=== PATIENT | male | born 1965 | race Caucasian/White ===

== ENCOUNTER → 2016-09-18 | Outpatient (CLI) | payer MEDICAID ==
[2016-09-18 09:24] VITALS: BP 149/85; PULSE 73; RESP 20; TEMP 98; BMI 38.3
--- NOTE | 2016-11-06 05:34 | P.PN ---
Progress Note - Text DATE OF SERVICE: 09/18/2016 CHIEF COMPLAINT: Panniculitis. HISTORY OF PRESENT ILLNESS: Ken Grissom is a 51-year-old gentleman who initially had a Liliana-en-Y gastric bypass performed by Dr. Weiss in 2011. At his heaviest he was 361 pounds. Today he comes in weighing 267 pounds. His previous total weight loss has been 112 pounds. At his height of 5 foot 10 his ideal body weight is 173 pounds. His body mass index has been reduced from 51.9 down to 38.3. He has achieved 50% excess weight loss. Total BMI point reduction is 13.6. Separately, he has reported some weight gain of approximately 23 pounds since his last visit approximately 1-1/2 to 2 years ago. At that time, he reports injury to the left knee and as a result, he has weight gain. Separately over the last 2 to 3 years he has had persistent severe panniculitis which is unresolved despite topical treatment prescriptions with nystatin powder. He reports recurrent skin breakdown including along the bilateral groin and pubis. He has been using nystatin powder for a minimum for 3 years ago. In addition, he also comes in with left upper quadrant abdominal pain. He now presents for further evaluation to address his abdominal pain as well as recurrent panniculitis. PAST MEDICAL HISTORY: 1. Seasonal allergies. 2. Pneumonia. 3. Asthma. 4. Morbid obesity. 5. Dyslipidemia. 6. Kidney stones. 7. Panniculitis. PAST SURGICAL HISTORY: 1. Liliana-en-Y gastric bypass. 2. Upper endoscopy. 3. Kidney stone extraction. MEDICATIONS: 1. Nystatin powder. 2. Multivitamin. 3. Singulair. 4. Vitamin B12. 5. Vitamin D. 6. Symbicort. ALLERGIES: 1. PENICILLIN. 2. STATIN DRUGS. SOCIAL HISTORY: Denies any active tobacco use. FAMILY HISTORY: Pertinent for morbid obesity. REVIEW OF SYSTEMS: CONSTITUTIONAL: Highest weight of 361 pounds for a 5 foot 10 frame. [place] body weight of 173 pounds. Weight gain of 23 pounds in the last 2 years secondary to recent knee injury. Overall maintained weight loss of 94 pounds. GENITOURINARY: History of kidney stones. MUSCULOSKELETAL: Recent injury to the left knee. Otherwise, previous history of osteoarthritis which is improved. HEENT: Denies any trouble with vision or hearing. ENDOCRINE: No reports of active diabetes or thyroid disorder. RESPIRATORY: History of asthma. Denies any recent pneumonia. CARDIOVASCULAR: Denies any chest pain or heart attack. No active reports of dyslipidemia, which is now resolved since her surgery. GI: Denies any dumping syndrome, diarrhea or constipation. NEURO: No reports of stroke or seizure disorders. PSYCH: No reports of depression or suicidal ideation. HEMATOLOGIC: Denies easy bruising and bleeding. PHYSICAL EXAM: VITAL SIGNS: 98.0, 73, 20, 149/85, 5 foot 10, 267 pounds. Body mass index 38.3. ABDOMEN: Severe panniculitis with skin breakdown along the abdominal pannus. Pannus extends over pubis by over 4 cm. Area is tender to touch. GENERAL: Well-developed pleasant male in no acute distress. HEENT: No sclera icterus. Extraocular movements grossly intact. Moist buccal mucosa. Head is atraumatic, normocephalic. Hears conversational speech. No nasal drainage. NECK: Supple without lymphadenopathy. No JV distention. CHEST: Non-labored respirations and equal bilateral excursions. CARDIOVASCULAR: Regular rate and rhythm. Palpable 2+ radial pulses. MUSCULOSKELETAL: No clubbing, cyanosis or edema. NEUROLOGIC: No focal or lateralizing signs. PSYCH: Appropriate affect. Alert and oriented to person, place and time. ASSESSMENT: 1. Morbid obesity due to excess calories. 2. Body mass index reduced from 51.9 down to 38.3. 3. Status post massive weight loss. 4. Recurrent recalcitrant panniculitis of the abdomen. 5. Osteoarthritis of the left knee. 6. Left upper quadrant abdominal pain. 7. Resolved dyslipidemia. 8. Prior history of chronic obstructive sleep apnea, now resolved. 9. History of benign hypertension disease, now resolved. 10. History of dyslipidemia, now resolved. 11. Osteoarthritis of the bilateral knees secondary to morbid obesity, now improved. PLAN: 1. Since being in the program over the past 5 years he has had recurrent and severe panniculitis. Despite topical treatment including systemic therapy, he still continues to have severe panniculitis. Recommend panniculectomy. 2. He also reports left upper quadrant abdominal pain. With his history of Liliana-en-Y gastric bypass, including previous history of kidney stones, recommend a CT of the abdomen and pelvis to review a cause of his pain. This may also be evident of a hernia at the site. 3. Recommend a bariatric metabolic panel as he is over a year to 2 years out from his last visit. 4. Recommend aggressive local treatment to improve his panniculitis prior to surgical intervention. 5. A panniculectomy packet was given especially complications of infection, bleeding, severe pain, cosmetic deformity, flap failure, postoperative seroma and placement of drains. 6. Will recommend a 2-week high-protein, low-caloric diet prior to surgical intervention as to augment is overall nutrition.
== END | disposition home or self-care (01) ==
LOC: BARWHC3 08:53
PROVIDERS: ATTEND Surgery Plastic and Reconstructive Surgery
DX: Z48.815 Encounter for surgical aftercare following surgery on the digestive system (principal); E66.01 Morbid (severe) obesity due to excess calories; Z68.38 Body mass index [BMI] 38.0-38.9, adult; M79.3 Panniculitis, unspecified; M17.12 Unilateral primary osteoarthritis, left knee; Z87.442 Personal history of urinary calculi; R10.12 Left upper quadrant pain; Z98.84 Bariatric surgery status; Z88.0 Allergy status to penicillin; Z88.8 Allergy status to other drugs, medicaments and biological substances; Z79.899 Other long term (current) drug therapy
CPT/HCPCS: 99211

== ENCOUNTER → 2016-10-03 | Outpatient (CLI) | payer MEDICAID ==
--- NOTE | 2016-10-04 08:34 | CT ---
EXAMINATION TYPE: CT abdomen pelvis wo con DATE OF EXAM: 10/03/2016 7:11 AM COMPARISON: 08/08/2014 INDICATION: LUQ pain, bilateral flank pain DLP: 1148 mGycm, Automated exposure control for dose reduction was used. CONTRAST: None Study performed without Oral Contrast TECHNIQUE: Axial images were obtained from above the diaphragm to the pubic rami in the axial plane a t 5 mm thick sections. Reconstructed images are reviewed on the computer in the coronal plane. FINDINGS: Limited CT sections are obtained the lung bases. The lung bases are clear. CT ABDOMEN: Liver: There is an ill-defined hypodensity within the right lobe liver which was present previously. This is similar or slightly smaller in size. Spleen: Normal Pancreas: Normal Adrenal glands: The adrenal glands are normal. Gallbladder: Normal Kidneys: No masses are evident. No hydronephrosis is present. No cysts are present. Multiple bilat eral renal cysts are present. At the inferior pole left kidney there are 2 calcifications measuring 0 .4 and 0.3 cm. Within the midportion of the right kidney is a 1.1 cm calcification. There is a puncta te calcification measuring 0.36 cm in the posterior inferior pole. At the inferior pole is a 0.8 cm c alcification. Calcifications are increasing from 2015. Aorta: Vascular calcification is within the aorta. Inferior vena cava: Normal. CT PELVIS: Loops of bowel within the abdomen and pelvis are normal. Study is without oral contrast limiting evaluation of bowel loops. Postsurgical changes stomach are present. Appendix: Normal as visualized. Urinary bladder: Normal. Genitourinary structures: Prostate appears normal. Osseous structures: No suspicious lytic or sclerotic lesions. Spondylolysis of L5 is present. Degener ative disc changes are present L5-S1 IMPRESSIONS: 1. Bilateral nonobstructing renal stones, increasing in number and size from 2014. 2. Stable to diminished size of ill-defined hypodensity right lobe liver
== END ==
LOC: RADCTMAIN 06:51
PROVIDERS: ATTEND Surgery Plastic and Reconstructive Surgery
DX: N20.0 Calculus of kidney (principal)
CPT/HCPCS: 74176

== ENCOUNTER → 2016-10-08 | Outpatient (CLI) | payer MEDICAID ==
[2016-10-08 16:02] VITALS: BP 131/83; PULSE 63; RESP 16; TEMP 97.7; BMI 36.8
[2016-10-08 16:43] LABS: CH 29.2; CHCM 34.1; HCT 49.4 % (39.0-53.0); HDW 2.84; HGB 16.6 gm/dL (13.0-17.5); MCH 28.9 pg (25.0-35.0); MCHC 33.6 g/dL (31.0-37.0); MCV 86.1 fL (80.0-100.0); RBC 5.74 m/uL (4.30-5.90); RDW 13.2 % (11.5-15.5)
[2016-10-08 17:01] LABS: ALT 56 U/L (21-72); AST 33 U/L (17-59); Alkaline Phosphatase 114 U/L (38-126); Anion Gap 13 mmol/L; Blood Urea Nitrogen 16 mg/dL (9-20); Calcium 9.9 mg/dL (8.4-10.2); Carbon Dioxide 28 mmol/L (22-30); Chloride 101 mmol/L (98-107); Cholesterol 186 mg/dL (<200); Glucose 91 mg/dL (74-99); HDL Cholesterol 55 mg/dL (40-60); Iron 79 ug/dL (49-181); Magnesium 2.1 mg/dL (1.6-2.3); Non-African American GFR(MDRD) >60 (>60 ml/min/1.73 sqM); Phosphorous 3.6 mg/dL (2.5-4.5); Potassium 4.4 mmol/L (3.5-5.1); Sodium 142 mmol/L (137-145); Total Bilirubin 0.7 mg/dL (0.2-1.3); Total Protein 7.5 g/dL (6.3-8.2); Triglycerides 75 mg/dL (<150)
[2016-10-08 17:07] LABS: INR 1.1 (<1.1); Partial Thromboplastin Time 22.1 sec (22.0-30.0); Prothrombin Time 10.9 sec (9.0-12.0)
[2016-10-08 17:12] LABS: % Iron Saturation 21.5 % (20-50); Prealbumin 24 mg/dL (18-36); Total Iron Binding Capacity 367 ug/dL (261-462)
[2016-10-08 18:07] LABS: Vitamin B12 767 pg/mL (239-931)
[2016-10-08 18:12] LABS: Hemoglobin A1C 5.2 % (4.2-6.1)
[2016-10-13 18:28] LABS: Selenium 190 mcg/L (63-160)
--- NOTE | 2016-11-10 08:49 | PN ---
DATE OF SERVICE: 10/08/2016 CHIEF COMPLAINT: Severe panniculitis. HISTORY OF PRESENT ILLNESS: Ken Grissom is a 51-year-old gentleman who underwent gastric bypass in 2011. His highest weight was 361 pounds. Today he comes in weighing 256 pounds. He has lost 105 pounds. Percent excess weight loss is 56%. Body mass index is reduced from 51.9 down to 36.8. Total BMI point reduction is 15.1. He still is 83 pounds overweight. Since her last visit a month ago, he has lost another 11 pounds. Overall he has had chronic and severe panniculitis for well over 3+ years. Despite systemic treatment including topical treatment, his panniculitis is still poorly controlled. He also presents with left upper quadrant abdominal pain of which now presents for further evaluation and management. PAST MEDICAL HISTORY: 1. Seasonal allergies. 2. Pneumonia. 3. Asthma. 4. Morbid obesity. 5. Dyslipidemia. 6. Kidney stones. 7. Panniculitis. PAST SURGICAL HISTORY: 1. Liliana-en-Y gastric bypass. 2. Upper endoscopy. 3. Kidney stone extraction. MEDICATIONS: 1. Nystatin powder. 2. Multivitamin. 3. Singulair. 4. Vitamin B12. 5. Vitamin D. 6. Symbicort. ALLERGIES: 1. PENICILLIN. 2. STATIN DRUGS. SOCIAL HISTORY: Denies any active tobacco use. FAMILY HISTORY: Pertinent for morbid obesity. REVIEW OF SYSTEMS: CONSTITUTIONAL: Highest weight of 361 pounds for a 5-foot 10 frame. [place] body weight of 173 pounds. He has lost another 11 pounds in one month. Total weight loss of 105 pounds. Percent excess weight loss of 56%. GENITOURINARY: History of kidney stones. GASTROINTESTINAL: No reports of gastroesophageal reflux disease or dumping syndrome. MUSCULOSKELETAL: Recent injury to the left knee. Otherwise, previous history of osteoarthritis which is improved. HEENT: Denies any trouble with vision or hearing. ENDOCRINE: No reports of active diabetes or thyroid disorder. RESPIRATORY: History of asthma. Denies any recent pneumonia. CARDIOVASCULAR: Denies any chest pain or heart attack. No active reports of dyslipidemia, which is now resolved since her surgery. NEURO: No reports of stroke or seizure disorders. PSYCH: No reports of depression or suicidal ideation. HEMATOLOGIC: Denies easy bruising and bleeding. PHYSICAL EXAM: VITAL SIGNS: 97.7, 63, 16, 131/83, 5' 10, 256 pounds. Body mass index of 36.8. ABDOMEN: Hyperemia of the pannus with pannus extends over pubis over 4 cm. Severe panniculitis with mild improvement. Soft, nontender, nondistended. GENERAL: Well-developed pleasant male in no acute distress. HEENT: No sclera icterus. Extraocular movements grossly intact. Moist buccal mucosa. Head is atraumatic, normocephalic. Hears conversational speech. No nasal drainage. NECK: Supple without lymphadenopathy. No JV distention. CHEST: Non-labored respirations and equal bilateral excursions. CARDIOVASCULAR: Regular rate and rhythm. Palpable 2+ radial pulses. MUSCULOSKELETAL: No clubbing, cyanosis or edema. NEUROLOGIC: No focal or lateralizing signs. PSYCH: Appropriate affect. Alert and oriented to person, place and time. STUDIES: CT of the abdomen and pelvis was reviewed with him in detail with findings consistent with bilateral obstructing kidney stones with increase in size. No evidence of a bowel obstruction noted. LABS: Hemoglobin normal at 16.6. LDL was elevated at 116. The rest of labs within normal limits. ASSESSMENT: 1. Morbid obesity due to excess calories, improved. 2. Body mass index reduced from 51.9 down of 36.8. 3. Status post massive weight loss, 105 pounds. 4. Recurrent recalcitrant panniculitis of the abdomen. 5. Osteoarthritis of the left knee. 6. Left upper quadrant abdominal pain. 7. Resolved dyslipidemia. 8. Prior history of chronic obstructive sleep apnea, now resolved. 9. History of benign hypertension disease, now resolved. 10. History of dyslipidemia, now resolved. 11. Osteoarthritis of the bilateral knees secondary to morbid obesity, now improved. 12. Status post Liliana-en-Y gastric bypass. 13. Panniculitis. PLAN: 1. I strongly recommend panniculectomy as despite moderate and systemic treatment for over 3+ years, he still has severe panniculitis. 2. He does have history of kidney stones which he should follow up with his urologist. 3. His bariatric metabolic panel was reviewed without any evidence of obvious nutritional deficiencies. 4. For optimal nutrition including recovery I have recommended a 2 week high protein, low caloric diet prior to his procedure. 5. Benefits and risks of panniculectomy including bleeding, infection, flap failure, postoperative seroma and need for drains were also reviewed. 6. Will need to wear abdominal binder at all times. 7. Postoperative recovery at least for no lifting over 4 pounds for 4 weeks was also reviewed. 8. Deep venous thrombosis prophylaxis. 9. Antibiotic prophylaxis. 10. Recommend overnight observation for primarily pain control as well. MTDD
== END | disposition home or self-care (01) ==
LOC: BARWHC3 14:16
PROVIDERS: ATTEND Surgery Plastic and Reconstructive Surgery
DX: Z48.815 Encounter for surgical aftercare following surgery on the digestive system (principal); E66.01 Morbid (severe) obesity due to excess calories; Z98.84 Bariatric surgery status; E21.1 Secondary hyperparathyroidism, not elsewhere classified; E89.1 Postprocedural hypoinsulinemia; D50.8 Other iron deficiency anemias; E44.0 Moderate protein-calorie malnutrition; E55.9 Vitamin D deficiency, unspecified; K74.1 Hepatic sclerosis; N19 Unspecified kidney failure; K50.90 Crohn's disease, unspecified, without complications
CPT/HCPCS: 80053; 80061; 82306; 82525; 82607; 82728; 82746; 83036; 83540; 83550; 83735; 83970; 84100; 84134; 84255; 84425; 84443; 84590; 84630; 85027; 85610; 85730; 99211

== ENCOUNTER → 2016-12-03 | Outpatient (CLI) | payer MEDICAID ==
[2016-12-03 16:14] LABS: EKG EKG PERFORMED
[2016-12-03 16:30] LABS: Basophils % (A) 0 %; CH 29.1; CHCM 34.4; Eosinophils # (A) 0.4 k/uL (0-0.7); Eosinophils % (A) 6 %; HCT 47.1 % (39.0-53.0); HDW 3.11; HGB 15.9 gm/dL (13.0-17.5); Luc # (Auto) 0.23; Luc % (Auto) 3; Lymphocytes # (A) 2.1 k/uL (1.0-4.8); Lymphocytes % (A) 31 %; MCH 28.6 pg (25.0-35.0); MCHC 33.7 g/dL (31.0-37.0); Mean Platelet Volume 6.5; Monocytes # (A) 0.4 k/uL (0-1.0); Monocytes % (A) 6 %; Neutrophils # (A) 3.7 k/uL (1.3-7.7); Neutrophils % (A) 54 %; RBC 5.54 m/uL (4.30-5.90); RDW 13.4 % (11.5-15.5); WBC 6.9 k/uL (3.8-10.6); WBC (Perox) 6.91
[2016-12-03 16:51] LABS: ALT 46 U/L (21-72); AST 29 U/L (17-59); Alkaline Phosphatase 106 U/L (38-126); Anion Gap 9 mmol/L; Blood Urea Nitrogen 14 mg/dL (9-20); Calcium 9.2 mg/dL (8.4-10.2); Carbon Dioxide 31 mmol/L (22-30); Chloride 101 mmol/L (98-107); Glucose 97 mg/dL (74-99); Non-African American GFR(MDRD) >60 (>60 ml/min/1.73 sqM); Potassium 3.9 mmol/L (3.5-5.1); Sodium 141 mmol/L (137-145); Total Bilirubin 0.8 mg/dL (0.2-1.3); Total Protein 7.4 g/dL (6.3-8.2)
== END ==
LOC: LABWHC1 15:57
PROVIDERS: ATTEND Surgery Plastic and Reconstructive Surgery
DX: Z01.810 Encounter for preprocedural cardiovascular examination (principal); Z01.812 Encounter for preprocedural laboratory examination
CPT/HCPCS: 36415; 80053; 85025; 93005

== ENCOUNTER → 2016-12-03 | Outpatient (CLI) | payer MEDICAID ==
[2016-12-03 14:49] VITALS: BP 136/87; PULSE 60; RESP 16; TEMP 98.2; BMI 37.5
--- NOTE | 2017-01-28 03:52 | P.PN ---
Progress Note - Text DATE OF SERVICE: 12/03/2016 CHIEF COMPLAINT: History of panniculitis. HISTORY OF PRESENT ILLNESS: Ken Grissom is a 52-year-old gentleman who comes in with a long-standing history of severe panniculitis. At his height of 5 foot 10, his ideal body weight is 173 pounds. His highest weight was 361 pounds. Today he comes in weighing 261 pounds. He maintained a 100 pound weight loss. Percentage of weight loss is 53%. Body mass index is reduced from 51.9 down to 37.6. Total BMI point reduction is 14.3. He is still 88 pounds overweight. He has actually gained 6 pounds since the last evaluation. Reports intermittent left upper quadrant abdominal pain. Denies any personal history of MRSA infection. With his history of chronic panniculitis he is seeking panniculectomy. PAST MEDICAL HISTORY: 1. Seasonal allergies. 2. Pneumonia. 3. Asthma. 4. Morbid obesity. 5. Dyslipidemia. 6. Kidney stones. 7. Panniculitis. PAST SURGICAL HISTORY: 1. Liliana-en-Y gastric bypass. 2. Upper endoscopy. 3. Kidney stone extraction. MEDICATIONS: 1. Nystatin powder. 2. Multivitamin. 3. Singulair. 4. Vitamin B12. 5. Vitamin D. 6. Symbicort. ALLERGIES: 1. PENICILLIN. 2. STATIN DRUGS. SOCIAL HISTORY: Denies any active tobacco use. FAMILY HISTORY: Pertinent for morbid obesity. REVIEW OF SYSTEMS: CONSTITUTIONAL: At his height of 5 foot 10, his ideal body weight is 173 pounds. His highest weight was 361 pounds. Today he comes in weighing 261 pounds. He maintained a 100 pound weight loss. Percentage of weight loss is 53%. Body mass index is reduced from 51.9 down to 37.6. Total BMI point reduction is 14.3. He is still 88 pounds overweight. GENITOURINARY: History of kidney stones. GASTROINTESTINAL: No reports of gastroesophageal reflux disease or dumping syndrome. MUSCULOSKELETAL: Recent injury to the left knee. Otherwise, previous history of osteoarthritis which is improved. HEENT: Denies any trouble with vision or hearing. ENDOCRINE: No reports of active diabetes or thyroid disorder. RESPIRATORY: History of asthma. Denies any recent pneumonia. CARDIOVASCULAR: Denies any chest pain or heart attack. No active reports of dyslipidemia, which is now resolved since her surgery. NEURO: No reports of stroke or seizure disorders. PSYCH: No reports of depression or suicidal ideation. HEMATOLOGIC: Denies easy bruising and bleeding. PHYSICAL EXAM: VITAL SIGNS: 98.2, 60, 16, 136/87, 5 feet 10, 261 pounds. Body mass index of 37.6. ABDOMEN: Hyperemia noted along the pannus consistent with chronic panniculitis. GENERAL: Well-developed pleasant male in no acute distress. HEENT: No sclera icterus. Extraocular movements grossly intact. Moist buccal mucosa. Head is atraumatic, normocephalic. Hears conversational speech. No nasal drainage. NECK: Supple without lymphadenopathy. No JV distention. CHEST: Non-labored respirations and equal bilateral excursions. CARDIOVASCULAR: Regular rate and rhythm. Palpable 2+ radial pulses. MUSCULOSKELETAL: No clubbing, cyanosis or edema. NEUROLOGIC: No focal or lateralizing signs. PSYCH: Appropriate affect. Alert and oriented to person, place and time. ASSESSMENT: 1. Morbid obesity due to excess calories, improved. 2. Body mass index reduced from a 51.9 down to 37.6. 3. Status post massive weight loss. 4. Recurrent recalcitrant panniculitis of the abdomen. 5. Osteoarthritis of the left knee. 6. Left upper quadrant abdominal pain. 7. Resolved dyslipidemia. 8. Prior history of chronic obstructive sleep apnea, now resolved. 9. History of benign hypertension disease, now resolved. 10. History of dyslipidemia, now resolved. 11. Osteoarthritis of the bilateral knees secondary to morbid obesity, now improved. 12. Status post Liliana-en-Y gastric bypass. 13. History of peritoneal adhesions. PLAN: 1. On further discussion, he reports of abdominal pain and likely risk of hernia. 2. Recommend panniculectomy. Hernia repair may be performed at time of his procedure. 3. Recommend potential laparoscopic lysis of adhesions for history of peritoneal adhesions, 4. Overall he has maintained a 53% excess weight loss and maintained weight loss post procedure was also reviewed at length. 5. Will need inpatient hospitalization anticipated over 2 nights. 6. Risk of seroma, flap failure as well as infection was also reviewed. 7. Recommend abdominal binder post procedure. 8. Will need at minimum 4 to 6 weeks postop recovery and no lifting over 4 pounds. 9. Recommend preoperative labs. LABS: Reviewed demonstrating hemoglobin of 15.9. [facility]
== END | disposition home or self-care (01) ==
LOC: BARWHC3 14:09
PROVIDERS: ATTEND Surgery Plastic and Reconstructive Surgery
DX: Z01.818 Encounter for other preprocedural examination (principal)
CPT/HCPCS: 99211

== ENCOUNTER 2016-12-08 07:15 | Inpatient (IN) | payer MEDICAID ==
[~2016-12-08 07:15] MED LIST: CLINDAMYCIN 900 MG in DEXTROSE 5% IN WATER 50 ML IVPB ONE; DEXAMETHASONE SOD PHOSPHATE 10 MG/ML 1 ML VIAL IV ONE; LACTATED RINGERS 1,000 ML IV SCH; MIDAZOLAM 2 MG/2 ML VIAL IV PRN; ONDANSETRON 4 MG/2 ML VIAL IVP ONE; SCOPOLAMINE 1.5MG/72HR PATCH TRANSDERM ONE
[2016-12-08] MEDS ORDERED: ACETAMINOPHEN IV (For NPO) 1,000 MG in EMPTY BAG 1 BAG IVPB ONE (07:49)
[2016-12-08] MEDS ORDERED: HEPARIN SODIUM,PORCINE 5,000 UNIT/ML 1 ML VIAL SQ ONE (07:49)
--- NOTE | 2016-12-08 07:49 | P.GSHP ---
History of Present Illness H&P Date: 12/08/16 CHIEF COMPLAINT: Severe panniculitis. HISTORY OF PRESENT ILLNESS: Ken Grissom is a 51-year-old gentleman who underwent gastric bypass in 2011. His highest weight was 361 pounds. Today he comes in weighing 261 pounds. He has lost 100 pounds. Percent excess weight loss is 56%. Body mass index is reduced from 51.9 down to 37.6. Total BMI point reduction is 15.1. Overall he has had chronic and severe panniculitis for well over 3+ years. Despite systemic treatment including topical treatment, his panniculitis is still poorly controlled. He also presents with left upper quadrant abdominal pain of which now presents for further evaluation and management. PAST MEDICAL HISTORY: 1. Seasonal allergies. 2. Pneumonia. 3. Asthma. 4. Morbid obesity. 5. Dyslipidemia. 6. Kidney stones. 7. Panniculitis. PAST SURGICAL HISTORY: 1. Liliana-en-Y gastric bypass. 2. Upper endoscopy. 3. Kidney stone extraction. MEDICATIONS: 1. Nystatin powder. 2. Multivitamin. 3. Singulair. 4. Vitamin B12. 5. Vitamin D. 6. Symbicort. ALLERGIES: 1. PENICILLIN. 2. STATIN DRUGS. SOCIAL HISTORY: Denies any active tobacco use. FAMILY HISTORY: Pertinent for morbid obesity. REVIEW OF SYSTEMS: CONSTITUTIONAL: Highest weight of 361 pounds for a 5-foot 10 frame. [place] body weight of 173 pounds. He has lost another 11 pounds in one month. Total weight loss of 100 pounds. Percent excess weight loss of 56%. GENITOURINARY: History of kidney stones. GASTROINTESTINAL: No reports of gastroesophageal reflux disease or dumping syndrome. MUSCULOSKELETAL: Recent injury to the left knee. Otherwise, previous history of osteoarthritis which is improved. HEENT: Denies any trouble with vision or hearing. ENDOCRINE: No reports of active diabetes or thyroid disorder. RESPIRATORY: History of asthma. Denies any recent pneumonia. CARDIOVASCULAR: Denies any chest pain or heart attack. No active reports of dyslipidemia, which is now resolved since her surgery. NEURO: No reports of stroke or seizure disorders. PSYCH: No reports of depression or suicidal ideation. HEMATOLOGIC: Denies easy bruising and bleeding. PHYSICAL EXAM: VITAL SIGNS: 97.7, 63, 16, 131/83, 5' 10, 261 pounds. Body mass index of 37.6. ABDOMEN: Hyperemia of the pannus with pannus extends over pubis over 4 cm. Panniculitis with hyperemia and ulceration. Soft, nontender, nondistended. GENERAL: Well-developed pleasant male in no acute distress. HEENT: No sclera icterus. Extraocular movements grossly intact. Moist buccal mucosa. Head is atraumatic, normocephalic. Hears conversational speech. No nasal drainage. NECK: Supple without lymphadenopathy. No JV distention. CHEST: Non-labored respirations and equal bilateral excursions. CARDIOVASCULAR: Regular rate and rhythm. Palpable 2+ radial pulses. MUSCULOSKELETAL: No clubbing, cyanosis or edema. NEUROLOGIC: No focal or lateralizing signs. PSYCH: Appropriate affect. Alert and oriented to person, place and time. ASSESSMENT: 1. Morbid obesity due to excess calories, improved. 2. Body mass index reduced from 51.9 down to 37.6 3. Status post massive weight loss. 4. Recurrent recalcitrant panniculitis of the abdomen. 5. Osteoarthritis of the left knee. 6. Left upper quadrant abdominal pain. 7. Resolved dyslipidemia. 8. Prior history of chronic obstructive sleep apnea, now resolved. 9. History of benign hypertension disease, now resolved. 10. History of dyslipidemia, now resolved. 11. Osteoarthritis of the bilateral knees secondary to morbid obesity, now improved. 12. Status post Liliana-en-Y gastric bypass. PLAN: 1. I strongly recommend panniculectomy as despite moderate and systemic treatment for over 3+ years, he still has severe panniculitis. 2. His bariatric metabolic panel was reviewed without any evidence of obvious nutritional deficiencies. 3. For optimal nutrition including recovery I have recommended a 2 week high protein, low caloric diet prior to his procedure. 4. Benefits and risks of panniculectomy including bleeding, infection, flap failure, postoperative seroma and need for drains were also reviewed. 5. Will need to wear abdominal binder at all times. 6. Postoperative recovery at least for no lifting over 4 pounds for 4 weeks was also reviewed. 7. Deep venous thrombosis prophylaxis. 8. Antibiotic prophylaxis. 9. Recommend overnight observation for primarily pain control as well. 10. He has completed diagnostic studies demonstrating history of kidney stones; however, his left upper quadrant pain is at high risk for intra-abdominal adhesions. He has elected for laparoscopic lysis of adhesions at the time of his panniculectomy. Past Medical History Past Medical History: Asthma Additional Past Medical History / Comment(s): Pt passed 2 kidney stones in August 2014 at 2 different times. History of Any Multi-Drug Resistant Organisms: None Reported Past Surgical History: Bariatric Surgery, Orthopedic Surgery Additional Past Surgical History / Comment(s): Left knee surgery pt for torn meniscus and bone on bone (pt doesn't know the name) 2015. RT ARM SX- REATTACHMENT OF BICEP, EGD, LILIANA EN Y, Past Anesthesia/Blood Transfusion Reactions: Postoperative Nausea & Vomiting ( PONV) Past Psychological History: No Psychological Hx Reported Smoking Status: Never smoker Past Alcohol Use History: Rare Past Drug Use History: None Reported - Past Family History Father Family Medical History: Cancer Additional Family Medical History / Comment(s): Prostate Cancer for Father. Grandparents brain and bone cancer. Medications and Allergies Home Medications Medication Instructions Recorded Confirmed Type Budesonide-Formot 160-4.5 Mcg 2 puff INHALATION BID 03/08/14 12/04/16 History [Symbicort 160-4.5 Mcg Inhaler] Montelukast Sodium [Singulair] 10 mg PO DAILY 03/08/14 12/04/16 History Albuterol Sulfate [Ventolin HFA] 2 puff INHALATION DAILY PRN 12/04/16 12/04/16 History Multivitamin [Men's Multi-Vitamin] 1 each PO DAILY 12/04/16 12/04/16 History Allergies Allergy/AdvReac Type Severity Reaction Status Date / Time Penicillins AdvReac Anaphylaxis Verified 12/04/16 08:29 [id number] Reductase AdvReac Chest Pain Verified 12/04/16 08:29 Inhibitor
[2016-12-08] MEDS ORDERED: LIDOCAINE 1% 20 ML VIAL (10MG/ML) FOR IV START INTRADERMA ONE (08:25)
[2016-12-08] MEDS ORDERED: NEOSTIGMINE 1 MG/ML 10 ML VIAL ONE (09:33)
[2016-12-08] MEDS ORDERED: ROCURONIUM BROMIDE 10 MG/ML 10 ML VIAL IV ONE (09:33)
[2016-12-08] MEDS ORDERED: fentaNYL (PF) 50 MCG/ML 2 ML AMP ONE (09:33)
[2016-12-08] MEDS ORDERED: LIDOCAINE 1% INJ 10MG/ML (20 ML MDV) ONE (09:33)
[2016-12-08] MEDS ORDERED: SUCCINYLCHOLINE CHLORIDE 100 MG/5 ML SYR IV ONE (09:33)
[2016-12-08] MEDS ORDERED: GLYCOPYRROLATE 0.2 MG/ML 2 ML VIAL ONE (09:33)
[2016-12-08] MEDS ORDERED: PROPOFOL 10 MG/ML 20 ML VIAL IV ONE (09:33)
[2016-12-08] MEDS ORDERED: ePHEDrine 50 MG/ML 1 ML AMP ONE (09:33)
[2016-12-08] MEDS ORDERED: MIDAZOLAM 2 MG/2 ML VIAL ONE (09:33)
[2016-12-08] MEDS ORDERED: BUPIVACAIN-EPI 0.25%-1:200,000 30 ML VIAL SQ ONE (10:14)
[2016-12-08] MEDS ORDERED: LACTATED RINGERS 1,000 ML IV ONE ×2 (11:07→11:56)
[2016-12-08] MEDS ORDERED: NALOXONE 0.4 MG/ML 1 ML VIAL IV PRN ×2 (13:42→13:44)
[2016-12-08] MEDS ORDERED: HYDROcodone/APAP 15 ML SOLUTION PO PRN (13:42)
[2016-12-08] MEDS ORDERED: ONDANSETRON 4 MG/2 ML VIAL IVP PRN (13:42)
[2016-12-08] MEDS ORDERED: ALBUTEROL NEBULIZED 2.5 MG/3 ML INHALATION PRN (13:45)
--- NOTE | 2016-12-08 13:48 | P.PCN ---
Date of Procedure: 12/08/16 Preoperative Diagnosis: Left upper quadrant abdominal pain, history of gastric bypass, massive weight loss of 100 pounds, recurrent severe panniculitis Postoperative Diagnosis: Same, severe intra-abdominal adhesions epigastrium, left upper quadrant Procedure(s) Performed: Laparoscopic lysis of adhesions over 1 hour, panniculectomy 5.5 pounds, repair of ventral hernia with bilateral advancement flap 35 cm x 16 cm Anesthesia: GETRosalva, local (90 mL mixture of Marcaine with normal saline) Surgeon: Arielle Medeiros Estimated Blood Loss (ml): 80 Pathology: none sent Condition: stable Disposition: floor Operative Findings: No inguinal hernias, severe epigastric and left upper quadrant abdominal adhesions, thick fibrous scar tissue of left upper abdomen loss of subcutaneous tissue also excised
[2016-12-08] MEDS: HYDROmorphone 1 MG/ML 1 ML SYRINGE IVP PRN ×2 (14:16→14:21)
[2016-12-08 14:43] VITALS: RESP 16
[2016-12-08] MEDS: 0.9% NACL WITH KCL 20 MEQ/L 1,000 ML IV SCH ×2 (14:59→22:05)
[2016-12-08 15:21] VITALS: BMI 37.4
[2016-12-08] MEDS: HYDROmorphone PCA 5 MG/25 ML SYRINGE IV PRN ×2 (15:24→20:52)
--- NOTE | 2016-12-08 16:09 | P.OP ---
Date of Procedure: 12/08/16 Description of Procedure: SURGEON: PANDA MORENO MD CIGAR MAKING MACHINE OPERATOR: DEANDRE MORALES PREOPERATIVE DIAGNOSES: 1. Morbid obesity due to excess calories, improved. 2. Body mass index reduced from 51.9 down to 37.6 3. Status post massive weight loss. 4. Recurrent recalcitrant panniculitis of the abdomen. 5. Osteoarthritis of the left knee. 6. Left upper quadrant abdominal pain. 7. Resolved dyslipidemia. 8. Prior history of chronic obstructive sleep apnea, now resolved. 9. History of benign hypertension disease, now resolved. 10. History of dyslipidemia, now resolved. 11. Osteoarthritis of the bilateral knees secondary to morbid obesity, now improved. 12. Status post Liliana-en-Y gastric bypass. POSTOPERATIVE DIAGNOSES: 1. Morbid obesity due to excess calories, improved. 2. Body mass index reduced from 51.9 down to 37.6 3. Status post massive weight loss. 4. Recurrent recalcitrant panniculitis of the abdomen. 5. Osteoarthritis of the left knee. 6. Left upper quadrant abdominal pain. 7. Resolved dyslipidemia. 8. Prior history of chronic obstructive sleep apnea, now resolved. 9. History of benign hypertension disease, now resolved. 10. History of dyslipidemia, now resolved. 11. Osteoarthritis of the bilateral knees secondary to morbid obesity, now improved. 12. Status post Liliana-en-Y gastric bypass. 13. Peritoneal adhesions, epigastrium and right upper quadrant greater omentum to abdominal wall. 14. Ventral hernia, 14 x 35 cm, initial and reducible, unrelated to previous bariatric procedure. OPERATION: 1. Panniculectomy, 5.5 pounds. 2. Primary repair of ventral hernia 14 x 35 cm with bilateral rectus abdominous muscle advancement. 3. Laparoscopic lysis of adhesions over 45 minutes. ANESTHESIA: General with 90 mL of quarter percent Marcaine with epinephrine and normal saline mixture. ESTIMATED BLOOD LOSS: 80 mL SPECIMENS REMOVED: Pannus 5.5 pounds. COMPLICATIONS: None. CONDITION: Stable. DRAINS: Two #19 [place] drains below abdominal flap extending through the pubis. OPERATIVE FINDINGS: 1. Pannus weighing 5.5 pounds, excised. 2. Abdominal ventral hernia of 14 x 35 cm along the midline repaired with bilateral rectus abdominous muscle advancement. INDICATIONS: Ken Grissom is a 51-year-old gentleman who underwent gastric bypass in 2011. His highest weight was 361 pounds. Today he comes in weighing 261 pounds. He has lost 100 pounds. Percent excess weight loss is 56%. Body mass index is reduced from 51.9 down to 37.6. Overall he has had chronic and severe panniculitis for well over 3+ years. Despite systemic treatment including topical treatment, his panniculitis is still poorly controlled. He also presented with left upper quadrant abdominal pain of which now presents for further evaluation and management. Given his clinical symptoms, including massive weight loss, he elected for surgical intervention with a panniculectomy. Benefits and risks of the procedure including but not limited to bleeding, infection, risk of flap failure, chronic pain, abdominal wall seromas, skin necrosis were described at length. Additionally, he has left upper quadrant abdominal pain where diagnostic laparoscopy was reviewed to address his intra-abdominal adhesions. Informed consent was obtained. DESCRIPTION: The patient was brought into the operating room and laid in supine position. After general induction, a Carranza catheter was placed. The abdomen was then prepped and draped in standard sterile fashion using ChloraPrep. The skin was prepped as far laterally to the back, inferiorly to the upper thighs and superiorly to above the bilateral chest. A timeout protocol was confirmed with the surgical team regarding patient's name , procedure to be performed, including preoperative medications and DVT prophylaxis. Once the time-out protocol was confirmed with the surgical team, the patient was marked with indelible marker whereby the midline of the xiphoid to the mons pubis was marked. To minimize bleeding, a mixture of local and normal saline was infiltrated along the proposed incision sites. The anterior/superior iliac spine along the bilateral hips was also marked. Approximately 8 cm above the base of the penis, a transverse incision was made for the inferior portion of the flap. Using a #10 blade, the incision was taken from the midline laterally to above the anterior/superior iliac spine, initially on the left side of the patient and then on the right side of the patient. Electro-Bovie cautery was used to control for hemostasis. The dissection was taken down to the level of the fascia. Landmarks used were the xiphoid process as well as the bilateral costal margins for the superior margin. Care was taken to avoid any creation of dog ears during the dissection to the proposed landmarks. A dense fibrous scar of the left upper quadrant was also confirmed as the area of his pain. A pannus retractor was placed given the heavy size of his abdominal wall flap. A diagnosis laparoscopy was performed as the abdominal flap was elevated. A 5- mm trocar was placed along the right upper quadrant using laparoscopic trocar entry. The abdomen was insufflated to 15 mmHg pressure which he tolerated well. Diagnosed laparoscopy confirmed multiple greater omentum to abdominal wall adhesions of the epigastrium particularly of the left upper quadrant which was the source of his moderate pain. An additional 5 m trocar was placed below the umbilicus and another along the right lower quadrant under direct visualization. Using a Sonicision, extensive lysis of adhesions performed within the abdominal cavity of over 45 minutes. All instruments pneumoperitoneum was evacuated from the abdominal cavity. The port sites were oversewn using 0 Vicryl in [id number] fashion. This concluded the laparoscopic portion of this case. Once hemostasis was checked, a large ventral hernia fascial defect of 14 x 35 cm was identified unrelated to his bariatric procedure. During this dissection, the umbilicus was truncated at its fascial insertion. The rectus border along the external oblique was identified and marked. A bilateral rectus abdominis muscle advancement was prepared using fascial imbrication. Starting from the xiphoid process, fascial imbrication was performed using #2 Ethibond. Multiple facial imbrications at least 6 layers were performed. The ventral hernia defect was completely repaired and closed. For postop analgesia, local with sensorcaine and normal saline mixture was infiltrated along the midline and fascia. Hemostasis was once again checked with electro-Bovie cautery and all defects were addressed. Attention was now brought to closure of the flap. Using stainless steel skin sita, the midline was once again marked of the upper flap as well as the pubic commissure. The patient was placed in a flexed position of approximately 30 degrees at the hips. The pannus was extended inferiorly to the feet. The upper flap was created once the excess skin was excised. Again care was taken to avoid any dog ears along the lateral aspect of the incisions. Once excised, the pannus was weighed at 5.5 pounds. The upper and lower flaps were reapproximated at the midline and then laterally to the skin with skin sita. Once reapproximated, the skin was closed in layers using 0 Vicryl for the superficial fascial system followed by running 3- 0 Monocryl for the deep dermis in a running subcuticular fashion. Prior to skin closure, two round #19 [place] drains were placed underneath the flap and brought out just inferior to the incision along the pubis. Drain stitch using 2-0 nylon was placed. Once the incision was closed, bulb suction was attached. Hemostasis was checked. At the end of the procedure, the needle, sponge and instrument count was verified correct. Dermabond tape and liquid were placed along the incisions. Once dried, OptiFoam RocketOz AG antibiotic dressings were placed. At the NICOLLE insertion sites, tacking suture using 2-0 nylon was placed. The drains were placed to bulb suction. CHG Tegaderm was placed to prevent risk of infection at the NICOLLE sites. The patient was then transferred to a hospital bed in a beach chair position. An abdominal binder was placed and marked. The patient was taken to the postanesthesia care unit in stable condition, awake and extubated. Total time for procedure from skin to skin was 184 minutes. The intraoperative findings were discussed with his family who was pleased with the level of care.
[2016-12-08] MEDS: ALBUTEROL NEBULIZED 2.5 MG/3 ML INHALATION SCH ×2 (16:43→19:41)
[2016-12-08] MEDS: CLINDAMYCIN 900 MG in DEXTROSE 5% IN WATER 50 ML IVPB SCH ×2 (18:07)
[2016-12-09] MEDS: HYDROmorphone PCA 5 MG/25 ML SYRINGE IV PRN (02:29)
[2016-12-09] MEDS: CLINDAMYCIN 900 MG in DEXTROSE 5% IN WATER 50 ML IVPB SCH ×2 (02:32)
[2016-12-09] MEDS: 0.9% NACL WITH KCL 20 MEQ/L 1,000 ML IV SCH (05:08)
[2016-12-09] MEDS: ALBUTEROL NEBULIZED 2.5 MG/3 ML INHALATION SCH ×3 (07:02→15:46)
[2016-12-09 07:42] VITALS: BP 139/66; TEMP 98.2
[2016-12-09] MEDS ORDERED: 0.9% NACL WITH KCL 20 MEQ/L 1,000 ML IV SCH (08:00)
[2016-12-09] MEDS ORDERED: HYDROcodone/APAP 5-325MG 1 EACH TAB PO PRN (08:53)
[2016-12-09] MEDS ORDERED: HYDROcodone/APAP 5-325MG 1 EACH TAB PO STA (08:53)
[2016-12-09] MEDS ORDERED: HYDROmorphone 1 MG/ML 1 ML SYRINGE IVP PRN (08:53)
--- NOTE | 2016-12-09 08:53 | P.PN ---
Subjective Principal diagnosis: Adiposis panniculus with panniculitis The patient is status post panniculectomy of 6 pounds including ventral hernia repair using muscle advancement flap. Pain was controlled with [employer]. No reports of fevers or chills. Carranza catheters assessment discontinued at bedside. Objective - Vital Signs Vital signs: Vital Signs Temp 98.2 F 12/09/16 07:42 Pulse 76 12/09/16 07:42 Resp 16 12/09/16 07:42 BP 139/66 12/09/16 07:42 Pulse Ox 97 12/09/16 07:42 Intake & Output 12/08/16 12/09/16 12/09/16 18:59 06:59 18:59 Intake Total 3931 1800 Output Total 1460 555 Balance 2471 1245 Weight 118.3 kg Intake: IV 3806 1800 0.9% NaCl with KCl 20 Meq 1800 /l 1,000 ml @ 150 mls/hr IV .[id number] [facility] Rx#: [id number] Oral 125 Output: Drainage 115 Left Lower Abdomen 80 Right Lower Abdomen 35 Urine 1350 440 Uretheral (Carranza) 440 Estimated Blood Loss 110 Other: Voiding Method Indwelling Catheter Indwelling Catheter - Exam GENERAL: Well developed and in no acute distress. Pleasant. HEENT: No sclera icterus. Extraocular movements grossly intact. Moist buccal mucosa. Head is atraumatic, normocephalic. Hears conversational speech. No nasal drainage. NECK: Supple without lymphadenopathy. No JV distention. CHEST: Non-labored respirations and equal bilateral excursions. CARDIOVASCULAR: Regular rate and rhythm. Palpable 2+ radial pulses. ABDOMEN: Soft, nondistended. Minimal. Incisional tenderness. Abdominal binder clean dry and intact. NICOLLE serosanguineous. Flaps viable. MUSCULOSKELETAL: No clubbing, cyanosis or edema. NEUROLOGIC: No focal or lateralizing signs. PSYCH: Appropriate affect. Alert and oriented to person, place and time. Assessment and Plan (1) Panniculus adiposus Status: Acute (2) Panniculitis Status: Acute (3) Bariatric surgery status Status: Acute (4) Ventral hernia without obstruction or gangrene Status: Acute (5) Asthma Status: Acute (6) Peritoneal adhesions Status: Acute (7) S/P laparoscopy Status: Acute (8) S/P panniculectomy Status: Acute Plan: 1. Carranza has been discontinued. We'll await voiding trial. 2. Pain tablets by mouth. 3. Wear abdominal binder at all times. 4. NICOLLE teaching prior to discharge this afternoon.
[2016-12-09] MEDS ORDERED: MONTELUKAST 10 MG TAB PO SCH (09:00)
[2016-12-09] MEDS ORDERED: ENOXAPARIN 40 MG/0.4 ML SYRINGE SQ SCH (09:00)
[2016-12-09] MEDS ORDERED: PANTOPRAZOLE 40 MG/10 ML VIAL IV SCH (09:00)
[2016-12-09] MEDS ORDERED: TAMSULOSIN 0.4 MG CAP.ER.24H PO STA (11:27)
[2016-12-09 15:48] VITALS: PULSE 78
[2016-12-10] MEDS ORDERED: PANTOPRAZOLE 40 MG TABLET PO SCH (07:30)
--- NOTE | 2016-12-12 21:34 | P.DS ---
Providers Date of admission: 12/08/16 07:15 Expected date of discharge: 12/09/16 Attending physician: Arielle Medeiros Primary care physician: Harjinder Almanzar - Discharge Diagnosis(es) (1) Panniculus adiposus Status: Acute (2) Panniculitis Status: Acute (3) Bariatric surgery status Status: Acute (4) Ventral hernia without obstruction or gangrene Status: Acute (5) Asthma Status: Acute (6) Peritoneal adhesions Status: Acute (7) S/P laparoscopy Status: Acute (8) S/P panniculectomy Status: Acute Hospital Course: POSTOPERATIVE DIAGNOSES: 1. Morbid obesity due to excess calories, improved. 2. Body mass index reduced from 51.9 down to 37.6 3. Status post massive weight loss. 4. Recurrent recalcitrant panniculitis of the abdomen. 5. Osteoarthritis of the left knee. 6. Left upper quadrant abdominal pain. 7. Resolved dyslipidemia. 8. Prior history of chronic obstructive sleep apnea, now resolved. 9. History of benign hypertension disease, now resolved. 10. History of dyslipidemia, now resolved. 11. Osteoarthritis of the bilateral knees secondary to morbid obesity, now improved. 12. Status post Liliana-en-Y gastric bypass. 13. Peritoneal adhesions, epigastrium and right upper quadrant greater omentum to abdominal wall. 14. Ventral hernia, 14 x 35 cm, initial and reducible, unrelated to previous bariatric procedure. HOSPITAL COURSE: The patient is a 51-year-old gentleman with history of severe panniculitis following over 100 pound weight loss from gastric bypass open 3+ years ago. He underwent a panniculectomy with over 5 pounds of skin excised. Separately a large ventral hernia was also repaired. Prior to discharge, his pain was controlled. He was tolerating diet. Immediate follow-up with the bariatric center within 48-72 hours as advised. teaching was also reviewed. Pertinent Studies: None. Procedures: OPERATION: 1. Panniculectomy, 5.5 pounds. 2. Primary repair of ventral hernia 14 x 35 cm with bilateral rectus abdominous muscle advancement. 3. Laparoscopic lysis of adhesions over 45 minutes. Patient Condition at Discharge: Stable Plan - Discharge Summary New Discharge Prescriptions: Hydrocodone/Acetaminophen [[place] 5-325] 1 - 2 each PO Q6HR PRN #60 tab PRN Reason: Pain Discharge Medication List Budesonide-Formot 160-4.5 Mcg [Symbicort 160-4.5 Mcg Inhaler] 2 puff INHALATION RT-BID 03/08/14 [History] Montelukast Sodium [Singulair] 10 mg PO DAILY 03/08/14 [History] Albuterol Sulfate [Ventolin HFA] 2 puff INHALATION RT-Q4H PRN 12/04/16 [History] Multivitamin [Men's Multi-Vitamin] 1 tab PO DAILY 12/04/16 [History] Hydrocodone/Acetaminophen [[place] 5-325] 1 - 2 each PO Q6HR PRN #60 tab 12/09/16 [Rx] diphenhydrAMINE HCL [Benadryl] 25 mg PO HS PRN #30 tab 12/11/16 [Rx] predniSONE 5 mg PO BID #10 tab 12/11/16 [Rx] Follow up Appointment(s)/Referral(s): Arielle Medeiros MD [STAFF PHYSICIAN] - 12/11/16 10:45 am (Bariatric Center) Patient Instructions/Handouts: Jose Manuel-Dunlap Drain Care (GEN), Belt Lipectomy ( GEN), Abdominal Binder (GEN) Activity/Diet/Wound Care/Special Instructions: Lifting over 4 pounds in 4 weeks. Wear abdominal binder at all times. Please keep track of NICOLLE drainage. Discharge Disposition: HOME SELF-CARE
== END 2016-12-09 17:09 | disposition home or self-care (01) | DRG 572 ==
LOC: 2ORWHC 07:15 → 3SUR 13:29
PROVIDERS: ADMIT Surgery Plastic and Reconstructive Surgery; ATTEND Surgery Plastic and Reconstructive Surgery
PROC: 0WQF4ZZ Repair Abdominal Wall, Percutaneous Endoscopic Approach (ICD-10-PCS; principal; 2016-12-08 09:15)
PROC: 0KXK0Z6 Transfer Right Abdomen Muscle, Transverse Rectus Abdominis Myocutaneous Flap, Open Approach (ICD-10-PCS; principal; 2016-12-08 09:15)
PROC: 0HB7XZZ Excision of Abdomen Skin, External Approach (ICD-10-PCS; principal; 2016-12-08 09:15)
PROC: 0DNS4ZZ (ICD-10-PCS; principal; 2016-12-08 09:15)
PROC: 0KXL0Z6 Transfer Left Abdomen Muscle, Transverse Rectus Abdominis Myocutaneous Flap, Open Approach (ICD-10-PCS; principal; 2016-12-08 09:15)
DX: M79.3 Panniculitis, unspecified (principal); E66.01 Morbid (severe) obesity due to excess calories; G47.33 Obstructive sleep apnea (adult) (pediatric); J45.909 Unspecified asthma, uncomplicated; K43.9 Ventral hernia without obstruction or gangrene; K66.0 Peritoneal adhesions (postprocedural) (postinfection); Z79.899 Other long term (current) drug therapy; Z87.442 Personal history of urinary calculi; Z98.84 Bariatric surgery status; Z88.0 Allergy status to penicillin; Z68.37 Body mass index [BMI] 37.0-37.9, adult
CPT/HCPCS: 94640; 94760; 94762

== ENCOUNTER → 2016-12-11 | Outpatient (CLI) | payer MEDICAID ==
[2016-12-11 11:12] VITALS: BP 170/96; PULSE 90; RESP 16; TEMP 98.1
[2016-12-11 11:41] VITALS: BMI 38.0
--- NOTE | 2017-01-26 23:14 | PN ---
DATE OF SERVICE: 12/11/2016 CHIEF COMPLAINT: Follow-up panniculectomy. HISTORY OF PRESENT ILLNESS: Ken Grissom is a 52-year-old gentleman who is status post panniculectomy on 12/08/2016 including ventral hernia repair. He comes in having moderate induration and allergic reaction from Dermabond tape. He reports moderate itching. At his height of 5 feet 10 inches his ideal body is 173 pounds. His previous weight was 361 pounds at highest. Today he comes in weighing 264 pounds. He has maintained a 97 pound weight loss. Percent excess weight loss of 51%. Incidentally, he has gained 9 pounds since last evaluation 3 months ago. Body mass index is reduced with 51.9 down to 38. He is still 91 pounds overweight. PHYSICAL EXAM: VITAL SIGNS: 98.1, 90, 16, 170/96, 5 foot 10, 264 pounds. Body mass index 38. ABDOMEN: Hyperemia noted along the panniculectomy incisions. Dressings were completely discontinued. NICOLLE drains were serosanguineous. GENERAL: Well-developed pleasant male in no acute distress. HEENT: No sclera icterus. Extraocular movements grossly intact. Moist buccal mucosa. Head is atraumatic, normocephalic. Hears conversational speech. No nasal drainage. NECK: Supple without lymphadenopathy. No JV distention. CHEST: Non-labored respirations and equal bilateral excursions. CARDIOVASCULAR: Regular rate and rhythm. Palpable 2+ radial pulses. MUSCULOSKELETAL: No clubbing, cyanosis or edema. NEUROLOGIC: No focal or lateralizing signs. PSYCH: Appropriate affect. Alert and oriented to person, place and time. ASSESSMENT: 1. History of panniculectomy. 2. Personal history of Liliana-en-Y gastric bypass. 3. Status post massive weigh loss of 97 pounds. 4. Allergic reaction to Dermabond. PLAN: 1. He has moderate to severe allergies for which recommend Benadryl cream. 2. If symptoms continue, would also benefit from possible steroid injection. 3. Recommend followup in 3 to 5 days for NICOLLE drain assessment. [facility]
== END | disposition home or self-care (01) ==
LOC: BARWHC3 10:18
PROVIDERS: ATTEND Surgery Plastic and Reconstructive Surgery
DX: Z48.815 Encounter for surgical aftercare following surgery on the digestive system (principal); Z98.84 Bariatric surgery status; L29.9 Pruritus, unspecified; Z91.09 Other allergy status, other than to drugs and biological substances
CPT/HCPCS: 99211

== ENCOUNTER → 2016-12-15 | Outpatient (CLI) | payer MEDICAID ==
[~2016-12-15] MED LIST changes: -CLINDAMYCIN 900 MG in DEXTROSE 5% IN WATER 50 ML IVPB ONE; +DEXAMETHASONE SOD PHOSPHATE 10 MG/ML 1 ML VIAL IM STA; -DEXAMETHASONE SOD PHOSPHATE 10 MG/ML 1 ML VIAL IV ONE; -LACTATED RINGERS 1,000 ML IV SCH; -MIDAZOLAM 2 MG/2 ML VIAL IV PRN; -ONDANSETRON 4 MG/2 ML VIAL IVP ONE; -SCOPOLAMINE 1.5MG/72HR PATCH TRANSDERM ONE
[2016-12-15 11:32] VITALS: BP 150/95; PULSE 73; RESP 15; TEMP 98
--- NOTE | 2017-01-30 09:28 | PN ---
DATE OF SERVICE: 12/15/2016 CHIEF COMPLAINT: History of panniculectomy. HISTORY OF PRESENT ILLNESS: Ken Grissom is a 51-year-old gentleman who is status post panniculectomy on 12/08/2016. He is now one week out. He reports moderate discomfort from his procedure. Otherwise, he had developed a severe reaction from Dermabond tape and liquid. He reports moderate itching. No reports of fevers or chills. He still reports drainage from his NICOLLE drains of over 40 mL serosanguineous. No reports of fevers or chills. At his height is 5 feet 10 inches, he comes in weighing 264 pounds. His maintained weight loss is at 97 pounds. He has had at least 13 pound weight gain since his previous evaluation prior to his panniculectomy. PHYSICAL EXAM: VITAL SIGNS: 98.0, 73, 15, 150/95, 5 feet 10 inches, 264 pounds. ABDOMEN: Hyperemia along the incision without signs of infection or cellulitis. His findings are consistent with allergic reaction. NICOLLE drain is still serosanguineous. GENERAL: Well-developed pleasant male in no acute distress. HEENT: No sclera icterus. Extraocular movements grossly intact. Moist buccal mucosa. Head is atraumatic, normocephalic. Hears conversational speech. No nasal drainage. NECK: Supple without lymphadenopathy. No JV distention. CHEST: Non-labored respirations and equal bilateral excursions. CARDIOVASCULAR: Regular rate and rhythm. Palpable 2+ radial pulses. MUSCULOSKELETAL: No clubbing, cyanosis or edema. NEUROLOGIC: No focal or lateralizing signs. PSYCH: Appropriate affect. Alert and oriented to person, place and time. ASSESSMENT: 1. Status post panniculectomy. 2. Adverse reaction to Dermabond tape including liquid adhesive. PLAN: 1. I have recommended Decadron 10 mg subcutaneous to help with his allergic reaction. 2. He still has a fair amount of NICOLLE output drainage and would recommend discontinue in the next 3 to 5 days. 3. Recommend follow up sooner should he have any further concerns. [facility]
== END | disposition home or self-care (01) ==
LOC: BARWHC3 09:24
PROVIDERS: ATTEND Surgery Plastic and Reconstructive Surgery
DX: T78.8XXA Other adverse effects, not elsewhere classified, initial encounter (principal)
CPT/HCPCS: 99212; 96372; J1100

== ENCOUNTER → 2016-12-19 | Outpatient (CLI) | payer MEDICAID ==
[2016-12-19 11:31] VITALS: BP 144/90; PULSE 87; TEMP 97.9; BMI 36.1
--- NOTE | 2017-01-30 12:05 | P.PN ---
Progress Note - Text DATE OF SERVICE: 12/19/2016 CHIEF COMPLAINT: Follow-up panniculectomy. HISTORY OF PRESENT ILLNESS: Ken Grissom is a 52-year-old gentleman, status post panniculectomy 12/08/2016. He is now postop day #11. He comes in for additional drain management. Her reports minimal output of NICOLLE drain just less than 30 or 20 mL daily. Separately, he had received Decadron 10 mg IV several days ago where his hyperemia and rash is now moderately improved. No reports of fevers or chills. At his height of 5 feet 10 inches, his ideal body weight is 173 pounds. His highest weight was 361 pounds. Today he comes in weighing 252 pounds. He has now maintained a 109-pound weight loss. Incidentally, he has now lost 13 pounds from his last visit. Body mass index is reduced at 51.9 down to 36.2. Percent excess weight loss now 58%. PHYSICAL EXAM: VITAL SIGNS: 97.9, 87, 16, 144/90, height of 5 feet 10 inches, 252 pounds. Body mass index 36.2. ABDOMEN: Hyperemia along the panniculectomy incision is now completely improved. NICOLLE serosanguineous. GENERAL: Well-developed pleasant male in no acute distress. HEENT: No sclera icterus. Extraocular movements grossly intact. Moist buccal mucosa. Head is atraumatic, normocephalic. Hears conversational speech. No nasal drainage. NECK: Supple without lymphadenopathy. No JV distention. CHEST: Non-labored respirations and equal bilateral excursions. CARDIOVASCULAR: Regular rate and rhythm. Palpable 2+ radial pulses. MUSCULOSKELETAL: No clubbing, cyanosis or edema. NEUROLOGIC: No focal or lateralizing signs. PSYCH: Appropriate affect. Alert and oriented to person, place and time. ASSESSMENT: 1. History of panniculectomy. 2. History of status post massive weight loss, 109 pounds. 3. Personal history of Liliana-en-Y gastric bypass. 4. Body mass index reduced from 51.9 down to 36.2. PLAN: 1. His NICOLLE drains have been discontinued at bedside. 2. I did discuss with him potential risk of postoperative seroma. He was encouraged to wear his abdominal binder at all times. 3. Symptoms such as increased abdominal girth, tightness and discomfort was described for which follow up in 5 to 7 days was advised. 4. I asked him to follow up sooner should he have any further concerns.
== END | disposition home or self-care (01) ==
LOC: BARWHC3 09:54
PROVIDERS: ATTEND Surgery Plastic and Reconstructive Surgery
DX: Z48.815 Encounter for surgical aftercare following surgery on the digestive system (principal); Z98.84 Bariatric surgery status; Z68.36 Body mass index [BMI] 36.0-36.9, adult
CPT/HCPCS: 99212

== ENCOUNTER → 2016-12-26 | Outpatient (CLI) | payer MEDICAID ==
[2016-12-26 13:41] VITALS: PULSE 75; TEMP 97.8; BMI 35.8
[2016-12-26 15:14] VITALS: BP 188/90
--- NOTE | 2017-01-30 12:24 | P.PN ---
Progress Note - Text DATE OF SERVICE: 12/26/2016 CHIEF COMPLAINT: Followup panniculectomy. HISTORY OF PRESENT ILLNESS: Ken Grissom is a 52-year-old gentleman who is status post panniculectomy now on 12/08/2016. He is approximately 3 weeks out. Last week his NICOLLE drains were discontinued. He was warned about following closely with measurements of his abdomen for risks of postoperative seroma. Today he comes with increased abdominal discomfort. No reports of erythema or infection. At his height of 5 feet 10 inches, his ideal body weight is 173 pounds. His highest weight was 361 pounds. Today he comes in weighing 249 pounds. He has lost 112 pounds. He has lost 2 pounds in one week. Body mass index has been reduced from 51.9 to 35.8. He is 76 pounds overweight. He has achieved 59% excess weight loss. BMI point reduction of 16 points. PHYSICAL EXAM: VITAL SIGNS: 97.8, 75, 16, 188/90. Height 5 feet 10 inches. Weight 249 pounds. Body mass index 35.8. GENERAL: Well-developed male in no acute distress. ABDOMEN: Palpable fluid seroma along the bilateral lower flanks. No signs of erythema or infection. GENERAL: Well-developed pleasant male in no acute distress. HEENT: No sclera icterus. Extraocular movements grossly intact. Moist buccal mucosa. Head is atraumatic, normocephalic. Hears conversational speech. No nasal drainage. NECK: Supple without lymphadenopathy. No JV distention. CHEST: Non-labored respirations and equal bilateral excursions. CARDIOVASCULAR: Regular rate and rhythm. Palpable 2+ radial pulses. MUSCULOSKELETAL: No clubbing, cyanosis or edema. NEUROLOGIC: No focal or lateralizing signs. PSYCH: Appropriate affect. Alert and oriented to person, place and time. ASSESSMENT: 1. Personal history of panniculectomy. 2. Postoperative seroma; expected outcome. 3. Status post massive weight loss; 112 pounds. 4. Body mass index reduced from 51.9 to 35.8. 5. Morbid obesity. PLAN: 1. I have recommended fluid drainage at bedside, as he has discomfort and likely a seroma. 2. Recommend wearing his abdominal binder at all times except for showering, at least for the next several weeks. 3. Recommend followup in at least one week. PROCEDURE: Fine needle aspiration of abdominal seroma. DESCRIPTION: Patient was laid supine. After verbal consent, the lower abdomen was anesthesized above his incision along the bilateral quadrants. Using a 22- gauge needle and a 20-mL syringe, 5 mL of serosanguineous drainage was removed along the right side. Next, a separate needle was used along the left side, whereby 3 mL was also aspirated, consistent with seroma. The patient tolerated the procedure well. Recommend followup in one week. Also may benefit from ultrasound-guided drainage, given the deep soft subcutaneous tissue.
== END | disposition home or self-care (01) ==
LOC: BARWHC3 11:57
PROVIDERS: ATTEND Surgery Plastic and Reconstructive Surgery
DX: Z48.815 Encounter for surgical aftercare following surgery on the digestive system (principal); K91.872 Postprocedural seroma of a digestive system organ or structure following a digestive system procedure; E66.01 Morbid (severe) obesity due to excess calories; Z68.35 Body mass index [BMI] 35.0-35.9, adult; Z98.84 Bariatric surgery status
CPT/HCPCS: 99212

== ENCOUNTER → 2016-12-30 | Outpatient (CLI) | payer MEDICAID ==
--- NOTE | 2016-12-30 15:18 | CT ---
EXAMINATION TYPE: CT abdomen pelvis wo con DATE OF EXAM: 12/30/2016 3:03 PM HISTORY: Pt states of lower and left abdominal pain. Skin removal sx x3 weeks ago. CT DLP: 1273.1 mGycm. Automated Exposure Control for Dose Reduction was Utilized. TECHNIQUE: CT scan of the abdomen and pelvis is performed without oral or IV contrast. COMPARISON: CT abdomen and pelvis October 03, 2016. Older CTs back through October 06, 2012. FINDINGS: Within the limitations of a non-contrast study, the following observations are made. LUNG BASES: No significant abnormality is appreciated. LIVER/GB: Heterogeneous hypodense lesion right hepatic lobe measuring 2.5 x 2.0 cm on axial image 40 is redemonstrated and appears to correlate with benign hemangioma on prior CTs from 2012. PANCREAS: No significant abnormality is seen. SPLEEN: No significant abnormality is seen. ADRENALS: No significant abnormality is seen. KIDNEYS: There are 2 small calculi lower pole level left kidney measuring 2 mm or smaller in size. Th ere are 3 calculi scattered throughout right kidney measuring up to 8 mm in size on axial image 81. N o hydronephrosis or obstructing renal calculi are clearly seen bilaterally. BOWEL: Surgical changes from gastric bypass procedure epigastric region are redemonstrated.. GENITAL ORGANS: No gross abnormality seen. LYMPH NODES: No greater than 1cm abdominal or pelvic lymph nodes are appreciated. OSSEOUS STRUCTURES: Some multilevel spurring in the thoracic spine is noted. OTHER: There is new thin-walled fluid collection in the anterior pelvis extending into the left lower quadrant anterior abdomen measuring approximately 12 cm transversely on axial image 138 by approxima tely 19 cm craniocaudal dimension on coronal image 32, nonspecific finding favor post procedure serom a. Some ill-defined fat stranding and fluid surrounding this collection is identified. New clumping o f muscles near the central rectus level is present after surgery. Mild haziness of mesenteric fat is identified best near coronal image 47 the central abdomen. IMPRESSION: Surgical changes from tummy tuck procedure identified, nonspecific thin-walled fluid conrad ection in the left lower abdomen anteriorly extending to anterior pelvis favors post procedure seroma . 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 No significant new finding is otherwise clearly seen to acco unt for patient's symptoms.
== END | disposition home or self-care (01) ==
LOC: RADCTMAIN 14:45
PROVIDERS: ATTEND Surgery Plastic and Reconstructive Surgery
DX: R10.32 Left lower quadrant pain (principal); Z98.890 Other specified postprocedural states
CPT/HCPCS: 74176

== ENCOUNTER → 2016-12-31 | Outpatient (CLI) | payer MEDICAID ==
[2016-12-31 13:21] VITALS: BP 137/92; PULSE 85; RESP 18; TEMP 98.4; BMI 35.6
--- NOTE | 2017-01-30 12:28 | P.PN ---
Progress Note - Text DATE OF SERVICE: 12/31/2016 CHIEF COMPLAINT: Status post panniculectomy. HISTORY OF PRESENT ILLNESS: Mr. Ken Grissom is a 52-year-old gentleman who is status post panniculectomy on 12/08/2016. He is more than 3 weeks out. He had a CT of the abdomen, pelvis which actually confirmed moderate abdominal wall seroma. He comes in with discomfort. Now he presents for further evaluation and management. At his height of 5 foot, 10 inches, his ideal body weight is 173 pounds. His highest weight was 361 pounds. Today he comes in weighting 248 pounds. Total weight loss is 113 pounds. Percent excess weight loss is now elevated to 60%. Body mass index is reduced from 51.9 down to 35.7. PHYSICAL EXAM: VITAL SIGNS: 98.4, 85, 18, 137/92, 5 foot 10, 248 pounds, body mass index 35.7. ABDOMEN: Palpable swelling of the bilateral lower abdomen consistent with seroma. No signs of infection or cellulitis. GENERAL: Well-developed pleasant male in no acute distress. HEENT: No sclera icterus. Extraocular movements grossly intact. Moist buccal mucosa. Head is atraumatic, normocephalic. Hears conversational speech. No nasal drainage. NECK: Supple without lymphadenopathy. No JV distention. CHEST: Non-labored respirations and equal bilateral excursions. CARDIOVASCULAR: Regular rate and rhythm. Palpable 2+ radial pulses. MUSCULOSKELETAL: No clubbing, cyanosis or edema. NEUROLOGIC: No focal or lateralizing signs. PSYCH: Appropriate affect. Alert and oriented to person, place and time. ASSESSMENT: 1. History of panniculectomy. 2. Expected post-procedure seroma. 3. Previous history of panniculitis, now resolved. PLAN: 1. I have recommended fine needle aspiration of his seroma. 2. CT of the abdomen and pelvis was reviewed in detail with regards to location of his abdominal seroma. 3. Also recommend strict adherence to wearing abdominal binder at all times. 4. Results are pending with potential drainage by Interventional Radiology. PROCEDURE: Fine needle aspiration of seroma. DESCRIPTION: After verbal consent, patient was laid supine. The skin was cleansed with Chloraprep. Using an 18 gauge needle attached to a 20 mL syringe , 180 mL of straw-colored serosanguineous fluid was aspirated along the left side of the abdomen. The patient felt immediate improvement in comfort. He had tolerated the procedure well.
== END | disposition home or self-care (01) ==
LOC: BARWHC3 12:59
PROVIDERS: ATTEND Surgery Plastic and Reconstructive Surgery
DX: Z48.817 Encounter for surgical aftercare following surgery on the skin and subcutaneous tissue (principal)
CPT/HCPCS: 99212

== ENCOUNTER 2017-01-02 12:02 | Day surgery (SDC) | payer MEDICAID ==
[2017-01-02 13:10] VITALS: BP 140/74; PULSE 83; RESP 16; TEMP 98.1
--- NOTE | 2017-01-02 14:28 | US ---
EXAMINATION TYPE: US asp abscess/hemat/cyst DATE OF EXAM: 01/02/2017 HISTORY: Seroma postop FINDINGS: Maximal barrier technique was utilized. The skin overlying a suitable path to the fluid wa s localized with ultrasound and the overlying skin prepped and draped. Lidocaine was used for local anesthesia. A skin ankita made with a scalpel. Access was gained under direct ultrasound guidance to the fluid with a 18-gauge needle. Ultrasound was utilized using sterile technique. 60 cc was aspirate d. Using similar technique and additional puncture was made in the left hemiabdomen. 20 cc were remov ed, 80 cc total serous fluid returned. Needle removed. Hemostasis achieved. No immediate complicatio n and the patient remained in stable condition. IMPRESSION: STATUS POST ULTRASOUND GUIDED SEROMA DRAINAGE, THIS PROCEDURE WAS PERFORMED BY THE UNDERS IGNED.
== END 2017-01-02 14:15 | disposition home or self-care (01) ==
LOC: RADPROMAIN 12:02
PROVIDERS: ATTEND Surgery Plastic and Reconstructive Surgery
DX: L76.34 Postprocedural seroma of skin and subcutaneous tissue following other procedure (principal)
CPT/HCPCS: 10160

== ENCOUNTER 2017-01-09 09:18 | Inpatient (IN) | payer MEDICAID ==
[2017-01-09] MEDS ORDERED: IV VANCOMYCIN PER PHARMACY 1 EACH MISC MISCELLANE PRN (10:01)
[2017-01-09] MEDS ORDERED: SODIUM CHLORIDE 0.9% 1,000 ML IV STA (10:01)
[2017-01-09] MEDS ORDERED: LEVOFLOXACIN 500MG-D5W PMX 500 MG in DEXTROSE/WATER 1 100ML.BAG IVPB STA (10:01)
[2017-01-09] MEDS ORDERED: VANCOMYCIN 2,000 MG in SODIUM CHLORIDE 0.9% 500 ML IVPB STA (10:01)
[2017-01-09] MEDS ORDERED: ONDANSETRON 4 MG/2 ML VIAL IVP STA (10:06)
[2017-01-09] MEDS ORDERED: HYDROmorphone 1 MG/ML 1 ML SYRINGE IVP STA (10:06)
--- NOTE | 2017-01-09 10:06 | ED ---
General Adult HPI <Chester Villegas - Last Filed: 01/09/17 12:22> - General Source: patient, RN notes reviewed Mode of arrival: ambulatory Limitations: no limitations <Jeb Garay - Last Filed: 01/09/17 12:41> - General Chief complaint: Abdominal Pain Stated complaint: Abdominal Pain Time Seen by Provider: 01/09/17 09:49 - History of Present Illness Initial comments: Patient is a 52-year-old male who resents emergency room status post abdominal surgery times one month, who presents emergency room today with a chief complaint of infection. Patient does admit that he had some fluid drained one week ago by all sounds, it. She's noticed some redness locally to this area and around the incision site since was started on some antibiotics of Keflex been on this for the past week. He states no improvement symptoms been getting worse more increased redness and pain to the area. Patient denies any recent fever, chills, shortness of breath, chest pain, back pain, nausea or vomiting, numbness or tingling, dysuria or hematuria, constipation or diarrhea, headaches or visual changes, or any other complaints. (Jeb Garay) - Related Data Home Medications Medication Instructions Recorded Confirmed Budesonide-Formot 160-4.5 Mcg 2 puff INHALATION RT-BID 03/08/14 01/09/17 [Symbicort 160-4.5 Mcg Inhaler] Montelukast Sodium [Singulair] 10 mg PO DAILY 03/08/14 01/09/17 Albuterol Sulfate [Ventolin HFA] 2 puff INHALATION RT-Q4H PRN 12/04/16 01/09/17 Allergies Allergy/AdvReac Type Severity Reaction Status Date / Time adhesive tape Allergy Rash/Hives Verified 01/09/17 09:55 Penicillins AdvReac Anaphylaxis Verified 01/09/17 09:55 Lbwksmm-Hyt-Kdj Reductase AdvReac Chest Pain Verified 01/09/17 09:55 Inhibitor Review of Systems ROS Other: All systems not noted in ROS Statement are negative. <Chester Villegas - Last Filed: 01/09/17 12:22> ROS Other: All systems not noted in ROS Statement are negative. <Jeb Garay - Last Filed: 01/09/17 12:41> ROS Statement: Those systems with pertinent positive or pertinent negative responses have been documented in the HPI. Past Medical History Past Medical History: Asthma, Chest Pain / Angina Additional Past Medical History / Comment(s): Pt passed 2 kidney stones in August 2014 at 2 different times. History of Any Multi-Drug Resistant Organisms: None Reported Past Surgical History: Bariatric Surgery, Orthopedic Surgery Additional Past Surgical History / Comment(s): Left knee surgery pt for torn meniscus and bone on bone (pt doesn't know the name) 2015.panniculectomy bicep surg Past Anesthesia/Blood Transfusion Reactions: No Reported Reaction Past Psychological History: No Psychological Hx Reported Smoking Status: Never smoker Past Alcohol Use History: Rare Past Drug Use History: None Reported - Past Family History Father Family Medical History: Cancer Additional Family Medical History / Comment(s): Prostate Cancer for Father. Grandparents brain and bone cancer. <Jeb Garay - Last Filed: 01/09/17 12:41> General Exam <Chester Villegas - Last Filed: 01/09/17 12:22> Limitations: no limitations <Jeb Garay - Last Filed: 01/09/17 12:41> - General Exam Comments Initial Comments: General: The patient is awake and alert, in no distress, and does not appear acutely ill. Eye: Pupils are equal, round and reactive to light, extra-ocular movements are intact. No nystagmus. There is normal conjunctiva bilaterally. No signs of icterus. Ears, nose, mouth and throat: There are moist mucous membranes and no oral lesions. Neck: The neck is supple, there is no tenderness or JVD. Cardiovascular: There is a regular rate and rhythm. No murmur, rub or gallop is appreciated. Respiratory: Lungs are clear to auscultation, respirations are non-labored, breath sounds are equal. No wheezes, stridor, rales, or rhonchi. Gastrointestinal: Patient does have redness locally to the right midline abdomen at the incision site. Area is firm on palpation and increased redness and some swelling. Measuring approximately 3-4 cm across. Locally tender in this area. No drainage. Remaining abdomen is soft on palpation. Musculoskeletal: Normal ROM, no tenderness. Strength 5/5. Sensation intact. Pulses equal bilaterally 2+. Neurological: A&O x 3. CN II-XII intact, There are no obvious motor or sensory deficits. Coordination appears grossly intact. Speech is normal. Skin: Abscess formation to the right lower side of the abdomen.. Psychiatric: Cooperative, appropriate mood & affect, normal judgment. (Jeb Garay) Medical Decision Making - Lab Data Result diagrams: 01/09/17 10:35 01/09/17 10:35 <Chester Villegas - Last Filed: 01/09/17 12:22> - Lab Data Result diagrams: 01/09/17 10:35 01/09/17 10:35 <Jeb Garay - Last Filed: 01/09/17 12:41> - Medical Decision Making Case discussed with Dr. mitchell who will admit for Dr. Pathak. He recommends vancomycin. Patient does not meet sepsis criteria. (Chester Villegas) Patient has had recent procedure on the abdomen surgery. Was started on antibiotics. His symptoms have increased. Will be started on broad-spectrum antibiotics of vancomycin and Levaquin here in the emergency room. Will be admitted to the hospital for outpatient treatment failure and further evaluation from surgery. (Jeb Garay) - Lab Data Lab Results 01/09/17 01/09/17 01/09/17 Range/Units 10:35 10:35 10:35 WBC 6.6 (3.8-10.6) k/uL RBC 4.96 (4.30-5.90) m/uL Hgb 13.8 (13.0-17.5) gm/dL Hct 42.1 (39.0-53.0) % MCV 85.0 (80.0-100.0) fL MCH 27.7 (25.0-35.0) pg MCHC 32.6 (31.0-37.0) g/dL RDW 13.2 (11.5-15.5) % Plt Count 374 (150-450) k/uL Neutrophils % 58 % Lymphocytes % 24 % Monocytes % 7 % Eosinophils % 8 % Basophils % 1 % Neutrophils # 3.8 (1.3-7.7) k/uL Lymphocytes # 1.6 (1.0-4.8) k/uL Monocytes # 0.5 (0-1.0) k/uL Eosinophils # 0.5 (0-0.7) k/uL Basophils # 0.0 (0-0.2) k/uL Sodium 141 (137-145) mmol/L Potassium 3.7 (3.5-5.1) mmol/L Chloride 104 (98-107) mmol/L Carbon Dioxide 29 (22-30) mmol/L Anion Gap 8 mmol/L BUN 9 (9-20) mg/dL Creatinine 0.54 L (0.66-1.25) mg/dL Est GFR (MDRD) Af Amer >60 (>60 ml/min/1.73 sqM) Est GFR (MDRD) Non-Af >60 (>60 ml/min/1.73 sqM) Glucose 99 (74-99) mg/dL Plasma Lactic Acid Tristin 1.8 (0.7-2.0) mmol/L Calcium 8.7 (8.4-10.2) mg/dL Total Bilirubin 0.4 (0.2-1.3) mg/dL AST 27 (17-59) U/L ALT 42 (21-72) U/L Alkaline Phosphatase 111 (38-126) U/L Total Protein 7.0 (6.3-8.2) g/dL Albumin 3.8 (3.5-5.0) g/dL Urine Color Urine Appearance (Clear) Urine pH (5.0-8.0) Ur Specific [place] (1.001-1.035) Urine Protein (Negative) Urine Glucose (UA) (Negative) Urine Ketones (Negative) Urine Blood (Negative) Urine Nitrite (Negative) Urine Bilirubin (Negative) Urine Urobilinogen (<2.0) mg/dL Ur Leukocyte Esterase (Negative) 01/09/17 Range/Units 11:01 WBC (3.8-10.6) k/uL RBC (4.30-5.90) m/uL Hgb (13.0-17.5) gm/dL Hct (39.0-53.0) % MCV (80.0-100.0) fL MCH (25.0-35.0) pg MCHC (31.0-37.0) g/dL RDW (11.5-15.5) % Plt Count (150-450) k/uL Neutrophils % % Lymphocytes % % Monocytes % % Eosinophils % % Basophils % % Neutrophils # (1.3-7.7) k/uL Lymphocytes # (1.0-4.8) k/uL Monocytes # (0-1.0) k/uL Eosinophils # (0-0.7) k/uL Basophils # (0-0.2) k/uL Sodium (137-145) mmol/L Potassium (3.5-5.1) mmol/L Chloride (98-107) mmol/L Carbon Dioxide (22-30) mmol/L Anion Gap mmol/L BUN (9-20) mg/dL Creatinine (0.66-1.25) mg/dL Est GFR (MDRD) Af Amer (>60 ml/min/1.73 sqM) Est GFR (MDRD) Non-Af (>60 ml/min/1.73 sqM) Glucose (74-99) mg/dL Plasma Lactic Acid [place] (0.7-2.0) mmol/L Calcium (8.4-10.2) mg/dL Total Bilirubin (0.2-1.3) mg/dL AST (17-59) U/L ALT (21-72) U/L Alkaline Phosphatase (38-126) U/L Total Protein (6.3-8.2) g/dL Albumin (3.5-5.0) g/dL Urine Color Yellow Urine Appearance Clear (Clear) Urine pH 5.5 (5.0-8.0) Ur Specific [place] 1.016 (1.001-1.035) Urine Protein Negative (Negative) Urine Glucose (UA) Negative (Negative) Urine Ketones Negative (Negative) Urine Blood Negative (Negative) Urine Nitrite Negative (Negative) Urine Bilirubin Negative (Negative) Urine Urobilinogen <2.0 (<2.0) mg/dL Ur Leukocyte Esterase Negative (Negative) Disposition <Chester Villegas - Last Filed: 01/09/17 12:22> Time of Disposition: 12:11 <Jeb Garay - Last Filed: 01/09/17 12:41> Clinical Impression: Abdominal wall cellulitis Disposition: ADMITTED IP TO THIS HOSP Condition: Stable Referrals: Harjinder Almanzar MD [Primary Care Provider] - 1-2 days
[2017-01-09] MEDS: SODIUM CHLORIDE 0.9% 1,000 ML IV STA ×2 (10:27→12:56)
[2017-01-09 10:49] LABS: Basophils % (A) 1 %; CH 28.7; CHCM 33.9; Eosinophils # (A) 0.5 k/uL (0-0.7); Eosinophils % (A) 8 %; HCT 42.1 % (39.0-53.0); HDW 3.19; HGB 13.8 gm/dL (13.0-17.5); Luc # (Auto) 0.18; Luc % (Auto) 3; Lymphocytes # (A) 1.6 k/uL (1.0-4.8); Lymphocytes % (A) 24 %; MCH 27.7 pg (25.0-35.0); MCHC 32.6 g/dL (31.0-37.0); Mean Platelet Volume 6.2; Monocytes # (A) 0.5 k/uL (0-1.0); Monocytes % (A) 7 %; Neutrophils # (A) 3.8 k/uL (1.3-7.7); Neutrophils % (A) 58 %; RBC 4.96 m/uL (4.30-5.90); RDW 13.2 % (11.5-15.5); WBC 6.6 k/uL (3.8-10.6); WBC (Perox) 6.45
[2017-01-09 11:05] LABS: ALT 42 U/L (21-72); AST 27 U/L (17-59); Alkaline Phosphatase 111 U/L (38-126); Anion Gap 8 mmol/L; Blood Urea Nitrogen 9 mg/dL (9-20); Calcium 8.7 mg/dL (8.4-10.2); Carbon Dioxide 29 mmol/L (22-30); Chloride 104 mmol/L (98-107); Glucose 99 mg/dL (74-99); Non-African American GFR(MDRD) >60 (>60 ml/min/1.73 sqM); Sodium 141 mmol/L (137-145); Total Bilirubin 0.4 mg/dL (0.2-1.3)
[2017-01-09 11:10] LABS: Potassium 3.7 mmol/L (3.5-5.1)
[2017-01-09 11:43] LABS: Appearance,Urine Clear (Clear); Bilirubin,Urine Negative (Negative); Glucose,Urine (UA) Negative (Negative); Ketones,Urine Negative (Negative); Leukocyte Esterase,Urine Negative (Negative); Nitrite,Urine Negative (Negative); PH, Urine 5.5 (5.0-8.0); Protein,Urine Negative (Negative); Specific Gravity,Urine 1.016 (1.001-1.035); UA Billing (MACRO vs. MICRO) CHEM; Urobilinogen,Urine <2.0 mg/dL (<2.0)
--- NOTE | 2017-01-09 11:48 | US ---
EXAMINATION TYPE: US abdomen limited DATE OF EXAM: 01/09/2017 COMPARISON: CT & US CLINICAL HISTORY: Pain. Patient has surgical scar all across lower abdomen, area is red and painful. Patient states two separate areas 1) LLQ and 2) umbilicus area. Scanned both areas of concern: LLQ, there is an 8.3 x 2.5 x 6.2 cm complex area without vascularity, and Umbilicus, there is an 5.3 x 2.7 x 9.7 cm complex area without vascularity. IMPRESSION: PROBABLE ORGANIZING HEMATOMAS IN THE SOFT TISSUES OF THE LOWER ABDOMEN.
[2017-01-09] MEDS ORDERED: ONDANSETRON 4 MG/2 ML VIAL IVP PRN (12:41)
[2017-01-09] MEDS ORDERED: ACETAMINOPHEN TAB 325 MG TAB PO PRN (12:41)
[2017-01-09] MEDS ORDERED: SODIUM CHLORIDE 0.9% 1,000 ML IV ONE (12:41)
[2017-01-09] MEDS ORDERED: NALOXONE 0.4 MG/ML 1 ML VIAL IV PRN (12:41)
[2017-01-09] MEDS: HYDROmorphone 1 MG/ML 1 ML SYRINGE IV PRN ×3 (13:04→20:27)
--- NOTE | 2017-01-09 17:34 | P.GSHP ---
History of Present Illness H&P Date: 01/09/17 Chief Complaint: Painful swelling of the incision Patient 52-year-old fit male who has had a gastric bypass in the past. The patient had a pelvic ligament and about a month ago and since then had severe serous fluid accumulations that were drained. He presents today with worsening pain of the incision site no fever no chills. No nausea or vomiting. He otherwise for his bariatric diet and has required weight loss. His no purulent drainage from the wound itself. Complaint. - Constitutional Constitutional: Denies chills, Denies fever - EENT Eyes: denies blurred vision, denies pain - Cardiovascular Cardiovascular: Denies chest pain, Denies shortness of breath - Respiratory Respiratory: Denies cough, Denies 7 - Gastrointestinal Gastrointestinal: Denies abdominal pain, Denies diarrhea, Denies nausea, Denies vomiting Past Medical History Past Medical History: Atrial Fibrillation, Asthma Additional Past Medical History / Comment(s): Pt passed 2 kidney stones in August 2014 at 2 different times and states he now has 4 more stones, afib in past d/t hypokalemia after bariatric surgery-none since, bronchitis in past, low back pain-has 3 vertebral compression fractures. Pt states after weight loss, he no longer has HTN/high lipids/ANGELES/GERD and no longer is treated for diabetes. History of Any Multi-Drug Resistant Organisms: None Reported Past Surgical History: Bariatric Surgery, Orthopedic Surgery Additional Past Surgical History / Comment(s): 12/08/16 panniculectomy with ventral hernia repair, Liliana-en-Y, left knee surgery pt for torn meniscus, R knee arthroscopy, R bicep reattachment, EGD/EGJ Past Anesthesia/Blood Transfusion Reactions: Postoperative Nausea & Vomiting ( PONV) Past Psychological History: No Psychological Hx Reported Additional Psychological History / Comment(s): Pt resides with his spouse and their adult son. Pt is independent. Smoking Status: Never smoker Past Alcohol Use History: Rare Past Drug Use History: None Reported - Past Family History Father Family Medical History: Cancer, Myocardial Infarction (OR) Additional Family Medical History / Comment(s): Father had prostate cancer. He had a OR at the age of 50yrs. He is 73 yrs old. Mother Family Medical History: No Reported History Additional Family Medical History / Comment(s): Mother is healthy and is 73 yrs old. Medications and Allergies Home Medications Medication Instructions Recorded Confirmed Type Budesonide-Formot 160-4.5 Mcg 2 puff INHALATION RT-BID 03/08/14 01/09/17 History [Symbicort 160-4.5 Mcg Inhaler] Montelukast Sodium [Singulair] 10 mg PO DAILY 03/08/14 01/09/17 History Albuterol Sulfate [Ventolin HFA] 2 puff INHALATION RT-Q4H PRN 12/04/16 01/09/17 History Allergies Allergy/AdvReac Type Severity Reaction Status Date / Time adhesive tape Allergy Rash/Hives Verified 01/09/17 09:55 Penicillins AdvReac Anaphylaxis Verified 01/09/17 09:55 Gctacdb-Rqe-Dik Reductase AdvReac Chest Pain Verified 01/09/17 09:55 Inhibitor Surgical - Exam Vital Signs Temp Pulse Resp BP Pulse Ox 98.5 F 84 18 137/93 98 01/09/17 09:32 01/09/17 09:32 01/09/17 09:32 01/09/17 09:32 01/09/17 09:32 - General well developed, well nourished, no distress - Eyes PERRL, normal ocular movement, no icteric - ENT normal pinna, normal nares, normal mucosa - Neck no masses, trachea midline - Respiratory normal expansion, normal respiratory effort - Cardiovascular Rhythm: regular - Abdomen Patient's panic colectomy incision was inspected is approximately 4.5" x 4" of indurated area in the right lower quadrant. Obviously Draining the Skin Is Approximated There Is Also Some Incision Sites on the Left Upper Quadrant Which Are Healing Well. The Patient Having Tenderness in the Left Upper Quadrant on Exam but There Is No Swelling but the Right Lower Quadrant Has This Induration. Abdomen: soft, tender Results - Labs 01/09/17 10:35 01/09/17 10:35 Abnormal Lab Results - Last 24 Hours (Table) 01/09/17 Range/Units 10:35 Creatinine 0.54 L (0.66-1.25) mg/dL Diabetes panel 01/09/17 Range/Units 10:35 Sodium 141 (137-145) mmol/L Potassium 3.7 (3.5-5.1) mmol/L Chloride 104 (98-107) mmol/L Carbon Dioxide 29 (22-30) mmol/L BUN 9 (9-20) mg/dL Creatinine 0.54 L (0.66-1.25) mg/dL Glucose 99 (74-99) mg/dL Calcium 8.7 (8.4-10.2) mg/dL AST 27 (17-59) U/L ALT 42 (21-72) U/L Alkaline Phosphatase 111 (38-126) U/L Total Protein 7.0 (6.3-8.2) g/dL Albumin 3.8 (3.5-5.0) g/dL Calcium panel 01/09/17 Range/Units 10:35 Calcium 8.7 (8.4-10.2) mg/dL Albumin 3.8 (3.5-5.0) g/dL Pituitary panel 01/09/17 Range/Units 10:35 Sodium 141 (137-145) mmol/L Potassium 3.7 (3.5-5.1) mmol/L Chloride 104 (98-107) mmol/L Carbon Dioxide 29 (22-30) mmol/L BUN 9 (9-20) mg/dL Creatinine 0.54 L (0.66-1.25) mg/dL Glucose 99 (74-99) mg/dL Calcium 8.7 (8.4-10.2) mg/dL Adrenal panel 01/09/17 Range/Units 10:35 Sodium 141 (137-145) mmol/L Potassium 3.7 (3.5-5.1) mmol/L Chloride 104 (98-107) mmol/L Carbon Dioxide 29 (22-30) mmol/L BUN 9 (9-20) mg/dL Creatinine 0.54 L (0.66-1.25) mg/dL Glucose 99 (74-99) mg/dL Calcium 8.7 (8.4-10.2) mg/dL Total Bilirubin 0.4 (0.2-1.3) mg/dL AST 27 (17-59) U/L ALT 42 (21-72) U/L Alkaline Phosphatase 111 (38-126) U/L Total Protein 7.0 (6.3-8.2) g/dL Albumin 3.8 (3.5-5.0) g/dL Assessment and Plan (1) Abdominal wall cellulitis Status: Acute Plan: At this point arm and started the patient on vancomycin. If the patient continues to respond and we do not need to do anything further however if his infection worsens then we may need to do bride the wound and placing a wound VAC. I will probably do a computed tomography scan of the abdomen and pelvis prior to making that decision. Patient may have her bariatric diet IV fluid should be discontinued although antibiotics will be continued. We'll reevaluate the patient in the morning.
[2017-01-09] MEDS: VANCOMYCIN 1,750 MG in SODIUM CHLORIDE 0.9% 250 ML IVPB SCH (20:18)
[2017-01-10] MEDS: HYDROmorphone 1 MG/ML 1 ML SYRINGE IV PRN ×7 (00:38→22:56)
[2017-01-10] MEDS: VANCOMYCIN 1,750 MG in SODIUM CHLORIDE 0.9% 250 ML IVPB SCH ×3 (03:24→19:27)
[2017-01-10 07:25] LABS: Basophils % (A) 0 %; CH 28.2; CHCM 33.3; Eosinophils # (A) 0.6 k/uL (0-0.7); Eosinophils % (A) 10 %; HCT 38.8 % (39.0-53.0); HDW 3.21; HGB 12.5 gm/dL (13.0-17.5); Luc # (Auto) 0.14; Luc % (Auto) 2; Lymphocytes # (A) 1.6 k/uL (1.0-4.8); Lymphocytes % (A) 27 %; MCH 27.6 pg (25.0-35.0); MCHC 32.4 g/dL (31.0-37.0); MCV 85.2 fL (80.0-100.0); Mean Platelet Volume 6.3; Monocytes # (A) 0.5 k/uL (0-1.0); Monocytes % (A) 8 %; Neutrophils # (A) 3.2 k/uL (1.3-7.7); Neutrophils % (A) 53 %; RBC 4.55 m/uL (4.30-5.90); RDW 13.1 % (11.5-15.5); WBC (Perox) 6.05
[2017-01-10] MEDS ORDERED: ALBUTEROL NEBULIZED 2.5 MG/3 ML INHALATION PRN (07:30)
[2017-01-10 07:32] LABS: ALT 41 U/L (21-72); AST 16 U/L (17-59); Alkaline Phosphatase 108 U/L (38-126); Anion Gap 7 mmol/L; Blood Urea Nitrogen 8 mg/dL (9-20); Calcium 8.7 mg/dL (8.4-10.2); Carbon Dioxide 30 mmol/L (22-30); Chloride 102 mmol/L (98-107); Glucose 96 mg/dL (74-99); Non-African American GFR(MDRD) >60 (>60 ml/min/1.73 sqM); Potassium 3.9 mmol/L (3.5-5.1); Sodium 139 mmol/L (137-145); Total Bilirubin 0.4 mg/dL (0.2-1.3)
[2017-01-10] MEDS: LEVOFLOXACIN 500MG-D5W PMX 500 MG in DEXTROSE/WATER 1 100ML.BAG IVPB SCH (07:34)
[2017-01-10] MEDS: SYMBICORT 160-4.5 MCG INHALER INHALATION SCH ×3 (08:01→19:09)
--- NOTE | 2017-01-10 10:53 | P.PN ---
Subjective Principal diagnosis: Cellulitis of the abdominal wall. Patient is status post panniculectomy. He developed a seroma that was drained. He now presents with worsening pain at the site of the drainage in the left upper quadrant as well as in the right lower quadrant. There is significant amount of cellulitis well. He was having significant pain yesterday but there is been significant improvement in the cellulitis today and significantly decreased pain and swelling. He otherwise having a bariatric diet and ambulating normally Objective - Vital Signs Vital signs: Vital Signs Temp 97.7 F 01/10/17 07:00 Pulse 64 01/10/17 07:00 Resp 18 01/10/17 07:00 BP 108/70 01/10/17 07:00 Pulse Ox 94 L 01/10/17 07:00 Intake & Output 01/09/17 01/10/17 01/10/17 18:59 06:59 18:59 Weight 114.215 kg Other: # Voids 1 - Constitutional General appearance: Present: average body habitus, no acute distress - EENT Eyes: Present: PERRLA - Cardiovascular Rhythm: regular - Gastrointestinal Gastrointestinal Comment(s): Abdomen is soft without any tenderness in the left upper quadrant. The incisional redness is decreased with significant decrease in swelling erythema and induration. The wound itself was not marked yesterday however subjectively it is decreased by at least 30%. General gastrointestinal: Present: soft - Labs CBC & Chem 7: 01/10/17 06:54 01/10/17 06:54 Labs: Abnormal Lab Results - Last 24 Hours (Table) 01/09/17 01/10/17 01/10/17 Range/Units 10:35 06:54 06:54 Hgb 12.5 L (13.0-17.5) gm/dL Hct 38.8 L (39.0-53.0) % BUN 8 L (9-20) mg/dL Creatinine 0.54 L 0.62 L (0.66-1.25) mg/dL AST 16 L (17-59) U/L Total Protein 6.0 L (6.3-8.2) g/dL Albumin 3.2 L (3.5-5.0) g/dL Assessment and Plan (1) Abdominal wall cellulitis Status: Acute Plan: Patient is doing well on the antibiotics and responding very well. We will continue IV antibiotics for the next 24-48 hours possible discharge Thursday as long as he continues to respond to the antibiotics. Response to the antibiotics no surgical intervention will be needed.
[2017-01-10] MEDS: ENOXAPARIN 40 MG/0.4 ML SYRINGE SQ SCH (11:09)
[2017-01-10] MEDS: MONTELUKAST 10 MG TAB PO SCH (11:09)
[2017-01-11] MEDS: VANCOMYCIN 1,750 MG in SODIUM CHLORIDE 0.9% 250 ML IVPB SCH ×3 (03:42→20:06)
[2017-01-11] MEDS: HYDROmorphone 1 MG/ML 1 ML SYRINGE IV PRN ×7 (03:45→23:48)
[2017-01-11] MEDS: LEVOFLOXACIN 500MG-D5W PMX 500 MG in DEXTROSE/WATER 1 100ML.BAG IVPB SCH (06:55)
[2017-01-11] MEDS: ENOXAPARIN 40 MG/0.4 ML SYRINGE SQ SCH (06:59)
[2017-01-11] MEDS: MONTELUKAST 10 MG TAB PO SCH (07:00)
[2017-01-11] MEDS: SYMBICORT 160-4.5 MCG INHALER INHALATION SCH ×2 (07:53→21:35)
[2017-01-11] MEDS ORDERED: VANCOMYCIN TROUGH DUE 1 EACH MISC MISCELLANE ONE (11:00)
[2017-01-11 11:51] LABS: Anion Gap 9 mmol/L; Blood Urea Nitrogen 9 mg/dL (9-20); Carbon Dioxide 30 mmol/L (22-30); Chloride 101 mmol/L (98-107); Glucose 97 mg/dL (74-99); Non-African American GFR(MDRD) >60 (>60 ml/min/1.73 sqM); Potassium 3.9 mmol/L (3.5-5.1); Sodium 140 mmol/L (137-145)
--- NOTE | 2017-01-11 13:17 | P.PN ---
Subjective Principal diagnosis: Cellulitis of the abdominal wall. Patient is status post panniculectomy. He developed a seroma that was drained. He now presents with worsening pain at the site of the drainage in the left upper quadrant as well as in the right lower quadrant. The patient is progressively improved in terms of his symptoms. There is no nausea no vomiting she's ambulating well. Objective - Vital Signs Vital signs: Vital Signs Temp 97.4 F L 01/11/17 07:00 Pulse 59 L 01/11/17 08:00 Resp 16 01/11/17 08:00 BP 129/80 01/11/17 07:00 Pulse Ox 96 01/11/17 07:00 Intake & Output 01/10/17 01/11/17 01/11/17 18:59 06:59 18:59 Intake Total 1580 700 Balance 1580 700 Weight 114.215 kg 114.215 kg Intake: IV 500 Vancomycin 1,750 mg In 500 Sodium Chloride 0.9% 250 ml @ 125 mls/hr IVPB Q8H [facility] Rx#:[id number] Intake, IV Titration 1100 Amount Levofloxacin 500Mg-D5w 100 Pmx 500 mg In Dextrose/ Water 1 100ml.bag @ 100 mls/hr IVPB Q24H [facility] Rx#: [id number] Sodium Chloride 0.9% 1, 750 000 ml @ 100 mls/hr IV . Q10H [facility] Rx#:[id number] Vancomycin 1,750 mg In 250 Sodium Chloride 0.9% 250 ml @ 125 mls/hr IVPB Q8H [facility] Rx#:[id number] Oral 480 200 Other: Voiding Method Toilet Toilet Toilet # Voids 3 2 2 - Exam Left upper quadrant is nontender at all. The incision was inspected to significant decrease in induration and erythema there is a small area which is pustule-like. - Labs CBC & Chem 7: 01/10/17 06:54 01/11/17 11:15 Labs: Microbiology - Last 24 Hours (Table) 01/09/17 10:35 Blood Culture - Preliminary Blood No Growth after 48 hours Assessment and Plan (1) Abdominal wall cellulitis Status: Acute Plan: Patient is doing well on the antibiotics and responding very well. We will continue IV antibiotics for the next 24-48 hours possible discharge Thursday as long as he continues to respond to the antibiotics. Dr. Pathak will be back in town and will reassume care of tomorrow morning
[2017-01-12] MEDS: HYDROmorphone 1 MG/ML 1 ML SYRINGE IV PRN ×7 (03:05→22:51)
[2017-01-12] MEDS: VANCOMYCIN 1,750 MG in SODIUM CHLORIDE 0.9% 250 ML IVPB SCH ×3 (04:03→19:28)
[2017-01-12] MEDS: SYMBICORT 160-4.5 MCG INHALER INHALATION SCH ×2 (07:34→19:16)
[2017-01-12] MEDS: ENOXAPARIN 40 MG/0.4 ML SYRINGE SQ SCH (07:58)
[2017-01-12] MEDS: LEVOFLOXACIN 500MG-D5W PMX 500 MG in DEXTROSE/WATER 1 100ML.BAG IVPB SCH (07:59)
[2017-01-12] MEDS: MONTELUKAST 10 MG TAB PO SCH (08:00)
[2017-01-12 08:18] LABS: Anion Gap 9 mmol/L; Blood Urea Nitrogen 9 mg/dL (9-20); Calcium 8.9 mg/dL (8.4-10.2); Carbon Dioxide 32 mmol/L (22-30); Chloride 100 mmol/L (98-107); Glucose 96 mg/dL (74-99); Non-African American GFR(MDRD) >60 (>60 ml/min/1.73 sqM); Potassium 4.2 mmol/L (3.5-5.1); Sodium 141 mmol/L (137-145)
--- NOTE | 2017-01-12 09:52 | P.PN ---
Subjective Principal diagnosis: Cellulitis The patient presents after radiology guided drainage of a seroma of the abdomen. He reported immediate redness following his procedure. He then developed increased redness and swelling at the puncture site where the radiologist had drained the fluid through his previous incision. No reports of fevers or chills. He still reports focal tenderness at the drainage site. He is responding to vancomycin. Objective - Vital Signs Vital signs: Vital Signs Temp 97.6 F 01/12/17 07:00 Pulse 50 L 01/12/17 07:00 Resp 16 01/12/17 07:00 BP 123/80 01/12/17 07:00 Pulse Ox 96 01/12/17 07:00 Intake & Output 01/11/17 01/12/17 01/12/17 18:59 06:59 18:59 Intake Total 830 1340 Output Total 1 Balance 829 1340 Weight 114.215 kg 114.215 kg Intake: IV 250 500 Vancomycin 1,750 mg In 250 500 Sodium Chloride 0.9% 250 ml @ 125 mls/hr IVPB Q8H [facility] Rx#:[id number] Intake, IV Titration 100 Amount Levofloxacin 500Mg-D5w 100 Pmx 500 mg In Dextrose/ Water 1 100ml.bag @ 100 mls/hr IVPB Q24H [facility] Rx#: [id number] Oral 480 840 Output: Stool 1 Other: Voiding Method Toilet Toilet Toilet # Voids 4 1 1 - Exam GENERAL: Well developed and in no acute distress. Pleasant. HEENT: No sclera icterus. Extraocular movements grossly intact. Moist buccal mucosa. Head is atraumatic, normocephalic. Hears conversational speech. No nasal drainage. NECK: Supple without lymphadenopathy. No JV distention. CHEST: Non-labored respirations and equal bilateral excursions. CARDIOVASCULAR: Regular rate and rhythm. Palpable 2+ radial pulses. ABDOMEN: Well-healed panniculectomy incision. Focal erythema and fluctuance of 10 cm of the lower abdomen and significantly tender to touch. Rest of abdomen is soft. MUSCULOSKELETAL: No clubbing, cyanosis or edema. NEUROLOGIC: No focal or lateralizing signs. PSYCH: Appropriate affect. Alert and oriented to person, place and time. - Labs CBC & Chem 7: 01/10/17 06:54 01/12/17 07:25 Labs: Abnormal Lab Results - Last 24 Hours (Table) 01/12/17 Range/Units 07:25 Carbon Dioxide 32 H (22-30) mmol/L Microbiology - Last 24 Hours (Table) 01/09/17 10:35 Blood Culture - Preliminary Blood No Growth after 48 hours Assessment and Plan (1) Other acute postprocedural pain Status: Acute (2) Cellulitis and abscess of trunk Status: Acute Plan: 1. He immediately developed cellulitis and redness following his drainage from the radiologist. Despite IV antibiotics, he has focal fluctuance at the drainage site. We'll proceed with open drainage for cellulitis and abscess scheduled for tomorrow. 2. Continue IV antibiotics.
[2017-01-12] MEDS ORDERED: HYDROmorphone 1 MG/ML 1 ML SYRINGE IVP PRN (21:18)
[2017-01-12] MEDS ORDERED: LACTATED RINGERS 1,000 ML IV SCH (21:30)
[2017-01-13] MEDS: HYDROmorphone 1 MG/ML 1 ML SYRINGE IV PRN ×6 (01:56→20:01)
[2017-01-13] MEDS: VANCOMYCIN 1,750 MG in SODIUM CHLORIDE 0.9% 250 ML IVPB SCH ×2 (03:46→14:28)
[2017-01-13] MEDS ORDERED: IV FLUID CONTINUATION 1,000 ML IV ONE (06:56)
[2017-01-13] MEDS ORDERED: ONDANSETRON 4 MG/2 ML VIAL IVP ONE (07:14)
[2017-01-13] MEDS ORDERED: DEXAMETHASONE SOD PHOSPHATE 10 MG/ML 1 ML VIAL IV ONE (07:15)
[2017-01-13] MEDS ORDERED: SCOPOLAMINE 1.5MG/72HR PATCH TRANSDERM ONE (07:15)
[2017-01-13] MEDS: SYMBICORT 160-4.5 MCG INHALER INHALATION SCH ×2 (07:20→19:44)
[2017-01-13] MEDS ORDERED: LIDOCAINE 1% INJ 10MG/ML (20 ML MDV) ONE (07:44)
[2017-01-13] MEDS ORDERED: MIDAZOLAM 2 MG/2 ML VIAL ONE (07:44)
[2017-01-13] MEDS ORDERED: fentaNYL (PF) 50 MCG/ML 2 ML AMP ONE (07:44)
[2017-01-13] MEDS ORDERED: PROPOFOL 10 MG/ML 20 ML VIAL IV ONE (07:44)
[2017-01-13] MEDS ORDERED: SUCCINYLCHOLINE CHLORIDE VIAL 200 MG/10 ML VIAL IV ONE (07:44)
[2017-01-13] MEDS ORDERED: BUPIVACAIN-EPI 0.25%-1:200,000 30 ML VIAL SQ ONE (08:23)
[2017-01-13] MEDS ORDERED: HYDROcodone/APAP 5-325MG 1 EACH TAB PO PRN (08:42)
[2017-01-13 08:58] VITALS: RESP 16
--- NOTE | 2017-01-13 09:07 | P.PCN ---
Date of Procedure: 01/13/17 Preoperative Diagnosis: Abdominal wall cellulitis with abscess Postoperative Diagnosis: Same Procedure(s) Performed: 1. Ultrasound guided FNA of abdominal wall seroma, Left lateral abdominal wall 2. Incision and drainage of abdominal wall abscess, right lower quadrant. Implants: Anesthesia: GETA, local Surgeon: Arielle Medeiros Estimated Blood Loss (ml): 5 Pathology: other (Aerobic and anaerobic culture) Condition: stable Indications for Procedure: Operative Findings: Abdominal wall cellulitis with abscess drained 5 mL. Abdominal wall seroma drained 10mL via ultrasound-guided fine-needle aspiration. Description of Procedure:
[2017-01-13] MEDS: ENOXAPARIN 40 MG/0.4 ML SYRINGE SQ SCH (09:32)
[2017-01-13] MEDS: MONTELUKAST 10 MG TAB PO SCH (09:57)
[2017-01-13] MEDS: LEVOFLOXACIN 500MG-D5W PMX 500 MG in DEXTROSE/WATER 1 100ML.BAG IVPB SCH (10:55)
--- NOTE | 2017-01-13 11:15 | OP ---
DATE OF SERVICE: 01/13/2017 SURGEON: PANDA MORENO MD PRODUCT SAFETY TECHNICAL ASSISTANT: None. PREOPERATIVE DIAGNOSES: 1. Abdominal wall cellulitis. 2. Postprocedural complications following radiology fine needle aspiration. 3. History of panniculitis. POSTOPERATIVE DIAGNOSES: 1. Abdominal wall cellulitis. 2. Postprocedural complications following radiology fine needle aspiration. 3. History of panniculitis. 4. Abdominal wall seroma. OPERATION: 1. Fine needle aspiration 10 mL seroma left lateral abdominal wall under ultrasound guided drainage. 2. Drainage of abdominal wall cellulitis and abscess right lower abdomen, 5 mL. 3. A 3 L pulse lavage abdominal wall abscess. ANESTHESIA: General with 30 mL 0.25% Marcaine with epinephrine. ESTIMATED BLOOD LOSS: 5 mL SPECIMENS REMOVED: Aerobic, anaerobic culture, right lower abdominal wall wound. COMPLICATIONS: None. OPERATIVE FINDINGS: 1. Ultrasound guided fine needle aspiration demonstrated 10 mL fluid-filled pocket of the left lower abdominal wall, drained. 2. Focal abscess within the subcutaneous tissue at the area of puncture site performed by previous radiologist fine needle aspiration. 3. Pocket of abdominal wall seroma drained and irrigated using 3 L normal saline solution. INDICATIONS: Mr. Ken Grissom is a 52-year-old gentleman who is status post panniculectomy almost 5 to 6 weeks ago. He had an abdominal wall seroma which was initially drained by the radiologist approximately a week ago. He reports 3 days later he developed redness at the puncture site of the right lower quadrant. He reported increased abdominal pain and redness and then presented to the emergency room. He was placed on vancomycin including Levaquin with minimal improvement of his symptoms. As he continued to have tenderness and pain and discomfort of the right lower abdomen, surgical intervention was prescribed. Benefits and risks were reviewed. Informed consent was obtained. DESCRIPTION OF PROCEDURE: The patient is brought into the operating room, laid in supine position. After general induction, the abdomen was prepped and draped in a standard sterile fashion. After a timeout protocol was confirmed with surgical team, an ultrasound was arranged. Please note the patient was on scheduled IV antibiotics including vancomycin. Using ultrasound along the left lower quadrant, a pocket of fluid was identified. Using an 18-gauge short spinal needle, the area was aspirated and approximately 10 mL of straw-colored seroma was drained. The skin was initially localized using 0.25% Marcaine with epinephrine. Attention was now brought to the right lower abdomen where a 9 cm area of induration with fluctuance was identified at the puncture site initially placed by the radiologist. Using a #10 blade, the fluctuance was incised and purulence was expressed. Anaerobic and aerobic cultures were obtained and sent. Using digital palpation, the incision was widened to approximately 3 cm, loculations were disrupted. A suction catheter was used to probe the pocket which had actually allowed drainage of abdominal wall seroma deep to the subcutaneous tissue. Next, using 3 L of normal saline solution attached with cysto tubing, the pocket was thoroughly irrigated. Pulse lavage was used to focally irrigate the area of abscess of the subcutaneous tissue. Next, please note another separate 1 L of normal saline was used to pulse lavage the abscess pocket. Hemostasis was checked. Next a strip of Aquacel Ag rope was placed along the depth of the subcutaneous tissue. A 4 x 4 followed by ABD was placed with an orthopedic adhesive tape. Abdominal binder was placed. At the end of the procedure, needle, sponge and instrument count had been verified correct by the surgical supervisor. The patient was taken to the postanesthesia care unit in stable condition. The patient's family was pleased with the level of care. TOMER
[2017-01-13 12:54] LABS: Anion Gap 10 mmol/L; Blood Urea Nitrogen 11 mg/dL (9-20); Calcium 8.7 mg/dL (8.4-10.2); Carbon Dioxide 28 mmol/L (22-30); Chloride 102 mmol/L (98-107); Glucose 156 mg/dL (74-99); Non-African American GFR(MDRD) >60 (>60 ml/min/1.73 sqM); Potassium 3.9 mmol/L (3.5-5.1); Sodium 140 mmol/L (137-145)
[2017-01-13 14:39] VITALS: BP 130/68; TEMP 97.2
[2017-01-13 15:16] VITALS: PULSE 71
--- NOTE | 2017-01-13 20:47 | P.PN ---
Progress Note - Text Patient seen and evaluated this evening. "All my pain is gone.". Discharge Instructions were described. He requires minimal pain meds. Patient agreeable with discharge for follow-up in the bariatric center in 3 days.
--- NOTE | 2017-01-13 20:49 | P.DS ---
Providers Date of admission: 01/09/17 12:41 Expected date of discharge: 01/13/17 Attending physician: Arielle Medeiros Primary care physician: Harjinder Almanzar - Discharge Diagnosis(es) (1) Other acute postprocedural pain Current Visit: Yes Status: Acute (2) Cellulitis and abscess of trunk Current Visit: Yes Status: Acute Hospital Course: The patient is a 52-year-old gentleman who was admitted after developing redness swelling and abscess following a radiology guided drainage of abdominal wall seroma. He was placed on vancomycin including Levaquin. He continued to have persistent pain despite IV antibiotics. He was taken to the operating room where his abdominal abscess was drained as well his abdominal wall seroma. Immediately postop, his abdominal pain had improved. Prior to discharge, he was tolerating diet. His pain was controlled. Pertinent Studies: Ultrasound demonstrating seroma. Procedures: Drainage of abdominal wall abscess and abdominal wall seroma Patient Condition at Discharge: Stable Plan - Discharge Summary New Discharge Prescriptions: New Hydrocodone/Acetaminophen [[place] 5-325] 1 - 2 each PO Q6HR PRN #60 tab PRN Reason: Pain Ciprofloxacin HCl [Cipro] 500 mg PO Q12HR #10 tablet No Action Montelukast Sodium [Singulair] 10 mg PO DAILY Budesonide-Formot 160-4.5 Mcg [Symbicort 160-4.5 Mcg Inhaler] 2 puff INHALATION RT-BID Albuterol Sulfate [Ventolin HFA] 2 puff INHALATION RT-Q4H PRN PRN Reason: ASTHMA Discharge Medication List Budesonide-Formot 160-4.5 Mcg [Symbicort 160-4.5 Mcg Inhaler] 2 puff INHALATION RT-BID 03/08/14 [History] Montelukast Sodium [Singulair] 10 mg PO DAILY 03/08/14 [History] Albuterol Sulfate [Ventolin HFA] 2 puff INHALATION RT-Q4H PRN 12/04/16 [History] Ciprofloxacin HCl [Cipro] 500 mg PO Q12HR #10 tablet 01/13/17 [Rx] Hydrocodone/Acetaminophen [[place] 5-325] 1 - 2 each PO Q6HR PRN #60 tab 01/13/17 [Rx] Follow up Appointment(s)/Referral(s): Harjinder Almanzar MD [Primary Care Provider] - 1-2 days Arielle Medeiros MD [STAFF PHYSICIAN] - 01/16/17 9:00 am (Bariatric center...please call to confirm) Activity/Diet/Wound Care/Special Instructions: Removing dressing tomorrow and may shower, please keep wound covered during shower with saran wrap. Cut silver dressing to 3 inches and gently apply to wound as a packing using sterile instrument kit. Cover wound with sanitary pad. Perform daily. Discharge Disposition: HOME SELF-CARE
== END 2017-01-13 20:30 | disposition home or self-care (01) | DRG 857 ==
LOC: EC 09:18 → 5MS5E 12:41
PROVIDERS: ADMIT Surgery Plastic and Reconstructive Surgery; ATTEND Surgery Plastic and Reconstructive Surgery
PROC: 0W9F3ZX Drainage of Abdominal Wall, Percutaneous Approach, Diagnostic (ICD-10-PCS; 2017-01-13)
PROC: 3E1M38Z Irrigation of Peritoneal Cavity using Irrigating Substance, Percutaneous Approach (ICD-10-PCS; 2017-01-13)
PROC: 0W9F0ZX Drainage of Abdominal Wall, Open Approach, Diagnostic (ICD-10-PCS; principal; 2017-01-13 07:30)
DX: T81.4XXA Infection following a procedure, initial encounter (principal); L02.211 Cutaneous abscess of abdominal wall; I48.91 Unspecified atrial fibrillation; L03.311 Cellulitis of abdominal wall; L76.34 Postprocedural seroma of skin and subcutaneous tissue following other procedure; M48.50XS Collapsed vertebra, not elsewhere classified, site unspecified, sequela of fracture; M54.5 Low back pain; Z98.84 Bariatric surgery status; Z87.442 Personal history of urinary calculi; J45.909 Unspecified asthma, uncomplicated; Z79.51 Long term (current) use of inhaled steroids; Z79.899 Other long term (current) drug therapy; Y83.4 Other reconstructive surgery as the cause of abnormal reaction of the patient, or of later complication, without mention of misadventure at the time of the procedure
CPT/HCPCS: 36415; 76705; 80048; 80053; 80202; 81003; 83605; 85025; 87040; 87070; 87075; 87205; 94640; 96361; 96365; 96366; 96375; 99285

== ENCOUNTER → 2017-01-16 | Outpatient (CLI) | payer MEDICAID ==
[2017-01-16 10:29] VITALS: BP 148/95; PULSE 67; TEMP 98.4; BMI 35.7
--- NOTE | 2017-02-03 22:46 | P.PN ---
Progress Note - Text DATE OF SERVICE: 01/16/2017 CHIEF COMPLAINT: Status post panniculectomy. HISTORY OF PRESENT ILLNESS: Mr. Ken Grissom is a 52-year-old gentleman who is status post panniculectomy on 12/08/2016. He had interventional radiology drainage of a seroma on 01/02/17. He reports developing immediate redness and tenderness from his drainage site within 3-5 days. He was then admitted for abdominal wall abscess. She underwent drainage of abdominal wall abscess and seroma on 2016. He is more than 5 weeks out from his panniculectomy. He reports complete resolution of his abdominal pain. He is wearing his abdominal binder. He still has drainage from his incision site. At his height of 5 foot, 10 inches, his ideal body weight is 173 pounds. His highest weight was 361 pounds. Today he comes in weighting 249 pounds. Total weight loss is 112 pounds. Percent excess weight loss is now elevated to 60%. Body mass index is reduced from 51.9 down to 35.7. PHYSICAL EXAM: VITAL SIGNS: 5 foot 10, 249 pounds, body mass index 35.7. Vital Signs Temp 98.4 F 01/16/17 10:12 Pulse 67 01/16/17 10:12 Resp BP 148/95 01/16/17 10:12 Pulse Ox ABDOMEN: Packing along the panniculectomy site without cellulitis or erythema. Soft, nontender, nondistended. GENERAL: Well-developed pleasant male in no acute distress. HEENT: No sclera icterus. Extraocular movements grossly intact. Moist buccal mucosa. Head is atraumatic, normocephalic. Hears conversational speech. No nasal drainage. NECK: Supple without lymphadenopathy. No JV distention. CHEST: Non-labored respirations and equal bilateral excursions. CARDIOVASCULAR: Regular rate and rhythm. Palpable 2+ radial pulses. MUSCULOSKELETAL: No clubbing, cyanosis or edema. NEUROLOGIC: No focal or lateralizing signs. PSYCH: Appropriate affect. Alert and oriented to person, place and time. ASSESSMENT: 1. History of panniculectomy. 2. Complication of abdominal wall abscess following interventional radiology percutaneous seroma drainage. 3. Previous history of panniculitis, now resolved. PLAN: 1. Recommend extended time off work pending complete resolution of abdominal wall drainage beyond February 02. 2. Wear abdominal binder on times. 3. Keep dressing and incision dry.
== END | disposition home or self-care (01) ==
LOC: BARWHC3 08:42
PROVIDERS: ATTEND Surgery Plastic and Reconstructive Surgery
DX: Z48.817 Encounter for surgical aftercare following surgery on the skin and subcutaneous tissue (principal); T81.4XXA Infection following a procedure, initial encounter; Z98.890 Other specified postprocedural states
CPT/HCPCS: 99212

== ENCOUNTER 2018-02-19 08:13 | Observation (INO) | payer MEDICAID ==
[2018-02-19] MEDS ORDERED: IPRATROPIUM-ALBUTEROL 3 ML NEB INHALATION STA ×2 (08:30→10:29)
[2018-02-19] MEDS ORDERED: SODIUM CHLORIDE 0.9% 1,000 ML IV STA ×2 (08:30)
[2018-02-19] MEDS ORDERED: methylPREDNISolone SOD SUCCI 125 MG/2 ML VIAL IV STA (08:30)
--- NOTE | 2018-02-19 08:36 | ED ---
SOB HPI - General Chief Complaint: Shortness of Breath Stated Complaint: Asthma Time Seen by Provider: 02/19/18 08:19 Source: patient, RN notes reviewed, old records reviewed Mode of arrival: ambulatory Limitations: no limitations - History of Present Illness Initial Comments: This Patient is a 53-year-old male with a long history of asthma presents emergency department today with increased shortness of breath. Patient reports that he's been having a prolonged asthma attacks for the past week. He saw his primary care provider 3 days ago and was started on a IM steroid injection as well as tapered steroids. He was also started on Omnicef. Patient states that he is not getting any better. Patient states that he's been doing a breathing treatment every hour and is having a difficult time holding long conversations becoming short of breath. Patient states that he has had no fevers or chills. Cough has been nonproductive. No nausea or vomiting. He denies any cardiac history. Patient states he does have family history of heart disease. Nonsmoker. Does see Dr. Garcia, ALLERGY and asthma specialist on [facility]. - Related Data Home Medications Medication Instructions Recorded Confirmed Budesonide-Formot 160-4.5 Mcg 2 puff INHALATION RT-BID 03/08/14 02/19/18 [Symbicort 160-4.5 Mcg Inhaler] Montelukast Sodium [Singulair] 10 mg PO HS 03/08/14 02/19/18 Albuterol Sulfate [Ventolin HFA] 2 puff INHALATION RT-Q4H PRN 12/04/16 02/19/18 Azelastine HCl [Astepro] 1 spray EA NOSTRIL BID 02/19/18 02/19/18 Cefdinir [Omnicef] 300 mg PO Q12HR 02/19/18 02/19/18 Naproxen/Esomeprazole Mag [Vimovo 1 tab PO BID 02/19/18 02/19/18 500-20 mg Tablet] predniSONE See Taper PO DAILY 02/19/18 02/19/18 Allergies Allergy/AdvReac Type Severity Reaction Status Date / Time adhesive tape Allergy Rash/Hives Verified 02/19/18 08:26 Penicillins AdvReac Anaphylaxis Verified 02/19/18 08:26 Ogfdlmp-Bvr-Kom Reductase AdvReac Chest Pain Verified 02/19/18 08:26 Inhibitor Dermabond Allergy Rash/Hives Uncoded 02/19/18 08:19 Review of Systems ROS Statement: Those systems with pertinent positive or pertinent negative responses have been documented in the HPI. ROS Other: All systems not noted in ROS Statement are negative. Past Medical History Past Medical History: Atrial Fibrillation, Asthma Additional Past Medical History / Comment(s): Pt passed 2 kidney stones in August 2014 at 2 different times and states he now has 4 more stones, afib in past d/t hypokalemia after bariatric surgery-none since, bronchitis in past, low back pain-has 3 vertebral compression fractures. Pt states after weight loss, he no longer has HTN/high lipids/ANGELES/GERD and no longer is treated for diabetes. History of Any Multi-Drug Resistant Organisms: None Reported Past Surgical History: Bariatric Surgery, Orthopedic Surgery Additional Past Surgical History / Comment(s): 12/08/16 panniculectomy with ventral hernia repair, Liliana-en-Y, left knee surgery pt for torn meniscus, R knee arthroscopy, R bicep reattachment, EGD/EGJ Past Anesthesia/Blood Transfusion Reactions: Postoperative Nausea & Vomiting ( PONV) Past Psychological History: No Psychological Hx Reported Smoking Status: Never smoker Past Alcohol Use History: None Reported Past Drug Use History: None Reported - Past Family History Father Family Medical History: Cancer, Myocardial Infarction (NM) Additional Family Medical History / Comment(s): Father had prostate cancer. He had a NM at the age of 50yrs. He is 73 yrs old. Mother Family Medical History: No Reported History Additional Family Medical History / Comment(s): Mother is healthy and is 73 yrs old. General Exam - General Exam Comments Initial Comments: 51-year-old male. He is alert and oriented. Does appear to in mild to moderate discomfort. Audible wheezing when walking into the room. Limitations: no limitations General appearance: alert, other (Injury 97.9. Pulse 95. Respiratory rate 20. Blood pressure 134/76. Pulse ox 98% on room air.) Head exam: Present: atraumatic, normocephalic, normal inspection Eye exam: Present: normal appearance, PERRL, EOMI. Absent: scleral icterus, conjunctival injection, periorbital swelling ENT exam: Present: normal exam, mucous membranes moist Neck exam: Present: normal inspection. Absent: tenderness, meningismus, lymphadenopathy Respiratory exam: Present: wheezes (Patient has diffuse wheezing and rhonchi bilaterally. Nonproductive cough.), rhonchi, decreased breath sounds. Absent: normal lung sounds bilaterally, respiratory distress, rales, stridor Cardiovascular Exam: Present: regular rate, normal rhythm, normal heart sounds. Absent: systolic murmur, diastolic murmur, rubs, gallop, clicks GI/Abdominal exam: Present: soft, normal bowel sounds. Absent: distended, tenderness, guarding, rebound, rigid Extremities exam: Present: normal inspection, full ROM, normal capillary refill. Absent: tenderness, pedal edema, joint swelling, calf tenderness Back exam: Present: normal inspection Neurological exam: Present: alert, oriented X3, CN II-XII intact Psychiatric exam: Present: normal affect, normal mood Skin exam: Present: warm, dry, intact, normal color. Absent: rash Course Vital Signs 02/19/18 02/19/18 02/19/18 08:16 08:46 09:04 Temperature 97.7 F Pulse Rate 95 84 84 Respiratory 20 Rate Blood Pressure 134/76 O2 Sat by Pulse 98 Oximetry Medical Decision Making - Medical Decision Making This 3-year-old male presents for is presently she bled shortness of breath and cough. Patient was treated outpatient with steroids as well as Omnicef. Patient has audible wheezing from entering the exam room. Pulse ox her chin with ambulation and discussion will dip to 94 and 93%. Nonsmoker. Patient was given a double DuoNeb treatment IV Solu-Medrol and started on IV Levaquin. Lab work did show elevated lactic acid of 2.7. Chest x-ray was reviewed and normal. No evidence of pneumonia. Patient continued to wheeze after the IV steroids and double DuoNeb. Like to keep the Patient in Patient for failed outpatient treatments and asthma exacerbation. IV steroids and for antibiotic. Patient was given 2 L bolus after lactic acid was noted to be 2.7. - Lab Data Result diagrams: 02/19/18 09:23 02/19/18 08:51 Lab Results 02/19/18 02/19/18 02/19/18 Range/Units 08:51 08:51 08:51 WBC (3.8-10.6) k/uL RBC (4.30-5.90) m/uL Hgb (13.0-17.5) gm/dL Hct (39.0-53.0) % MCV (80.0-100.0) fL MCH (25.0-35.0) pg MCHC (31.0-37.0) g/dL RDW (11.5-15.5) % Plt Count (150-450) k/uL Neutrophils % % Lymphocytes % % Monocytes % % Eosinophils % % Basophils % % Neutrophils # (1.3-7.7) k/uL Lymphocytes # (1.0-4.8) k/uL Monocytes # (0-1.0) k/uL Eosinophils # (0-0.7) k/uL Basophils # (0-0.2) k/uL Hypochromasia Microcytosis PT (9.0-12.0) sec INR (<1.2) APTT (22.0-30.0) sec Sodium 140 (137-145) mmol/L Potassium 3.6 (3.5-5.1) mmol/L Chloride 104 (98-107) mmol/L Carbon Dioxide 27 (22-30) mmol/L Anion Gap 9 mmol/L BUN 18 (9-20) mg/dL Creatinine 0.67 (0.66-1.25) mg/dL Est GFR (CKD-EPI)AfAm >90 (>60 ml/min/1.73 sqM) Est GFR (CKD-EPI)NonAf >90 (>60 ml/min/1.73 sqM) Glucose 196 H (74-99) mg/dL Plasma Lactic Acid Tristin 2.7 H* (0.7-2.0) mmol/L Calcium 8.5 (8.4-10.2) mg/dL Total Bilirubin 0.3 (0.2-1.3) mg/dL AST 63 H (17-59) U/L ALT 57 (21-72) U/L Alkaline Phosphatase 91 (38-126) U/L Total Creatine Kinase 729 H (55-170) U/L CK-MB (CK-2) 1.8 (0.0-2.4) ng/mL CK-MB (CK-2) Rel Index 0.2 Troponin I <0.012 (0.000-0.034) ng/mL Total Protein 6.2 L (6.3-8.2) g/dL Albumin 3.9 (3.5-5.0) g/dL 02/19/18 02/19/18 Range/Units 09:23 09:23 WBC 5.5 (3.8-10.6) k/uL RBC 4.85 (4.30-5.90) m/uL Hgb 12.1 L (13.0-17.5) gm/dL Hct 37.2 L (39.0-53.0) % MCV 76.7 L (80.0-100.0) fL MCH 25.0 (25.0-35.0) pg MCHC 32.6 (31.0-37.0) g/dL RDW 15.8 H (11.5-15.5) % Plt Count 287 (150-450) k/uL Neutrophils % 48 % Lymphocytes % 36 % Monocytes % 10 % Eosinophils % 3 % Basophils % 0 % Neutrophils # 2.6 (1.3-7.7) k/uL Lymphocytes # 2.0 (1.0-4.8) k/uL Monocytes # 0.5 (0-1.0) k/uL Eosinophils # 0.2 (0-0.7) k/uL Basophils # 0.0 (0-0.2) k/uL Hypochromasia Slight Microcytosis Slight PT 9.9 (9.0-12.0) sec INR 1.0 (<1.2) APTT 21.0 L (22.0-30.0) sec Sodium (137-145) mmol/L Potassium (3.5-5.1) mmol/L Chloride (98-107) mmol/L Carbon Dioxide (22-30) mmol/L Anion Gap mmol/L BUN (9-20) mg/dL Creatinine (0.66-1.25) mg/dL Est GFR (CKD-EPI)AfAm (>60 ml/min/1.73 sqM) Est GFR (CKD-EPI)NonAf (>60 ml/min/1.73 sqM) Glucose (74-99) mg/dL Plasma Lactic Acid Tristin (0.7-2.0) mmol/L Calcium (8.4-10.2) mg/dL Total Bilirubin (0.2-1.3) mg/dL AST (17-59) U/L ALT (21-72) U/L Alkaline Phosphatase (38-126) U/L Total Creatine Kinase (55-170) U/L CK-MB (CK-2) (0.0-2.4) ng/mL CK-MB (CK-2) Rel Index Troponin I (0.000-0.034) ng/mL Total Protein (6.3-8.2) g/dL Albumin (3.5-5.0) g/dL 02/19/18 09:39 EKG shows normal sinus rhythm normal EKG. Ventricular rate of 85 bpm. Was 158 ms. QRS ration 96 ms. QT QTc is 380/452 ms. No evidence of ST elevation or T-wave inversion. No evidence of atrial or ventricular arrhythmias. - Radiology Data Radiology results: report reviewed Chest x-rays negative for any acute cardiopulmonary process. Disposition Clinical Impression: Asthma, Failure of outpatient treatment Disposition: ADMITTED IP TO THIS HOSP Condition: Stable Is patient prescribed a controlled substance at d/c from ED?: No When asked, does pt state using other controlled substances?: No If prescribed controlled substance>3 days was MAPS reviewed?: No If opioid is for acute pain is fill amount 7 days or less?: No If Rx opioid, was Start Talking consent form obtained?: No Referrals: Harjinder Almanzar MD [Primary Care Provider] - 1-2 days Time of Disposition: 10:31
[2018-02-19 09:13] LABS: Albumin 3.9 g/dL (3.5-5.0); Anion Gap 9 mmol/L; Calcium 8.5 mg/dL (8.4-10.2); Carbon Dioxide 27 mmol/L (22-30); Chloride 104 mmol/L (98-107); Glucose 196 mg/dL (74-99); Sodium 140 mmol/L (137-145); Total Bilirubin 0.3 mg/dL (0.2-1.3); Total Protein 6.2 g/dL (6.3-8.2)
[2018-02-19 09:16] LABS: Potassium 3.6 mmol/L (3.5-5.1)
[2018-02-19 09:17] LABS: ALT 57 U/L (21-72); AST 63 U/L (17-59); Alkaline Phosphatase 91 U/L (38-126); Blood Urea Nitrogen 18 mg/dL (9-20)
[2018-02-19] MEDS: PROMETHAZ-COD 6.25-10 MG/5 ML 5 ML CUP PO PRN ×2 (09:20→13:06)
[2018-02-19 09:31] LABS: Basophils % (A) 0 %; Eosinophils # (A) 0.2 k/uL (0-0.7); Eosinophils % (A) 3 %; HCT 37.2 % (39.0-53.0); HGB 12.1 gm/dL (13.0-17.5); Hypochromasia Slight; Lymphocytes % (A) 36 %; MCHC 32.6 g/dL (31.0-37.0); MCV 76.7 fL (80.0-100.0); Mean Platelet Volume 6.2; Microcytosis Slight; Monocytes # (A) 0.5 k/uL (0-1.0); Monocytes % (A) 10 %; Neutrophils # (A) 2.6 k/uL (1.3-7.7); Neutrophils % (A) 48 %; Platelet Count 287 k/uL (150-450); RBC 4.85 m/uL (4.30-5.90); RDW 15.8 % (11.5-15.5); WBC 5.5 k/uL (3.8-10.6)
[2018-02-19] MEDS ORDERED: SODIUM CHLORIDE 0.9% 1,000 ML IV ONE (09:36)
[2018-02-19 09:38] LABS: Creatine Kinase 729 U/L (55-170)
[2018-02-19] MEDS ORDERED: LEVOFLOXACIN 750MG-D5W PMX 750 MG in DEXTROSE/WATER 1 150ML.BAG IVPB STA (09:40)
--- NOTE | 2018-02-19 09:44 | XR ---
EXAMINATION TYPE: XR chest 2V DATE OF EXAM: 02/19/2018 COMPARISON: Chest x-ray October 21, 2012 HISTORY: History of asthma with difficulty in breathing TECHNIQUE: Frontal and lateral views of the chest are obtained. FINDINGS: There is no focal air space opacity, pleural effusion, or pneumothorax seen. The cardiac silhouette size is within normal limits. Underlying scoliosis is present. There is moderate advanced multilevel spurring in the lower thoracic spine. IMPRESSION: No acute cardiopulmonary process.
[2018-02-19 09:51] LABS: Creatine Kinase MB 1.8 ng/mL (0.0-2.4); Troponin I <0.012 ng/mL (0.000-0.034)
[2018-02-19 10:07] LABS: Prothrombin Time 9.9 sec (9.0-12.0)
[2018-02-19] MEDS ORDERED: oxyCODONE-APAP 5-325MG 1 EACH TAB PO PRN (10:31)
[2018-02-19] MEDS ORDERED: ACETAMINOPHEN TAB 325 MG TAB PO PRN (10:31)
[2018-02-19] MEDS ORDERED: NALOXONE 0.4 MG/ML 1 ML VIAL IV PRN ×2 (10:31→14:22)
[2018-02-19] MEDS ORDERED: IBUPROFEN 400 MG TAB PO PRN (10:31)
[2018-02-19] MEDS ORDERED: Acetaminophen-Codeine 300-30mg TAB PO PRN (10:31)
[2018-02-19] MEDS ORDERED: IPRATROPIUM-ALBUTEROL 3 ML NEB INHALATION PRN (10:33)
[2018-02-19] MEDS: SODIUM CHLORIDE 0.9% 1,000 ML IV SCH ×2 (12:08→21:13)
[2018-02-19] MEDS: methylPREDNISolone SOD SUCCI 125 MG/2 ML VIAL IV SCH ×2 (12:08→17:11)
[2018-02-19 12:19] VITALS: BMI 37.0
--- NOTE | 2018-02-19 14:32 | P.HPIM ---
History of Present Illness H&P Date: 02/19/18 Chief Complaint: SOB 53-year-old male with a long history of asthma presents emergency department today with increased shortness of breath. Patient reports that he's been having a prolonged asthma attack since last week. He saw his primary care provider 3 days ago and was given an IM steroid injection as well as tapered steroids. He was also started on Omnicef. Patient states that he is not getting any better. Patient states that he's been doing a breathing treatment every hour and is having a difficult time holding long conversations becoming short of breath. He did have some chest tightness earlier. He also has been having cough that is nonproductive. He thinks his symptoms are mainly due to weather changes. No fevers or chills. No nausea or vomiting. [facility]. In the emergency department he was found to be in moderate respiratory distress and because of that it was decided to admit him to the hospital for further evaluation and management. Review of Systems 12 point review of system performed, negative except HPI Past Medical History Past Medical History: Atrial Fibrillation, Asthma Additional Past Medical History / Comment(s): Pt passed 2 kidney stones in August 2014 at 2 different times and states he now has 4 more stones, afib in past d/t hypokalemia after bariatric surgery-none since, bronchitis in past, low back pain-has 3 vertebral compression fractures. Pt states after weight loss, he no longer has HTN/high lipids/ANGELES/GERD and no longer is treated for diabetes. History of Any Multi-Drug Resistant Organisms: None Reported Past Surgical History: Bariatric Surgery, Orthopedic Surgery Additional Past Surgical History / Comment(s): 12/08/16 panniculectomy with ventral hernia repair, Liliana-en-Y, left knee surgery pt for torn meniscus, R knee arthroscopy, R bicep reattachment, EGD/EGJ sinus surgery Past Anesthesia/Blood Transfusion Reactions: Postoperative Nausea & Vomiting ( PONV) Past Psychological History: No Psychological Hx Reported Additional Psychological History / Comment(s): Pt resides with his spouse and their adult son. Pt is independent. Smoking Status: Never smoker Past Alcohol Use History: None Reported Past Drug Use History: None Reported - Past Family History Father Family Medical History: Cancer, Myocardial Infarction (AR) Additional Family Medical History / Comment(s): Father had prostate cancer. He had a AR at the age of 50yrs. He is 73 yrs old. Mother Family Medical History: No Reported History Additional Family Medical History / Comment(s): Mother is healthy and is 73 yrs old. Medications and Allergies Home Medications Medication Instructions Recorded Confirmed Type Budesonide-Formot 160-4.5 Mcg 2 puff INHALATION RT-BID 03/08/14 02/19/18 History [Symbicort 160-4.5 Mcg Inhaler] Montelukast Sodium [Singulair] 10 mg PO HS 03/08/14 02/19/18 History Albuterol Sulfate [Ventolin HFA] 2 puff INHALATION RT-Q4H PRN 12/04/16 02/19/18 History Azelastine HCl [Astepro] 1 spray EA NOSTRIL BID 02/19/18 02/19/18 History Cefdinir [Omnicef] 300 mg PO Q12HR 02/19/18 02/19/18 History Naproxen/Esomeprazole Mag [Vimovo 1 tab PO BID 02/19/18 02/19/[address] 500-20 mg Tablet] predniSONE See Taper PO DAILY 02/19/18 02/19/18 History Allergies Allergy/AdvReac Type Severity Reaction Status Date / Time adhesive tape Allergy Rash/Hives Verified 02/19/18 08:26 Penicillins AdvReac Anaphylaxis Verified 02/19/18 08:26 Sibdqdz-Eyk-Bxi Reductase AdvReac Chest Pain Verified 02/19/18 08:26 Inhibitor Dermabond Allergy Rash/Hives Uncoded 02/19/18 08:19 Physical Exam Vitals: Vital Signs Temp Pulse Resp BP Pulse Ox 02/19/18 10:57 98.0 F 78 18 167/90 95 02/19/18 10:49 82 02/19/18 10:41 80 16 02/19/18 09:04 84 02/19/18 08:46 84 02/19/18 08:16 97.7 F 95 20 134/76 98 Intake and Output 02/18/18 02/19/18 02/19/18 22:59 06:59 14:59 Other: Weight 117 kg Constitutional: No acute distress, conversant, pleasant Eyes:Anicteric sclerae, moist conjunctiva, no lid-lag, PERRLA, ENMT: Oropharynx clear, no erythema, exudates Neck: Supple, FROM, no masses, or JVD, No carotid bruits, No thyromegaly Lungs: Diminished breath sounds bilaterally, diffuse bilateral wheezing, Clear to percussion, Normal respiratory effort, no accessory muscle use Cardiovascular: Heart regular in rate and rhythm, No murmurs, gallops, or rubs, No peripheral edema Abdominal: Soft, Nontender, no guarding, rebound or rigidity, Normoactive bowel sounds, No hepatomegaly, No splenomegaly, No palpable mass Skin: Normal temperature, tone, texture, turgor, no induration, No subcutaneous nodules, No rash, lesions, No ulcers Extremities: No digital cyanosis, No clubbing, Pedal pulses intact and symmetrical, Radial pulses intact and symmetrical, No calf tenderness Psychiatric: Alert and oriented to person, place and time, appropriate affect, intact judgement Neuro: Muscles Strength 5/5 in all 4 extremities, Sensation to light touch grossly present throughout, Cranial nerves II-XII grossly intact, no focal sensory deficits Results CBC & Chem 7: 02/19/18 09:23 02/19/18 08:51 Labs: Abnormal Lab Results - Last 24 Hours (Table) 02/19/18 02/19/18 02/19/18 Range/Units 08:51 08:51 08:51 Hgb (13.0-17.5) gm/dL Hct (39.0-53.0) % MCV (80.0-100.0) fL RDW (11.5-15.5) % APTT (22.0-30.0) sec Glucose 196 H (74-99) mg/dL Plasma Lactic Acid Tristin 2.7 H* (0.7-2.0) mmol/L AST 63 H (17-59) U/L Total Creatine Kinase 729 H (55-170) U/L Total Protein 6.2 L (6.3-8.2) g/dL 02/19/18 02/19/18 Range/Units 09:23 09:23 Hgb 12.1 L (13.0-17.5) gm/dL Hct 37.2 L (39.0-53.0) % MCV 76.7 L (80.0-100.0) fL RDW 15.8 H (11.5-15.5) % APTT 21.0 L (22.0-30.0) sec Glucose (74-99) mg/dL Plasma Lactic Acid Tristin (0.7-2.0) mmol/L AST (17-59) U/L Total Creatine Kinase (55-170) U/L Total Protein (6.3-8.2) g/dL Thrombosis Risk Factor Assmnt - Choose All That Apply Each Factor Represents 1 point: Abnormal pulmonary function (COPD) Thrombosis Risk Factor Assessment Total Risk Factor Score: 1 Thrombosis Risk Factor Assessment Level: Low Risk Assessment and Plan Plan: Acute severe asthma exacerbation/seasonal ALLERGIES Failed outpatient therapy Continue Singulair/Astepro Start DuoNeb, steroids IV and doxycycline for his anti-inflammatory properties. Likely discharge in a.m. DVT prophylaxis Ambulatory, low risk
[2018-02-19] MEDS: ONDANSETRON 4 MG/2 ML VIAL IVP PRN (15:42)
[2018-02-19] MEDS: IPRATROPIUM-ALBUTEROL 3 ML NEB INHALATION SCH ×2 (16:29→20:10)
[2018-02-19] MEDS ORDERED: METOCLOPRAMIDE 5 MG/ML 2 ML VIAL IVP PRN (18:24)
[2018-02-19 19:09] LABS: Basophils % (A) 0 %; Eosinophils % (A) 0 %; HCT 40.7 % (39.0-53.0); HGB 12.8 gm/dL (13.0-17.5); Hypochromasia Slight; Lymphocytes # (A) 0.4 k/uL (1.0-4.8); Lymphocytes % (A) 8 %; MCH 24.3 pg (25.0-35.0); MCHC 31.4 g/dL (31.0-37.0); MCV 77.4 fL (80.0-100.0); Mean Platelet Volume 6.1; Microcytosis Slight; Monocytes # (A) 0.1 k/uL (0-1.0); Monocytes % (A) 3 %; Neutrophils % (A) 88 %; Platelet Count 288 k/uL (150-450); RBC 5.26 m/uL (4.30-5.90); RDW 15.8 % (11.5-15.5); WBC 4.5 k/uL (3.8-10.6)
[2018-02-19] MEDS: SYMBICORT 160-4.5 MCG INHALER INHALATION SCH (20:10)
--- NOTE | 2018-02-19 20:38 | P.PN ---
Progress Note - Text Progress Note Date: 02/19/18 hemoglobin is stable and actually improved compared to last reading. continue to monitor for any evidence of GI bleeding
[2018-02-19] MEDS ORDERED: MONTELUKAST 10 MG TAB PO SCH (21:00)
[2018-02-19] MEDS: AZELASTINE 137MCG/SPRAY EA NOSTRIL SCH (21:59)
[2018-02-19] MEDS: DOXYCYCLINE 50 MG CAP PO SCH (21:59)
[2018-02-19] MEDS: PANTOPRAZOLE 40 MG/10 ML VIAL IV SCH (22:00)
[2018-02-20] MEDS: ONDANSETRON 4 MG/2 ML VIAL IVP PRN (00:06)
[2018-02-20] MEDS: methylPREDNISolone SOD SUCCI 125 MG/2 ML VIAL IV SCH ×3 (00:06→12:21)
[2018-02-20] MEDS: PROMETHAZ-COD 6.25-10 MG/5 ML 5 ML CUP PO PRN (00:08)
[2018-02-20 00:45] LABS: HCT 36.4 % (39.0-53.0); HGB 11.7 gm/dL (13.0-17.5); MCH 24.7 pg (25.0-35.0); MCHC 32.1 g/dL (31.0-37.0); MCV 76.8 fL (80.0-100.0); Mean Platelet Volume 6.5; Microcytosis Slight; Platelet Count 264 k/uL (150-450); RBC 4.74 m/uL (4.30-5.90); RDW 15.8 % (11.5-15.5)
[2018-02-20] MEDS: SODIUM CHLORIDE 0.9% 1,000 ML IV SCH (06:20)
[2018-02-20] MEDS: SYMBICORT 160-4.5 MCG INHALER INHALATION SCH (07:18)
[2018-02-20] MEDS: IPRATROPIUM-ALBUTEROL 3 ML NEB INHALATION SCH ×2 (07:18→11:08)
[2018-02-20 07:59] VITALS: BP 140/78; RESP 16; TEMP 97.5
[2018-02-20 08:44] LABS: Basophils % (A) 0 %; Eosinophils % (A) 0 %; HCT 39.7 % (39.0-53.0); HGB 12.4 gm/dL (13.0-17.5); Hypochromasia Slight; Lymphocytes # (A) 0.9 k/uL (1.0-4.8); Lymphocytes % (A) 11 %; MCH 24.5 pg (25.0-35.0); MCHC 31.1 g/dL (31.0-37.0); MCV 78.8 fL (80.0-100.0); Mean Platelet Volume 6.3; Monocytes # (A) 0.3 k/uL (0-1.0); Monocytes % (A) 4 %; Neutrophils # (A) 6.6 k/uL (1.3-7.7); Neutrophils % (A) 84 %; Platelet Count 314 k/uL (150-450); RBC 5.04 m/uL (4.30-5.90); RDW 15.5 % (11.5-15.5); WBC 7.9 k/uL (3.8-10.6)
[2018-02-20] MEDS: AZELASTINE 137MCG/SPRAY EA NOSTRIL SCH (08:49)
[2018-02-20] MEDS: PANTOPRAZOLE 40 MG/10 ML VIAL IV SCH (08:49)
[2018-02-20] MEDS: DOXYCYCLINE 50 MG CAP PO SCH (08:49)
[2018-02-20 09:00] LABS: ALT 51 U/L (21-72); AST 43 U/L (17-59); Albumin 3.8 g/dL (3.5-5.0); Alkaline Phosphatase 98 U/L (38-126); Anion Gap 7 mmol/L; Blood Urea Nitrogen 15 mg/dL (9-20); Carbon Dioxide 27 mmol/L (22-30); Chloride 104 mmol/L (98-107); Glucose 268 mg/dL (74-99); Phosphorus 3.7 mg/dL (2.5-4.5); Potassium 4.2 mmol/L (3.5-5.1); Sodium 138 mmol/L (137-145); Total Bilirubin 0.3 mg/dL (0.2-1.3)
[2018-02-20] MEDS ORDERED: PANTOPRAZOLE 40 MG/10 ML VIAL IV SCH (09:00)
--- NOTE | 2018-02-20 10:03 | CONS ---
CONSULTATION DATE OF SERVICE: 02/20/18. REQUESTING PHYSICIAN: Dr. Melvin Almanzar. REASON FOR CONSULTATION: Epigastric pain, nausea, vomiting, and coffee-grounds emesis. HISTORY OF PRESENT ILLNESS: The patient is a 53-year-old pleasant white male who was admitted to hospital with asthma exacerbation. He has prior history of gastric bypass surgery 5 years ago. Yesterday while he was eating lunch in the hospital, he had a piece of chicken that was caught in the epigastric area and he could not swallow any further. He was dry heaving and retching and subsequent had several episodes of nausea and vomiting with coffee ground emesis. After about 4-5 hours, he felt the piece of chicken dislodge and since then he has been doing much better. In fact, he did not have any further episodes of nausea, vomiting of coffee-grounds emesis through the night. This morning he has eaten pancakes for breakfast and tolerating well. He had a similar episode about 6 years ago when he recently had gastric bypass Liliana-en-Y surgery, but since then he has been very careful with his diet and never had these episodes. Presently doing well with no symptoms. In fact, requesting to go home. PAST MEDICAL HISTORY: Significant for morbid obesity, asthma, hypertension, kidney stones, and atrial fibrillation. MEDICATIONS: At home include Symbicort, albuterol, Singulair, Omnicef, naproxen, omeprazole, and prednisone taper dose. PAST SURGICAL HISTORY: Panniculectomy, rectal bleeding, gastric bypass surgery, left knee surgery, EGD. PAST SOCIAL HISTORY: No smoking. No alcohol use. FAMILY HISTORY: Father had myocardial infarction and coronary artery disease as well as prostate cancer. Mother had hypertension. REVIEW OF SYSTEMS: Cardiopulmonary: No chest pain, shortness of breath. Genitourinary: No dysuria or hematuria. Musculoskeletal unremarkable. Skin unremarkable. Endocrine unremarkable. Psychiatric unremarkable. Neurology unremarkable. ENT vision unremarkable. Constitutional: No recent weight loss. No fevers, chills, night sweats. ALLERGIES: PENICILLIN, STATINS. PHYSICAL EXAMINATION: On physical examination he appears comfortable. No apparent distress. VITAL SIGNS: Stable. Blood pressure 140/78, pulse is 61, temperature 97.5. HEENT examination unremarkable. Conjunctivae pink. Sclerae anicteric. Oral cavity no lesions. Neck no jugular venous distention or lymph node enlargement. Chest was clear to auscultation. HEART: Regular rate and rhythm. ABDOMEN: Soft, it was nontender, nondistended. Bowel sounds are positive. No organomegaly. Extremities: No pedal edema. Skin no rashes. NEUROLOGIC: Alert and oriented x3. No focal deficits. LAB: From yesterday WBC 4.5, hemoglobin 12.8, and platelets are 288. Basic metabolic panel is within normal limits. Today hemoglobin is 11.7, WBC 7, platelets of 264. BUN and creatinine are within normal limits. IMPRESSION: This is a patient who was admitted to the hospital with exacerbation of asthma. Currently on broad-spectrum antibiotics and steroid taper. While in the hospital, he had an episode of acute food impaction in his gastric pouch from previous Liliana-en-Y gastric bypass surgery. That lasted for 5 hours yesterday following which he had multiple episodes of nausea, vomiting and coffee-grounds emesis. He threw up at least 10 times and subsequently the food dislodged and he since has done well. In fact, he had no symptoms anymore and the bleeding has resolved. He had normal bowel movement this morning and was able to eat regular diet with no symptoms. Most likely the bleeding was from Malina-Cifuentes tear from excessive retching and dry heaves. Currently hemoglobin is stable. The patient remains asymptomatic. RECOMMENDATIONS: 1. No need for any endoscopy intervention. 2. Continue with regular diet. 3. The patient was already started on Protonix yesterday which can be changed to 40 mg daily to be taken for 2 more weeks. 4. He can be discharged home and follow up in the office as needed. Thank you for this consultation. MMODL / IJN: [id number] /
[2018-02-20 11:11] VITALS: PULSE 80
--- NOTE | 2018-02-20 11:57 | P.DS ---
Providers Date of admission: 02/19/18 10:31 Expected date of discharge: 02/20/18 Attending physician: Nallely Nesbitt MD Consults: 02/19/18 18:24 Consult Physician Routine Consulting Provider: Milka Bojorquez Consult Reason/Comments: coffee ground emesis, bariatric sx, epigastric pain Do you want consulting provider notified?: Yes Primary care physician: Harjinder Mendoza [facility] Course: 53-year-old male with a long history of asthma presents emergency department today with increased shortness of breath. Patient reports that he's been having a prolonged asthma attack since last week. He saw his primary care provider 3 days ago and was given an IM steroid injection as well as tapered steroids. He was also started on Omnicef. Patient states that he is not getting any better. Patient states that he's been doing a breathing treatment every hour and is having a difficult time holding long conversations becoming short of breath. He did have some chest tightness earlier. He also has been having cough that is nonproductive. He thinks his symptoms are mainly due to weather changes. No fevers or chills. No nausea or vomiting. He usually follows up with [facility] and asthma specialist on [facility]. In the emergency department he was found to be in moderate respiratory distress and because of that it was decided to admit him to the hospital for further evaluation and management. When I examined the patient he was having bilateral diffuse wheezing and diminished breath sounds. He was started on steroids, doxycycline, DuoNeb's. Yesterday he had an episode of vomiting of black material, CBC stat was checked and his hemoglobin was stable. Today's hemoglobin was stable as well. No further episodes of vomiting. His breathing feels much better today compared to when he came in. Patient will be discharged home in a stable condition. He will be given prescription for steroids, doxycycline and as well as cough medicine. He was instructed to follow-up with his primary care physician next week. Discharge diagnoses Acute severe asthma exacerbation. Patient Condition at Discharge: Stable Plan - Discharge Summary Discharge Rx Participant: No New Discharge Prescriptions: New Acetaminophen-Codeine 300-30mg [Tylenol w/codeine #3] 1 each PO Q4HR PRN #9 tab PRN Reason: Moderate Pain Doxycycline [Vibramycin] 100 mg PO BID #10 cap Ibuprofen [Motrin] 400 mg PO Q6HR PRN tab PRN Reason: Mild Pain Or Fever > 100.5 methylPREDNISolone Dose Pack [Medrol Dose Pack] 4 mg PO DIRECTED #21 package Continue Montelukast Sodium [Singulair] 10 mg PO HS Budesonide-Formot 160-4.5 Mcg [Symbicort 160-4.5 Mcg Inhaler] 2 puff INHALATION RT-BID Albuterol Sulfate [Ventolin HFA] 2 puff INHALATION RT-Q4H PRN PRN Reason: ASTHMA Naproxen/Esomeprazole Mag [Vimovo Dr 500-20 mg Tablet] 1 tab PO BID Azelastine HCl [Astepro] 1 spray EA NOSTRIL BID Discontinued predniSONE See Taper PO DAILY Cefdinir [Omnicef] 300 mg PO Q12HR Discharge Medication List Budesonide-Formot 160-4.5 Mcg [Symbicort 160-4.5 Mcg Inhaler] 2 puff INHALATION RT-BID 03/08/14 [History] Montelukast Sodium [Singulair] 10 mg PO HS 03/08/14 [History] Albuterol Sulfate [Ventolin HFA] 2 puff INHALATION RT-Q4H PRN 12/04/16 [History] Azelastine HCl [Astepro] 1 spray EA NOSTRIL BID 02/19/18 [History] Naproxen/Esomeprazole Mag [Vimovo Dr 500-20 mg Tablet] 1 tab PO BID 02/19/18 [ History] Acetaminophen-Codeine 300-30mg [Tylenol w/codeine #3] 1 each PO Q4HR PRN #9 tab 02/20/18 [Rx] Doxycycline [Vibramycin] 100 mg PO BID #10 cap 02/20/18 [Rx] Ibuprofen [Motrin] 400 mg PO Q6HR PRN tab 02/20/18 [Rx] methylPREDNISolone Dose Pack [Medrol Dose Pack] 4 mg PO DIRECTED #21 package 02/20/18 [Rx] Follow up Appointment(s)/Referral(s): Harjinder Almanzar MD [Primary Care Provider] - 1-2 days
== END 2018-02-20 12:49 | disposition home or self-care (01) ==
LOC: EC 08:13 → 4MS4W 10:31
PROVIDERS: ADMIT Internal Medicine; ATTEND Internal Medicine
DX: J45.901 Unspecified asthma with (acute) exacerbation (principal); J30.2 Other seasonal allergic rhinitis; I48.91 Unspecified atrial fibrillation; M54.5 Low back pain; K95.89 Other complications of other bariatric procedure; K92.0 Hematemesis; Z79.51 Long term (current) use of inhaled steroids; Z79.52 Long term (current) use of systemic steroids; Z79.1 Long term (current) use of non-steroidal anti-inflammatories (NSAID); Z79.899 Other long term (current) drug therapy; Z88.0 Allergy status to penicillin; Z88.8 Allergy status to other drugs, medicaments and biological substances; Z91.048 Other nonmedicinal substance allergy status; Z87.442 Personal history of urinary calculi; Z82.49 Family history of ischemic heart disease and other diseases of the circulatory system; Z80.42 Family history of malignant neoplasm of prostate
CPT/HCPCS: 99285 ×2; 96365 ×2; 96375 ×3; 96361 ×4; 96376 ×2; 96366; 36415; 94640 ×4; 94760; 93005; 80053 ×2; 82550; 82553; 83605; 83735; 84100; 84484; 85025 ×2; 85027; 85610; 85730; 87040; 71046; G0378 ×2; J2765; J2930 ×2; J2405 ×2; J1956; C9113 ×2

== ENCOUNTER 2018-03-25 10:56 | Day surgery (SDC) | payer MEDICAID ==
[2018-03-25 11:56] VITALS: RESP 16; TEMP 97.3
[2018-03-25] MEDS ORDERED: LACTATED RINGERS 1,000 ML IV ONE (11:56)
[2018-03-25] MEDS ORDERED: PROPOFOL 10 MG/ML 20 ML VIAL IV ONE (13:14)
[2018-03-25] MEDS ORDERED: LIDOCAINE 1% INJ 10MG/ML (20 ML MDV) ONE (13:14)
--- NOTE | 2018-03-25 13:46 | P.PCN ---
Date of Procedure: 03/25/18 Procedure(s) Performed: Procedure: Total colonoscopy. Preoperative diagnosis: Screening for neoplasia. Postoperative diagnosis: Less than ideal preparation, otherwise, exam to the cecum within normal limits. Preparation: HalfLytely prep. Sedation: Was provided by anesthesia. Brief clinical history: The patient is a 53-year-old male who is referred for this evaluation for screening for neoplasia age being his risk factor. His father had prostate cancer but there is no family history of colon cancer. The patient has no abdominal complaints, bleeding or anemia. This would be his first colonoscopy. Procedure: With the patient on his left lateral decubitus position and after informed consent and adequate sedation, the perianal area was inspected and it did not show any fissures or fistulas. There were no masses felt on digital rectal examination. The Olympus CFQ 160L video colonoscope was then inserted in the rectum in the usual fashion and advanced to the cecum. The preparation was less than ideal with thick fecal secretions and fecal debris present in various areas that I could not wash off or suction totally. There were no large polyps or tumors or any obvious diverticular disease or other pathology. I retroflexed the endoscope in the rectum before the endoscope was withdrawn. The patient tolerated the procedure well. Plan: The patient was reassured. In light of his less than ideal preparation, I recommended repeat exam in 5 years before going with a 10-year schedule. He will follow up with you as planned.
[2018-03-25 14:08] VITALS: BP 142/96; PULSE 80
== END 2018-03-25 14:40 | disposition home or self-care (01) ==
LOC: ORWHC2ENDO 10:56
DX: Z12.11 Encounter for screening for malignant neoplasm of colon (principal); I48.91 Unspecified atrial fibrillation; K57.30 Diverticulosis of large intestine without perforation or abscess without bleeding; J45.909 Unspecified asthma, uncomplicated; Z88.0 Allergy status to penicillin; Z79.899 Other long term (current) drug therapy; Z80.42 Family history of malignant neoplasm of prostate; Z88.8 Allergy status to other drugs, medicaments and biological substances; Z79.1 Long term (current) use of non-steroidal anti-inflammatories (NSAID)
CPT/HCPCS: 45378; J2001; J2704

== ENCOUNTER → 2018-08-27 | Outpatient (CLI) | payer MEDICAID ==
[2018-08-27 12:09] LABS: Anisocytosis Slight; Basophils % (A) 0 %; Eosinophils # (A) 0.4 k/uL (0-0.7); Eosinophils % (A) 6 %; HCT 41.7 % (39.0-53.0); HGB 12.8 gm/dL (13.0-17.5); Hypochromasia Slight; Lymphocytes # (A) 1.7 k/uL (1.0-4.8); Lymphocytes % (A) 30 %; MCH 23.3 pg (25.0-35.0); MCHC 30.7 g/dL (31.0-37.0); MCV 75.8 fL (80.0-100.0); Mean Platelet Volume 6.1; Microcytosis Slight; Monocytes # (A) 0.4 k/uL (0-1.0); Monocytes % (A) 7 %; Neutrophils # (A) 2.9 k/uL (1.3-7.7); Neutrophils % (A) 54 %; Platelet Count 306 k/uL (150-450); RDW 16.3 % (11.5-15.5); WBC 5.5 k/uL (3.8-10.6)
[2018-08-27 16:15] LABS: Albumin 4.3 g/dL (3.80-4.90); Albumin/Globulin Ratio 2.05 (1.20-2.10); Calcium 9.1 mg/dL (8.7-10.3); Globulin 2.1 g/dL (1.6-3.3); LDL Cholesterol,Calculated 127.6 mg/dL (0.0-131.0); Magnesium 1.9 mg/dL (1.5-2.4); Potassium 3.9 mmol/L (3.5-5.5); Total Bilirubin 0.5 mg/dL (0.3-1.2); Total Protein 6.4 g/dL (6.2-8.2); VLDL Calculation 21.4 mg/dL (5.00-40.00)
[2018-08-27 16:17] LABS: Iron Saturation 12.8 (15.00-50.00)
[2018-08-27 16:26] LABS: Vitamin D 25 Hydroxy 17.2 ng/mL (30.0-100.0)
[2018-08-27 17:14] LABS: Folate, Serum 17.5 ng/mL
== END ==
LOC: LABWHC1 09:47
PROVIDERS: ATTEND Family Medicine
DX: Z00.01 Encounter for general adult medical examination with abnormal findings (principal); E78.5 Hyperlipidemia, unspecified; E55.9 Vitamin D deficiency, unspecified; R53.83 Other fatigue; Z98.84 Bariatric surgery status; Z12.5 Encounter for screening for malignant neoplasm of prostate
CPT/HCPCS: 36415; 80053; 80061; 82306; 82607; 82728; 82746; 83540; 83550; 83735; 84153; 84425; 84443; 85025

== ENCOUNTER 2018-11-20 11:55 | Emergency (ER) | payer MEDICAID ==
[2018-11-20 12:00] VITALS: RESP 18
[2018-11-20] MEDS ORDERED: SODIUM CHLORIDE 0.9% 500 ML 500 ML IV STA (12:06)
[2018-11-20] MEDS ORDERED: ONDANSETRON 4 MG/2 ML VIAL IVP STA (12:06)
[2018-11-20] MEDS ORDERED: SODIUM CHLORIDE 0.9% 1,000 ML IV STA (12:06)
[2018-11-20] MEDS ORDERED: KETOROLAC 30 MG/ML 1 ML VIAL IVP STA (12:06)
--- NOTE | 2018-11-20 12:21 | ED ---
Abdominal Pain HPI - General Chief Complaint: Abdominal Pain Stated Complaint: poss kidney stones Time Seen by Provider: 11/20/18 12:01 Source: patient, RN notes reviewed Mode of arrival: ambulatory Limitations: no limitations - History of Present Illness Initial Comments: 53-year-old male presents emergency Department chief complaint of right flank pain. Patient states that this has been going on for a few days or week. Patient has history kidney stones and states it feels somewhat. Patient states he noticed hematuria today and increase in pain. Patient states that he's had some nausea no vomiting no diarrhea no constipation. Patient states he took Aleve yesterday and has helped with the pain but not today. Patient denies any fevers chills patient has no dysuria - Related Data Home Medications Medication Instructions Recorded Confirmed Budesonide-Formot 160-4.5 Mcg 2 puff INHALATION RT-BID 03/08/14 03/25/18 [Symbicort 160-4.5 Mcg Inhaler] Montelukast Sodium [Singulair] 10 mg PO HS 03/08/14 03/25/18 Albuterol Sulfate [Ventolin HFA] 2 puff INHALATION RT-Q4H PRN 12/04/16 03/25/18 Azelastine HCl [Astepro] 1 spray EA NOSTRIL BID 02/19/18 03/25/18 Naproxen/Esomeprazole Mag [Vimovo 1 tab PO BID 02/19/18 03/25/18 Dr 500-20 mg Tablet] Previous Rx's Medication Instructions Recorded Ibuprofen [Motrin] 400 mg PO Q6HR PRN tab 02/20/18 Hydrocodone/Acetaminophen [[place] 1 tab PO Q6HR PRN #12 tab 11/20/18 5-325] Ketorolac [Toradol] 10 mg PO Q8HR #15 tab 11/20/18 Ondansetron Odt [Zofran Odt] 4 mg PO Q8HR PRN #10 tab 11/20/18 Tamsulosin [Flomax] 0.4 mg PO DAILY #7 cap 11/20/18 Allergies Allergy/AdvReac Type Severity Reaction Status Date / Time adhesive tape Allergy Rash/Hives Verified 11/20/18 12:00 Penicillins AdvReac Anaphylaxis Verified 11/20/18 12:00 Cxmupgg-[id number]-Xvf Reductase AdvReac Chest Pain Verified 11/20/18 12:00 Inhibitor Dermabond Allergy Rash/Hives Uncoded 11/20/18 12:00 Review of Systems ROS Statement: Those systems with pertinent positive or pertinent negative responses have been documented in the HPI. ROS Other: All systems not noted in ROS Statement are negative. Past Medical History Past Medical History: Atrial Fibrillation, Asthma Additional Past Medical History / Comment(s): Pt passed 2 kidney stones in August 2014 at 2 different times and states he now has 4 more stones, afib in past d/t hypokalemia after bariatric surgery-none since, bronchitis in past, low back pain-has 3 vertebral compression fractures. Pt states after weight loss, he no longer has HTN/high lipids/ANGELES/GERD and no longer is treated for diabetes. History of Any Multi-Drug Resistant Organisms: None Reported Past Surgical History: Bariatric Surgery, Orthopedic Surgery Additional Past Surgical History / Comment(s): 12/08/16 panniculectomy with ventral hernia repair, Liliana-en-Y, left knee surgery pt for torn meniscus, R knee arthroscopy, R bicep reattachment, EGD/EGJ sinus surgery Past Anesthesia/Blood Transfusion Reactions: Postoperative Nausea & Vomiting (PONV) Past Psychological History: No Psychological Hx Reported Smoking Status: Never smoker Past Alcohol Use History: None Reported Past Drug Use History: None Reported - Past Family History Father Family Medical History: Cancer, Myocardial Infarction ([place]) Additional Family Medical History / Comment(s): Father had prostate cancer. He had a [place] at the age of 50yrs. He is 73 yrs old. Mother Family Medical History: No Reported History Additional Family Medical History / Comment(s): Mother is healthy and is 73 yrs old. General Exam Limitations: no limitations General appearance: alert, in no apparent distress Head exam: Present: atraumatic, normocephalic, normal inspection Neck exam: Present: normal inspection. Absent: tenderness, meningismus, lymphadenopathy Respiratory exam: Present: normal lung sounds bilaterally. Absent: respiratory distress, wheezes, rales, rhonchi, stridor Cardiovascular Exam: Present: regular rate, normal rhythm, normal heart sounds. Absent: systolic murmur, diastolic murmur, rubs, gallop, clicks GI/Abdominal exam: Present: soft, normal bowel sounds. Absent: distended, tenderness, guarding, rebound, rigid Back exam: Present: CVA tenderness (R). Absent: CVA tenderness (L) Skin exam: Present: warm, dry, intact, normal color. Absent: rash Course Vital Signs 11/20/18 11:59 Temperature 97.9 F Pulse Rate 85 Respiratory 18 Rate Blood Pressure 156/104 O2 Sat by Pulse 97 Oximetry Medical Decision Making - Medical Decision Making 53-year-old male presented from for right flank pain. Patient has a history kidney stones. Lab work, urinalysis and x-ray are obtained. Urinalysis shows no hematuria. Patient is improved after Toradol. Patient will be discharged with pain medication and will follow-up with urology. Return parameters were discussed. - Lab Data Result diagrams: 11/20/18 12:28 11/20/18 12:28 Lab Results 11/20/18 11/20/18 11/20/18 Range/Units 12:28 12:28 12:28 WBC 6.5 (3.8-10.6) k/uL RBC 5.52 (4.30-5.90) m/uL Hgb 13.4 (13.0-17.5) gm/dL Hct 42.1 (39.0-53.0) % MCV 76.2 L (80.0-100.0) fL MCH 24.4 L (25.0-35.0) pg MCHC 32.0 (31.0-37.0) g/dL RDW 15.8 H (11.5-15.5) % Plt Count 312 (150-450) k/uL Neutrophils % 53 % Lymphocytes % 32 % Monocytes % 6 % Eosinophils % 5 % Basophils % 1 % Neutrophils # 3.4 (1.3-7.7) k/uL Lymphocytes # 2.1 (1.0-4.8) k/uL Monocytes # 0.4 (0-1.0) k/uL Eosinophils # 0.3 (0-0.7) k/uL Basophils # 0.0 (0-0.2) k/uL Hypochromasia Slight Microcytosis Slight Sodium 141 (137-145) mmol/L Potassium 4.0 (3.5-5.1) mmol/L Chloride 107 (98-107) mmol/L Carbon Dioxide 23 (22-30) mmol/L Anion Gap 11 mmol/L BUN 17 (9-20) mg/dL Creatinine 0.74 (0.66-1.25) mg/dL Est GFR (CKD-EPI)AfAm >90 (>60 ml/min/1.73 sqM) Est GFR (CKD-EPI)NonAf >90 (>60 ml/min/1.73 sqM) Glucose 165 H (74-99) mg/dL Calcium 9.4 (8.4-10.2) mg/dL Total Bilirubin 0.5 (0.2-1.3) mg/dL AST 26 (17-59) U/L ALT 36 (21-72) U/L Alkaline Phosphatase 125 (38-126) U/L Total Protein 7.1 (6.3-8.2) g/dL Albumin 4.4 (3.5-5.0) g/dL Lipase 234 (23-300) U/L Urine Color Yellow Urine Appearance Clear (Clear) Urine pH 6.5 (5.0-8.0) Ur Specific [place] 1.024 (1.001-1.035) Urine Protein Trace H (Negative) Urine Glucose (UA) Negative (Negative) Urine Ketones Negative (Negative) Urine Blood Moderate H (Negative) Urine Nitrite Negative (Negative) Urine Bilirubin Negative (Negative) Urine Urobilinogen <2.0 (<2.0) mg/dL Ur Leukocyte Esterase Trace H (Negative) Urine RBC >182 H (0-5) /hpf Urine WBC 7 H (0-5) /hpf Calcium Oxalate Crystal Rare H (None) /hpf Urine Mucus Few H (None) /hpf Disposition Clinical Impression: Kidney stone on right side Disposition: HOME SELF-CARE Condition: Stable Instructions (If sedation given, give patient instructions): Kidney Stones (ED) Additional Instructions: Please return to the Emergency Department if symptoms worsen or any other concerns. Prescriptions: Tamsulosin [Flomax] 0.4 mg PO DAILY #7 cap Hydrocodone/Acetaminophen [[place] 5-325] 1 tab PO Q6HR PRN #12 tab PRN Reason: Pain Ketorolac [Toradol] 10 mg PO Q8HR #15 tab Ondansetron Odt [Zofran Odt] 4 mg PO Q8HR PRN #10 tab PRN Reason: Nausea Is patient prescribed a controlled substance at d/c from ED?: Yes When asked, does pt state using other controlled substances?: No If prescribed controlled substance>3 days was MAPS reviewed?: Prescribed <3 Days If opioid is for acute pain is fill amount 7 days or less?: Yes If Rx opioid, was Start Talking consent form obtained?: Yes Referrals: Harjinder Almanzar MD [Primary Care Provider] - 1-2 days Gagandeep Bryan MD [STAFF PHYSICIAN] - 1-2 days Time of Disposition: 13:23
[2018-11-20 12:42] LABS: Basophils % (A) 1 %; Eosinophils # (A) 0.3 k/uL (0-0.7); Eosinophils % (A) 5 %; HCT 42.1 % (39.0-53.0); HGB 13.4 gm/dL (13.0-17.5); Hypochromasia Slight; Lymphocytes # (A) 2.1 k/uL (1.0-4.8); Lymphocytes % (A) 32 %; MCH 24.4 pg (25.0-35.0); MCV 76.2 fL (80.0-100.0); Mean Platelet Volume 6.5; Microcytosis Slight; Monocytes # (A) 0.4 k/uL (0-1.0); Monocytes % (A) 6 %; Neutrophils # (A) 3.4 k/uL (1.3-7.7); Neutrophils % (A) 53 %; Platelet Count 312 k/uL (150-450); RBC 5.52 m/uL (4.30-5.90); RDW 15.8 % (11.5-15.5); WBC 6.5 k/uL (3.8-10.6)
[2018-11-20 12:49] LABS: ALT 36 U/L (21-72); AST 26 U/L (17-59); Albumin 4.4 g/dL (3.5-5.0); Alkaline Phosphatase 125 U/L (38-126); Anion Gap 11 mmol/L; Blood Urea Nitrogen 17 mg/dL (9-20); Calcium 9.4 mg/dL (8.4-10.2); Carbon Dioxide 23 mmol/L (22-30); Chloride 107 mmol/L (98-107); Glucose 165 mg/dL (74-99); Lipase 234 U/L (23-300); Sodium 141 mmol/L (137-145); Total Bilirubin 0.5 mg/dL (0.2-1.3); Total Protein 7.1 g/dL (6.3-8.2)
--- NOTE | 2018-11-20 12:52 | XR ---
EXAMINATION TYPE: XR KUB DATE OF EXAM: 11/20/2018 COMPARISON: NONE HISTORY: Pain TECHNIQUE: Single supine KUB image of the abdomen is obtained FINDINGS: Small bowel demonstrates no evidence for dilatation or air fluid levels. Gas and fecal material is seen in non-distended colon. No convincing evidence for pneumoperitoneum. No unusual calcifications. The lung bases are clear. The osseous structures are intact. IMPRESSION: 1. Overall nonobstructive bowel gas pattern.
[2018-11-20 13:06] LABS: Appearance,Urine Clear (Clear); Bilirubin,Urine Negative (Negative); Blood,Urine Moderate (Negative); Calcium Oxalate Crystals,Urine Rare /hpf; Color,Urine Yellow; Glucose,Urine (UA) Negative (Negative); Ketones,Urine Negative (Negative); Leukocyte Esterase,Urine Trace (Negative); Mucus,Urine Few /hpf; Nitrite,Urine Negative (Negative); PH, Urine 6.5 (5.0-8.0); Protein,Urine Trace (Negative); RBC,Urine >182 /hpf (0-5); Specific Gravity,Urine 1.024 (1.001-1.035); Urobilinogen,Urine <2.0 mg/dL (<2.0)
[2018-11-20 13:37] VITALS: BP 132/88; PULSE 65; TEMP 97.8
== END 2018-11-20 13:37 | disposition home or self-care (01) ==
LOC: EC 11:55
DX: N20.0 Calculus of kidney (principal); J45.909 Unspecified asthma, uncomplicated; Z88.0 Allergy status to penicillin; Z88.8 Allergy status to other drugs, medicaments and biological substances; Z91.048 Other nonmedicinal substance allergy status; Z79.51 Long term (current) use of inhaled steroids; Z79.899 Other long term (current) drug therapy; Z90.49 Acquired absence of other specified parts of digestive tract; Z98.84 Bariatric surgery status; Z80.42 Family history of malignant neoplasm of prostate
CPT/HCPCS: 36415; 80053; 83690; 85025; 81001; 74018; 99284; 96374; 96375; 96361; J2405; J1885

== ENCOUNTER 2019-06-07 09:34 | Emergency (ER) | payer MEDICAID ==
[2019-06-07 10:35] LABS: Basophils % (A) 1 %; Eosinophils # (A) 0.3 k/uL (0-0.7); Eosinophils % (A) 6 %; HCT 41.2 % (39.0-53.0); HGB 12.7 gm/dL (13.0-17.5); Hypochromasia Marked; Lymphocytes # (A) 1.4 k/uL (1.0-4.8); Lymphocytes % (A) 29 %; MCH 22.8 pg (25.0-35.0); MCHC 30.8 g/dL (31.0-37.0); Mean Platelet Volume 5.5; Microcytosis Slight; Monocytes # (A) 0.3 k/uL (0-1.0); Monocytes % (A) 5 %; Neutrophils # (A) 2.7 k/uL (1.3-7.7); Neutrophils % (A) 56 %; Platelet Count 321 k/uL (150-450); RBC 5.57 m/uL (4.30-5.90); RDW 15.4 % (11.5-15.5); WBC 4.8 k/uL (3.8-10.6)
[2019-06-07 10:45] LABS: African American GFR (CKD) >90 (>60 ml/min/1.73 sqM); Anion Gap 8 mmol/L; Blood Urea Nitrogen 10 mg/dL (9-20); Calcium 8.8 mg/dL (8.4-10.2); Carbon Dioxide 27 mmol/L (22-30); Chloride 105 mmol/L (98-107); Glucose 140 mg/dL (74-99); Potassium 3.8 mmol/L (3.5-5.1); Sodium 140 mmol/L (137-145)
--- NOTE | 2019-06-07 11:13 | CT ---
EXAMINATION TYPE: CT orbits w con DATE OF EXAM: 06/07/2019 COMPARISON: None HISTORY: Lt eye pain and swelling CT DLP: 343.9 mGycm Automated exposure control for dose reduction was used. CONTRAST: Performed with IV Contrast, patient injected with 100 mL of Isovue 300. FINDINGS: There is very mild, questionable subtle asymmetric thickening over the left periorbital regions such as on images 27 and 28. This is entirely preseptal with no post septal inflammatory change. Globes ar e symmetric. Lenses are in place. Extraocular muscles are unremarkable. There is acute, likely on chronic pansinusitis as postoperative changes are seen of the ostiomeatal c omplexes. This is severe with near complete opacification of the ethmoid sinuses, severe mucosal thic kening of the maxillary sinuses (right greater than left) moderate mucosal thickening of the sphenoid sinus, and severe mucosal thickening of the inferior frontal sinuses. Right frontal sinuses are hypo plastic. There is some high density in the right maxillary sinus on the soft tissue algorithm such as on image 5 dictating either hemorrhage or atypical infection such as fungal infection. Asymmetric anterior extent of the left parotid gland. Optimal evaluation of the visualized portions o f the brain given technique. Osseous structures appear intact. There is bilateral exophthalmos noted. No discrete extraocular muscle thickening. Ostiomeatal complexes although are patent are symmetrical ly augmented. Temporomandibular joints are overall symmetric. IMPRESSION: SEVERE LIKELY ACUTE ON CHRONIC PANSINUSITIS WITH POSTSURGICAL CHANGES OF THE OSTIOMEATAL COMPLEXES. I NCREASED DENSITY IN THE RIGHT MAXILLARY SINUS SUGGESTING HEMORRHAGE OR ATYPICAL INFECTION SUCH FUN GAL INFECTION. THIS IS A SUSPECTED CAUSE OF THE LEFT EYE PAIN ALTHOUGH THERE IS QUESTIONABLE MILD LEF T PRESEPTAL SOFT TISSUE THICKENING THAT COULD RELATE TO PRESEPTAL PERIORBITAL CELLULITIS IF CLINICAL EXAM IS FITTING.
--- NOTE | 2019-06-07 11:54 | ED ---
Eye Problem HPI - General Chief complaint: Eye Problems Stated complaint: eye infection Time Seen by Provider: 06/07/19 09:42 Source: patient, RN notes reviewed Mode of arrival: ambulatory Limitations: no limitations - History of Present Illness Initial comments: 54-year-old male presents emergency Department chief complaint left eye pain. Patient states that issues of the last couple weeks he has been treated with 2 different oral antibiotics and eyedrops to his left eye. Patient states she is sent in by his PCP Dr. Almanzar. Patient states that he does have a noted sty but states he has pain around his eye and pain with movement. Patient reports mild headache no recent fevers chills denies any neck pain or neck stiffness. 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 Patient states that he does have intermittent blurred vision. - Related Data Home Medications Medication Instructions Recorded Confirmed Budesonide-Formot 160-4.5 Mcg 2 puff INHALATION RT-BID 03/08/14 03/25/18 [Symbicort 160-4.5 Mcg Inhaler] Montelukast Sodium [Singulair] 10 mg PO HS 03/08/14 03/25/18 Albuterol Sulfate [Ventolin HFA] 2 puff INHALATION RT-Q4H PRN 12/04/16 03/25/18 Azelastine HCl [Astepro] 1 spray EA NOSTRIL BID 02/19/18 03/25/18 Naproxen/Esomeprazole Mag [Vimovo 1 tab PO BID 02/19/18 03/25/18 Dr 500-20 mg Tablet] Previous Rx's Medication Instructions Recorded Ibuprofen [Motrin] 400 mg PO Q6HR PRN tab 02/20/18 Hydrocodone/Acetaminophen [[place] 1 tab PO Q6HR PRN #12 tab 11/20/18 5-325] Ketorolac [Toradol] 10 mg PO Q8HR #15 tab 11/20/18 Ondansetron Odt [Zofran Odt] 4 mg PO Q8HR PRN #10 tab 11/20/18 Tamsulosin [Flomax] 0.4 mg PO DAILY #7 cap 11/20/18 Levofloxacin [Levaquin] 500 mg PO DAILY #10 tab 06/07/19 predniSONE 50 mg PO DAILY #5 tab 06/07/19 Allergies Allergy/AdvReac Type Severity Reaction Status Date / Time adhesive tape Allergy Rash/Hives Verified 11/20/18 12:00 Penicillins AdvReac Anaphylaxis Verified 11/20/18 12:00 [id number]-Ahe-Rdc Reductase AdvReac Chest Pain Verified 11/20/18 12:00 Inhibitor Dermabond Allergy Rash/Hives Uncoded 11/20/18 12:00 Review of Systems ROS Statement: Those systems with pertinent positive or pertinent negative responses have been documented in the HPI. ROS Other: All systems not noted in ROS Statement are negative. Past Medical History Past Medical History: Atrial Fibrillation, Asthma, GERD/Reflux Additional Past Medical History / Comment(s): Pt passed 2 kidney stones in August 2014 at 2 different times and states he now has 4 more stones, afib in past d/t hypokalemia after bariatric surgery-none since, bronchitis in past, low back pain-has 3 vertebral compression fractures. Pt states after weight loss, he no longer has HTN/high lipids/ANGELES/GERD and no longer is treated for diabetes. History of Any Multi-Drug Resistant Organisms: None Reported Past Surgical History: Bariatric Surgery, Orthopedic Surgery Additional Past Surgical History / Comment(s): 12/08/16 panniculectomy with ventral hernia repair, Liliana-en-Y, left knee surgery pt for torn meniscus, R knee arthroscopy, R bicep reattachment, EGD/EGJ sinus surgery Past Anesthesia/Blood Transfusion Reactions: Postoperative Nausea & Vomiting (PONV) Past Psychological History: No Psychological Hx Reported Smoking Status: Never smoker Past Alcohol Use History: None Reported Past Drug Use History: None Reported - Past Family History Father Family Medical History: Cancer, Myocardial Infarction ([place]) Additional Family Medical History / Comment(s): Father had prostate cancer. He had a [place] at the age of 50yrs. He is 73 yrs old. Mother Family Medical History: No Reported History Additional Family Medical History / Comment(s): Mother is healthy and is 73 yrs old. General Exam Limitations: no limitations General appearance: alert, in no apparent distress Head exam: Present: atraumatic, normocephalic, normal inspection Eye exam: Present: PERRL, EOMI, periorbital swelling (Minimal left), periorbital tenderness (Minimal left), other (Left lower medial aspect there is a noted stye). Absent: normal appearance, scleral icterus, conjunctival injection ENT exam: Present: normal exam, normal oropharynx, mucous membranes moist Neck exam: Present: normal inspection, full ROM. Absent: tenderness, meningismus, lymphadenopathy Respiratory exam: Present: normal lung sounds bilaterally. Absent: respiratory distress, wheezes, rales, rhonchi, stridor Cardiovascular Exam: Present: regular rate, normal rhythm, normal heart sounds. Absent: systolic murmur, diastolic murmur, rubs, gallop, clicks Neurological exam: Present: alert Skin exam: Present: warm, dry, intact, normal color. Absent: rash Course Vital Signs 06/07/19 09:36 Temperature 98 F Pulse Rate 80 Respiratory 18 Rate Blood Pressure 138/79 O2 Sat by Pulse 98 Oximetry Medical Decision Making - Medical Decision Making Patient CT shows evidence of sinusitis, preseptal cellulitis or early periorbital sialitis. Case discussed with Dr. Joseph who recommends patient started on Levaquin, prednisone and follow-up in office this week. - Lab Data Result diagrams: 06/07/19 10:22 06/07/19 10:22 Lab Results 06/07/19 06/07/19 Range/Units 10:22 10:22 WBC 4.8 (3.8-10.6) k/uL RBC 5.57 (4.30-5.90) m/uL Hgb 12.7 L (13.0-17.5) gm/dL Hct 41.2 (39.0-53.0) % MCV 74.0 L (80.0-100.0) fL MCH 22.8 L (25.0-35.0) pg MCHC 30.8 L (31.0-37.0) g/dL RDW 15.4 (11.5-15.5) % Plt Count 321 (150-450) k/uL Neutrophils % 56 % Lymphocytes % 29 % Monocytes % 5 % Eosinophils % 6 % Basophils % 1 % Neutrophils # 2.7 (1.3-7.7) k/uL Lymphocytes # 1.4 (1.0-4.8) k/uL Monocytes # 0.3 (0-1.0) k/uL Eosinophils # 0.3 (0-0.7) k/uL Basophils # 0.0 (0-0.2) k/uL Hypochromasia Marked Microcytosis Slight Sodium 140 (137-145) mmol/L Potassium 3.8 (3.5-5.1) mmol/L Chloride 105 (98-107) mmol/L Carbon Dioxide 27 (22-30) mmol/L Anion Gap 8 mmol/L BUN 10 (9-20) mg/dL Creatinine 0.59 L (0.66-1.25) mg/dL Est GFR (CKD-EPI)AfAm >90 (>60 ml/min/1.73 sqM) Est GFR (CKD-EPI)NonAf >90 (>60 ml/min/1.73 sqM) Glucose 140 H (74-99) mg/dL Calcium 8.8 (8.4-10.2) mg/dL Disposition Clinical Impression: Periorbital cellulitis of left eye, Stye Disposition: HOME SELF-CARE Condition: Stable Instructions (If sedation given, give patient instructions): Periorbital Cellulitis in Adults (ED) Additional Instructions: Please return to the Emergency Department if symptoms worsen or any other concerns. Prescriptions: Levofloxacin [Levaquin] 500 mg PO DAILY #10 tab predniSONE 50 mg PO DAILY #5 tab Is patient prescribed a controlled substance at d/c from ED?: No Referrals: Harjinder Almanzar MD [Primary Care Provider] - 1-2 days Terrell Robert MD [STAFF PHYSICIAN] - 1-2 days Time of Disposition: 12:50
[2019-06-07] MEDS ORDERED: methylPREDNISolone SOD SUCCI 125 MG/2 ML VIAL IV STA (12:48)
[2019-06-07 13:34] VITALS: BP 149/100; PULSE 60; RESP 14; TEMP 99
== END 2019-06-07 14:50 | disposition home or self-care (01) ==
LOC: EC 09:34
DX: L03.213 Periorbital cellulitis (principal); H00.015 Hordeolum externum left lower eyelid; J32.9 Chronic sinusitis, unspecified; J45.909 Unspecified asthma, uncomplicated; Z88.0 Allergy status to penicillin; Z88.8 Allergy status to other drugs, medicaments and biological substances; Z91.048 Other nonmedicinal substance allergy status; Z79.1 Long term (current) use of non-steroidal anti-inflammatories (NSAID); Z79.51 Long term (current) use of inhaled steroids; Z79.899 Other long term (current) drug therapy; Z98.890 Other specified postprocedural states
CPT/HCPCS: 36415; 80048; 85025; 70481; 99284; 96374; J2930; Q9967

== ENCOUNTER 2019-09-18 11:13 | Emergency (ER) | payer MEDICAID ==
[2019-09-18] MEDS ORDERED: HYDROmorphone 1 MG/ML 1 ML SYRINGE IVP STA (11:45)
[2019-09-18] MEDS ORDERED: KETOROLAC 30 MG/ML 1 ML VIAL IVP STA (11:45)
[2019-09-18] MEDS ORDERED: ONDANSETRON 4 MG/2 ML VIAL IVP STA (11:45)
[2019-09-18] MEDS ORDERED: SODIUM CHLORIDE 0.9% 2,000 ML IV STA (11:45)
[2019-09-18 12:03] LABS: Anisocytosis Slight; Basophils # (A) 0.1 k/uL (0-0.2); Basophils % (A) 1 %; Eosinophils # (A) 0.3 k/uL (0-0.7); Eosinophils % (A) 5 %; HCT 37.8 % (39.0-53.0); HGB 11.6 gm/dL (13.0-17.5); Hypochromasia Moderate; Lymphocytes # (A) 1.5 k/uL (1.0-4.8); Lymphocytes % (A) 22 %; MCH 22.3 pg (25.0-35.0); MCHC 30.8 g/dL (31.0-37.0); MCV 72.6 fL (80.0-100.0); Mean Platelet Volume 6.7; Microcytosis Moderate; Monocytes # (A) 0.6 k/uL (0-1.0); Monocytes % (A) 9 %; Neutrophils # (A) 4.2 k/uL (1.3-7.7); Neutrophils % (A) 62 %; Platelet Count 346 k/uL (150-450); RBC 5.21 m/uL (4.30-5.90); RDW 16.3 % (11.5-15.5); WBC 6.8 k/uL (3.8-10.6)
[2019-09-18 12:13] LABS: Calcium Oxalate Crystals,Urine Many /hpf; Hyaline Casts,Urine 1 /lpf (0-2); Mucus,Urine Few /hpf; RBC,Urine >182 /hpf (0-5); Squamous Epithelial Cell,Urine <1 /hpf (0-4); WBC,Urine 9 /hpf (0-5)
[2019-09-18 12:14] LABS: Appearance,Urine Clear (Clear); Bilirubin,Urine 4+ (Negative); Color,Urine Amber; Glucose,Urine (UA) 2+ (Negative); Ketones,Urine Negative (Negative); Protein,Urine 1+ (Negative); Specific Gravity,Urine 1.035 (1.001-1.035)
[2019-09-18 12:15] LABS: Blood,Urine Small (Negative); Leukocyte Esterase,Urine Negative (Negative); Nitrite,Urine Negative (Negative)
[2019-09-18 12:15] LABS: ALT 23 U/L (4-49); AST 27 U/L (17-59); African American GFR (CKD) >90 (>60 ml/min/1.73 sqM); Albumin 3.9 g/dL (3.5-5.0); Alkaline Phosphatase 114 U/L (38-126); Amylase 37 U/L (30-110); Anion Gap 7 mmol/L; Blood Urea Nitrogen 19 mg/dL (9-20); Calcium 8.6 mg/dL (8.4-10.2); Carbon Dioxide 27 mmol/L (22-30); Chloride 104 mmol/L (98-107); Glucose 104 mg/dL (74-99); Non-African American GFR(CKD) >90 (>60 ml/min/1.73 sqM); Potassium 3.5 mmol/L (3.5-5.1); Sodium 138 mmol/L (137-145); Total Bilirubin 0.5 mg/dL (0.2-1.3); Total Protein 6.4 g/dL (6.3-8.2)
--- NOTE | 2019-09-18 12:31 | XR ---
EXAMINATION TYPE: XR KUB , 2 VIEWS DATE OF EXAM ORDERED: 09/18/2019 HISTORY: abdominal pain. COMPARISON: Previous study dated 11/20/2018. FINDINGS: Lung bases are clear. Within the abdomen, the abdominal gas pattern is within normal limits. There is no evidence of obstru ction or free air. There are at least 2 calculi overlying the right kidney in the mid polar region an d in the lower pole region. The upper stone measures 17 mm. The lower stone measures 13 mm. No other definite unusual calcifications are seen. IMPRESSION: RIGHT-SIDED NEPHROLITHIASIS.
--- NOTE | 2019-09-18 13:07 | ED ---
Abdominal Pain HPI - General Chief Complaint: Abdominal Pain Stated Complaint: left shoulder pain Time Seen by Provider: 09/18/19 11:37 Source: patient, RN notes reviewed Mode of arrival: ambulatory Limitations: no limitations - History of Present Illness Initial Comments: 53-year-old male presents emergency Department with chief complaint of right flank pain. Patient states that he's been having this intermittently over the last couple weeks was it's noticed increasing hematuria. Patient states he has a history kidney stone states the pain is unbearable at this time is not recently seen a urologist. Patient has had CT in the past. Patient denies any mid abdominal pain, neck pain. Patient states she's had a shoulder issue first last several weeks has been seen his PCP for this. X-rays were negative. Patient states he has severe pain over his top of the shoulder denies any trauma no chest pain or shortness breath. - Related Data Home Medications Medication Instructions Recorded Confirmed Budesonide-Formot 160-4.5 Mcg 2 puff INHALATION RT-BID 03/08/14 03/25/18 [Symbicort 160-4.5 Mcg Inhaler] Montelukast Sodium [Singulair] 10 mg PO HS 03/08/14 03/25/18 Albuterol Sulfate [Ventolin HFA] 2 puff INHALATION RT-Q4H PRN 12/04/16 03/25/18 Azelastine HCl [Astepro] 1 spray EA NOSTRIL BID 02/19/18 03/25/18 Naproxen/Esomeprazole Mag [Vimovo 1 tab PO BID 02/19/18 03/25/18 Dr 500-20 mg Tablet] Previous Rx's Medication Instructions Recorded Ibuprofen [Motrin] 400 mg PO Q6HR PRN tab 02/20/18 Hydrocodone/Acetaminophen [[place] 1 tab PO Q6HR PRN #12 tab 11/20/18 5-325] Ketorolac [Toradol] 10 mg PO Q8HR #15 tab 11/20/18 Ondansetron Odt [Zofran Odt] 4 mg PO Q8HR PRN #10 tab 11/20/18 Tamsulosin [Flomax] 0.4 mg PO DAILY #7 cap 11/20/18 Levofloxacin [Levaquin] 500 mg PO DAILY #10 tab 06/07/19 predniSONE 50 mg PO DAILY #5 tab 06/07/19 HYDROcodone/APAP 7.5-325MG [[place] 1 tab PO Q6HR PRN 3 Days #12 tab 09/18/19 7.5-325] HYDROcodone/APAP 7.5-325MG [[place] 1 tab PO Q6HR PRN 3 Days #12 tab 09/18/19 7.5-325] Ketorolac [Toradol] 10 mg PO Q8HR #15 tab 09/18/19 Tamsulosin [Flomax] 0.4 mg PO DAILY #7 cap 09/18/19 Allergies Allergy/AdvReac Type Severity Reaction Status Date / Time adhesive tape Allergy Rash/Hives Verified 09/18/19 11:21 Penicillins AdvReac Anaphylaxis Verified 09/18/19 11:21 Ndzrusu-Nsu-Ncx Reductase AdvReac Chest Pain Verified 09/18/19 11:21 Inhibitor Dermabond Allergy Rash/Hives Uncoded 11/20/18 12:00 Review of Systems ROS Statement: Those systems with pertinent positive or pertinent negative responses have been documented in the HPI. ROS Other: All systems not noted in ROS Statement are negative. Past Medical History Past Medical History: Atrial Fibrillation, Asthma, GERD/Reflux Additional Past Medical History / Comment(s): Pt passed 2 kidney stones in August 2014 at 2 different times and states he now has 4 more stones, afib in past d/t hypokalemia after bariatric surgery-none since, bronchitis in past, low back pain-has 3 vertebral compression fractures. Pt states after weight loss, he no longer has HTN/high lipids/ANGELES/GERD and no longer is treated for diabetes. History of Any Multi-Drug Resistant Organisms: None Reported Past Surgical History: Bariatric Surgery, Orthopedic Surgery Additional Past Surgical History / Comment(s): 12/08/16 panniculectomy with ventral hernia repair, Liliana-en-Y, left knee surgery pt for torn meniscus, R knee arthroscopy, R bicep reattachment, EGD/EGJ sinus surgery Past Anesthesia/Blood Transfusion Reactions: Postoperative Nausea & Vomiting (PONV) Past Psychological History: No Psychological Hx Reported Smoking Status: Never smoker Past Alcohol Use History: Occasional Past Drug Use History: None Reported - Past Family History Father Family Medical History: Cancer, Myocardial Infarction ([place]) Additional Family Medical History / Comment(s): Father had prostate cancer. He had a NC at the age of 50yrs. He is 73 yrs old. Mother Family Medical History: No Reported History Additional Family Medical History / Comment(s): Mother is healthy and is 73 yrs old. General Exam Limitations: no limitations General appearance: alert, in no apparent distress Head exam: Present: atraumatic, normocephalic, normal inspection Neck exam: Present: normal inspection, full ROM. Absent: tenderness, meningismus, lymphadenopathy Respiratory exam: Present: normal lung sounds bilaterally. Absent: respiratory distress, wheezes, rales, rhonchi, stridor Cardiovascular Exam: Present: regular rate, normal rhythm, normal heart sounds. Absent: systolic murmur, diastolic murmur, rubs, gallop, clicks GI/Abdominal exam: Present: soft, tenderness (Mild right-sided), normal bowel sounds. Absent: distended, guarding, rebound, rigid Extremities exam: Present: other (Left shoulder there is tenderness over the AC joint, full range of motion moderate discomfort with range of motion, lower shotty pulses equal bilaterally) Back exam: Present: CVA tenderness (R). Absent: CVA tenderness (L) Skin exam: Present: warm, dry, intact, normal color. Absent: rash Course Vital Signs 09/18/19 09/18/19 11:21 13:18 Temperature 97.7 F 97.8 F Pulse Rate 83 78 Respiratory 18 16 Rate Blood Pressure 157/92 150/84 O2 Sat by Pulse 98 97 Oximetry Medical Decision Making - Medical Decision Making Patient's urinalysis shows gross hematuria. Patient x-ray shows right-sided nephrolithiasis. Patient advised about the urology. Return parameters were discussed. Patient's pain was improved. - Lab Data Result diagrams: 09/18/19 11:50 09/18/19 11:50 Lab Results 09/18/19 09/18/19 09/18/19 Range/Units 11:48 11:50 11:50 WBC 6.8 (3.8-10.6) k/uL RBC 5.21 (4.30-5.90) m/uL Hgb 11.6 L (13.0-17.5) gm/dL Hct 37.8 L (39.0-53.0) % MCV 72.6 L (80.0-100.0) fL MCH 22.3 L (25.0-35.0) pg MCHC 30.8 L (31.0-37.0) g/dL RDW 16.3 H (11.5-15.5) % Plt Count 346 (150-450) k/uL Neutrophils % 62 % Lymphocytes % 22 % Monocytes % 9 % Eosinophils % 5 % Basophils % 1 % Neutrophils # 4.2 (1.3-7.7) k/uL Lymphocytes # 1.5 (1.0-4.8) k/uL Monocytes # 0.6 (0-1.0) k/uL Eosinophils # 0.3 (0-0.7) k/uL Basophils # 0.1 (0-0.2) k/uL Hypochromasia Moderate Anisocytosis Slight Microcytosis Moderate Sodium 138 (137-145) mmol/L Potassium 3.5 (3.5-5.1) mmol/L Chloride 104 (98-107) mmol/L Carbon Dioxide 27 (22-30) mmol/L Anion Gap 7 mmol/L BUN 19 (9-20) mg/dL Creatinine 0.70 (0.66-1.25) mg/dL Est GFR (CKD-EPI)AfAm >90 (>60 ml/min/1.73 sqM) Est GFR (CKD-EPI)NonAf >90 (>60 ml/min/1.73 sqM) Glucose 104 H (74-99) mg/dL Calcium 8.6 (8.4-10.2) mg/dL Total Bilirubin 0.5 (0.2-1.3) mg/dL AST 27 (17-59) U/L ALT 23 (4-49) U/L Alkaline Phosphatase 114 (38-126) U/L Total Protein 6.4 (6.3-8.2) g/dL Albumin 3.9 (3.5-5.0) g/dL Amylase 37 (30-110) U/L Lipase 229 (23-300) U/L Urine Color Jade Urine Appearance Clear (Clear) Urine pH 6.0 (5.0-8.0) Ur Specific [place] 1.035 (1.001-1.035) Urine Protein 1+ (Negative) Ur Protein Confirm (Negative) Urine Glucose (UA) 2+ (Negative) Urine Ketones Negative (Negative) Urine Blood Small (Negative) Urine Nitrite Negative (Negative) Urine Bilirubin 4+ H (Negative) Ur Bilirubin Confirm (Negative) Urine Urobilinogen 2.0 (<2.0) mg/dL Ur Leukocyte Esterase Negative (Negative) Urine RBC >182 H (0-5) /hpf Urine WBC 9 H (0-5) /hpf Ur Squamous Epith Cells <1 (0-4) /hpf Calcium Oxalate Crystal Many H (None) /hpf Hyaline Casts 1 (0-2) /lpf Urine Mucus Few H (None) /hpf Disposition Clinical Impression: Kidney stone, Hematuria Disposition: HOME SELF-CARE Condition: Stable Instructions (If sedation given, give patient instructions): Kidney Stones (ED) Additional Instructions: Please return to the Emergency Department if symptoms worsen or any other concerns. Prescriptions: Tamsulosin [Flomax] 0.4 mg PO DAILY #7 cap HYDROcodone/APAP 7.5-325MG [[place] 7.5-325] 1 tab PO Q6HR PRN 3 Days #12 tab PRN Reason: pain HYDROcodone/APAP 7.5-325MG [[place] 7.5-325] 1 tab PO Q6HR PRN 3 Days #12 tab PRN Reason: pain Ketorolac [Toradol] 10 mg PO Q8HR #15 tab Is patient prescribed a controlled substance at d/c from ED?: Yes When asked, does pt state using other controlled substances?: No If prescribed controlled substance>3 days was MAPS reviewed?: Prescribed <3 Days If opioid is for acute pain is fill amount 7 days or less?: Yes If Rx opioid, was Start Talking consent form obtained?: Yes Referrals: Harjinder Almanzar MD [Primary Care Provider] - 1-2 days Gagandeep Bryan MD [STAFF PHYSICIAN] - 1-2 days Time of Disposition: 12:58
[2019-09-18 13:19] VITALS: BP 150/84; PULSE 78; RESP 16; TEMP 97.8
== END 2019-09-18 13:18 | disposition home or self-care (01) ==
LOC: EC 11:13
DX: N20.0 Calculus of kidney (principal); I48.91 Unspecified atrial fibrillation; J45.909 Unspecified asthma, uncomplicated; Z79.51 Long term (current) use of inhaled steroids; Z79.899 Other long term (current) drug therapy; Z91.048 Other nonmedicinal substance allergy status; Z88.0 Allergy status to penicillin; Z88.8 Allergy status to other drugs, medicaments and biological substances; Z98.84 Bariatric surgery status
CPT/HCPCS: 36415; 80053; 82150; 83690; 85025; 81001; 74018; 99284; 96374; 96375 ×2; 96361; J2405; J1885; J1170

== ENCOUNTER → 2019-09-28 | Outpatient (CLI) | payer MEDICAID ==
[2019-09-28 10:50] LABS: Appearance,Urine Clear (Clear); Bacteria,Urine Rare /hpf; Bilirubin,Urine Negative (Negative); Blood,Urine Large (Negative); Color,Urine Yellow; Glucose,Urine (UA) 3+ (Negative); Ketones,Urine 1+ (Negative); Leukocyte Esterase,Urine Negative (Negative); Mucus,Urine Rare /hpf; Nitrite,Urine Negative (Negative); PH, Urine 6.5 (5.0-8.0); Protein,Urine Trace (Negative); RBC,Urine >182 /hpf (0-5); Specific Gravity,Urine 1.026 (1.001-1.035); WBC,Urine 1 /hpf (0-5)
== END | disposition home or self-care (01) ==
LOC: LABPAT 09:11
PROVIDERS: ATTEND Urology
DX: Z01.818 Encounter for other preprocedural examination (principal); N20.0 Calculus of kidney; R31.29 Other microscopic hematuria
CPT/HCPCS: 81001; 87086

== ENCOUNTER → 2019-09-28 | Outpatient (CLI) | payer MEDICAID ==
--- NOTE | 2019-09-28 09:45 | CT ---
EXAMINATION TYPE: CT abdomen pelvis wo con DATE OF EXAM: 09/28/2019 COMPARISON: 12/30/2016 INDICATION: Rt flank pain, pre op renal stone removal DLP: 1500.6 mGycm, Automated exposure control for dose reduction was used. CONTRAST: 0 mL of Isovue 300. Study performed without Oral Contrast TECHNIQUE: Axial images were obtained from above the diaphragm to the pubic rami in the axial plane a t 5 mm thick sections. Reconstructed images are reviewed on the computer in the coronal plane. FINDINGS: Limited CT sections are obtained the lung bases. The lung bases are clear. Some coronary artery shahbaz cification is noted. CT ABDOMEN: Gastric sleeve surgery is evident. Liver: There is a hypodense area measuring approximately 2.2 cm in the mid right lobe liver. This is ill-defined. This was present on the 2016 examination which was reported as a benign hemangioma prese nt previously in 2012. No interval growth is evident. Remainder the liver appears unremarkable withou t additional masses. No cysts are evident. Spleen: Normal Pancreas: Normal Adrenal glands: The adrenal glands are normal. Gallbladder: Gallbladder is decompressed Kidneys: No masses are evident. No hydronephrosis is present. A left inferior pole peripelvic cyst may be present. This may be larger from comparison. There is a 1.9 x 1.1 x 1.4 cm calcification in t he posterior lateral mid right kidney. There is a 1.1 x 0.8 x 2.1cm calcification in the anterior mid to lower pole right kidney. This lower pole calcification is increased significantly over the interv al. Aorta: Vascular calcification is within the aorta. Inferior vena cava: Normal. CT PELVIS: Loops of bowel within the abdomen and pelvis are normal. Study is performed without oral contrast limiting bowel evaluation. Some sigmoid diverticulosis without acute diverticulitis may be present. Appendix: Normal as visualized. Urinary bladder: Normal. Genitourinary structures: Prostate is normal. Osseous structures: No suspicious lytic or sclerotic lesions. Spondylolysis of L5 is present. Minimal grade 1 spondylolisthesis of L5 anterior on S1 is present. Facet degenerative changes are present. T here is degenerative disc changes L5-S1. IMPRESSIONS: 1. 2 large renal stones right kidney. No obstruction is evident. 2. Peripelvic cyst suspected at the inferior pole left kidney. 3. Spondylolysis of L5 with minimal grade 1 spondylolisthesis of L5 anterior on S1. Degenerative disc changes are present at this level. 4. Diverticulosis without acute diverticulitis.
== END | disposition home or self-care (01) ==
LOC: RADCTMAIN 07:51
PROVIDERS: ATTEND Urology
DX: N20.0 Calculus of kidney (principal); K57.90 Diverticulosis of intestine, part unspecified, without perforation or abscess without bleeding; Z88.0 Allergy status to penicillin; Z88.8 Allergy status to other drugs, medicaments and biological substances; Z91.048 Other nonmedicinal substance allergy status
CPT/HCPCS: 74176

== ENCOUNTER 2019-10-05 06:53 | Observation (INO) | payer MEDICAID ==
[2019-09-30 10:35] VITALS: BMI 38.7
--- NOTE | 2019-10-04 19:04 | P.GSHP ---
History of Present Illness H&P Date: 10/04/19 54 yo male with two large right renal stones who comes for a right pcnl The risks, complications and alternatives have been discussed including failure to access the kidney, damage to the kidney, injury to adjacent organs, infection, bleeding ain among others He comes for this procedure - Constitutional Constitutional: Denies chills, Denies fever - EENT Eyes: denies blurred vision, denies pain Ears, nose, mouth and throat: Denies headache, Denies sore throat - Cardiovascular Cardiovascular: Denies chest pain, Denies shortness of breath - Respiratory Respiratory: Denies cough, Denies 7 - Gastrointestinal Gastrointestinal: Denies abdominal pain, Denies diarrhea, Denies nausea, Denies vomiting - Genitourinary (Female) Genitourinary: Denies dysuria, Denies hematuria - Genitourinary (Male) Genitourinary: Denies dysuria, Denies hematuria - Musculoskeletal Musculoskeletal: Denies myalgias - Integumentary Integumentary: Denies pruritus, Denies rash - Neurological Neurological: Denies numbness, Denies weakness - Psychiatric Psychiatric: Denies anxiety, Denies depression - Endocrine Endocrine: Denies fatigue, Denies weight change Past Medical History Past Medical History: Atrial Fibrillation, Asthma, GERD/Reflux, Hypertension, Sleep Apnea/CPAP/BIPAP Additional Past Medical History / Comment(s): Pt passed 3-4 kidney stones in pas t couple yrs, afib in past d/t hypokalemia after bariatric surgery-none since, bronchitis in past, low back pain-has 3 vertebral compression fractures. Pt states after weight loss he no longer takes rx for high lipids/no GERD and no longer is treated for diabetes. History of Any Multi-Drug Resistant Organisms: None Reported Past Surgical History: Bariatric Surgery, Orthopedic Surgery Additional Past Surgical History / Comment(s): panniculectomy with ventral hernia repair, Liliana-en-Y, left knee surgery for torn meniscus, R knee arthroscopy, R bicep reattachment, sinus surgery x2 Past Anesthesia/Blood Transfusion Reactions: Motion Sickness, Postoperative Nausea & Vomiting (PONV) Smoking Status: Never smoker - Past Family History Father Family Medical History: Cancer, Myocardial Infarction ([place]) Additional Family Medical History / Comment(s): Father had prostate cancer Mother Family Medical History: Pulmonary Embolus Additional Family Medical History / Comment(s): Mother is healthy and is 73 yrs old. Medications and Allergies Home Medications Medication Instructions Recorded Confirmed Type Budesonide-Formot 160-4.5 Mcg 2 puff INHALATION BID 03/08/14 09/30/19 History [Symbicort 160-4.5 Mcg Inhaler] Montelukast Sodium [Singulair] 10 mg PO HS 03/08/14 09/30/19 History Albuterol Sulfate [Ventolin HFA] 2 puff INHALATION RT-Q4H PRN 12/04/16 09/30/19 History Azelastine HCl [Astepro] 1 spray EA NOSTRIL BID PRN 02/19/18 09/30/19 History Hydrocodone/Acetaminophen [[place] 1 tab PO Q6HR PRN #12 tab 11/20/18 09/30/19 Rx 5-325] Naproxen 500 mg PO BID 09/30/19 09/30/19 History Xolair(Does Unknown) 1 injection IJ Q14D 09/30/19 09/30/19 History amLODIPine [Norvasc] 10 mg PO DAILY 09/30/19 09/30/19 History Allergies Allergy/AdvReac Type Severity Reaction Status Date / Time adhesive tape Allergy Rash/Hives Verified 09/30/19 10:19 Penicillins AdvReac Anaphylaxis Verified 09/30/19 10:19 Pxofyve-Crn-Zie Reductase AdvReac joint Pain Verified 09/30/19 10:19 Inhibitor Dermabond Allergy Rash/Hives Uncoded 09/30/19 10:19 Surgical - Exam - General well developed, well nourished, no distress - Eyes PERRL - ENT no hearing loss - Neck no masses - Respiratory normal expansion, normal respiratory effort - Cardiovascular Rhythm: irregularly irregular - Abdomen Abdomen: soft, non tender - Genitourinary normal penis with no external lesions, testicles present - Integumentary no rash, no growths - Neurologic normal coordination, normal sensation - Musculoskeletal normal gait, normal posture - Psychiatric oriented to time, oriented to person, oriented to place, speech is normal, memory intact Results - Imaging CT scan - abdomen: report reviewed, image reviewed CT scan - pelvis: report reviewed, image reviewed Assessment and Plan Assessment: Impression: Right renal stones, large Plan: PCNL right
[~2019-10-05 06:53] MED LIST changes: +CLINDAMYCIN 900 MG in DEXTROSE 5% IN WATER 50 ML IVPB ONE; -DEXAMETHASONE SOD PHOSPHATE 10 MG/ML 1 ML VIAL IM STA; +DEXAMETHASONE SOD PHOSPHATE 10 MG/ML 1 ML VIAL IV ONE; +LIDOCAINE 1% (10MG/ML) FOR IV START INTRADERMA PRN; +MIDAZOLAM 2 MG/2 ML VIAL IV PRN; +ONDANSETRON 4 MG/2 ML VIAL IVP ONE
--- NOTE | 2019-10-05 07:22 | XR ---
EXAMINATION TYPE: XR KUB DATE OF EXAM: 10/05/2019 7:00 AM CLINICAL HISTORY: Preoperative examination for right-sided nephrolithiasis. TECHNIQUE: Single supine KUB image of the abdomen is obtained. COMPARISON: 09/18/2019. FINDINGS: There are 2 right renal calculi measuring 1.7 cm and 2.1 cm. Changes in size in comparison the prior of 09/18/2019 are likely due to obliquity rather than increased growth. No suspicious calcif ications over the left renal shadow. Surgical clips in the left upper quadrant are partially visualiz ed. Moderate degenerative changes of the lumbosacral junction. No dilated large or small bowel. No ac [place] osseous pathology. IMPRESSION: Redemonstration of 2 right-sided large renal calculi.
[2019-10-05] MEDS: LACTATED RINGERS 1,000 ML IV SCH (07:38)
[2019-10-05] MEDS ORDERED: SCOPOLAMINE 1.5MG/72HR PATCH TRANSDERM STA (07:56)
[2019-10-05] MEDS ORDERED: SUCCINYLCHOLINE CHLORIDE 100 MG/5 ML SYR IV ONE (08:30)
[2019-10-05] MEDS ORDERED: HYDROmorphone (PF) 1 MG/ML ONE (08:30)
[2019-10-05] MEDS ORDERED: NEOSTIGMINE 1 MG/ML 10 ML VIAL ONE (08:30)
[2019-10-05] MEDS ORDERED: PROPOFOL 10 MG/ML 20 ML VIAL IV ONE (08:30)
[2019-10-05] MEDS ORDERED: ROCURONIUM BROMIDE 10 MG/ML 5 ML VIAL IV ONE (08:30)
[2019-10-05] MEDS ORDERED: GLYCOPYRROLATE 0.2 MG/ML 2 ML VIAL ONE (08:30)
[2019-10-05] MEDS ORDERED: MIDAZOLAM 2 MG/2 ML VIAL ONE (08:30)
[2019-10-05] MEDS ORDERED: LIDOCAINE 1% INJ 10MG/ML (20 ML MDV) ONE (08:30)
[2019-10-05] MEDS ORDERED: fentaNYL (PF) 50 MCG/ML 2 ML AMP ONE (08:30)
[2019-10-05] MEDS ORDERED: IOPAMIDOL-370 50ML BTL MISCELLANE ONE (09:05)
[2019-10-05] MEDS ORDERED: LACTATED RINGERS 1,000 ML IV ONE ×2 (10:23→11:49)
[2019-10-05] MEDS ORDERED: HYDROcodone/APAP 5-325MG 1 EACH TAB PO PRN (10:26)
[2019-10-05] MEDS ORDERED: ALBUTEROL NEBULIZED 2.5 MG/3 ML INHALATION PRN (10:26)
[2019-10-05] MEDS ORDERED: AZELASTINE 137MCG/SPRAY EA NOSTRIL PRN (10:26)
[2019-10-05] MEDS ORDERED: MAG HYDROX/AL HYDROX/SIMETH 30 ML CUP PO PRN (10:27)
[2019-10-05] MEDS ORDERED: ONDANSETRON 4 MG/2 ML VIAL IVP PRN (10:27)
[2019-10-05] MEDS ORDERED: ACETAMINOPHEN TAB 325 MG TAB PO PRN (10:27)
[2019-10-05] MEDS ORDERED: NALOXONE 0.4 MG/ML 1 ML VIAL IV PRN (10:28)
[2019-10-05] MEDS: HYDROmorphone 0.5 MG/0.5 ML SYRINGE IVP PRN ×7 (10:30→11:25)
--- NOTE | 2019-10-05 10:33 | P.OP ---
Date of Procedure: 10/05/19 Preoperative Diagnosis: Right renal stones, large Postoperative Diagnosis: Same Procedure(s) Performed: Cystoscopy, placement of occluding balloon catheter right, percutaneous nephrostomy (Dr. nelson), percutaneous nephrostolithotomy with ultrasound and l aser, placement of 10 J nephrostomy Anesthesia: JULIOCESAR Surgeon: Dk Wang Estimated Blood Loss (ml): 50 Pathology: other (Stone) Condition: stable Disposition: PACU Indications for Procedure: The patient is 54. He has 2 large stones in his right kidney 1 over 2 cm in the lower pole and one about 15 mm in the mid pole. He comes for percutaneous nephrostolithotomy. Her painful The patient is brought to the operating suite. He is given a general endotracheal anesthesia on the transport gurney. He's placed in a frog position with a sterile prep and drape. Cystoscopy of the Foroblique lens and 22-Citizen Of [place] sheath identifies normal urethra. The prostates out obstructing. The right ureteral orifice is identified and intubated with a 5-[place]izen [place] occluding balloon catheter that's passed up into the renal pelvis. The cystoscope removed. A Carranza catheters introduced into the bladder and secured to the ureteral catheter The patient is placed in a prone position to care to airways and extremities. Dr. Nelson of radiology performed percutaneous access to the right posterior middle pole calyx. I then dilate the tract to 30-Citizen Of [place] and placed a working sheath. Through the working sheath the rigid nephroscope was introduced into this calyx. Clot is removed. The stone was identified. With ultrasound it is broken into smaller pieces grasped and removed. I then advanced the flexible nephroscope into the collecting system. A half to introduce some contrast in order to identify the calyx where the lower pole stone is located. The collecting system was very delicate. I'm eventually able to identify the collecting system for the lower pole calyx of. I passed the nephroscope into this. The stone is seen. With the 200 laser probe the stone was broken into smaller pieces and then basketed out with a 1.9-[place]izen [place] stone basket. I looked throughout the collecting system and there is no remaining stone. A 10 J nephrostomy tube was placed. The patient is awakened and returned recovery room good condition. Blood loss is less than 50 mL. He'll be placed in the hospital overnight. He tolerated the procedure well.
[2019-10-05] MEDS ORDERED: ONDANSETRON 4 MG/2 ML VIAL IVP ONE (10:51)
--- NOTE | 2019-10-05 11:08 | FL ---
EXAMINATION TYPE: FL Perc Nephrostomy New Access DATE OF EXAM: 10/05/2019 COMPARISON: NONE HISTORY: Right renal stones Procedure had been discussed with the patient by Dr. Wang, risks, benefits, alternatives, were dis cussed and any questions were answered. Informed consent was obtained. The patient was in a semipro ne position prepped and draped on the OR table in the usual sterile fashion. Utilizing a 15 cm lengt h [place] needle a single pass was made into a mid pole posterior calyx under fluoroscopic guidance. A n 0.018 guidewire is passed through the needle and there was placement of a 6-[place] catheter sheath system. There was conversion to a 0.035 system was performed with passage of a guidewire into the u reter utilizing a directional catheter. A second safety wire was placed. Remaining portion of proce dure performed by . Approximately 4 minutes and 17 seconds of fluoroscopy was provided. IMPRESSION: 1. Successful intraoperative right nephrostomy prior to nephrolithotomy.
[2019-10-05] MEDS: HYDROmorphone PCA 10 MG/50 ML BAG IV PRN ×2 (12:12→20:25)
[2019-10-05] MEDS: DEXTROSE 5%-0.45% NACL 1,000 ML IV SCH ×2 (15:02→19:20)
[2019-10-05] MEDS: SYMBICORT 160-4.5 MCG INHALER INHALATION SCH (20:14)
[2019-10-05] MEDS ORDERED: MONTELUKAST 10 MG TAB PO SCH (21:00)
[2019-10-06] MEDS: HYDROmorphone PCA 10 MG/50 ML BAG IV PRN (05:21)
[2019-10-06] MEDS: LACTATED RINGERS 1,000 ML IV SCH (07:20)
--- NOTE | 2019-10-06 07:29 | P.DS ---
Providers Date of admission: 10/05/19 22:23 Attending physician: Dk Wang Primary care physician: Harjinder Mendoza [facility] Course: The patient was admitted 10/05/2019 for a right percutaneous nephrostolithotomy. He underwent this without difficulty. This operatively other than pain he has done well. The urine is clearing. The voided urine is clearing. He wishes to be discharged home. IV and Carranza will be discharged. He'll be instructed nephrostomy tube care. A prescription [place] has been given. He'll follow-up in the office on Thursday for nephrostomy tube removal. Postoperative instructions been given. Condition is good. Patient Condition at Discharge: Good Plan - Discharge Summary Discharge Rx Participant: Yes New Discharge Prescriptions: New HYDROcodone/APAP 5-325MG [[place] 5-325] 1 tab PO Q4HR PRN #14 tab PRN Reason: Pain No Action Montelukast Sodium [Singulair] 10 mg PO HS Budesonide-Formot 160-4.5 Mcg [Symbicort 160-4.5 Mcg Inhaler] 2 puff INHALATION BID Albuterol Sulfate [Ventolin HFA] 2 puff INHALATION RT-Q4H PRN PRN Reason: ASTHMA Azelastine HCl [Astepro] 1 spray EA NOSTRIL BID PRN PRN Reason: allergies Hydrocodone/Acetaminophen [[place] 5-325] 1 tab PO Q6HR PRN #12 tab PRN Reason: Pain amLODIPine [Norvasc] 10 mg PO DAILY Naproxen 500 mg PO BID Xolair(Does Unknown) 1 injection IJ Q14D Discharge Medication List Budesonide-Formot 160-4.5 Mcg [Symbicort 160-4.5 Mcg Inhaler] 2 puff INHALATION BID 03/08/14 [History] Montelukast Sodium [Singulair] 10 mg PO HS 03/08/14 [History] Albuterol Sulfate [Ventolin HFA] 2 puff INHALATION RT-Q4H PRN 12/04/16 [History] Azelastine HCl [Astepro] 1 spray EA NOSTRIL BID PRN 02/19/18 [History] Hydrocodone/Acetaminophen [[place] 5-325] 1 tab PO Q6HR PRN #12 tab 11/20/18 [Rx] Naproxen 500 mg PO BID 09/30/19 [History] Xolair(Does Unknown) 1 injection IJ Q14D 09/30/19 [History] amLODIPine [Norvasc] 10 mg PO DAILY 09/30/19 [History] HYDROcodone/APAP 5-325MG [[place] 5-325] 1 tab PO Q4HR PRN #14 tab 10/06/19 [Rx] Follow up Appointment(s)/Referral(s): Dk Wang MD [STAFF PHYSICIAN] - 10/10/19 Activity/Diet/Wound Care/Special Instructions: home with nephrostomy tube Discharge Disposition: HOME SELF-CARE
[2019-10-06 07:55] VITALS: BP 168/81; PULSE 60; RESP 17; TEMP 97.9
[2019-10-06] MEDS: DEXTROSE 5%-0.45% NACL 1,000 ML IV SCH (08:04)
[2019-10-06] MEDS ORDERED: amLODIPine 10 MG TAB PO SCH (09:00)
[2019-10-06] MEDS: SYMBICORT 160-4.5 MCG INHALER INHALATION SCH (09:55)
[2019-10-06] MEDS ORDERED: HYDROcodone/APAP 5-325MG 1 EACH TAB PO PRN (11:42)
== END 2019-10-06 14:32 | disposition home or self-care (01) ==
LOC: OR 06:53 → 4SSUR 10:27 → OR 23:18
PROVIDERS: ADMIT Urology; ATTEND Urology
DX: N20.0 Calculus of kidney (principal); I10 Essential (primary) hypertension; J45.909 Unspecified asthma, uncomplicated; G47.33 Obstructive sleep apnea (adult) (pediatric); M54.5 Low back pain; Z87.442 Personal history of urinary calculi; Z86.79 Personal history of other diseases of the circulatory system; Z87.81 Personal history of (healed) traumatic fracture; Z98.84 Bariatric surgery status; Z98.890 Other specified postprocedural states; Z99.89 Dependence on other enabling machines and devices; Z79.51 Long term (current) use of inhaled steroids; Z79.1 Long term (current) use of non-steroidal anti-inflammatories (NSAID); Z79.899 Other long term (current) drug therapy; Z88.0 Allergy status to penicillin; Z88.8 Allergy status to other drugs, medicaments and biological substances; Z91.048 Other nonmedicinal substance allergy status; Z82.49 Family history of ischemic heart disease and other diseases of the circulatory system; Z80.42 Family history of malignant neoplasm of prostate; Z83.2 Family history of diseases of the blood and blood-forming organs and certain disorders involving the immune mechanism
CPT/HCPCS: 50081; 94640 ×2; 94760; 94762; 93005; 86900; 86901; 86850; 82365; 50432; 74018; 36415; G0378 ×2; C2628; C1769 ×3; C1894; C1729; J2250; J1100; J2710; J2405; J2001; J3010; J1170 ×4; J0330; J2704; Q9967

== ENCOUNTER 2019-10-08 06:45 | Observation (INO) | payer MEDICAID ==
[2019-10-08] MEDS ORDERED: KETOROLAC 30 MG/ML 1 ML VIAL IVP STA (07:00)
[2019-10-08] MEDS ORDERED: SODIUM CHLORIDE 0.9% 2,000 ML IV STA (07:00)
[2019-10-08] MEDS ORDERED: HYDROmorphone 1 MG/ML 1 ML SYRINGE IVP STA ×2 (07:22→10:30)
[2019-10-08] MEDS ORDERED: ONDANSETRON 4 MG/2 ML VIAL IVP STA (07:22)
[2019-10-08 07:25] LABS: Anisocytosis Slight; Basophils % (A) 0 %; Eosinophils # (A) 0.1 k/uL (0-0.7); Eosinophils % (A) 1 %; HCT 38.8 % (39.0-53.0); HGB 11.9 gm/dL (13.0-17.5); Hypochromasia Moderate; Lymphocytes # (A) 0.5 k/uL (1.0-4.8); Lymphocytes % (A) 4 %; MCHC 30.6 g/dL (31.0-37.0); Mean Platelet Volume 6.6; Microcytosis Moderate; Monocytes # (A) 0.6 k/uL (0-1.0); Monocytes % (A) 5 %; Neutrophils # (A) 10.1 k/uL (1.3-7.7); Neutrophils % (A) 87 %; Platelet Count 358 k/uL (150-450); RBC 5.39 m/uL (4.30-5.90); RDW 16.5 % (11.5-15.5); WBC 11.7 k/uL (3.8-10.6)
[2019-10-08 07:40] LABS: INR 1.1 (<1.2); Partial Thromboplastin Time 26.8 sec (22.0-30.0)
[2019-10-08 07:43] LABS: ALT 20 U/L (4-49); AST 28 U/L (17-59); African American GFR (CKD) 80 (>60 ml/min/1.73 sqM); Albumin 3.4 g/dL (3.5-5.0); Alkaline Phosphatase 92 U/L (38-126); Amylase <30 U/L (30-110); Anion Gap 12 mmol/L; Blood Urea Nitrogen 15 mg/dL (9-20); Calcium 8.7 mg/dL (8.4-10.2); Carbon Dioxide 22 mmol/L (22-30); Chloride 96 mmol/L (98-107); Glucose 150 mg/dL (74-99); Non-African American GFR(CKD) 69 (>60 ml/min/1.73 sqM); Potassium 4.1 mmol/L (3.5-5.1); Sodium 130 mmol/L (137-145); Total Bilirubin 1.3 mg/dL (0.2-1.3)
[2019-10-08] MEDS ORDERED: ACETAMINOPHEN TAB 325 MG TAB PO STA (08:11)
--- NOTE | 2019-10-08 08:12 | ED ---
General Adult HPI - General Source: patient, family, RN notes reviewed Mode of arrival: EMS Limitations: no limitations <Mauro Dinh - Last Filed: 10/08/19 10:26> <Karin Cristobal - Last Filed: 10/13/19 14:13> - General Chief complaint: Chest Pain Stated complaint: Abd pain Time Seen by Provider: 10/08/19 06:56 - History of Present Illness Initial comments: This is a 54-year-old male presents emergency Department chief complaint of severe right-sided flank, abdominal pain. Patient states that on Thursday he had percutaneous nephrostomy with lithotripsy and stone removal. Patient states he did have a Carranza catheter. Patient states that nephrostomy tube was cracked so this was removed in office. Patient states she's had worsening severe pain in which his pain meds are not helping. He's also developed a fever. He denies any nausea vomiting he's been slightly constipated no dysuria no decreased urine output. Patient states some of his pain radiate up into his chest area. (Mauro Dinh) - Related Data Home Medications Medication Instructions Recorded Confirmed Budesonide-Formot 160-4.5 Mcg 2 puff INHALATION BID 03/08/14 10/08/19 [Symbicort 160-4.5 Mcg Inhaler] Montelukast Sodium [Singulair] 10 mg PO HS 03/08/14 10/08/19 Albuterol Sulfate [Ventolin HFA] 2 puff INHALATION RT-Q4H PRN 12/04/16 10/08/19 Azelastine HCl [Astepro] 1 spray EA NOSTRIL BID PRN 02/19/18 10/08/19 Naproxen 500 mg PO BID PRN 09/30/19 10/08/19 amLODIPine [Norvasc] 10 mg PO DAILY 09/30/19 10/08/19 Fluticasone Nasal [place] [Flonase 2 spr EA NOSTRIL DAILY PRN 10/06/19 10/08/19 Nasal [place]] Modafinil [Provigil] 200 mg PO DAILY 10/06/19 10/08/19 Omalizumab [Xolair] 300 mg SQ Q14D 10/06/19 10/08/19 Sildenafil Citrate [Sildenafil] 60 mg PO DAILY PRN 10/06/19 10/08/19 Previous Rx's Medication Instructions Recorded HYDROcodone/APAP 5-325MG [[place] 1 tab PO Q4HR PRN #14 tab 10/06/19 5-325] Ciprofloxacin HCl [Cipro] 500 mg PO Q12H 7 Days #14 tab 10/10/19 Allergies Allergy/AdvReac Type Severity Reaction Status Date / Time adhesive tape Allergy Rash/Hives Verified 10/08/19 10:42 Penicillins AdvReac Anaphylaxis Verified 10/08/19 10:42 Yltjsco-Zyj-Tsz Reductase AdvReac joint Pain Verified 10/08/19 10:42 Inhibitor Dermabond Allergy Rash/Hives Uncoded 10/08/19 06:51 Review of Systems ROS Other: All systems not noted in ROS Statement are negative. <Mauro iDnh - Last Filed: 10/08/19 10:26> ROS Other: All systems not noted in ROS Statement are negative. <Karin Cristobal - Last Filed: 10/13/19 14:13> ROS Statement: Those systems with pertinent positive or pertinent negative responses have been documented in the HPI. Past Medical History Past Medical History: Atrial Fibrillation, Asthma, GERD/Reflux, Hypertension, Sleep Apnea/CPAP/BIPAP Additional Past Medical History / Comment(s): Pt passed 3-4 kidney stones in past couple yrs, afib in past d/t hypokalemia after bariatric surgery-none since, bronchitis in past, low back pain-has 3 vertebral compression fractures. Pt states after weight loss he no longer takes rx for high lipids/no GERD and no longer is treated for diabetes. History of Any Multi-Drug Resistant Organisms: None Reported Past Surgical History: Bariatric Surgery, Orthopedic Surgery Additional Past Surgical History / Comment(s): panniculectomy with ventral hernia repair, Liliana-en-Y, left knee surgery for torn meniscus, R knee arthroscopy, R bicep reattachment, sinus surgery x2 Past Anesthesia/Blood Transfusion Reactions: Motion Sickness, Postoperative Nausea & Vomiting (PONV) Past Psychological History: No Psychological Hx Reported Smoking Status: Never smoker Past Alcohol Use History: Occasional Past Drug Use History: None Reported - Past Family History Father Family Medical History: Cancer, Myocardial Infarction ([place]) Additional Family Medical History / Comment(s): Father had prostate cancer Mother Family Medical History: Pulmonary Embolus Additional Family Medical History / Comment(s): Mother is healthy and is 73 yrs old. <Mauro Dinh - Last Filed: 10/08/19 10:26> General Exam Limitations: no limitations General appearance: alert, in no apparent distress Head exam: Present: atraumatic, normocephalic, normal inspection Eye exam: Present: normal appearance, PERRL, EOMI. Absent: scleral icterus, conjunctival injection, periorbital swelling Respiratory exam: Present: normal lung sounds bilaterally. Absent: respiratory distress, wheezes, rales, rhonchi, stridor Cardiovascular Exam: Present: normal rhythm, tachycardia, normal heart sounds. Absent: systolic murmur, diastolic murmur, rubs, gallop, clicks GI/Abdominal exam: Present: soft, tenderness, normal bowel sounds. Absent: distended, guarding, rebound, rigid Back exam: Present: CVA tenderness (R), other (Incision on the right flank region is closed, no erythema no drainage). Absent: CVA tenderness (L) Neurological exam: Present: alert, oriented X3, CN II-XII intact Skin exam: Present: warm, dry, intact, normal color. Absent: rash <Mauro Dinh - Last Filed: 10/08/19 10:26> Course Vital Signs 10/08/19 10/08/19 10/08/19 06:48 06:55 08:26 Temperature 97.8 F 102.1 F H 101.3 F H Pulse Rate 121 H 116 H Respiratory 24 24 Rate Blood Pressure 140/86 150/91 O2 Sat by Pulse 96 Oximetry 10/08/19 10/08/19 09:11 11:33 Temperature 100.3 F H 99.8 F H Pulse Rate 95 84 Respiratory 20 18 Rate Blood Pressure 124/82 132/74 O2 Sat by Pulse 96 95 Oximetry Medical Decision Making - Lab Data Result diagrams: 10/08/19 07:10 10/08/19 07:10 <Mauro Dinh - Last Filed: 10/08/19 10:26> - Lab Data Result diagrams: 10/08/19 07:10 10/08/19 07:10 <Karin Cristobal - Last Filed: 10/13/19 14:13> - Medical Decision Making 53-year-old male presented for right flank pain, fever. Patient's found to have infected urinalysis. Patient status post nephrostomy tube and lithotripsy. Case discussed with urologist Dr. Wang who recommended CT, inpatient with IV antibiotics. (Mauro Dinh) I was available for consultation in the emergency department. The history and physical exam were done by the midlevel provider. I was consulted for this patients care. I reviewed the case with the midlevel provider and based on their presentation of the patient, I agree with the assessment, medical decision making and plan of care as documented. I evaluated the patient myself. He does arrive febrile and was found to have an infected urine. I called and discussed the case with Dr. Art who recommended CT of the patients abdomen without contrast and admission. The patient is made NPO for planned procedure. Chart was dictated using [employer] dictation software. Attempts were made to correct any dictation errors however some typographical errors may persist. (Karin Cristobal) - Lab Data Lab Results 10/08/19 10/08/19 10/08/19 Range/Units 07:10 07:10 07:10 WBC 11.7 H (3.8-10.6) k/uL RBC 5.39 (4.30-5.90) m/uL Hgb 11.9 L (13.0-17.5) gm/dL Hct 38.8 L (39.0-53.0) % MCV 72.0 L (80.0-100.0) fL MCH 22.0 L (25.0-35.0) pg MCHC 30.6 L (31.0-37.0) g/dL RDW 16.5 H (11.5-15.5) % Plt Count 358 (150-450) k/uL Neutrophils % 87 % Lymphocytes % 4 % Monocytes % 5 % Eosinophils % 1 % Basophils % 0 % Neutrophils # 10.1 H (1.3-7.7) k/uL Lymphocytes # 0.5 L (1.0-4.8) k/uL Monocytes # 0.6 (0-1.0) k/uL Eosinophils # 0.1 (0-0.7) k/uL Basophils # 0.0 (0-0.2) k/uL Hypochromasia Moderate Anisocytosis Slight Microcytosis Moderate PT 11.0 (9.0-12.0) sec INR 1.1 (<1.2) APTT 26.8 (22.0-30.0) sec Sodium 130 L (137-145) mmol/L Potassium 4.1 (3.5-5.1) mmol/L Chloride 96 L (98-107) mmol/L Carbon Dioxide 22 (22-30) mmol/L Anion Gap 12 mmol/L BUN 15 (9-20) mg/dL Creatinine 1.20 (0.66-1.25) mg/dL Est GFR (CKD-EPI)AfAm 80 (>60 ml/min/1.73 sqM) Est GFR (CKD-EPI)NonAf 69 (>60 ml/min/1.73 sqM) Glucose 150 H (74-99) mg/dL Plasma Lactic Acid Tristin (0.7-2.0) mmol/L Calcium 8.7 (8.4-10.2) mg/dL Total Bilirubin 1.3 (0.2-1.3) mg/dL AST 28 (17-59) U/L ALT 20 (4-49) U/L Alkaline Phosphatase 92 (38-126) U/L Troponin I (0.000-0.034) ng/mL Total Protein 6.0 L (6.3-8.2) g/dL Albumin 3.4 L (3.5-5.0) g/dL Amylase <30 L (30-110) U/L Lipase 30 (23-300) U/L Urine Color Urine Appearance (Clear) Urine pH (5.0-8.0) Ur Specific [place] (1.001-1.035) Urine Protein (Negative) Urine Glucose (UA) (Negative) Urine Ketones (Negative) Urine Blood (Negative) Urine Nitrite (Negative) Urine Bilirubin (Negative) Urine Urobilinogen (<2.0) mg/dL Ur Leukocyte Esterase (Negative) Urine RBC (0-5) /hpf Urine WBC (0-5) /hpf Urine Mucus (None) /hpf Urine Yeast (Budding) (None) /hpf 10/08/19 10/08/19 10/08/19 Range/Units 07:10 07:10 09:35 WBC (3.8-10.6) k/uL RBC (4.30-5.90) m/uL Hgb (13.0-17.5) gm/dL Hct (39.0-53.0) % MCV (80.0-100.0) fL MCH (25.0-35.0) pg MCHC (31.0-37.0) g/dL RDW (11.5-15.5) % Plt Count (150-450) k/uL Neutrophils % % Lymphocytes % % Monocytes % % Eosinophils % % Basophils % % Neutrophils # (1.3-7.7) k/uL Lymphocytes # (1.0-4.8) k/uL Monocytes # (0-1.0) k/uL Eosinophils # (0-0.7) k/uL Basophils # (0-0.2) k/uL Hypochromasia Anisocytosis Microcytosis PT (9.0-12.0) sec INR (<1.2) APTT (22.0-30.0) sec Sodium (137-145) mmol/L Potassium (3.5-5.1) mmol/L Chloride (98-107) mmol/L Carbon Dioxide (22-30) mmol/L Anion Gap mmol/L BUN (9-20) mg/dL Creatinine (0.66-1.25) mg/dL Est GFR (CKD-EPI)AfAm (>60 ml/min/1.73 sqM) Est GFR (CKD-EPI)NonAf (>60 ml/min/1.73 sqM) Glucose (74-99) mg/dL Plasma Lactic Acid Tristin 1.8 (0.7-2.0) mmol/L Calcium (8.4-10.2) mg/dL Total Bilirubin (0.2-1.3) mg/dL AST (17-59) U/L ALT (4-49) U/L Alkaline Phosphatase (38-126) U/L Troponin I <0.012 (0.000-0.034) ng/mL Total Protein (6.3-8.2) g/dL Albumin (3.5-5.0) g/dL Amylase (30-110) U/L Lipase (23-300) U/L Urine Color Light Red Urine Appearance Cloudy (Clear) Urine pH 6.0 (5.0-8.0) Ur Specific [place] 1.029 (1.001-1.035) Urine Protein 2+ H (Negative) Urine Glucose (UA) 1+ H (Negative) Urine Ketones 3+ H (Negative) Urine Blood Large H (Negative) Urine Nitrite Positive (Negative) Urine Bilirubin Negative (Negative) Urine Urobilinogen <2.0 (<2.0) mg/dL Ur Leukocyte Esterase Moderate H (Negative) Urine RBC >182 H (0-5) /hpf Urine WBC 71 H (0-5) /hpf Urine Mucus Many H (None) /hpf Urine Yeast (Budding) Many H (None) /hpf Disposition <Mauro Dinh - Last Filed: 10/08/19 10:26> <Karin Cristobal - Last Filed: 10/13/19 14:13> Clinical Impression: History of lithotripsy, Urinary tract infection, Fever Disposition: ADMITTED IP TO THIS HOSP Condition: Good
--- NOTE | 2019-10-08 08:15 | XR ---
EXAMINATION TYPE: XR KUB DATE OF EXAM: 10/08/2019 8:01 AM CLINICAL HISTORY: Right flank and lower abdominal pain. Recent nephrostomy. TECHNIQUE: Two Upright KUB images of the abdomen are obtained. COMPARISON: Abdominal x-ray [address] abdomen and pelvis September 28, 2019.. FINDINGS: Multiple air-fluid levels in gas prominent colonic loops upper to mid abdomen. Scattered ai r-fluid levels in nondistended small and large bowel loops lower abdomen and pelvis. Surgical changes epigastric region from prior gastric bypass surgery redemonstrated. New patchy right basilar atelect asis and/or infiltrate. No pneumoperitoneum. Osseous structures are intact. IMPRESSION: Overall nonspecific bowel gas pattern. Diffuse ileus favored.
[2019-10-08 10:06] LABS: Appearance,Urine Cloudy (Clear); Bilirubin,Urine Negative (Negative); Blood,Urine Large (Negative); Budding Yeast,Urine Many /hpf; Color,Urine Light Red; Glucose,Urine (UA) 1+ (Negative); Leukocyte Esterase,Urine Moderate (Negative); Mucus,Urine Many /hpf; Nitrite,Urine Positive (Negative); Protein,Urine 2+ (Negative); RBC,Urine >182 /hpf (0-5); Specific Gravity,Urine 1.029 (1.001-1.035); Urobilinogen,Urine <2.0 mg/dL (<2.0); WBC,Urine 71 /hpf (0-5)
[2019-10-08 10:09] LABS: Ketones,Urine 3+ (Negative)
[2019-10-08] MEDS ORDERED: cefTRIAXone IN SWFI 1,000 MG/10 ML SYRINGE IVP STA (10:19)
[2019-10-08] MEDS ORDERED: KETOROLAC 30 MG/ML 1 ML VIAL IVP PRN (10:28)
[2019-10-08] MEDS ORDERED: ACETAMINOPHEN TAB 325 MG TAB PO PRN (10:28)
[2019-10-08] MEDS ORDERED: HYDROmorphone 0.5 MG/0.5 ML SYRINGE IVP PRN (10:28)
[2019-10-08] MEDS ORDERED: ONDANSETRON 4 MG/2 ML VIAL IVP PRN (10:28)
[2019-10-08] MEDS ORDERED: NALOXONE 0.4 MG/ML 1 ML VIAL IV PRN (10:28)
--- NOTE | 2019-10-08 11:09 | P.GSHP ---
History of Present Illness H&P Date: 10/08/19 The patient is a 54-year-old gentleman who underwent an uneventful percutaneous nephrostolithotomy 3 days ago. The nephrostomy tube cracked and I removed it and the first postoperative day as there was no bleeding and he was doing well. On Thursday he developed some right-sided flank pain and fever and chills. He came in the emergency room. He is found to have an elevated temperature and infected looking urine. Because of that he'll be admitted for IV antibiotics and IV hydration. He'll have urine cultures obtained. I've asked a computed tomography scan to be performed to assess whether there is any obstruction. - Constitutional Constitutional: Denies chills, Denies fever - EENT Eyes: denies blurred vision, denies pain Ears, nose, mouth and throat: Denies headache, Denies sore throat - Cardiovascular Cardiovascular: Denies chest pain, Denies shortness of breath - Respiratory Respiratory: Denies cough, Denies 7 - Gastrointestinal Gastrointestinal: Denies abdominal pain, Denies diarrhea, Denies nausea, Denies vomiting - Genitourinary (Female) Genitourinary: Denies dysuria, Denies hematuria - Genitourinary (Male) Genitourinary: Denies dysuria, Denies hematuria - Musculoskeletal Musculoskeletal: Denies myalgias - Integumentary Integumentary: Denies pruritus, Denies rash - Neurological Neurological: Denies numbness, Denies weakness - Psychiatric Psychiatric: Denies anxiety, Denies depression - Endocrine Endocrine: Denies fatigue, Denies weight change Past Medical History Past Medical History: Atrial Fibrillation, Asthma, GERD/Reflux, Hypertension, Sleep Apnea/CPAP/BIPAP Additional Past Medical History / Comment(s): Pt passed 3-4 kidney stones in past couple yrs, afib in past d/t hypokalemia after bariatric surgery-none since, bronchitis in past, low back pain-has 3 vertebral compression fractures. Pt states after weight loss he no longer takes rx for high lipids/no GERD and no longer is treated for diabetes. History of Any Multi-Drug Resistant Organisms: None Reported Past Surgical History: Bariatric Surgery, Orthopedic Surgery Additional Past Surgical History / Comment(s): panniculectomy with ventral hernia repair, Liliana-en-Y, left knee surgery for torn meniscus, R knee arthroscopy, R bicep reattachment, sinus surgery x2 Past Anesthesia/Blood Transfusion Reactions: Motion Sickness, Postoperative Ric sea & Vomiting (PONV) Past Psychological History: No Psychological Hx Reported Smoking Status: Never smoker Past Alcohol Use History: Occasional Past Drug Use History: None Reported - Past Family History Father Family Medical History: Cancer, Myocardial Infarction ([place]) Additional Family Medical History / Comment(s): Father had prostate cancer Mother Family Medical History: Pulmonary Embolus Additional Family Medical History / Comment(s): Mother is healthy and is 73 yrs old. Medications and Allergies Home Medications Medication Instructions Recorded Confirmed Type Budesonide-Formot 160-4.5 Mcg 2 puff INHALATION BID 03/08/14 10/08/19 History [Symbicort 160-4.5 Mcg Inhaler] Montelukast Sodium [Singulair] 10 mg PO HS 03/08/14 10/08/19 History Albuterol Sulfate [Ventolin HFA] 2 puff INHALATION RT-Q4H PRN 12/04/16 10/08/19 History Azelastine HCl [Astepro] 1 spray EA NOSTRIL BID PRN 02/19/18 10/08/19 History Naproxen 500 mg PO BID PRN 09/30/19 10/08/19 History amLODIPine [Norvasc] 10 mg PO DAILY 09/30/19 10/08/19 History Fluticasone Nasal [place] [Flonase 2 spr EA NOSTRIL DAILY PRN 10/06/19 10/08/19 History Nasal [place]] HYDROcodone/APAP 5-325MG [[place] 1 tab PO Q4HR PRN #14 tab 10/06/19 10/08/19 Rx 5-325] Modafinil [Provigil] 200 mg PO DAILY 10/06/19 10/08/19 History Omalizumab [Xolair] 300 mg SQ Q14D 10/06/19 10/08/19 History Sildenafil Citrate [Sildenafil] 60 mg PO DAILY PRN 10/06/19 10/08/19 History Allergies Allergy/AdvReac Type Severity Reaction Status Date / Time adhesive tape Allergy Rash/Hives Verified 10/08/19 10:42 Penicillins AdvReac Anaphylaxis Verified 10/08/19 10:42 Gekdjue-Ftp-Rku Reductase AdvReac joint Pain Verified 10/08/19 10:42 Inhibitor Dermabond Allergy Rash/Hives Uncoded 10/08/19 06:51 Surgical - Exam Vital Signs Temp Pulse Resp BP Pulse Ox 97.8 F 121 H 24 140/86 96 10/08/19 06:48 10/08/19 06:48 10/08/19 06:48 10/08/19 06:48 10/08/19 06:48 - General well developed, well nourished, moderate distress - Eyes PERRL - ENT no hearing loss - Neck no masses - Respiratory normal expansion, normal respiratory effort - Cardiovascular Rhythm: regular - Abdomen Abdomen: soft, tender - Genitourinary normal penis with no external lesions, testicles present - Integumentary no rash, no growths - Neurologic normal coordination, normal sensation - Musculoskeletal normal posture - Psychiatric oriented to time, oriented to person, oriented to place, speech is normal, memory intact Results - Labs 10/08/19 07:10 10/08/19 07:10 Abnormal Lab Results - Last 24 Hours (Table) 10/08/19 10/08/19 10/08/19 Range/Units 07:10 07:10 09:35 WBC 11.7 H (3.8-10.6) k/uL Hgb 11.9 L (13.0-17.5) gm/dL Hct 38.8 L (39.0-53.0) % MCV 72.0 L (80.0-100.0) fL MCH 22.0 L (25.0-35.0) pg MCHC 30.6 L (31.0-37.0) g/dL RDW 16.5 H (11.5-15.5) % Neutrophils # 10.1 H (1.3-7.7) k/uL Lymphocytes # 0.5 L (1.0-4.8) k/uL Sodium 130 L (137-145) mmol/L Chloride 96 L (98-107) mmol/L Glucose 150 H (74-99) mg/dL Total Protein 6.0 L (6.3-8.2) g/dL Albumin 3.4 L (3.5-5.0) g/dL Amylase <30 L (30-110) U/L Urine Protein 2+ H (Negative) Urine Glucose (UA) 1+ H (Negative) Urine Ketones 3+ H (Negative) Urine Blood Large H (Negative) Ur Leukocyte Esterase Moderate H (Negative) Urine RBC >182 H (0-5) /hpf Urine WBC 71 H (0-5) /hpf Urine Mucus Many H (None) /hpf Urine Yeast (Budding) Many H (None) /hpf Diabetes panel 10/08/19 Range/Units 07:10 Sodium 130 L (137-145) mmol/L Potassium 4.1 (3.5-5.1) mmol/L Chloride 96 L (98-107) mmol/L Carbon Dioxide 22 (22-30) mmol/L BUN 15 (9-20) mg/dL Creatinine 1.20 (0.66-1.25) mg/dL Glucose 150 H (74-99) mg/dL Calcium 8.7 (8.4-10.2) mg/dL AST 28 (17-59) U/L ALT 20 (4-49) U/L Alkaline Phosphatase 92 (38-126) U/L Total Protein 6.0 L (6.3-8.2) g/dL Albumin 3.4 L (3.5-5.0) g/dL Calcium panel 10/08/19 Range/Units 07:10 Calcium 8.7 (8.4-10.2) mg/dL Albumin 3.4 L (3.5-5.0) g/dL Pituitary panel 10/08/19 Range/Units 07:10 Sodium 130 L (137-145) mmol/L Potassium 4.1 (3.5-5.1) mmol/L Chloride 96 L (98-107) mmol/L Carbon Dioxide 22 (22-30) mmol/L BUN 15 (9-20) mg/dL Creatinine 1.20 (0.66-1.25) mg/dL Glucose 150 H (74-99) mg/dL Calcium 8.7 (8.4-10.2) mg/dL Adrenal panel 10/08/19 Range/Units 07:10 Sodium 130 L (137-145) mmol/L Potassium 4.1 (3.5-5.1) mmol/L Chloride 96 L (98-107) mmol/L Carbon Dioxide 22 (22-30) mmol/L BUN 15 (9-20) mg/dL Creatinine 1.20 (0.66-1.25) mg/dL Glucose 150 H (74-99) mg/dL Calcium 8.7 (8.4-10.2) mg/dL Total Bilirubin 1.3 (0.2-1.3) mg/dL AST 28 (17-59) U/L ALT 20 (4-49) U/L Alkaline Phosphatase 92 (38-126) U/L Total Protein 6.0 L (6.3-8.2) g/dL Albumin 3.4 L (3.5-5.0) g/dL Assessment and Plan Assessment: Impression: Status post percutaneous nephrostolithotomy right sided flank pain. Right sided pyelonephritis. Rule out ureteral obstruction Recommendations admission for IV hydration and IV antibiotics and a computed tomography scan to assess for obstruction. If there is obstruction off to place double-J catheter. This is been discussed with the patient.
[2019-10-08] MEDS: SODIUM CHLORIDE 0.9% 1,000 ML IV SCH ×2 (11:29→22:43)
--- NOTE | 2019-10-08 11:40 | CT ---
EXAMINATION TYPE: CT abdomen pelvis wo con DATE OF EXAM: 10/08/2019 HISTORY: Shortness of breath and fever. And right flank pain. History of right kidney stones removed [address] DLP: 1632.4 mGycm. Automated Exposure Control for Dose Reduction was Utilized. TECHNIQUE: CT scan of the abdomen and pelvis is performed without oral or IV contrast. COMPARISON: CT abdomen and pelvis September 28, 2019 abdominal x-ray earlier today an older x-rays. FINDINGS: Within the limitations of a non-contrast study, the following observations are made. LUNG BASES: New small right pleural effusion new right basilar consolidation and/or atelectasis.. LIVER/GB: Liver more heterogeneously hypodense on current study. Stable nonspecific 1.6 cm hypodense focus axial image 35. Gallbladder has distended margins PANCREAS: No significant abnormality is seen. SPLEEN: No significant abnormality is seen. ADRENALS: No significant abnormality is seen. KIDNEYS: No left-sided renal stones or hydronephrosis. There is remnant 3 mm calculus right kidney mi dpole level axial image 73 after lithotripsy. There is smaller 1 to 2 mm fragment in the pelvis axial image 81. There is prominent right renal pelvis and proximal hydroureter ureter without obstructing ureter calculi. No significant calyceal dilatation. There is additional 1 to 2 mm lower pole calculus coronal image 69. There is moderate to severe ill-defined fluid and fat stranding surrounding right kidney most prominent inferiorly with additional fluid filling the perinephric space. BOWEL: Suboptimal evaluation without enteric contrast. Surgical changes stomach from weight loss surg marcello are redemonstrated. There are air-fluid levels throughout slightly prominent right and transverse colonic loops. No suspicious small bowel dilatation. Additional surgical sutures in the anterior lef t upper to mid abdomen. Fecal material and air fluid levels in the left and sigmoid colon. GENITAL ORGANS: No gross abnormality seen. LYMPH NODES: No greater than 1cm abdominal or pelvic lymph nodes are appreciated. OSSEOUS STRUCTURES: Bilateral pars defect L5 level with slight grade 1 anterolisthesis L5 on S1. Mode rate disc space narrowing and vacuum disc phenomenon L5-S1 level. Moderate multilevel anterior and la teral spurring visualized thoracic spine. OTHER: Mild calcified plaque of the aorta extends into branch vessels. IMPRESSION: 1. Successful interval fragmentation of the 2 large right renal calculi with 3 small renal calculi re mnant fragments identified. There is moderate to severe ill-defined fluid and fat stranding at this l evel extending inferiorly, this is nonspecific and could be related to recent treatment/lithotripsy b ut ureter injury/urinoma cannot be excluded. 2. Overall nonobstructive bowel gas pattern. Diffuse colonic ileus or colitis/diarrhea is suspected.
[2019-10-08] MEDS ORDERED: MIDAZOLAM 2 MG/2 ML VIAL ONE (13:30)
[2019-10-08] MEDS ORDERED: fentaNYL (PF) 50 MCG/ML 2 ML AMP ONE (13:30)
[2019-10-08] MEDS ORDERED: LIDOCAINE 1% INJ 10MG/ML (20 ML MDV) ONE (13:30)
[2019-10-08] MEDS ORDERED: PROPOFOL 10 MG/ML 20 ML VIAL IV ONE (13:30)
[2019-10-08] MEDS ORDERED: SUCCINYLCHOLINE CHLORIDE VIAL 200 MG/10 ML VIAL IV ONE (13:30)
[2019-10-08] MEDS ORDERED: SODIUM CHLORIDE 0.9% 1,000 ML IV ONE (13:37)
[2019-10-08] MEDS ORDERED: FLUTICASONE 50MCG/SPRAY NASAL 16GM EA NOSTRIL PRN (13:57)
[2019-10-08] MEDS ORDERED: AZELASTINE 137MCG/SPRAY EA NOSTRIL PRN (13:57)
[2019-10-08] MEDS ORDERED: NAPROXEN 250 MG TAB PO PRN (13:57)
[2019-10-08] MEDS ORDERED: SILDENAFIL 20 MG TAB PO PRN (13:57)
[2019-10-08] MEDS ORDERED: HYDROcodone/APAP 5-325MG 1 EACH TAB PO PRN (13:57)
[2019-10-08] MEDS ORDERED: ALBUTEROL NEBULIZED 2.5 MG/3 ML INHALATION PRN (13:57)
[2019-10-08] MEDS ORDERED: OMALIZUMAB 150 MG/ML SYRINGE SQ SCH (14:00)
--- NOTE | 2019-10-08 14:05 | P.OP ---
Date of Procedure: 10/08/19 Preoperative Diagnosis: Status post was percutaneous nephrostolithotomy right, perinephric urinoma/hematoma possible ureteral obstruction Postoperative Diagnosis: Same Procedure(s) Performed: Cystoscopy with placement of right double-J catheter Anesthesia: JULIOCESAR Surgeon: Dk Wang Pathology: none sent Condition: stable Disposition: PACU Indications for Procedure: The patient is 54. He underwent a right percutaneous nephrostolithotomy on Thursday. He was discharged home on . I removed the nephrostomy tube as a Luer-Kennedy cracked. He was not bleeding and I thought due to the minimal intraoperative problems that he can do well without a nephrostomy tube. He is on Thursday started developing right-sided pain he presented the hospital fever and right-sided pain. A computed tomography scan showed a perinephric fluid collection be a hematoma or urinoma. Because of the fever mild elevation white count on the computed tomography scan I'll place a stent to make sure the urine is draining from kidney to bladder. Description of Procedure: The patient is brought to the operating suite. He is given a successful general endotracheal anesthesia. He's placed lithotomy position with sterile prep and drape. Cystoscopy Foroblique lens and 22-Slovenian sheath identifies normal urethra. The prostate is not obstructing. The bladder au unremarkable. An 035 wires passed up the right ureter into the renal pelvis. Over the wires pass a 6 x 26 double-J catheter that coils in the renal pelvis and the bladder bladder strain the patient's awake and returned recovery in good condition. The patient be observed in the hospital overnight and when his fever breaks and he feels better he'll be discharged home. Cultures are pending.
[2019-10-08] MEDS: HYDROmorphone 1 MG/ML 1 ML SYRINGE IVP PRN ×2 (15:46→19:27)
[2019-10-08] MEDS: DEXTROSE 5%-0.45% NACL 1,000 ML IV SCH (15:46)
[2019-10-08] MEDS: SYMBICORT 160-4.5 MCG INHALER INHALATION SCH (20:04)
[2019-10-08] MEDS: MONTELUKAST 10 MG TAB PO SCH (21:47)
[2019-10-09] MEDS: HYDROmorphone 1 MG/ML 1 ML SYRINGE IVP PRN ×5 (00:12→20:15)
[2019-10-09] MEDS: SODIUM CHLORIDE 0.9% 1,000 ML IV SCH ×2 (07:19→13:34)
[2019-10-09] MEDS: amLODIPine 10 MG TAB PO SCH (07:39)
[2019-10-09] MEDS: DEXTROSE 5%-0.45% NACL 1,000 ML IV SCH (07:45)
--- NOTE | 2019-10-09 07:59 | FL ---
EXAMINATION TYPE: FL guidance operating room DATE OF EXAM: 10/08/2019 FLUOROSCOPY Fluoroscopy time of 9 seconds was used during right ureteral stent placement/obstruction. 1 image/s document/s the procedure.
[2019-10-09] MEDS: SYMBICORT 160-4.5 MCG INHALER INHALATION SCH ×2 (09:34→20:39)
[2019-10-09] MEDS: MODAFINIL 200 MG TAB PO SCH (09:57)
--- NOTE | 2019-10-09 10:58 | P.PN ---
Subjective Progress Note Date: 10/09/19 The patient came in the hospital 3 days post percutaneous nephrostolithotomy fever and flank pain. The computed tomography scan showed some either blood or urine extravasation. The nephrostomy tube came out at 24 hours due to malfunction of the tube. I place a double-J catheter yesterday and with the IV antibiotics he seems to be doing much better. His pain is almost gone. He is afebrile. I'll observe him today and if he is fine he'll be discharged home tomorrow. Cultures are pending. Objective - Vital Signs Vital signs: Vital Signs Temp 99.1 F 10/09/19 07:47 Pulse 87 10/09/19 07:47 Resp 16 10/09/19 07:47 BP 149/83 10/09/19 07:47 Pulse Ox 95 10/09/19 07:47 Intake & Output 10/08/19 10/09/19 10/09/19 17:59 06:59 18:59 Intake Total Output Total Balance Weight Intake: IV Intake, IV Titration Amount Dextrose 5%-0.45% NaCl 1, 000 ml @ 50 mls/hr IV . Q20H [facility] Rx#:[id number] Output: Estimated Blood Loss - Labs CBC & Chem 7: 10/08/19 07:10 10/08/19 07:10 Labs: Abnormal Lab Results - Last 24 Hours (Table) 10/08/19 Range/Units 09:35 Urine Protein 2+ H (Negative) Urine Glucose (UA) 1+ H (Negative) Urine Ketones 3+ H (Negative) Urine Blood Large H (Negative) Ur Leukocyte Esterase Moderate H (Negative) Urine RBC >182 H (0-5) /hpf Urine WBC 71 H (0-5) /hpf Urine Mucus Many H (None) /hpf Urine Yeast (Budding) Many H (None) /hpf Microbiology - Last 24 Hours (Table) 10/08/19 07:10 Blood Culture - Preliminary Blood No Growth after 24 hours 10/08/19 09:35 Urine Culture - Preliminary Urine,Voided
[2019-10-09] MEDS: HYDROcodone/APAP 5-325MG 1 EACH TAB PO PRN ×3 (11:54→23:17)
[2019-10-09] MEDS: MONTELUKAST 10 MG TAB PO SCH (20:15)
[2019-10-10] MEDS: HYDROmorphone 1 MG/ML 1 ML SYRINGE IVP PRN ×2 (00:41→04:08)
[2019-10-10] MEDS: SODIUM CHLORIDE 0.9% 1,000 ML IV SCH (04:08)
[2019-10-10] MEDS: DEXTROSE 5%-0.45% NACL 1,000 ML IV SCH (07:23)
--- NOTE | 2019-10-10 07:28 | P.DS ---
Providers Date of admission: 10/08/19 10:34 Attending physician: Dk Wang Primary care physician: Harjinder Mendoza [facility] [place] [facility] Course: The patient is 54. On 10/05/2019 he underwent a right percutaneous nephrostolithotomy. The nephrostomy tube was removed the following day. 2 days later he developed flank pain fever and chills. He came in the hospital. A computed tomography scan identified perinephric fluid. He also had infected urine. Most likely had a pyelonephritis and perhaps an infected fluid its IV kidney. He was placed and IV antibiotics. A stent was placed his temperature is disappeared. His pain is gone and he feels much better. He is growing a coag-negative staph. He'll be discharged home on Cipro. A follow in the office in 10 days for stent removal. Postoperative instructions been given. He has pain medicine at home. He'll contact me with further issues. Condition is good. The patient understands and consents to this discharge. Patient Condition at Discharge: Good Plan - Discharge Summary Discharge Rx Participant: Yes New Discharge Prescriptions: New Ciprofloxacin HCl [Cipro] 500 mg PO Q12H 7 Days #14 tab No Action Montelukast Sodium [Singulair] 10 mg PO HS Budesonide-Formot 160-4.5 Mcg [Symbicort 160-4.5 Mcg Inhaler] 2 puff INHALATION BID Albuterol Sulfate [Ventolin HFA] 2 puff INHALATION RT-Q4H PRN PRN Reason: ASTHMA Azelastine HCl [Astepro] 1 spray EA NOSTRIL BID PRN PRN Reason: allergies amLODIPine [Norvasc] 10 mg PO DAILY Naproxen 500 mg PO BID PRN PRN Reason: Pain HYDROcodone/APAP 5-325MG [[place] 5-325] 1 tab PO Q4HR PRN #14 tab PRN Reason: Pain Sildenafil Citrate [Sildenafil] 60 mg PO DAILY PRN PRN Reason: SEX Modafinil [Provigil] 200 mg PO DAILY Omalizumab [Xolair] 300 mg SQ Q14D Fluticasone Nasal [place] [Flonase Nasal [place]] 2 spr EA NOSTRIL DAILY PRN PRN Reason: Allergy Symptoms Discharge Medication List Budesonide-Formot 160-4.5 Mcg [Symbicort 160-4.5 Mcg Inhaler] 2 puff INHALATION BID 03/08/14 [History] Montelukast Sodium [Singulair] 10 mg PO HS 03/08/14 [History] Albuterol Sulfate [Ventolin HFA] 2 puff INHALATION RT-Q4H PRN 12/04/16 [History] Azelastine HCl [Astepro] 1 spray EA NOSTRIL BID PRN 02/19/18 [History] Naproxen 500 mg PO BID PRN 09/30/19 [History] amLODIPine [Norvasc] 10 mg PO DAILY 09/30/19 [History] Fluticasone Nasal [place] [Flonase Nasal [place]] 2 spr EA NOSTRIL DAILY PRN 10/06/19 [History] HYDROcodone/APAP 5-325MG [[place] 5-325] 1 tab PO Q4HR PRN #14 tab 10/06/19 [Rx] Modafinil [Provigil] 200 mg PO DAILY 10/06/19 [History] Omalizumab [Xolair] 300 mg SQ Q14D 10/06/19 [History] Sildenafil Citrate [Sildenafil] 60 mg PO DAILY PRN 10/06/19 [History] Ciprofloxacin HCl [Cipro] 500 mg PO Q12H 7 Days #14 tab 10/10/19 [Rx] Follow up Appointment(s)/Referral(s): Harjinder Almanzar MD [Primary Care Provider] - 1-2 days Dk Wang MD [STAFF PHYSICIAN] - 10 Days (for cysto with stent removal) Discharge Disposition: HOME SELF-CARE
[2019-10-10] MEDS: MODAFINIL 200 MG TAB PO SCH (07:32)
[2019-10-10] MEDS: amLODIPine 10 MG TAB PO SCH (07:32)
[2019-10-10 07:36] VITALS: BP 141/81; RESP 16; TEMP 98.7
[2019-10-10] MEDS: SYMBICORT 160-4.5 MCG INHALER INHALATION SCH (08:31)
[2019-10-10 08:51] VITALS: PULSE 96
== END 2019-10-10 11:27 | disposition home or self-care (01) ==
LOC: EC 06:45 → 4SSUR 10:34
PROVIDERS: ADMIT Urology; ATTEND Urology
DX: N13.6 Pyonephrosis (principal); I48.91 Unspecified atrial fibrillation; J45.909 Unspecified asthma, uncomplicated; I10 Essential (primary) hypertension; Z46.6 Encounter for fitting and adjustment of urinary device; G47.33 Obstructive sleep apnea (adult) (pediatric); Z99.89 Dependence on other enabling machines and devices; Z87.442 Personal history of urinary calculi; M48.50XA Collapsed vertebra, not elsewhere classified, site unspecified, initial encounter for fracture; Z98.890 Other specified postprocedural states; Z79.51 Long term (current) use of inhaled steroids; Z79.899 Other long term (current) drug therapy; Z88.0 Allergy status to penicillin; Z88.8 Allergy status to other drugs, medicaments and biological substances; Z91.048 Other nonmedicinal substance allergy status; Z98.84 Bariatric surgery status; Z80.42 Family history of malignant neoplasm of prostate; Z82.49 Family history of ischemic heart disease and other diseases of the circulatory system
CPT/HCPCS: 96376; 96361; 96374; 96375; 99285; 36415; 94640 ×5; 93005; 80053; 82150; 83605; 83690; 84484; 85025; 85610; 85730; 81001; 87040; 87086; 87077; 87186; 74018; 74176; 52332; G0378 ×3; C2625; C1769; J2250; J0330; J2405; J2001; J0696 ×3; J3010; J1885 ×2; J1170 ×3; J2704

== ENCOUNTER 2020-02-09 16:15 | Emergency (ER) | payer MEDICAID ==
[2020-02-09] MEDS ORDERED: KETOROLAC 30 MG/ML 1 ML VIAL IVP STA (16:49)
[2020-02-09] MEDS ORDERED: SODIUM CHLORIDE 0.9% 1,000 ML IV STA (16:49)
[2020-02-09] MEDS ORDERED: IPRATROPIUM-ALBUTEROL 3 ML NEB INHALATION STA (17:27)
--- NOTE | 2020-02-09 17:30 | ED ---
General Adult HPI - General Chief complaint: Abdominal Pain Stated complaint: SOB & Kidney Stone Time Seen by Provider: 02/09/20 16:27 Source: patient, RN notes reviewed Mode of arrival: ambulatory Limitations: no limitations - History of Present Illness Initial comments: 55-year-old male with a past medical history of atrial fibrillation, asthma, GERD, nephrolithiasis presents to the emergency department for multiple complaints. Patient states he has had shortness of breath ever since he had suspected Covid in October. States that he has been coughing and had an exacerbation of his asthma since that time. Patient went to his doctor today because he started to have right flank pain last night. States this feels exactly like previous kidney stones. States he has had several kidney stones in the past few years. States he has had to have lithotripsy for 2 with the last one being in October. Patient denies any difficulty urinating. He did notice blood in his urine yesterday. He denies abdominal pain nausea or vomiting.Patient has no other complaints at this time including chest pain, abdominal pain, nausea or vomiting, headache, or visual changes. - Related Data Home Medications Medication Instructions Recorded Confirmed Budesonide-Formot 160-4.5 Mcg 2 puff INHALATION BID 03/08/14 10/08/19 [Symbicort 160-4.5 Mcg Inhaler] Montelukast Sodium [Singulair] 10 mg PO HS 03/08/14 10/08/19 Albuterol Sulfate [Ventolin HFA] 2 puff INHALATION RT-Q4H PRN 12/04/16 10/08/19 Azelastine HCl [Astepro] 1 spray EA NOSTRIL BID PRN 02/19/18 10/08/19 Naproxen 500 mg PO BID PRN 09/30/19 10/08/19 amLODIPine [Norvasc] 10 mg PO DAILY 09/30/19 10/08/19 Fluticasone Nasal [place] [Flonase 2 spr EA NOSTRIL DAILY PRN 10/06/19 10/08/19 Nasal [place]] Modafinil [Provigil] 200 mg PO DAILY 10/06/19 10/08/19 Omalizumab [Xolair] 300 mg SQ Q14D 10/06/19 10/08/19 Sildenafil Citrate [Sildenafil] 60 mg PO DAILY PRN 10/06/19 10/08/19 Previous Rx's Medication Instructions Recorded HYDROcodone/APAP 5-325MG [[place] 1 tab PO Q4HR PRN #14 tab 10/06/19 5-325] Ciprofloxacin HCl [Cipro] 500 mg PO Q12H 7 Days #14 tab 10/10/19 predniSONE 50 mg PO DAILY #5 tablet 02/09/20 Allergies Allergy/AdvReac Type Severity Reaction Status Date / Time adhesive tape Allergy Rash/Hives Verified 02/09/20 16:27 Penicillins AdvReac Anaphylaxis Verified 02/09/20 16:27 Cmsjmcx-Aas-Cxo Reductase AdvReac joint Pain Verified 02/09/20 16:27 Inhibitor Dermabond Allergy Rash/Hives Uncoded 02/09/20 16:27 Review of Systems ROS Statement: Those systems with pertinent positive or pertinent negative responses have been documented in the HPI. ROS Other: All systems not noted in ROS Statement are negative. Past Medical History Past Medical History: Atrial Fibrillation, Asthma, GERD/Reflux, Hypertension, Sleep Apnea/CPAP/BIPAP Additional Past Medical History / Comment(s): Pt passed 3-4 kidney stones in p ast couple yrs, afib in past d/t hypokalemia after bariatric surgery-none since, bronchitis in past, low back pain-has 3 vertebral compression fractures. Pt states after weight loss he no longer takes rx for high lipids/no GERD and no longer is treated for diabetes. History of Any Multi-Drug Resistant Organisms: None Reported Past Surgical History: Bariatric Surgery, Orthopedic Surgery Additional Past Surgical History / Comment(s): panniculectomy with ventral hernia repair, Liliana-en-Y, left knee surgery for torn meniscus, R knee arthroscopy, R bicep reattachment, sinus surgery x2 Past Anesthesia/Blood Transfusion Reactions: Motion Sickness, Postoperative Nausea & Vomiting (PONV) Past Psychological History: No Psychological Hx Reported Smoking Status: Never smoker Past Alcohol Use History: Occasional Past Drug Use History: None Reported - Past Family History Father Family Medical History: Cancer, Myocardial Infarction ([place]) Additional Family Medical History / Comment(s): Father had prostate cancer Mother Family Medical History: Pulmonary Embolus Additional Family Medical History / Comment(s): Mother is healthy and is 73 yrs old. General Exam Limitations: no limitations General appearance: alert, in no apparent distress Head exam: Present: atraumatic, normocephalic, normal inspection Eye exam: Present: normal appearance, PERRL, EOMI. Absent: scleral icterus, conjunctival injection, periorbital swelling ENT exam: Present: normal exam, mucous membranes moist Neck exam: Present: normal inspection, full ROM. Absent: tenderness, meningismus, lymphadenopathy Respiratory exam: Present: normal lung sounds bilaterally. Absent: respiratory distress, wheezes, rales, rhonchi, stridor Cardiovascular Exam: Present: regular rate, normal rhythm, normal heart sounds. Absent: systolic murmur, diastolic murmur, rubs, gallop, clicks GI/Abdominal exam: Present: soft, normal bowel sounds. Absent: distended, t enderness, guarding, rebound, rigid Back exam: Present: CVA tenderness (R). Absent: CVA tenderness (L) Neurological exam: Present: alert Course Vital Signs 02/09/20 02/09/20 02/09/20 16:23 18:02 18:17 Temperature 98.1 F Pulse Rate 81 84 88 Respiratory 18 28 H Rate Blood Pressure 146/54 O2 Sat by Pulse 100 Oximetry 02/09/20 19:28 Temperature 98.4 F Pulse Rate 75 Respiratory 18 Rate Blood Pressure 164/95 O2 Sat by Pulse 100 Oximetry EKG Findings - EKG Comments: EKG Findings:: Normal sinus rhythm, ventricular rate 86, WA interval 150, QTC 452 Medical Decision Making - Medical Decision Making Vitals are stable. Patient is 100% on room air. Patient was given breathing treatment significantly help with his shortness of breath. CBC is unremarkable. Hemoglobin is stable. CMP unremarkable. Troponin negative. D-dimer did show elevation of 1.[address] angios was ordered along with CT abdomen and pelvis. CT chest angio shows suboptimal study without central pulmonary embolism. No suspicious acute process. CT abdomen and pelvis shows a slight interval progression ingrowth of prior treated right midpole calculus progressing more centrally towards the pelvis. This is 5 mm in size. Urinalysis did show 182 red blood cells with 36 white blood cells. White blood cells are likely reactive to the red blood cells, there is no bacteria in the urine however will be cultured. At this time patient's pain is much improved after additional pain medication. Patient feeling well enough to go home. I did give patient a prescription of steroids for his asthma. He has breathing treatments and inhalers at home. He will follow up with urology for nephrolithiasis and was given pain medication for this. He will return here for any worsening symptoms. At - Lab Data Result diagrams: 02/09/20 16:10 02/09/20 16:10 Lab Results 02/09/20 02/09/20 02/09/20 Range/Units 16:10 16:10 16:10 WBC 6.6 (3.8-10.6) k/uL RBC 5.24 (4.30-5.90) m/uL Hgb 12.7 L (13.0-17.5) gm/dL Hct 41.2 (39.0-53.0) % MCV 78.6 L (80.0-100.0) fL MCH 24.3 L (25.0-35.0) pg MCHC 30.9 L (31.0-37.0) g/dL RDW 15.9 H (11.5-15.5) % Plt Count 348 (150-450) k/uL Neutrophils % 58 % Lymphocytes % 28 % Monocytes % 6 % Eosinophils % 5 % Basophils % 1 % Neutrophils # 3.8 (1.3-7.7) k/uL Lymphocytes # 1.9 (1.0-4.8) k/uL Monocytes # 0.4 (0-1.0) k/uL Eosinophils # 0.3 (0-0.7) k/uL Basophils # 0.0 (0-0.2) k/uL Hypochromasia Slight Microcytosis Slight D-Dimer 1.00 H (<0.60) mg/L FEU Sodium (137-145) mmol/L Potassium (3.5-5.1) mmol/L Chloride (98-107) mmol/L Carbon Dioxide (22-30) mmol/L Anion Gap mmol/L BUN (9-20) mg/dL Creatinine (0.66-1.25) mg/dL Est GFR (CKD-EPI)AfAm (>60 ml/min/1.73 sqM) Est GFR (CKD-EPI)NonAf (>60 ml/min/1.73 sqM) Glucose (74-99) mg/dL Calcium (8.4-10.2) mg/dL Total Bilirubin (0.2-1.3) mg/dL AST (17-59) U/L ALT (4-49) U/L Alkaline Phosphatase (38-126) U/L Troponin I (0.000-0.034) ng/mL Total Protein (6.3-8.2) g/dL Albumin (3.5-5.0) g/dL Amylase (30-110) U/L Lipase (23-300) U/L Urine Color Yellow Urine Appearance Clear (Clear) Urine pH 5.5 (5.0-8.0) Ur Specific [place] 1.027 (1.001-1.035) Urine Protein 1+ H (Negative) Urine Glucose (UA) Negative (Negative) Urine Ketones Negative (Negative) Urine Blood Moderate H (Negative) Urine Nitrite Negative (Negative) Urine Bilirubin Negative (Negative) Urine Urobilinogen <2.0 (<2.0) mg/dL Ur Leukocyte Esterase Moderate H (Negative) Urine RBC >182 H (0-5) /hpf Urine WBC 36 H (0-5) /hpf Ur Squamous Epith Cells <1 (0-4) /hpf Urine Mucus Rare H (None) /hpf 02/09/20 02/09/20 Range/Units 16:10 17:11 WBC (3.8-10.6) k/uL RBC (4.30-5.90) m/uL Hgb (13.0-17.5) gm/dL Hct (39.0-53.0) % MCV (80.0-100.0) fL MCH (25.0-35.0) pg MCHC (31.0-37.0) g/dL RDW (11.5-15.5) % Plt Count (150-450) k/uL Neutrophils % % Lymphocytes % % Monocytes % % Eosinophils % % Basophils % % Neutrophils # (1.3-7.7) k/uL Lymphocytes # (1.0-4.8) k/uL Monocytes # (0-1.0) k/uL Eosinophils # (0-0.7) k/uL Basophils # (0-0.2) k/uL Hypochromasia Microcytosis D-Dimer (<0.60) mg/L FEU Sodium 137 (137-145) mmol/L Potassium 4.1 (3.5-5.1) mmol/L Chloride 104 (98-107) mmol/L Carbon Dioxide 25 (22-30) mmol/L Anion Gap 8 mmol/L BUN 15 (9-20) mg/dL Creatinine 0.65 L (0.66-1.25) mg/dL Est GFR (CKD-EPI)AfAm >90 (>60 ml/min/1.73 sqM) Est GFR (CKD-EPI)NonAf >90 (>60 ml/min/1.73 sqM) Glucose 99 (74-99) mg/dL Calcium 9.1 (8.4-10.2) mg/dL Total Bilirubin 0.4 (0.2-1.3) mg/dL AST 29 (17-59) U/L ALT 21 (4-49) U/L Alkaline Phosphatase 121 (38-126) U/L Troponin I <0.012 (0.000-0.034) ng/mL Total Protein 7.0 (6.3-8.2) g/dL Albumin 4.3 (3.5-5.0) g/dL Amylase 49 (30-110) U/L Lipase 284 (23-300) U/L Urine Color Urine Appearance (Clear) Urine pH (5.0-8.0) Ur Specific [place] (1.001-1.035) Urine Protein (Negative) Urine Glucose (UA) (Negative) Urine Ketones (Negative) Urine Blood (Negative) Urine Nitrite (Negative) Urine Bilirubin (Negative) Urine Urobilinogen (<2.0) mg/dL Ur Leukocyte Esterase (Negative) Urine RBC (0-5) /hpf Urine WBC (0-5) /hpf Ur Squamous Epith Cells (0-4) /hpf Urine Mucus (None) /hpf Disposition Clinical Impression: Nephrolithiasis, Cough Disposition: HOME SELF-CARE Condition: Good Instructions (If sedation given, give patient instructions): Asthma (ED), Kidney Stones (ED) Additional Instructions: Please take steroid as directed for asthma. Take Tylenol 3 for pain. Please follow-up with urology by calling for an appointment tomorrow. Return here to the emergency room if you have any worsening symptoms. Prescriptions: predniSONE 50 mg PO DAILY #5 tablet Is patient prescribed a controlled substance at d/c from ED?: No Referrals: Harjinder Almanzar MD [Primary Care Provider] - 1-2 days Dk Wang MD [STAFF PHYSICIAN] - 1-2 days Time of Disposition: 19:40
--- NOTE | 2020-02-09 17:32 | XR ---
EXAMINATION TYPE: XR chest 2V DATE OF EXAM: 02/09/2020 COMPARISON: Chest x-ray February 19, 2018. HISTORY: Cough and right-sided pain. TECHNIQUE: Frontal and lateral views of the chest are obtained. FINDINGS: There is no focal air space opacity, pleural effusion, or pneumothorax seen. The cardiac silhouette size remains within normal limits. Multilevel spurring in the thoracic spine is redemonstr ated. IMPRESSION: No acute cardiopulmonary process. No significant change from prior.
[2020-02-09 17:33] LABS: Basophils % (A) 1 %; Eosinophils # (A) 0.3 k/uL (0-0.7); Eosinophils % (A) 5 %; HCT 41.2 % (39.0-53.0); HGB 12.7 gm/dL (13.0-17.5); Hypochromasia Slight; Lymphocytes # (A) 1.9 k/uL (1.0-4.8); Lymphocytes % (A) 28 %; MCH 24.3 pg (25.0-35.0); MCHC 30.9 g/dL (31.0-37.0); MCV 78.6 fL (80.0-100.0); Mean Platelet Volume 6.7; Microcytosis Slight; Monocytes # (A) 0.4 k/uL (0-1.0); Monocytes % (A) 6 %; Neutrophils # (A) 3.8 k/uL (1.3-7.7); Neutrophils % (A) 58 %; Platelet Count 348 k/uL (150-450); RBC 5.24 m/uL (4.30-5.90); RDW 15.9 % (11.5-15.5); WBC 6.6 k/uL (3.8-10.6)
--- NOTE | 2020-02-09 17:35 | XR ---
EXAMINATION TYPE: XR KUB DATE OF EXAM: 02/09/2020 5:24 PM CLINICAL HISTORY: History of kidney stones with right-sided pain. TECHNIQUE: Two Upright KUB images of the abdomen are obtained. COMPARISON: Abdominal x-ray and CT October 08, 2019.. FINDINGS: Suboptimal due to body habitus, incomplete visualization of left sided abdomen noted. Scatt ered gas is seen in non-distended small bowel loops. Gas and fecal material is seen in non-distended colon and rectum. Surgical clips and sutures epigastric region redemonstrated from prior gastric bypa ss surgery. No pneumoperitoneum. Osseous structures are intact. No definitive new nephrolithiasis see n on plain films IMPRESSION: Overall nonobstructive bowel gas pattern.
[2020-02-09 17:52] LABS: Appearance,Urine Clear (Clear); Bilirubin,Urine Negative (Negative); Blood,Urine Moderate (Negative); Color,Urine Yellow; Glucose,Urine (UA) Negative (Negative); Ketones,Urine Negative (Negative); Leukocyte Esterase,Urine Moderate (Negative); Mucus,Urine Rare /hpf; Nitrite,Urine Negative (Negative); PH, Urine 5.5 (5.0-8.0); Protein,Urine 1+ (Negative); RBC,Urine >182 /hpf (0-5); Specific Gravity,Urine 1.027 (1.001-1.035); Squamous Epithelial Cell,Urine <1 /hpf (0-4); Urobilinogen,Urine <2.0 mg/dL (<2.0); WBC,Urine 36 /hpf (0-5)
[2020-02-09 17:54] LABS: ALT 21 U/L (4-49); AST 29 U/L (17-59); African American GFR (CKD) >90 (>60 ml/min/1.73 sqM); Albumin 4.3 g/dL (3.5-5.0); Alkaline Phosphatase 121 U/L (38-126); Amylase 49 U/L (30-110); Anion Gap 8 mmol/L; Blood Urea Nitrogen 15 mg/dL (9-20); Calcium 9.1 mg/dL (8.4-10.2); Carbon Dioxide 25 mmol/L (22-30); Chloride 104 mmol/L (98-107); Glucose 99 mg/dL (74-99); Non-African American GFR(CKD) >90 (>60 ml/min/1.73 sqM); Potassium 4.1 mmol/L (3.5-5.1); Sodium 137 mmol/L (137-145); Total Bilirubin 0.4 mg/dL (0.2-1.3)
--- NOTE | 2020-02-09 18:55 | CT ---
EXAMINATION TYPE: CT chest angio for PE DATE OF EXAM: 02/09/2020 COMPARISON: Same-day chest x-ray. HISTORY: Elevated d-dimer and cough. CT DLP: 948.5 mGycm. Automated Exposure Control for Dose Reduction was Utilized. CONTRAST: CTA scan of the thorax is performed with IV Contrast, patient injected with 80ml mL of Isovue 370, pu lmonary embolism protocol. MIP Images are created on CT scanner and reviewed. FINDINGS: LUNGS: Elevated left hemidiaphragm. There is a 4 mm calcified subpleural nodule or granuloma right up per lobe axial image 23. Lungs are grossly clear. No pleural effusion or pneumothorax seen bilaterall y. MEDIASTINUM: There is suboptimal study with near equal contrast in right and left heart systems and h eterogeneity, there is no central pulmonary embolism. Cannot entirely exclude smaller subsegmental an d subsegmental pulmonary emboli on this study. There are no greater than 1 cm hilar or mediastinal l ymph nodes. No cardiomegaly or pericardial effusion is seen. OTHER: Please refer to same day CT abdomen and pelvis report for complete details on the upper abdome n. Multilevel spurring in the spine with scoliotic curvature is redemonstrated. IMPRESSION: Suboptimal study without central pulmonary embolism. No suspicious acute pulmonary proces s.
--- NOTE | 2020-02-09 19:03 | CT ---
EXAMINATION TYPE: CT abdomen pelvis wo con DATE OF EXAM: 02/09/2020 HISTORY: Right side flank pain. CT DLP: 1421.6 mGycm. Automated Exposure Control for Dose Reduction was Utilized. TECHNIQUE: CT scan of the abdomen and pelvis is performed without oral or IV contrast. COMPARISON: Prior CT abdomen and pelvis October 08, 2019 and older studies. FINDINGS: Within the limitations of a non-contrast study, the following observations are made. LUNG BASES: Please refer to same day CTA chest report for complete details and lung bases. LIVER/GB: Roughly 2.4 cm hypodense lesion axial image 36 not significantly changed from 2017 CT and i s thus presumed benign. PANCREAS: No significant abnormality is seen. SPLEEN: No significant abnormality is seen. ADRENALS: No significant abnormality is seen. KIDNEYS: New 2 adjacent left lower pole renal calculi measuring under 3 mm in size coronal images 73 and 74. No new left-sided hydronephrosis. Interval slight enlargement of mid pole right calculus now measuring 5 mm long axis coronal image 68 and slight progression towards the pelvis. Additional tiny 1 mm calculus in the pelvis coronal image 65. No new hydronephrosis or hydroureter. Mild perinephric and periureter fat stranding improved from prior. No intraluminal calculi in the poorly distended bladder. BOWEL: Suboptimal evaluation without enteric contrast. Surgical changes epigastric region from gastri c bypass surgery redemonstrated. No suspicious small or large bowel dilatation currently. Normal gas- filled appendix from base of cecum in the right upper pelvis noted. GENITAL ORGANS: No gross abnormality seen. LYMPH NODES: No greater than 1cm abdominal or pelvic lymph nodes are appreciated. OSSEOUS STRUCTURES: Redemonstration of bilateral pars defect L5 level with stable slight anterolisthe sis L5 on S1. Moderate disc space narrowing and vacuum disc phenomenon L5-S1 level. Moderate multilev el anterior and lateral spurring in thoracic spine redemonstrated. Mild/moderate narrowing spurring b oth hip joints again seen. OTHER: Mild calcified plaque of the abdominal aorta extending into branch vessels. IMPRESSION: Slight interval progression and growth of prior treated right mid pole calculus progressi ng more centrally towards the pelvis.
[2020-02-09] MEDS ORDERED: MORPHINE SULFATE 4 MG/ML SYRINGE IVP STA (19:22)
[2020-02-09] MEDS ORDERED: ACET/COD 300 MG/30 MG STARTER PACK 6 TAB BTL PO STA (19:41)
[2020-02-10 10:20] VITALS: BP 164/95; PULSE 75; RESP 18; TEMP 98.4
== END 2020-02-09 20:06 | disposition home or self-care (01) ==
LOC: EC 16:15
DX: N20.0 Calculus of kidney (principal); R05 Cough; R06.02 Shortness of breath; R79.89 Other specified abnormal findings of blood chemistry; I48.91 Unspecified atrial fibrillation; I10 Essential (primary) hypertension; G47.30 Sleep apnea, unspecified; Z79.899 Other long term (current) drug therapy; Z91.048 Other nonmedicinal substance allergy status; Z88.0 Allergy status to penicillin; Z88.8 Allergy status to other drugs, medicaments and biological substances; Z99.89 Dependence on other enabling machines and devices; Z98.84 Bariatric surgery status; Z98.890 Other specified postprocedural states; Z79.51 Long term (current) use of inhaled steroids; Z87.09 Personal history of other diseases of the respiratory system; Z20.828 Contact with and (suspected) exposure to other viral communicable diseases
CPT/HCPCS: 99285; 96374; 96375; 96361; 36415; 94640; 93005; 85379; 80053; 82150; 83690; 84484; 85025; 81001; 87086; 71046; 74018; 71275; 74176; U0003; J2270; J1885; Q9967

== ENCOUNTER 2020-02-20 08:22 | Day surgery (SDC) | payer MEDICAID ==
[2020-02-16 12:19] VITALS: BMI 37.3
--- NOTE | 2020-02-19 11:52 | P.GSHP ---
History of Present Illness H&P Date: 02/19/20 55 yo male who has a history of stones He underwent a pcnl right in 10/2019 for a large renal stone I thought all the stone was removed He recently had right renal colic due to a 4-5 mm right renal pelvic stone Wheter this is a remaining fragment of a new stone is indeterminate Regardless because of pain he comes for eswl right - Constitutional Constitutional: Denies chills, Denies fever - EENT Eyes: denies blurred vision, denies pain Ears, nose, mouth and throat: Denies headache, Denies sore throat - Cardiovascular Cardiovascular: Denies chest pain, Denies shortness of breath - Respiratory Respiratory: Denies cough, Denies 7 - Gastrointestinal Gastrointestinal: Denies abdominal pain, Denies diarrhea, Denies nausea, Denies vomiting - Genitourinary (Female) Genitourinary: Denies dysuria, Denies hematuria - Genitourinary (Male) Genitourinary: Denies dysuria, Denies hematuria - Musculoskeletal Musculoskeletal: Denies myalgias - Integumentary Integumentary: Denies pruritus, Denies rash - Neurological Neurological: Denies numbness, Denies weakness - Psychiatric Psychiatric: Denies anxiety, Denies depression - Endocrine Endocrine: Denies fatigue, Denies weight change Past Medical History Past Medical History: Atrial Fibrillation, Asthma, GERD/Reflux, Hypertension, Sleep Apnea/CPAP/BIPAP Additional Past Medical History / Comment(s): Pt passed 3-4 kidney stones in past couple yrs, afib in past d/t hypokalemia after bariatric surgery-none since, bronchitis in past, low back pain-has 3 vertebral compression fractures. Pt states after weight loss he no longer takes rx for high lipids/no GERD and no longer is treated for diabetes. History of Any Multi-Drug Resistant Organisms: None Reported Past Surgical History: Bariatric Surgery, Hernia Repair, Orthopedic Surgery Additional Past Surgical History / Comment(s): panniculectomy with ventral he rnia repair, Liliana-en-Y, left knee surgery for torn meniscus, R knee arthroscopy, R bicep reattachment, sinus surgery x2, LITHOTRIPSIES, 2 KIDNEY STONES REMOVED 10/2019 Past Anesthesia/Blood Transfusion Reactions: Motion Sickness, Postoperative Nausea & Vomiting (PONV) Smoking Status: Never smoker - Past Family History Father Family Medical History: Cancer, Myocardial Infarction ([place]) Additional Family Medical History / Comment(s): Father had prostate cancer Mother Family Medical History: Pulmonary Embolus Additional Family Medical History / Comment(s): Mother is healthy and is 73 yrs old. Medications and Allergies Home Medications Medication Instructions Recorded Confirmed Type Budesonide-Formot 160-4.5 Mcg 2 puff INHALATION BID 03/08/14 02/16/20 History [Symbicort 160-4.5 Mcg Inhaler] Montelukast Sodium [Singulair] 10 mg PO HS 03/08/14 02/16/20 History Albuterol Sulfate [Ventolin HFA] 2 puff INHALATION RT-Q4H PRN 12/04/16 02/16/20 History Azelastine HCl [Astepro] 1 spray EA NOSTRIL BID PRN 02/19/18 02/16/20 History Naproxen 500 mg PO BID PRN 09/30/19 02/16/20 History amLODIPine [Norvasc] 10 mg PO DAILY 09/30/19 02/16/20 History Fluticasone Nasal [place] [Flonase 2 spr EA NOSTRIL DAILY PRN 10/06/19 02/16/20 History Nasal [place]] HYDROcodone/APAP 5-325MG [[place] 1 tab PO Q4HR PRN #14 tab 10/06/19 02/16/20 Rx 5-325] Modafinil [Provigil] 200 mg PO DAILY 10/06/19 02/16/20 History Omalizumab [Xolair] 300 mg SQ Q14D 10/06/19 02/16/20 History Sildenafil Citrate [Sildenafil] 60 mg PO DAILY PRN 10/06/19 02/16/20 History Ciprofloxacin HCl [Cipro] 500 mg PO Q12H 7 Days #14 tab 10/10/19 02/16/20 Rx Allergies Allergy/AdvReac Type Severity Reaction Status Date / Time adhesive tape Allergy Rash/Hives Verified 02/16/20 12:09 Penicillins AdvReac Anaphylaxis Verified 02/16/20 12:09 Lmtgwbv-Jnw-Iag Reductase AdvReac joint Pain Verified 02/16/20 12:09 Inhibitor Dermabond Allergy Rash/Hives Uncoded 02/16/20 12:09 Surgical - Exam - General well developed, well nourished, no distress - Eyes PERRL - ENT no hearing loss - Neck no masses - Respiratory normal expansion, normal respiratory effort - Cardiovascular Rhythm: irregularly irregular - Abdomen Abdomen: soft, non tender - Genitourinary testicles present - Integumentary no rash, no growths - Neurologic normal coordination, normal sensation - Musculoskeletal normal gait, normal posture - Psychiatric oriented to time, oriented to person, oriented to place, speech is normal, memory intact Results - Imaging Abdominal x-ray: report reviewed, image reviewed CT scan - abdomen: report reviewed, image reviewed CT scan - pelvis: report reviewed, image reviewed Assessment and Plan Assessment: Impression: 5mm right renal pelvic stone with colic Plan: eswl right
[~2020-02-20 08:22] MED LIST changes: -CLINDAMYCIN 900 MG in DEXTROSE 5% IN WATER 50 ML IVPB ONE; -DEXAMETHASONE SOD PHOSPHATE 10 MG/ML 1 ML VIAL IV ONE; +LACTATED RINGERS 1,000 ML IV SCH; -MIDAZOLAM 2 MG/2 ML VIAL IV PRN; -ONDANSETRON 4 MG/2 ML VIAL IVP ONE
--- NOTE | 2020-02-20 08:44 | XR ---
KUB HISTORY: Prelithotripsy right-sided kidney stone KUB and 2 images correlated to prior KUB and CT abdomen 02/09/2020 Calcification superimposed over the right renal pelvis is again noted. Surgical clips are present at the gastroesophageal junction. Degenerative disc changes are present in the visualized spine. There i s no evident bowel obstruction or pneumoperitoneum. IMPRESSION: Right-sided nephrolithiasis.
[2020-02-20] MEDS ORDERED: ONDANSETRON 4 MG/2 ML VIAL ONE (09:02)
[2020-02-20 09:10] VITALS: TEMP 97.3
[2020-02-20] MEDS ORDERED: fentaNYL (PF) 50 MCG/ML 2 ML AMP ONE (10:02)
[2020-02-20] MEDS ORDERED: PROPOFOL 10 MG/ML 20 ML VIAL IV ONE (10:02)
[2020-02-20] MEDS ORDERED: KETAMINE 10 MG/ML 20 ML VIAL ONE (10:02)
[2020-02-20] MEDS ORDERED: MIDAZOLAM 2 MG/2 ML VIAL ONE (10:02)
--- NOTE | 2020-02-20 10:46 | P.OP ---
Date of Procedure: 02/20/20 Preoperative Diagnosis: Right renal calculus Postoperative Diagnosis: Right renal calculus Procedure(s) Performed: Extracorporal shockwave lithotripsy of right renal calculus Anesthesia: MAC Surgeon: Eduardo Sanders Pathology: none sent Condition: stable Disposition: PACU Indications for Procedure: The patient is a 55-year-old male who had previously undergone percutaneous nephrostolithotomy for treatment of a large right renal calculus. A-5 4 mm calculus remains in the renal pelvis. Treatment options were reviewed with Dr. Wang and the patient has elected to proceed with ESWL. Description of Procedure: The patient was taken to the operating suite and placed in the supine position on the fluoroscopy table. The right renal calculus was localized using biplanar fluoroscopy. Intravenous sedation was given. Lithotripsy was performed using the Dornier compact delta unit. The patient received 2500 shocks at level 4. A 2 minute pause was taken after 200 shocks. There appeared to be good fragmentation of the calculus. Anesthesia was reversed and the patient was returned to the recovery room awake and in satisfactory condition. He will see Dr. Wang in follow-up in 1 week.
[2020-02-20 11:16] VITALS: BP 123/74; PULSE 79; RESP 18
== END 2020-02-20 11:25 | disposition home or self-care (01) ==
LOC: ORWHC2ENDO 08:22
PROVIDERS: ATTEND Urology
DX: N20.0 Calculus of kidney (principal); I48.91 Unspecified atrial fibrillation; I10 Essential (primary) hypertension; K21.9 Gastro-esophageal reflux disease without esophagitis; J45.909 Unspecified asthma, uncomplicated; G47.33 Obstructive sleep apnea (adult) (pediatric); Z88.0 Allergy status to penicillin; Z88.8 Allergy status to other drugs, medicaments and biological substances; Z79.51 Long term (current) use of inhaled steroids; Z79.899 Other long term (current) drug therapy; Z87.442 Personal history of urinary calculi; Z98.84 Bariatric surgery status; Z98.890 Other specified postprocedural states; Z91.048 Other nonmedicinal substance allergy status; Z82.49 Family history of ischemic heart disease and other diseases of the circulatory system; Z80.42 Family history of malignant neoplasm of prostate
CPT/HCPCS: 74018; 50590; J2250; J2405; J3010; J2704

== ENCOUNTER → 2020-02-27 | Outpatient (CLI) | payer MEDICAID ==
--- NOTE | 2020-02-27 08:00 | XR ---
EXAMINATION TYPE: XR KUB DATE OF EXAM: 02/27/2020 COMPARISON: NONE HISTORY: Right-sided pain TECHNIQUE: One view abdominal series FINDINGS: The osseous structures are intact. The bowel gas pattern is nonspecific. Punctate lower pole right r enal calculus measuring 2 mm noted. Calcification overlying the disc space L2-3 noted. No suspicious calcifications in the pelvis. Arthropathy of the hips. No calcifications noted on the left. IMPRESSION: 1. Nonspecific abdomen. Stable-appearing 2 mm right renal calculus.
== END | disposition home or self-care (01) ==
LOC: RADXRMAIN 07:38
PROVIDERS: ATTEND Urology
DX: N20.0 Calculus of kidney (principal)
CPT/HCPCS: 74018

== ENCOUNTER 2020-03-11 18:38 | Emergency (ER) | payer MEDICAID ==
[2020-03-11 18:52] VITALS: BP 188/101; PULSE 106; RESP 22; TEMP 99.6
--- NOTE | 2020-03-11 18:56 | ED ---
Extremity Problem HPI - General Chief complaint: Extremity Problem,Nontraumatic Stated complaint: rt leg pain, swelling Time Seen by Provider: 03/11/20 18:53 Source: patient, RN notes reviewed, old records reviewed Mode of arrival: ambulatory Limitations: no limitations - History of Present Illness Initial comments: This is a 55-year-old male DF for evaluation patient presents today for evaluation of right lower Shorty pain patient has no injuries that leg but is concern for DVT both of his life talking about a, pain is more in the upper thigh no real calf pain. No injuries again noted. No bruising no varicose veins no history of DVT no family history of DVT or PE MD Complaint: extremity pain -: days(s) Location: right, lower extremity -: Yes myalgia Radiation: none Severity scale (1-10): 4 Quality: aching Consistency: constant Improves with: nothing Worsens with: weight bearing Associated Symptoms: denies other symptoms - Related Data Home Medications Medication Instructions Recorded Confirmed Budesonide-Formot 160-4.5 Mcg 2 puff INHALATION BID 03/08/14 02/20/20 [Symbicort 160-4.5 Mcg Inhaler] Montelukast Sodium [Singulair] 10 mg PO HS 03/08/14 02/20/20 Albuterol Sulfate [Ventolin HFA] 2 puff INHALATION RT-Q4H PRN 12/04/16 02/20/20 Azelastine HCl [Astepro] 1 spray EA NOSTRIL BID PRN 02/19/18 02/20/20 Naproxen 500 mg PO BID PRN 09/30/19 02/20/20 amLODIPine [Norvasc] 10 mg PO DAILY 09/30/19 02/20/20 Fluticasone Nasal [place] [Flonase 2 spr EA NOSTRIL DAILY PRN 10/06/19 02/20/20 Nasal [place]] Omalizumab [Xolair] 300 mg SQ Q14D 10/06/19 02/20/20 Sildenafil Citrate [Sildenafil] 60 mg PO DAILY PRN 10/06/19 02/20/20 modafiniL [Provigil] 200 mg PO DAILY 10/06/19 02/20/20 Previous Rx's Medication Instructions Recorded HYDROcodone/APAP 5-325MG [[place] 1 tab PO Q4HR PRN #14 tab 10/06/19 5-325] Ciprofloxacin HCl [Cipro] 500 mg PO Q12H 7 Days #14 tab 10/10/19 Allergies Allergy/AdvReac Type Severity Reaction Status Date / Time adhesive tape Allergy Rash/Hives Verified 03/11/20 18:51 Penicillins AdvReac Anaphylaxis Verified 03/11/20 18:51 Jgxkokg-Tip-Shv Reductase AdvReac joint Pain Verified 03/11/20 18:51 Inhibitor Dermabond Allergy Rash/Hives Uncoded 03/11/20 18:51 Review of Systems ROS Statement: Those systems with pertinent positive or pertinent negative responses have been documented in the HPI. ROS Other: All systems not noted in ROS Statement are negative. Past Medical History Past Medical History: Atrial Fibrillation, Asthma, GERD/Reflux, Hypertension, Sleep Apnea/CPAP/BIPAP Additional Past Medical History / Comment(s): Pt passed 3-4 kidney stones in pas t couple yrs, afib in past d/t hypokalemia after bariatric surgery-none since, bronchitis in past, low back pain-has 3 vertebral compression fractures. Pt states after weight loss he no longer takes rx for high lipids/no GERD and no longer is treated for diabetes. History of Any Multi-Drug Resistant Organisms: None Reported Past Surgical History: Bariatric Surgery, Hernia Repair, Orthopedic Surgery Additional Past Surgical History / Comment(s): panniculectomy with ventral hernia repair, Liliana-en-Y, left knee surgery for torn meniscus, R knee arthroscopy, R bicep reattachment, sinus surgery x2, LITHOTRIPSIES, 2 KIDNEY STONES REMOVED 10/2019 Past Anesthesia/Blood Transfusion Reactions: Motion Sickness, Postoperative Nausea & Vomiting (PONV) Past Psychological History: No Psychological Hx Reported Smoking Status: Never smoker Past Alcohol Use History: None Reported Past Drug Use History: None Reported - Past Family History Father Family Medical History: Cancer, Myocardial Infarction ([place]) Additional Family Medical History / Comment(s): Father had prostate cancer Mother Family Medical History: Pulmonary Embolus Additional Family Medical History / Comment(s): Mother is healthy and is 73 yrs old. General Exam Limitations: no limitations General appearance: alert, in no apparent distress Head exam: Present: atraumatic, normocephalic, normal inspection Eye exam: Present: normal appearance, PERRL, EOMI. Absent: scleral icterus, conjunctival injection, periorbital swelling ENT exam: Present: normal exam, mucous membranes moist Neck exam: Present: normal inspection. Absent: tenderness, meningismus, lymphadenopathy Respiratory exam: Present: normal lung sounds bilaterally. Absent: respiratory distress, wheezes, rales, rhonchi, stridor Cardiovascular Exam: Present: regular rate, normal rhythm, normal heart sounds. Absent: systolic murmur, diastolic murmur, rubs, gallop, clicks GI/Abdominal exam: Present: soft, normal bowel sounds. Absent: distended, tenderness, guarding, rebound, rigid Extremities exam: Present: normal inspection, full ROM, normal capillary refill. Absent: tenderness, pedal edema, joint swelling, calf tenderness Back exam: Present: normal inspection Neurological exam: Present: alert, oriented X3, CN II-XII intact Psychiatric exam: Present: normal affect, normal mood Skin exam: Present: warm, dry, intact, normal color. Absent: rash Course Vital Signs 03/11/20 18:48 Temperature 99.6 F Pulse Rate 106 H Respiratory 22 Rate Blood Pressure 188/101 O2 Sat by Pulse 97 Oximetry - Reevaluation(s) Reevaluation #1: Medical records reviewed Patient informed results, questions answered Medical Decision Making - Medical Decision Making 55 male DF for evaluation of right leg pain concern for DVT ultrasound negative patient can be discharged home - Radiology Data Radiology results: report reviewed (Ultrasound right lower extremity negative for DVT), image reviewed Disposition Clinical Impression: Right leg pain Disposition: HOME SELF-CARE Condition: Good Instructions (If sedation given, give patient instructions): Leg Pain (ED) Is patient prescribed a controlled substance at d/c from ED?: No Referrals: Miguel Almanzar MD [STAFF PHYSICIAN] - 1-2 days
--- NOTE | 2020-03-11 19:48 | US ---
EXAMINATION TYPE: US venous doppler duplex LE RT DATE OF EXAM: 03/11/2020 6:56 PM COMPARISON: NONE CLINICAL HISTORY: dvt. right calf swelling, hot to touch and painful, no h/o dvt SIDE PERFORMED: Right TECHNIQUE: The lower extremity deep venous system is examined utilizing real time linear array sonog ethel with graded compression, doppler sonography and color-flow sonography. VESSELS IMAGED: External Iliac Vein (EIV) Common Femoral Vein Deep Femoral Vein Greater Saphenous Vein * Femoral Vein Popliteal Vein Small Saphenous Vein * Proximal Calf Veins (* superficial vessels) Right Leg: Negative for DVT IMPRESSION: No sign of deep vein thrombosis in the right leg.
== END 2020-03-11 20:36 | disposition home or self-care (01) ==
LOC: EC 18:38
DX: M79.604 Pain in right leg (principal); M79.89 Other specified soft tissue disorders; I48.91 Unspecified atrial fibrillation; J45.909 Unspecified asthma, uncomplicated; I10 Essential (primary) hypertension; G47.30 Sleep apnea, unspecified; Z79.51 Long term (current) use of inhaled steroids; Z79.899 Other long term (current) drug therapy; Z91.048 Other nonmedicinal substance allergy status; Z88.0 Allergy status to penicillin; Z88.8 Allergy status to other drugs, medicaments and biological substances; Z99.89 Dependence on other enabling machines and devices; Z98.84 Bariatric surgery status; Z98.890 Other specified postprocedural states
CPT/HCPCS: 99284

== ENCOUNTER → 2020-05-02 | Outpatient (CLI) | payer MEDICAID ==
--- NOTE | 2020-05-02 16:33 | CT ---
EXAMINATION TYPE: CT abdomen pelvis wo con DATE OF EXAM: 05/02/2020 HISTORY: right flank pain, hx of stones CT DLP: 1259.8 mGycm. Automated Exposure Control for Dose Reduction was Utilized. TECHNIQUE: CT scan of the abdomen and pelvis is performed without oral or IV contrast. COMPARISON: Prior CT February 09, 2020 and older CTs FINDINGS: Within the limitations of a non-contrast study, the following observations are made. LUNG BASES: Slightly elevated left hemidiaphragm redemonstrated. LIVER/GB: There is 2.7 cm vague hypodense lesion anterior right hepatic lobe axial image 28 unchanged in size from 2017 present benign. PANCREAS: No significant abnormality is seen. SPLEEN: No significant abnormality is seen. ADRENALS: No significant abnormality is seen. KIDNEYS: There are 2 adjacent 1 to 2 mm calculi lower pole level left kidney coronal images 71 and 72 . No right-sided renal calculi. No hydronephrosis or obstructing ureteral calculi bilaterally. Poorly distended bladder without intraluminal calculi BOWEL: Normal Appearing appendix seen from cecum in the central right lower quadrant. No suspicious s mall large bowel dilatation. Surgical changes from gastric bypass procedure epigastric region are red emonstrated. GENITAL ORGANS: No gross abnormality seen. LYMPH NODES: No greater than 1cm abdominal or pelvic lymph nodes are appreciated. OSSEOUS STRUCTURES: Multiple lead level spurring in the thoracic spine. Vacuum disc phenomenon with m ild disc space narrowing lumbosacral junction. Bilateral pars defect L5 level without spondylolisthes is OTHER: No significant additional abnormality is seen. IMPRESSION: Stable 2 tiny lower pole left renal nonobstructing calculi. Interval successful treatment or passage of larger 5 mm right renal calculus. No new renal stones or hydronephrosis seen bilateral ly.
== END | disposition home or self-care (01) ==
LOC: RADCTMAIN 16:10
PROVIDERS: ATTEND Urology
DX: N20.0 Calculus of kidney (principal); Z88.0 Allergy status to penicillin; Z88.8 Allergy status to other drugs, medicaments and biological substances; Z91.048 Other nonmedicinal substance allergy status
CPT/HCPCS: 74176

== ENCOUNTER → 2020-05-17 | Outpatient (CLI) | payer MEDICAID ==
[2020-05-17 12:40] LABS: Anisocytosis Slight; Basophils % (A) 0 %; Eosinophils # (A) 0.3 k/uL (0-0.7); Eosinophils % (A) 5 %; HCT 45.8 % (39.0-53.0); Hypochromasia Moderate; Lymphocytes # (A) 1.7 k/uL (1.0-4.8); Lymphocytes % (A) 27 %; MCH 24.1 pg (25.0-35.0); MCHC 30.6 g/dL (31.0-37.0); MCV 78.8 fL (80.0-100.0); Mean Platelet Volume 6.6; Microcytosis Slight; Monocytes # (A) 0.5 k/uL (0-1.0); Monocytes % (A) 9 %; Neutrophils # (A) 3.6 k/uL (1.3-7.7); Neutrophils % (A) 57 %; Platelet Count 351 k/uL (150-450); RBC 5.81 m/uL (4.30-5.90); RDW 16.3 % (11.5-15.5); WBC 6.4 k/uL (3.8-10.6)
[2020-05-17 21:33] LABS: % Iron Saturation 58.51 (15.00-50.00); African American GFR (CKD) 117.4 (60.0-200.0); Albumin 4.5 g/dL (3.80-4.90); Albumin/Globulin Ratio 1.96 (1.60-3.17); Anion Gap 13.5 mmol/L (4.00-12.00); BUN/Creat Ratio 23.75 Ratio (12.00-20.00); Calcium 9.5 mg/dL (8.7-10.3); Carbon Dioxide 25.5 mmol/L (21.6-31.8); Globulin 2.3 g/dL (1.6-3.3); Magnesium 1.7 mg/dL (1.5-2.4); Non-African American GFR(CKD) 101.3 (60.0-200.0); Potassium 3.7 mmol/L (3.5-5.5); Total Bilirubin 0.5 mg/dL (0.2-1.2); Total Protein 6.8 g/dL (6.2-8.2)
[2020-05-17 21:42] LABS: Folate, Serum 4.6 ng/mL
[2020-05-17 21:49] LABS: Ferritin 16.5 ng/mL (22.0-322.0)
[2020-05-17 22:25] LABS: Erythrocyte Sedimentation Rate 9 mm/Hr (0-20)
[2020-05-18 00:27] LABS: Thyroid Peroxidase Antibodies <28.0 U/mL (0.0-60.0)
[2020-05-18 09:30] LABS: Lead, Blood <0.5 ug/dL (<5.0)
[2020-05-18 14:40] LABS: Zinc, Serum 70 ug/dL (60-130)
[2020-05-21 06:52] LABS: Vit B1(Thiamine) 69 ug/L (38-122)
[2020-05-21 13:57] LABS: Vitamin A 73 ug/dL (38-106)
== END | disposition home or self-care (01) ==
LOC: LABWHC1 11:30
PROVIDERS: ATTEND Family Medicine
DX: M62.81 Muscle weakness (generalized) (principal); E78.5 Hyperlipidemia, unspecified; I10 Essential (primary) hypertension; R53.83 Other fatigue; R25.1 Tremor, unspecified; R06.09 Other forms of dyspnea; Z98.84 Bariatric surgery status
CPT/HCPCS: 36415; 80053; 82306; 82550; 82607; 82728; 82746; 83540; 83550; 83655; 83735; 83880; 84425; 84590; 84630; 85025; 85652; 86038; 86376; 86800

== ENCOUNTER 2020-12-24 08:05 | Day surgery (SDC) | payer MEDICAID ==
[2020-12-20 14:02] VITALS: BMI 38.0
[2020-12-24 08:39] VITALS: RESP 16; TEMP 98.7
[2020-12-24] MEDS ORDERED: ONDANSETRON 4 MG/2 ML VIAL ONE (08:46)
[2020-12-24] MEDS ORDERED: LACTATED RINGERS 1,000 ML IV ONE (08:48)
[2020-12-24] MEDS ORDERED: LIDOCAINE 1% (10MG/ML) FOR IV START INTRADERMA ONE (08:49)
[2020-12-24] MEDS ORDERED: MIDAZOLAM 2 MG/2 ML VIAL ONE (09:21)
[2020-12-24] MEDS ORDERED: fentaNYL (PF) 50 MCG/ML 2 ML AMP ONE (09:21)
[2020-12-24] MEDS ORDERED: LIDOCAINE 1% INJ 10MG/ML (20 ML MDV) ONE (09:21)
[2020-12-24] MEDS ORDERED: PROPOFOL 10 MG/ML 20 ML VIAL IV ONE (09:21)
--- NOTE | 2020-12-24 10:03 | P.PCN ---
Date of Procedure: 12/24/20 Description of Procedure: Brief history: Patient is a pleasant 55-year-old male presenting for esophagogastroduodenoscopy and colonoscopy for evaluation of GERD and change in bowel habits. The patient was seen in the GI clinic reporting symptoms of heartburn and reflux. Some improvement on PPI therapy. The patient also reported intermittent episodes of epigastric abdominal pain and diarrhea unable to identify triggers. Last colonoscopy 2018 with inadequate prep. Procedure performed: Esophagogastroduodenoscopy with biopsy Colonoscopy with biopsy and polypectomy Estimated blood loss: Minimal. Preoperative diagnosis: GERD, epigastric abdominal pain, change in bowel habits, last colonoscopy in 2018 with inadequate prep Anesthesia: MAC Procedure: After informed consent was obtained from the patient was brought into the endoscopy unit and IV sedation was administered by anesthesia under continuous monitoring. Initially upper endoscopy was done. The Olympus GF 190 video endoscope was inserted into the mouth and esophagus intubated without any difficulty and was gradually advanced into the remnant stomach through the anastomosis and into the small bowel. There were some mild erythema in the small bowel with biopsies taken. The anastomotic site appeared grossly intact with no ulcers and some erythema noted. The scope was then withdrawn into the gastric and which was significant for mild scattered erythema suggestive of mild gastritis with biopsies of the gastric remnant taken. The scope was then withdrawn into the esophagus with the gastroesophageal junction located at 36 cm from the incisors with a small hiatal hernia noted. Biopsies of the lower esophagus were taken. The lower esophagus appeared normal with no erythema, erosions or ulcerations. The patient tolerated the procedure well. At this time the patient continued to remain sedation. Initial digital rectal examination was normal. Olympus CF 190 video colonoscope was then inserted into the rectum and gradually advanced to the cecum without any difficulty. Careful examination was performed as the scope was gradually being withdrawn. The prep was excellent. The cecum, ascending colon, transverse colon, descending colon, sigmoid colon and rectum appeared normal with random biopsies taken of the right left colon. The terminal ileum was intubated and appeared normal. A sessile 6 mm ascending colon polyp was removed with cold snare polypectomy. Diminutive polyps measuring 1-2 mm removed from the cecum, transverse colon, and sigmoid colon with cold forcep polypectomy. Retroflexion was performed in the rectum and no lesions were noted. Patient tolerated the procedure well. Impression: 1. Mild gastritis. Liliana-en-Y gastric bypass. Small hiatal hernia. Biopsies of the lower esophagus, gastric remnant and small bowel. 2. Sessile ascending colon polyp removed with cold snare polypectomy. Diminutive polyps removed with cold forcep polypectomy from the cecum, transverse colon and sigmoid colon. Otherwise normal-appearing colon from rectum to cecum and normal appearing terminal ileum with random biopsies taken of the terminal ileum, right colon and left colon the setting of altered bowel function. Recommendations: Findings of this examination were discussed with the patient as well as His family. Okay to resume diet. Okay to resume medications. Await pathology from biopsies and polypectomies. Recommend repeat colonoscopy in 5 years for history of colon polyps pending pathology from polypectomies. Follow-up in the GI clinic as scheduled.
[2020-12-24 10:24] VITALS: BP 152/91; PULSE 74
== END 2020-12-24 10:39 | disposition home or self-care (01) ==
LOC: ORWHC2ENDO 08:05
PROVIDERS: ATTEND Internal Medicine
DX: K29.50 Unspecified chronic gastritis without bleeding (principal); D12.0 Benign neoplasm of cecum; D12.3 Benign neoplasm of transverse colon; D12.5 Benign neoplasm of sigmoid colon; K44.9 Diaphragmatic hernia without obstruction or gangrene; K21.9 Gastro-esophageal reflux disease without esophagitis; Z98.84 Bariatric surgery status; I10 Essential (primary) hypertension; J45.909 Unspecified asthma, uncomplicated; E21.3 Hyperparathyroidism, unspecified; Z87.442 Personal history of urinary calculi; M19.90 Unspecified osteoarthritis, unspecified site; K90.9 Intestinal malabsorption, unspecified; M51.36 Other intervertebral disc degeneration, lumbar region; D64.9 Anemia, unspecified; K50.90 Crohn's disease, unspecified, without complications; Z79.899 Other long term (current) drug therapy; Z98.890 Other specified postprocedural states; Z88.0 Allergy status to penicillin; Z88.8 Allergy status to other drugs, medicaments and biological substances; Z91.09 Other allergy status, other than to drugs and biological substances
CPT/HCPCS: 88305; 45380; 45385; 43239; J2250; J2405; J2001; J3010; J2704

== ENCOUNTER 2021-03-05 12:37 | Emergency (ER) | payer MEDICAID ==
[2021-03-05 12:53] VITALS: BP 174/105; PULSE 78; RESP 16; TEMP 98.2
[2021-03-05] MEDS ORDERED: KETOROLAC 15 MG/ML 1 ML VIAL IM STA (13:10)
--- NOTE | 2021-03-05 13:21 | ED ---
Lower Extremity Injury HPI - General Chief Complaint: Extremity Injury, Lower Stated Complaint: rt leg pain Source: patient, RN notes reviewed, old records reviewed Mode of arrival: ambulatory Limitations: no limitations - History of Present Illness Initial Comments: 56-year-old well-appearing male patient, alert and oriented 4, presents to the emergency room with complaints of 2 weeks of right lower extremity pain and swelling. Patient states that he is able to bear weight however with flexion of walking causes increased pain. He patient has some anterior and lateral sw elling to the right tibia-fibula. Patient states it's worse with palpation but denies any injuries. He states that he's been taking Tylenol over the past 2 weeks with no relief. He denies any numbness or tingling. No fever, nausea vomiting or diarrhea. -: week(s) (2) Type of Injury: unknown Severity scale (1-10): 8 Worsens With: palpation, other (Walking) Treatments Prior to Arrival: other (Tylenol) - Related Data Home Medications Medication Instructions Recorded Confirmed Budesonide-Formot 160-4.5 Mcg 2 puff INHALATION BID 03/08/14 12/20/20 [Symbicort 160-4.5 Mcg Inhaler] Montelukast Sodium [Singulair] 10 mg PO DAILY 03/08/14 12/24/20 Albuterol Sulfate [Ventolin HFA] 2 puff INHALATION RT-Q4H PRN 12/04/16 12/24/20 Azelastine HCl [Astepro] 1 spray EA NOSTRIL BID PRN 02/19/18 12/24/20 Fluticasone Nasal [place] [Flonase 2 spr EA NOSTRIL DAILY PRN 10/06/19 12/24/20 Nasal [place]] Omalizumab [Xolair] 300 mg SQ Q14D 10/06/19 12/24/20 modafiniL [Provigil] 200 mg PO DAILY PRN 10/06/19 12/24/20 Olmesartan Medoxomil [Benicar] 40 mg PO DAILY 12/20/20 12/20/20 traZODone HCL [Desyrel] 50 - 100 mg PO HS PRN 12/20/20 12/24/20 Allergies Allergy/AdvReac Type Severity Reaction Status Date / Time adhesive tape Allergy Rash/Hives Verified 03/05/21 12:53 Penicillins AdvReac Anaphylaxis Verified 03/05/21 12:53 [id number] Reductase AdvReac joint Pain Verified 03/05/21 12:53 Inhibitor Dermabond Allergy Rash/Hives Uncoded 03/05/21 12:53 Review of Systems ROS Statement: Those systems with pertinent positive or pertinent negative responses have been documented in the HPI. ROS Other: All systems not noted in ROS Statement are negative. Past Medical History Past Medical History: Atrial Fibrillation, Asthma, GERD/Reflux, Hypertension, Sleep Apnea/CPAP/BIPAP Additional Past Medical History / Comment(s): KIDNEY STONES , afib in past d/t hypokalemia after bariatric surgery-none since, bronchitis in past, low back pain at times History of Any Multi-Drug Resistant Organisms: None Reported Past Surgical History: Bariatric Surgery, Hernia Repair, Orthopedic Surgery Additional Past Surgical History / Comment(s): panniculectomy with ventral hernia repair, Liliana-en-Y, left knee surgery for torn meniscus, R knee arthroscopy, R bicep reattachment, sinus surgery x2, LITHOTRIPSIES, 2 KIDNEY STONES REMOVED Past Anesthesia/Blood Transfusion Reactions: Motion Sickness, Postoperative Nausea & Vomiting (PONV) Past Psychological History: No Psychological Hx Reported Smoking Status: Never smoker Past Alcohol Use History: None Reported Past Drug Use History: None Reported - Past Family History Father Family Medical History: Cancer, Myocardial Infarction ([place]) Additional Family Medical History / Comment(s): Father had prostate cancer Mother Family Medical History: Pulmonary Embolus Additional Family Medical History / Comment(s): Mother is healthy and is 73 yrs old. General Exam Limitations: no limitations General appearance: alert, in no apparent distress Head exam: Present: atraumatic, normocephalic, normal inspection Eye exam: Present: normal appearance, PERRL, EOMI. Absent: scleral icterus, conjunctival injection, periorbital swelling ENT exam: Present: normal exam, normal oropharynx, mucous membranes moist Neck exam: Present: normal inspection, full ROM. Absent: tenderness, meningismus, lymphadenopathy, thyromegaly Respiratory exam: Present: normal lung sounds bilaterally. Absent: respiratory distress, wheezes, rales, rhonchi, stridor, chest wall tenderness, accessory muscle use Cardiovascular Exam: Present: regular rate, normal rhythm, normal heart sounds. Absent: systolic murmur, diastolic murmur, rubs, gallop, clicks GI/Abdominal exam: Present: soft. Absent: distended, tenderness, guarding, rebound, rigid Extremities exam: Present: full ROM, tenderness, normal capillary refill. Absent: pedal edema, joint swelling, calf tenderness Right Hip exam: Present: full ROM. Absent: tenderness Upper Leg exam: Present: normal inspection, full ROM Knee exam: Present: normal inspection, full ROM. Absent: tenderness Lower Leg exam: Present: full ROM, tenderness, swelling (Right lateral tibia-f ibula). Absent: abrasion, laceration, ecchymosis, deformity, crepitus, dislocation, erythema, palpable cord Ankle exam: Present: normal inspection, full ROM Foot/Toe exam: Present: full ROM Neurovascular tendon exam: Present: no vascular compromise. Absent: pulse deficit, extremity cold to touch, foot drop Back exam: Present: full ROM. Absent: tenderness, CVA tenderness (R), CVA tenderness (L), muscle spasm, paraspinal tenderness, vertebral tenderness Neurological exam: Present: alert, oriented X3, CN II-XII intact Psychiatric exam: Present: normal affect, normal mood Skin exam: Present: warm, dry, intact, normal color. Absent: rash Course Vital Signs 03/05/21 12:52 Temperature 98.2 F Pulse Rate 78 Respiratory 16 Rate Blood Pressure 174/105 O2 Sat by Pulse 98 Oximetry Procedures - Orthopedic Splinting/Casting Injury #1 Side: right Lower Extremity Injury Location: long leg Lower Extremity Immobilizer: posterior splint, Mario wrap, synthetic pre-padded splint Other Orthopedic Equipment: crutches Medical Decision Making - Medical Decision Making Ultrasound of the right lower leg negative for DVT. X-ray shows a nondisplaced acute to subacute oblique fracture proximal fibular shaft. Underlying medial and lateral compartment osteoarthrosis within the right knee. Patient has strong pedal pulses. Was placed in a long leg present bedding padded splint directed to follow up with orthopedics. Patient states he has his own orthopedist that he sees for his knees . He recently seen that for cortisone injection. Case discussed with Dr. Villegas Disposition Clinical Impression: Fracture of tibia Disposition: HOME SELF-CARE Condition: Good Instructions (If sedation given, give patient instructions): Leg Fracture (ED) Additional Instructions: Follow-up with orthopedics next week. Return to the emergency room with any worsening pain, numbness or tingling. Rest, ice and elevate leg. Tylenol and/or Motrin for pain. Use crutches for nonweightbearing. Is patient prescribed a controlled substance at d/c from ED?: No Referrals: Harjinder Almanzar MD [Primary Care Provider] - 1-2 days Melvin Avendaño MD [STAFF PHYSICIAN] - 1-2 days Time of Disposition: 15:13
--- NOTE | 2021-03-05 14:35 | XR ---
EXAMINATION TYPE: XR tibia fibula RT DATE OF EXAM: 03/05/2021 COMPARISON: NONE HISTORY: 56-year-old male with hicks pain for 2 weeks. TECHNIQUE: 2 views FINDINGS: There is oblique fracture of the proximal fibular shaft without significant displacement. There is me dial and lateral compartmental degenerative change at the knee with marginal spurring and at least mi ld medial compartment joint space narrowing. IMPRESSION: Nondisplaced, acute to subacute oblique fracture proximal fibular shaft. Careful clinical correlation for history of injury is recommended. Underlying medial and lateral compartment osteoarthrosis withi n the right knee.
--- NOTE | 2021-03-05 14:36 | US ---
EXAMINATION TYPE: US venous doppler duplex LE RT DATE OF EXAM: 03/05/2021 2:20 PM COMPARISON: NONE CLINICAL HISTORY: pain swelling. Right lower leg pain x couple weeks SIDE PERFORMED: Right TECHNIQUE: The lower extremity deep venous system is examined utilizing real time linear array sonog ethel with graded compression, doppler sonography and color-flow sonography. VESSELS IMAGED: Common Femoral Vein Deep Femoral Vein Greater Saphenous Vein * Femoral Vein Popliteal Vein Small Saphenous Vein * Proximal Calf Veins (* superficial vessels) Right Leg: Appears negative for DVT IMPRESSION: Grayscale, color doppler, spectral doppler imaging performed of the deep veins of the lo wer extremities. There is normal flow, compressibility, vascular waveforms.
== END 2021-03-05 15:42 | disposition home or self-care (01) ==
LOC: EC 12:37
DX: S82.434A Nondisplaced oblique fracture of shaft of right fibula, initial encounter for closed fracture (principal); J45.909 Unspecified asthma, uncomplicated; I10 Essential (primary) hypertension; Z88.8 Allergy status to other drugs, medicaments and biological substances; Z88.0 Allergy status to penicillin; Z91.09 Other allergy status, other than to drugs and biological substances; Z79.51 Long term (current) use of inhaled steroids; X58.XXXA Exposure to other specified factors, initial encounter
CPT/HCPCS: 73590; 93971; 99284; 29505; 96372; J1885

== ENCOUNTER 2021-05-24 08:42 | Day surgery (SDC) | payer MEDICAID ==
[2021-05-22 11:27] VITALS: BMI 37.3
--- NOTE | 2021-05-24 07:46 | P.GSHP ---
History of Present Illness H&P Date: 05/24/21 CHIEF COMPLAINT: Cholecystitis HISTORY OF PRESENT ILLNESS: The patient is a 56-year-old male who presents with history of epigastric including right upper quadrant abdominal pain. He underwent diagnostic studies for the gallbladder. Separately his clinical picture was consistent with cholecystitis. Now he presents for surgical intervention. PAST MEDICAL HISTORY: Please see list PAST SURGICAL HISTORY: Please see list MEDICATIONS: Please see list ALLERGIES: Denies. SOCIAL HISTORY: No illicit drug use or recent tobacco use FAMILY HISTORY: Pertinent for gallbladder disease REVIEW OF ORGAN SYSTEMS: CONSTITUTIONAL: No reports of fevers or chills. PHYSICAL EXAM: VITAL SIGNS: Afebrile vital signs stable GENERAL: Well-developed pleasant male in no acute distress. HEENT: No scleral icterus. Extraocular movements grossly intact. Moist buccal mucosa. NECK: Supple without lymphadenopathy. CHEST: Unlabored respirations. Equal bilateral excursions. CARDIOVASCULAR: Regular rate regular rhythm rhythm. Distal 2+ pulses. ABDOMEN: Soft, nondistended. Tender along the epigastrium and right upper quadrant. MUSCULOSKELETAL: No clubbing, cyanosis, or edema. NEURO : No focal or lateralizing signs. Cranial nerves II-12 within normal limits. PSYCH: Alert and oriented to person, place and time. SKIN: Well perfused. Good skin turgor. ASSESSMENT: 1. Epigastric and right upper quadrant abdominal pain 2. Chronic cholecystitis PLAN: 1. Will need a robotic cholecystectomy possible open. Benefits and risks were described. 2. Heparin for DVT prophylaxis 5000 units. 3. Antibiotic prophylaxis. Past Medical History Past Medical History: Atrial Fibrillation, Asthma, GERD/Reflux, Hypertension, Sleep Apnea/CPAP/BIPAP Additional Past Medical History / Comment(s): Hx Kidney stones, afib in past d/t hypokalemia after bariatric surgery-none since, bronchitis, uses CPAP. Recent fx Rt fibula 03/2021, healing. History of Any Multi-Drug Resistant Organisms: None Reported Past Surgical History: Bariatric Surgery, Hernia Repair, Orthopedic Surgery Additional Past Surgical History / Comment(s): Panniculectomy w/ ventral hernia repair, Liliana-en-Y, left knee surgery for torn meniscus, R knee arthroscopy, R bicep reattachment, sinus surgery x2, Lithotripsies w/ 2 kidney stones removed. Past Anesthesia/Blood Transfusion Reactions: Motion Sickness, Postoperative Nausea & Vomiting (PONV) Smoking Status: Never smoker - Past Family History Father Family Medical History: Cancer, Myocardial Infarction ([place]) Additional Family Medical History / Comment(s): Father had prostate cancer Mother Family Medical History: Pulmonary Embolus Additional Family Medical History / Comment(s): Mother is healthy and is 73 yrs old. Medications and Allergies Home Medications Medication Instructions Recorded Confirmed Type Budesonide-Formot 160-4.5 Mcg 2 puff INHALATION BID 03/08/14 05/22/21 History [Symbicort 160-4.5 Mcg Inhaler] Montelukast Sodium [Singulair] 10 mg PO DAILY 03/08/14 05/22/21 History Albuterol Sulfate [Ventolin HFA] 2 puff INHALATION RT-Q4H PRN 12/04/16 05/22/21 History Azelastine HCl [Astepro] 1 spray EA NOSTRIL BID PRN 02/19/18 05/22/21 History Fluticasone Nasal [place] [Flonase 2 spr EA NOSTRIL DAILY PRN 10/06/19 05/22/21 History Nasal [place]] Omalizumab [Xolair] 300 mg SQ Q14D 10/06/19 05/22/21 History modafiniL [Provigil] 200 mg PO DAILY PRN 10/06/19 05/22/21 History Olmesartan Medoxomil [Benicar] 40 mg PO DAILY 12/20/20 05/22/21 History traZODone HCL [Desyrel] 50 - 100 mg PO HS PRN 12/20/20 05/22/21 History Vitamin D3 (Unknown Dose) 1 tab PO DAILY 05/22/21 History Allergies Allergy/AdvReac Type Severity Reaction Status Date / Time adhesive tape Allergy Rash/Hives Verified 05/22/21 10:59 Penicillins AdvReac Anaphylaxis Verified 05/22/21 10:59 [id number] Reductase AdvReac joint Pain Verified 05/22/21 10:59 Inhibitor Dermabond Allergy Rash/Hives Uncoded 05/22/21 10:59
[~2021-05-24 08:42] MED LIST changes: +ACETAMINOPHEN TAB 500 MG TAB PO STA; +CLINDAMYCIN 900 MG in DEXTROSE 5% IN WATER 50 ML IVPB PRN; +GABAPENTIN 300 MG CAP PO STA; +GENTAMICIN 440 MG in SODIUM CHLORIDE 0.9% 100 ML IVPB PRN; +HEPARIN SODIUM,PORCINE/PF 5,000 UNIT/0.5 ML SYRINGE SQ PRN; +HYDROmorphone 0.5 MG/0.5 ML SYRINGE IVP PRN; +INDOCYANINE GREEN 25 MG VIAL IV STA; -LIDOCAINE 1% (10MG/ML) FOR IV START INTRADERMA PRN; +TAMSULOSIN 0.4 MG CAP.ER.24H PO STA
[2021-05-24 09:14] VITALS: RESP 16
[2021-05-24] MEDS: ONDANSETRON 4 MG/2 ML VIAL ONE ×2 (09:32→13:13)
[2021-05-24] MEDS ORDERED: DEXAMETHASONE SOD PHOSPHATE 4 MG/ML 1 ML VIAL IV ONE (09:33)
[2021-05-24 10:11] LABS: Basophils % (A) 1 %; Eosinophils # (A) 0.1 k/uL (0-0.7); Eosinophils % (A) 3 %; HCT 44.6 % (39.0-53.0); HGB 15.2 gm/dL (13.0-17.5); Lymphocytes # (A) 1.3 k/uL (1.0-4.8); Lymphocytes % (A) 27 %; MCH 31.4 pg (25.0-35.0); MCHC 34.2 g/dL (31.0-37.0); MCV 91.9 fL (80.0-100.0); Mean Platelet Volume 6.7; Monocytes # (A) 0.4 k/uL (0-1.0); Monocytes % (A) 9 %; Neutrophils # (A) 2.8 k/uL (1.3-7.7); Neutrophils % (A) 59 %; Platelet Count 282 k/uL (150-450); RBC 4.85 m/uL (4.30-5.90); RDW 14.2 % (11.5-15.5); WBC 4.8 k/uL (3.8-10.6)
[2021-05-24] MEDS ORDERED: PROPOFOL 10 MG/ML 20 ML VIAL IV ONE (10:38)
[2021-05-24] MEDS ORDERED: GLYCOPYRROLATE 0.2 MG/ML 2 ML VIAL ONE (10:38)
[2021-05-24] MEDS ORDERED: fentaNYL (PF) 50 MCG/ML 2 ML AMP ONE (10:38)
[2021-05-24] MEDS ORDERED: SUCCINYLCHOLINE CHLORIDE VIAL 200 MG/10 ML VIAL IV ONE (10:38)
[2021-05-24] MEDS ORDERED: NEOSTIGMINE 1 MG/ML 10 ML VIAL ONE (10:38)
[2021-05-24] MEDS ORDERED: ROCURONIUM 10 MG/ML (5 ML VIAL) IV ONE (10:38)
[2021-05-24] MEDS ORDERED: MIDAZOLAM 2 MG/2 ML VIAL ONE (10:38)
[2021-05-24] MEDS ORDERED: LIDOCAINE 1% INJ 10MG/ML (20 ML MDV) ONE (10:38)
[2021-05-24] MEDS ORDERED: HYDROmorphone (PF) 1 MG/ML ONE (10:38)
[2021-05-24] MEDS ORDERED: LIDOCAINE 1%-EPI 1:100,000 20 ML VIAL SQ ONE (11:12)
[2021-05-24 12:34] VITALS: TEMP 97.2
[2021-05-24] MEDS ORDERED: ONDANSETRON 4 MG/2 ML VIAL ONE (13:13)
--- NOTE | 2021-05-24 13:24 | P.OP ---
Date of Procedure: 05/24/21 Description of Procedure: SURGEON: ARIELLE MEDEIROS MD PREOPERATIVE DIAGNOSES: 1. Symptomatic gallstone 2. Right upper quadrant abdominal pain 3. Chronic cholecystitis 4. Left lower quadrant pain. 5. History of gastric bypass POSTOPERATIVE DIAGNOSES: 1. Symptomatic gallstone 2. Right upper quadrant abdominal pain 3. Chronic cholecystitis 4. Peritoneal adhesions, gallbladder 5. Left lower quadrant pain. 6. History of gastric bypass OPERATION: Robotic-assisted da Dwayne Xi laparoscopic cholecystectomy, multiport with FIREFLY ESTIMATED BLOOD LOSS: 20 mL. SPECIMENS REMOVED: Gallbladder. COMPLICATIONS: None. OPERATIVE FINDINGS: 1. Moderate scarring over entire gallbladder with peritoneal adhesions, pericholecystic with features of chronic cholecystitis 2. Redundant infundibulum with posterior attachments INDICATIONS: The patient is a 56-year-old male who presents with symptomatic gallstones. Robotic assisted laparoscopic approach was described. Benefits and risks of the procedure including but not limited to bleeding, infection, injury to the biliary tree was described. Informed consent was obtained. DESCRIPTION OF PROCEDURE: Patient was brought to the operating room, placed in supine position. After general induction, the abdomen had been prepped and draped in standard sterile fashion. The robotic da Dwayne XI system was primed. After a timeout protocol was performed, the patient had been prepped and draped in standard sterile fashion. The patient was injected with indocyanine green. A 5 mm 0 degrees laparoscopic trocar entry was performed along the left upper quadrant. The abdomen insufflated to 15 mmHg pressure which was tolerated well. Diagnostic laparoscopy demonstrated no injury to bowel viscera or mesentery. The liver surface was unremarkable. Next, two 8 mm robotic ports were placed along the right upper abdomen. The camera 8-mm port was maintained along the epigastrium. Another 8 mm port was placed along the left upper abdominal wall after exchanging the 5 mm port. Please note that the ports were placed at least 10 to 15 cm away from the target anatomy of the gallbladder. The robot was docked along the left lateral abdomen. The patient was repositioned in reverse Trendelenburg position. Using a grasper for arm 3, a grasper for arm 4, including hook cautery for arm 1, the robotic system was docked and primed as described. Instruments were interchanged by the assistant attorney general including hook cautery, Bovie cautery and clip appliers. I had sat at the console. The gallbladder was scarred with peritoneal adhesions. Lysis of adhesions was performed to free the gallbladder from the surrounding tissues. Next attention was brought to the infundibulum and cystic structures. The infundibulum and cystic duct were dissected free from surrounding tissues. The cystic duct was isolated. FIREFLY was used to identify the cystic artery and cystic structures. A critical view of safety was obtained. Large PLASTIC clips were used throughout the entire case. Using a clip automotive parts counter assistant, 2 clips were placed at the junction of the infundibulum and cystic duct. The cystic duct was divided between clips. Next, the cystic artery was similarly clipped and cauterized. Electro-Bovie cautery was used to remove the gallbladder from the hepatic fossa. Hemostasis was checked and found to be adequate. The robot was undocked. I re-scrubbed into the case. Using a 10 mm Endo Catch bag via the left upper quadrant incision, the specimen was removed from the abdominal cavity. All pneumoperitoneum instruments were evacuated from the abdominal cavity. The incisions were reapproximated using 4-0 Monocryl in an interrupted subcuticular fashion. Fascial defects were less than 8 mm in size. Please note along the trocar sites, local anesthetic was placed as a field block prior to insertion of all instruments. Liquid glue was applied to the skin. At the end of the procedure needle, sponge, and instrument count had been verified correct by the certified surgical tech/first assistant. The patient was transferred to postanesthesia care unit in stable condition. Intraoperative films were shared with the patient's family. Plan - Discharge Summary Discharge Rx Participant: Yes New Discharge Prescriptions: New Simethicone [Gas-X] 125 mg PO AC-TID PRN #20 cap PRN Reason: Pain Tamsulosin [Flomax] 0.4 mg PO DAILY #5 cap Acetaminophen Tab [Tylenol Tab] 1,000 mg PO Q6HR PRN #30 tablet PRN Reason: Pain Continue Montelukast Sodium [Singulair] 10 mg PO DAILY Budesonide-Formot 160-4.5 Mcg [Symbicort 160-4.5 Mcg Inhaler] 2 puff INHALATION BID Albuterol Sulfate [Ventolin HFA] 2 puff INHALATION RT-Q4H PRN PRN Reason: Shortness Of Breath Or Wheezing Azelastine HCl [Astepro] 1 spray EA NOSTRIL BID PRN PRN Reason: allergies modafiniL [Provigil] 200 mg PO DAILY PRN PRN Reason: FATIQUE Omalizumab [Xolair] 300 mg SQ Q14D Fluticasone Nasal [place] [Flonase Nasal [place]] 2 spr EA NOSTRIL DAILY PRN PRN Reason: Allergy Symptoms Olmesartan Medoxomil [Benicar] 40 mg PO DAILY traZODone HCL [Desyrel] 50 - 100 mg PO HS PRN PRN Reason: SLEEP Vitamin D3 (Unknown Dose) 1 tab PO DAILY Discharge Medication List Budesonide-Formot 160-4.5 Mcg [Symbicort 160-4.5 Mcg Inhaler] 2 puff INHALATION BID 03/08/14 [History] Montelukast Sodium [Singulair] 10 mg PO DAILY 03/08/14 [History] Albuterol Sulfate [Ventolin HFA] 2 puff INHALATION RT-Q4H PRN 12/04/16 [History] Azelastine HCl [Astepro] 1 spray EA NOSTRIL BID PRN 02/19/18 [History] Fluticasone Nasal [place] [Flonase Nasal [place]] 2 spr EA NOSTRIL DAILY PRN 10/06/19 [History] Omalizumab [Xolair] 300 mg SQ Q14D 10/06/19 [History] modafiniL [Provigil] 200 mg PO DAILY PRN 10/06/19 [History] Olmesartan Medoxomil [Benicar] 40 mg PO DAILY 12/20/20 [History] traZODone HCL [Desyrel] 50 - 100 mg PO HS PRN 12/20/20 [History] Vitamin D3 (Unknown Dose) 1 tab PO DAILY 05/22/21 [History] Acetaminophen Tab [Tylenol Tab] 1,000 mg PO Q6HR PRN #30 tablet 05/24/21 [Rx] Simethicone [Gas-X] 125 mg PO AC-TID PRN #20 cap 05/24/21 [Rx] Tamsulosin [Flomax] 0.4 mg PO DAILY #5 cap 05/24/21 [Rx] Follow up Appointment(s)/Referral(s): Arielle Medeiros MD [STAFF PHYSICIAN] - 05/28/21 Patient Instructions/Handouts: *[facility] - Managing Your Pain After Surgery Without Opioids, Low Fat Diet (DC), Laparoscopic Cholecystectomy (DC) Activity/Diet/Wound Care/Special Instructions: Recommend low-fat diet for the next 2 days. No lifting over 10 pounds in 2 weeks until Jun 07. December shower. No bath tub soaks for two weeks until Jun 07 Diet as tolerated. Use Tylenol, simethicone scheduled for the next 24-48 hours for best pain relief. Use ice along incisions for today to prevent swelling. Discharge Disposition: HOME SELF-CARE
[2021-05-24] MEDS ORDERED: ACETAMINOPHEN TAB 500 MG TAB ONE (13:30)
[2021-05-24] MEDS ORDERED: ACETAMINOPHEN TAB 500 MG TAB PO ONE (13:31)
[2021-05-24 14:08] VITALS: BP 131/78; PULSE 78
== END 2021-05-24 14:20 | disposition home or self-care (01) ==
LOC: OR 08:42
PROVIDERS: ATTEND Surgery Plastic and Reconstructive Surgery
DX: K80.10 Calculus of gallbladder with chronic cholecystitis without obstruction (principal); K82.8 Other specified diseases of gallbladder; K66.0 Peritoneal adhesions (postprocedural) (postinfection); Z98.84 Bariatric surgery status; K21.9 Gastro-esophageal reflux disease without esophagitis; G47.33 Obstructive sleep apnea (adult) (pediatric); J45.909 Unspecified asthma, uncomplicated; I10 Essential (primary) hypertension; Z88.0 Allergy status to penicillin; Z88.8 Allergy status to other drugs, medicaments and biological substances; E66.9 Obesity, unspecified; Z79.899 Other long term (current) drug therapy; I48.91 Unspecified atrial fibrillation; Z91.048 Other nonmedicinal substance allergy status
CPT/HCPCS: 47562; S2900; 85025; 88304

== ENCOUNTER → 2021-06-06 | Outpatient (CLI) | payer MEDICAID ==
[2021-06-06 13:39] LABS: INR 0.9 (<1.2); Prothrombin Time 9.7 sec (9.0-12.0)
[2021-06-06 13:46] LABS: Partial Thromboplastin Time 20.1 sec (22.0-30.0)
[2021-06-06 18:04] LABS: HCT 47.6 % (39.6-50.0); HGB 15.9 g/dL (13.0-17.0); MCH 30.2 pg (27.0-32.0); MCHC 33.4 g/dL (32.0-37.0); MCV 90.3 fL (80.0-97.0); Mean Platelet Volume 8.4 fL (9.5-12.2); Platelet Count 330 X 10*3/uL (140-440); RBC 5.27 X 10*6/uL (4.40-5.60); RDW 14.5 % (11.5-14.5); WBC 8.31 X 10*3/uL (4.50-10.00)
[2021-06-06 21:53] LABS: % Iron Saturation 12.41 (15.00-50.00); African American GFR (CKD) 122.5 (60.0-200.0); Albumin 4.7 g/dL (3.8-4.9); Albumin/Globulin Ratio 1.95 (1.60-3.17); Anion Gap 16.3 mmol/L (4.00-12.00); BUN/Creat Ratio 13.96 Ratio (12.00-20.00); Blood Urea Nitrogen 9.9 mg/dL (9.0-27.0); Calcium 9.6 mg/dL (8.7-10.3); Carbon Dioxide 23.1 mmol/L (21.6-31.8); Chol/HDL Ratio 2.81 Ratio; Ferritin 45.9 ng/mL (22.0-322.0); Globulin 2.4 g/dL (1.6-3.3); HDL Cholesterol 72.7 mg/dL (40.00-60.00); LDL Cholesterol,Calculated 118.4 mg/dL (0.0-131.0); Non-African American GFR(CKD) 105.7 (60.0-200.0); Phosphorus 3.2 mg/dL (2.4-5.1); Potassium 3.8 mmol/L (3.5-5.5); Prealbumin 31.1 mg/dL (18.0-42.0); Total Bilirubin 0.3 mg/dL (0.30-1.20); Total Protein 7.1 g/dL (6.2-8.2); Triglycerides 64.4 mg/dL (0.00-149.00); VLDL Calculation 12.88 mg/dL (5.00-40.00)
[2021-06-06 21:55] LABS: Folate, Serum 3.6 ng/mL (4.40-31.00)
[2021-06-07 12:10] LABS: Zinc, Serum 72 ug/dL (60-130)
== END | disposition home or self-care (01) ==
LOC: LABWHC1 12:08
PROVIDERS: ATTEND Surgery Plastic and Reconstructive Surgery
DX: E89.1 Postprocedural hypoinsulinemia (principal); D50.8 Other iron deficiency anemias; E44.0 Moderate protein-calorie malnutrition; E55.9 Vitamin D deficiency, unspecified; K74.1 Hepatic sclerosis; N19 Unspecified kidney failure; K50.90 Crohn's disease, unspecified, without complications
CPT/HCPCS: 36415; 80053; 80061; 82306; 82525; 82607; 82728; 82746; 83036; 83540; 83550; 83735; 83970; 84100; 84134; 84255; 84425; 84443; 84590; 84630; 85027; 85610; 85730

== ENCOUNTER → 2021-06-06 | Outpatient (CLI) | payer MEDICAID ==
--- NOTE | 2021-06-06 12:20 | CT ---
EXAMINATION TYPE: CT sinus wo con DATE OF EXAM: 06/06/2021 COMPARISON: CT orbits June 07, 2019 HISTORY: Pre Op sinus surgery with prior surgery in past CT DLP: 556.9 mGycm. Automated Exposure Control for Dose Reduction was Utilized. TECHNIQUE: CT scan of the sinuses is performed without contrast, axial images are obtained, coronal r eformatted images are also reviewed. FINDINGS: Mild mucosal thickening improvement from prior with some dependent patchy fluid in the left maxillary sinus on current study. Severe lobulated mucosal thickening in the right maxillary sinus r edemonstrated. Near complete opacification of the ethmoid sinuses bilaterally is redemonstrated with relative sparin g of the posterior ethmoid sinuses. Mild mucosal thickening involving the sphenoid sinuses bilateral ly. Mild mucosal thickening in the left frontal sinus on current study fairly stable from prior. Hypo plastic right frontal sinus redemonstrated. The surgically treated ostiomeatal complex on the left is patent. There is persistent narrowing but p atency on the right coronal image 24 redemonstrated. Visualized portion of mastoid air cells show no abnormal opacification. The globes are intact bilate rally. IMPRESSION: Acute on chronic paranasal sinus disease as detailed above
== END | disposition home or self-care (01) ==
LOC: RADCTMAIN 11:50
PROVIDERS: ATTEND Otolaryngology
DX: J32.9 Chronic sinusitis, unspecified (principal)
CPT/HCPCS: 70486

== ENCOUNTER → 2021-07-15 | Outpatient (CLI) | payer MEDICAID ==
--- NOTE | 2021-07-15 12:35 | XR ---
KUB HISTORY: N 20.0 For KUB and 2 images correlated prior KUB 02/27/2020, CT 05/02/2020 Punctate calcification seen at the lower pole left kidney may still be present. Surgical clips are pr esent along the stomach. No evident bowel obstruction or pneumoperitoneum. Arthropathy noted within t he hips, prominence along the femoral necks, correlate for possible femoral acetabular impingement. D egenerative disc changes are noted the visualized spine. IMPRESSION: Left-sided nephrolithiasis, postop changes.
== END | disposition home or self-care (01) ==
LOC: RADXRMAIN 12:02
PROVIDERS: ATTEND Urology
DX: N20.0 Calculus of kidney (principal)
CPT/HCPCS: 74018

== ENCOUNTER → 2021-07-25 | Outpatient (CLI) | payer MEDICAID ==
--- NOTE | 2021-07-25 13:16 | CT ---
EXAMINATION TYPE: CT abdomen pelvis wo con DATE OF EXAM: 07/25/2021 COMPARISON: Prior CT 05/02/2020 HISTORY: Lt flank pain CT DLP: 1588.1 mGycm Automated exposure control for dose reduction was used. TECHNIQUE: Helical acquisition of images from the lung bases through the pelvis. FINDINGS: Lack of intravenous contrast could compromise sensitivity. Increased attenuation along ante rior abdominal fat may be due to subcutaneous injections, similar to prior exam LUNG BASES: No significant abnormality is appreciated. AORTA: No significant abnormality is appreciated. LIVER/GB: Hypodense focus within the liver shows a similar appearance to prior exam. Patient is post cholecystectomy PANCREAS: No significant abnormality is seen. SPLEEN: No significant abnormality is seen. Probable splenule are again noted on the left towards the renal hilum ADRENALS: No significant abnormality is seen. KIDNEYS: Punctate nonobstructive calculus present at the midpole the right kidney measures only 3 to 4 mm, punctate calcification also present at the lower pole the left kidney similar size, there is no hydronephrosis or ureteral calcification. Some small parapelvic cysts may be present on the left sim ilar to prior exam REPRODUCTIVE ORGANS: No significant abnormality is seen. URINARY BLADDER: No significant abnormality is seen. BOWEL: Postop changes are again noted in the stomach and bowel FREE AIR: No Free Air is visible. ASCITES: None visible. PELVIC ADENOPATHY: None visualized. RETROPERITONEAL ADENOPATHY: No Retroperitoneal Adenopathy visible. OSSEOUS STRUCTURES: Degenerative disc changes are again noted within the lumbar spine, bilateral spo ndylolysis at L5 contributes to cause anterolisthesis grade 1 L5-S1 as on prior. IMPRESSION: STABLE LOWER POLE NONOBSTRUCTIVE LEFT RENAL CALCULUS, NEW RIGHT RENAL CALCULUS. POSTOP CHANGES. SPOND YLOLYSIS, SPONDYLOLISTHESIS, DEGENERATIVE DISC DISEASE.
== END | disposition home or self-care (01) ==
LOC: RADCTMAIN 08:57
PROVIDERS: ATTEND Urology
DX: N20.1 Calculus of ureter (principal); N20.0 Calculus of kidney
CPT/HCPCS: 74176

== ENCOUNTER 2022-02-10 05:28 | Emergency (ER) | payer MEDICAID ==
[2022-02-10 05:36] VITALS: BP 160/89; PULSE 78; RESP 16; TEMP 97.8
[2022-02-10] MEDS ORDERED: IBUPROFEN 600 MG TAB PO STA (05:39)
[2022-02-10] MEDS ORDERED: HYDROmorphone 1 MG/ML 1 ML SYRINGE IM STA (05:39)
[2022-02-10] MEDS ORDERED: ONDANSETRON 4 MG TAB PO STA (05:39)
--- NOTE | 2022-02-10 05:48 | ED ---
Extremity Problem HPI - General Chief complaint: Extremity Problem,Nontraumatic Stated complaint: Left shoulder pain, right rib pain Source: patient, RN notes reviewed, old records reviewed Mode of arrival: ambulatory Limitations: no limitations - History of Present Illness Initial comments: This is a 57-year-old male to the emergency room for evaluation. Patient comes in for 2 complaints today. Main complaint is right-sided flank pain related to kidney stone second complaint is left shoulder pain with history of upcoming shoulder surgery. Patient is no traumas or injuries. This pain is acute on chronic. MD Complaint: extremity pain, joint swelling, joint pain (L shoulder), other (R flank pain) -: days(s) Location: left, upper extremity, other (R flank) History of Same: Yes -: Yes arthralgia Radiation: proximal Severity scale (1-10): 9 Quality: sharp Consistency: constant Improves with: nothing Worsens with: nothing Associated Symptoms: arthralgias - Related Data Home Medications Medication Instructions Recorded Confirmed Budesonide-Formot 160-4.5 Mcg 2 puff INHALATION BID 03/08/14 05/24/21 [Symbicort 160-4.5 Mcg Inhaler] Montelukast Sodium [Singulair] 10 mg PO DAILY 03/08/14 05/24/21 Albuterol Sulfate [Ventolin HFA] 2 puff INHALATION RT-Q4H PRN 12/04/16 05/24/21 Azelastine HCl [Astepro] 1 spray EA NOSTRIL BID PRN 02/19/18 05/24/21 Fluticasone Nasal Tracy [Flonase 2 spr EA NOSTRIL DAILY PRN 10/06/19 05/24/21 Nasal Tracy] Omalizumab [Xolair] 300 mg SQ Q14D 10/06/19 05/24/21 modafiniL [Provigil] 200 mg PO DAILY PRN 10/06/19 05/24/21 Olmesartan Medoxomil [Benicar] 40 mg PO DAILY 12/20/20 05/24/21 traZODone HCL [Desyrel] 50 - 100 mg PO HS PRN 12/20/20 05/24/21 Vitamin D3 (Unknown Dose) 1 tab PO DAILY 05/22/21 05/24/21 Previous Rx's Medication Instructions Recorded Acetaminophen Tab [Tylenol Tab] 1,000 mg PO Q6HR PRN #30 tablet 05/24/21 Simethicone [Gas-X] 125 mg PO AC-TID PRN #20 cap 05/24/21 Tamsulosin [Flomax] 0.4 mg PO DAILY #5 cap 05/24/21 Allergies Allergy/AdvReac Type Severity Reaction Status Date / Time adhesive tape Allergy Rash/Hives Verified 02/10/22 05:33 Penicillins AdvReac Anaphylaxis Verified 02/10/22 05:33 Ljyfruj-AQL-ThI Reductase AdvReac joint Pain Verified 02/10/22 05:33 Inhibitor [Dfjkqlm-Vpz-Noa Reductase Inhibitor] Dermabond Allergy Rash/Hives Uncoded 02/10/22 05:33 Review of Systems ROS Statement: Those systems with pertinent positive or pertinent negative responses have been documented in the HPI. ROS Other: All systems not noted in ROS Statement are negative. Past Medical History Past Medical History: Atrial Fibrillation, Asthma, GERD/Reflux, Hypertension, Sleep Apnea/CPAP/BIPAP Additional Past Medical History / Comment(s): Hx Kidney stones, afib in past d/t hypokalemia after bariatric surgery-none since, bronchitis, uses CPAP. Recent fx Rt fibula 03/2021, healing. History of Any Multi-Drug Resistant Organisms: None Reported Past Surgical History: Bariatric Surgery, Hernia Repair, Orthopedic Surgery Additional Past Surgical History / Comment(s): Panniculectomy w/ ventral hernia repair, Liliana-en-Y, left knee surgery for torn meniscus, R knee arthroscopy, R bicep reattachment, sinus surgery x2, Lithotripsies w/ 2 kidney stones removed. Past Anesthesia/Blood Transfusion Reactions: Motion Sickness, Postoperative Nausea & Vomiting (PONV) Past Psychological History: No Psychological Hx Reported Smoking Status: Never smoker Past Alcohol Use History: None Reported Past Drug Use History: None Reported - Past Family History Father Family Medical History: Cancer, Myocardial Infarction ([place]) Additional Family Medical History / Comment(s): Father had prostate cancer Mother Family Medical History: Pulmonary Embolus Additional Family Medical History / Comment(s): Mother is healthy and is 73 yrs old. General Exam Limitations: no limitations General appearance: alert, in no apparent distress Head exam: Present: atraumatic, normocephalic, normal inspection Eye exam: Present: normal appearance, PERRL, EOMI. Absent: scleral icterus, conjunctival injection, periorbital swelling ENT exam: Present: normal exam, mucous membranes moist Neck exam: Present: normal inspection. Absent: tenderness, meningismus, lymphadenopathy Respiratory exam: Present: normal lung sounds bilaterally. Absent: respiratory distress, wheezes, rales, rhonchi, stridor Cardiovascular Exam: Present: regular rate, normal rhythm, normal heart sounds. Absent: systolic murmur, diastolic murmur, rubs, gallop, clicks GI/Abdominal exam: Present: soft, normal bowel sounds. Absent: distended, tenderness, guarding, rebound, rigid Extremities exam: Present: normal inspection, full ROM, normal capillary refill. Absent: tenderness, pedal edema, joint swelling, calf tenderness Back exam: Present: normal inspection Neurological exam: Present: alert, oriented X3, CN II-XII intact Psychiatric exam: Present: normal affect, normal mood Skin exam: Present: warm, dry, intact, normal color. Absent: rash Course Vital Signs 02/10/22 05:34 Temperature 97.8 F Pulse Rate 78 Respiratory 16 Rate Blood Pressure 160/89 O2 Sat by Pulse 99 Oximetry - Reevaluation(s) Reevaluation #1: 02/10/22 06:27 medical record is reviewed Reevaluation #2: 02/10/22 06:27 patients symptoms are improved Reevaluation #3: 02/10/22 Patient is informed of results questions are answered Medical Decision Making - Medical Decision Making 57 male to the emergency department for evaluation patient has adequate pain control. Patient can be discharged home - Lab Data Lab Results 02/10/22 Range/Units 05:57 Urine Color Yellow Urine Appearance Clear (Clear) Urine pH 5.5 (5.0-8.0) Ur Specific Henderson 1.035 (1.001-1.035) Urine Protein 1+ H (Negative) Urine Glucose (UA) Trace H (Negative) Urine Ketones 2+ H (Negative) Urine Blood Negative (Negative) Urine Nitrite Negative (Negative) Urine Bilirubin Negative (Negative) Urine Urobilinogen 3.0 (<2.0) mg/dL Ur Leukocyte Esterase Negative (Negative) Urine RBC 1 (0-5) /hpf Urine WBC 2 (0-5) /hpf Ur Squamous Epith Cells <1 (0-4) /hpf Calcium Oxalate Crystal Few H (None) /hpf Hyaline Casts 1 (0-2) /lpf Urine Mucus Few H (None) /hpf - Radiology Data Radiology results: report reviewed (CT of the abdomen pelvis is negative for significant acute disease), image reviewed Disposition Clinical Impression: Left shoulder pain, Kidney stone Disposition: HOME SELF-CARE Condition: Good Instructions (If sedation given, give patient instructions): Kidney Stones (ED) Is patient prescribed a controlled substance at d/c from ED?: No Referrals: Harjinder Almanzar MD [Primary Care Provider] - 1-2 days Time of Disposition: 06:40
[2022-02-10 06:40] LABS: Appearance,Urine Clear (Clear); Bilirubin,Urine Negative (Negative); Blood,Urine Negative (Negative); Calcium Oxalate Crystals,Urine Few /hpf; Color,Urine Yellow; Glucose,Urine (UA) Trace (Negative); Hyaline Casts,Urine 1 /lpf (0-2); Ketones,Urine 2+ (Negative); Leukocyte Esterase,Urine Negative (Negative); Mucus,Urine Few /hpf; Nitrite,Urine Negative (Negative); PH, Urine 5.5 (5.0-8.0); Protein,Urine 1+ (Negative); RBC,Urine 1 /hpf (0-5); Specific Gravity,Urine 1.035 (1.001-1.035); Squamous Epithelial Cell,Urine <1 /hpf (0-4); WBC,Urine 2 /hpf (0-5)
--- NOTE | 2022-02-10 06:47 | CT ---
EXAMINATION TYPE: CT abdomen pelvis wo con DATE OF EXAM: 02/10/2022 HISTORY: Right flank pian, left shoulder pain, intermittent gross hematuria x 3 weeks; history of ian al stones CT DLP: 1224.1 mGycm. Automated Exposure Control for Dose Reduction was Utilized. TECHNIQUE: CT scan of the abdomen and pelvis is performed without oral or IV contrast. COMPARISON: Most recent CT July 25, 2021 FINDINGS: Within the limitations of a non-contrast study, the following observations are made. LUNG BASES: No significant abnormality. LIVER/GB: Roughly 2.6 cm hypodense lesion axial image 27 not significantly changed from 2017 CT and i s thus presumed benign. PANCREAS: No significant abnormality is seen. SPLEEN: No significant abnormality is seen. ADRENALS: No significant abnormality is seen. KIDNEYS: Stable 2 to 3 mm nonobstructing lower pole left renal calculus coronal image 77. New 2 mm no nobstructing calculus lower pole right kidney coronal image 63. No hydronephrosis or obstructing uret eral calculi bilaterally on current study. No intraluminal calculi in the poorly distended bladder. I ncidental second right renal artery filling the lower pole originating from near aortic bifurcation i s redemonstrated. BOWEL: Suboptimal evaluation without enteric contrast. Surgical changes epigastric region from gastri c bypass surgery redemonstrated. No suspicious small or large bowel dilatation currently. Normal gas- filled appendix from base of cecum in the right upper pelvis noted. GENITAL ORGANS: No gross abnormality seen. LYMPH NODES: No greater than 1cm abdominal or pelvic lymph nodes are appreciated. OSSEOUS STRUCTURES: Redemonstration of bilateral pars defect L5 level with stable minimal anterolisth esis L5 on S1. Moderate disc space narrowing and vacuum disc phenomenon L5-S1 level redemonstrated. M oderate multilevel anterior and lateral spurring in thoracic spine redemonstrated. Mild/moderate narr owing spurring both hip joints again seen. OTHER: Mild calcified plaque of the abdominal aorta extending into branch vessels. Stable small fat-c ontaining left inguinal hernia. IMPRESSION: Single small nonobstructing bilateral renal calculi on the current study. No hydronephros is or obstructing ureter calculi bilaterally. No acute findings are evident..
[2022-02-10] MEDS ORDERED: IBUPROFEN 600 MG STARTER PACK 4 TAB BTL PO STA (06:56)
[2022-02-10] MEDS ORDERED: ACET/COD 300 MG/30 MG STARTER PACK 6 TAB BTL PO STA (06:56)
== END 2022-02-10 07:05 | disposition home or self-care (01) ==
LOC: EC 05:28
DX: N20.0 Calculus of kidney (principal); M25.512 Pain in left shoulder; I10 Essential (primary) hypertension; I48.91 Unspecified atrial fibrillation; J45.909 Unspecified asthma, uncomplicated; K21.9 Gastro-esophageal reflux disease without esophagitis; Z79.51 Long term (current) use of inhaled steroids; Z79.899 Other long term (current) drug therapy
CPT/HCPCS: 81001; 74176; 99284; 96372; J1170

== ENCOUNTER 2022-05-28 06:48 | Day surgery (SDC) | payer MEDICAID ==
[2022-05-26 16:15] VITALS: BMI 33.0
[~2022-05-28 06:48] MED LIST changes: -ACETAMINOPHEN TAB 500 MG TAB PO STA; -CLINDAMYCIN 900 MG in DEXTROSE 5% IN WATER 50 ML IVPB PRN; -GABAPENTIN 300 MG CAP PO STA; -GENTAMICIN 440 MG in SODIUM CHLORIDE 0.9% 100 ML IVPB PRN; -HEPARIN SODIUM,PORCINE/PF 5,000 UNIT/0.5 ML SYRINGE SQ PRN; -HYDROmorphone 0.5 MG/0.5 ML SYRINGE IVP PRN; -INDOCYANINE GREEN 25 MG VIAL IV STA; -TAMSULOSIN 0.4 MG CAP.ER.24H PO STA
[2022-05-28 07:49] VITALS: TEMP 96.9
--- NOTE | 2022-05-28 07:53 | P.GSHP ---
History of Present Illness H&P Date: 05/28/22 CHIEF COMPLAINT: GERD HISTORY OF PRESENT ILLNESS: The patient is a 57-year-old male who presents reports gastroesophageal reflux disease. Upper endoscopy was offered for further evaluation and management. PAST MEDICAL HISTORY: Please see list. PAST SURGICAL HISTORY: Please see list. MEDICATIONS: Please see list. ALLERGIES: Please see list. SOCIAL HISTORY: No illicit drug use FAMILY HISTORY: No reports of Crohn disease or ulcerative colitis. REVIEW OF ORGAN SYSTEMS: CONSTITUTIONAL: No reports of fevers or chills. GI: Denies any blood in stools or constipation. PHYSICAL EXAM: VITAL SIGNS: Stable GENERAL: Well-developed and pleasant in no acute distress. HEENT: No scleral icterus. Extraocular movements grossly intact. Moist buccal mucosa. NECK: Supple without lymphadenopathy. CHEST: Unlabored respirations. Equal bilateral excursions. CARDIOVASCULAR: Regular rate and rhythm. Distal 2+ pulses. ABDOMEN: Soft, nondistended. MUSCULOSKELETAL: No clubbing, cyanosis, or edema. ASSESSMENT: 1. Gastroesophageal reflux disease PLAN: 1. Recommend proceeding with an upper endoscopy Past Medical History Past Medical History: Atrial Fibrillation, Asthma, GERD/Reflux, Hypertension, Sleep Apnea/CPAP/BIPAP Additional Past Medical History / Comment(s): Hx Kidney stones, afib in past d/t hypokalemia after bariatric surgery-none since, bronchitis, uses CPAP. fx Rt fibula 03/2021, KIDNEY STONES History of Any Multi-Drug Resistant Organisms: None Reported Past Surgical History: Bariatric Surgery, Hernia Repair, Orthopedic Surgery Additional Past Surgical History / Comment(s): Panniculectomy w/ ventral hernia repair, Liliana-en-Y, left knee surgery for torn meniscus, R knee arthroscopy, R bicep reattachment, sinus surgery x3, Lithotripsies w/ 2 kidney stones removed. LEFT SHOULDER SURGERY Past Anesthesia/Blood Transfusion Reactions: Previous Problems w/ Anesthesia, Motion Sickness, Postoperative Nausea & Vomiting (PONV) Smoking Status: Never smoker - Past Family History Father Family Medical History: Cancer, Myocardial Infarction ([place]) Additional Family Medical History / Comment(s): Father had prostate cancer Mother Family Medical History: Pulmonary Embolus Additional Family Medical History / Comment(s): Mother is healthy and is 73 yrs old. Medications and Allergies Home Medications Medication Instructions Recorded Confirmed Type Montelukast Sodium [Singulair] 10 mg PO DAILY 08/06/14 10/26/22 History Albuterol Sulfate [Ventolin HFA] 2 puff INHALATION RT-Q4H PRN 12/04/16 05/28/22 History Omalizumab [Xolair] 300 mg SQ Q14D 10/06/19 05/28/22 History modafiniL [Provigil] 200 mg PO DAILY PRN 10/06/19 05/28/22 History traZODone HCL [Desyrel] 50 - 100 mg PO HS PRN 12/20/20 05/28/22 History Vitamin D3 (Unknown Dose) 1 tab PO DAILY 05/22/21 05/28/22 History Acetaminophen Tab [Tylenol Tab] 1,000 mg PO Q6HR PRN #30 tablet 05/24/21 05/28/22 Rx Tamsulosin [Flomax] 0.4 mg PO DAILY #5 cap 05/24/21 05/28/22 Rx Budesonide/Formoterol Fumarate 1 puff INHALATION BID 05/26/22 05/28/22 History [Symbicort 160-4.5 Mcg Inhaler] Cholecalciferol [Vitamin D3 (25 50 mcg PO DAILY 05/26/22 05/28/22 History Mcg = 1000 Iu)] NIFEdipine [NIFEdipine ER 60 mg PO DAILY 05/26/22 05/28/22 History (Osmotic)] Allergies Allergy/AdvReac Type Severity Reaction Status Date / Time adhesive tape Allergy Rash/Hives Verified 05/28/22 07:43 Penicillins AdvReac Anaphylaxis Verified 05/28/22 07:43 Opvtbfb-PXA-VvQ Reductase AdvReac joint Pain Verified 05/28/22 07:43 Inhibitor [Wlisagq-Sri-Tzp Reductase Inhibitor] Dermabond Allergy Rash/Hives Uncoded 05/28/22 07:43 Surgical - Exam Vital Signs Temp Pulse Resp BP Pulse Ox 96.9 F L 94 18 144/94 98 05/28/22 07:41 05/28/22 07:41 05/28/22 07:41 05/28/22 07:41 05/28/22 07:41
[2022-05-28] MEDS ORDERED: PROPOFOL 10 MG/ML 20 ML VIAL IV ONE (08:19)
[2022-05-28] MEDS ORDERED: ONDANSETRON 4 MG/2 ML VIAL ONE (08:19)
[2022-05-28] MEDS ORDERED: LIDOCAINE 2% INJ 20 MG/ML (2 ML VIAL) ONE (08:19)
--- NOTE | 2022-05-28 08:46 | P.OP ---
Date of Procedure: 05/28/22 Description of Procedure: PREOPERATIVE DIAGNOSIS: Dysphagia. Nausea with vomiting. History of gastric ulcer POSTOPERATIVE DIAGNOSIS: Dysphagia. Nausea with vomiting. History of gastric ulcer Gastrojejunal stricture without chronic ulcer without perforation Diaphragmatic hiatal hernia OPERATION: Esophagogastrojejunoscopy with balloon dilatation from 11 to 20 mm. SURGEON: Arielle Medeiros MD ANESTHESIA: MAC. INDICATIONS: The patient is a 57-year-old male who presents with a history of dysphagia, inc luding nausea and vomiting. Benefits and risks of the procedure were described. Informed consent was obtained. DESCRIPTION: The patient was brought into the endoscopy suite and laid in the left lateral decubitus position. After a timeout was confirmed, the procedure was initiated. An Olympus gastroscope was passed along the posterior oropharynx down to the distal esophagus where the squamocolumnar junction was unremarkable. The gastric pouch was entered. A gastrojejunal stricture of 11 mm was found as the adult gastroscope was 9.5 mm in size. A [employer] balloon dilator was placed through the scope. Final insufflation up to 20 mm was performed with a total of 2 minutes. The scope was advanced up to 60 cm from the incisors into the Liliana limb. The mucosa of the gastrojejunal anastomosis was intact. However chronic gastrojejunal marginal ulcer was encountered. No full-thickness injury was encountered. The GI tract was desufflated. The patient tolerated the procedure well. FINDINGS: Diaphragmatic hiatal hernia 3 cm Stricture of approximately 11 mm encountered. No chronic gastrojejunal ulceration encountered. Successful balloon dilatation to 20 mm. Obstructed Liliana limb dilated RECOMMENDATIONS: Medical reconciliation performed with multiple ulcer inducing medications. Recommend adjustment Start of Protonix and Carafate Repeat upper endoscopy one month May benefit from hiatal hernia repair Plan - Discharge Summary Discharge Rx Participant: No New Discharge Prescriptions: New Sucralfate [Carafate] 1 gm PO BID #30 tablet Pantoprazole [Protonix] 40 mg PO DAILY #14 tab Continue Montelukast Sodium [Singulair] 10 mg PO DAILY Albuterol Sulfate [Ventolin HFA] 2 puff INHALATION RT-Q4H PRN PRN Reason: Shortness Of Breath Or Wheezing traZODone HCL [Desyrel] 50 - 100 mg PO HS PRN PRN Reason: SLEEP Tamsulosin [Flomax] 0.4 mg PO DAILY #5 cap NIFEdipine [NIFEdipine ER (Osmotic)] 60 mg PO DAILY Vitamin D3 (Unknown Dose) 1 tab PO DAILY Acetaminophen Tab [Tylenol] 1,000 mg PO Q6HR PRN #30 tablet PRN Reason: Pain Budesonide/Formoterol Fumarate [Symbicort 160-4.5 Mcg Inhaler] 1 puff INHALATION BID Cholecalciferol [Vitamin D3 (25 Mcg = 1000 Iu)] 50 mcg PO DAILY Discontinued modafiniL [Provigil] 200 mg PO DAILY PRN PRN Reason: FATIQUE Omalizumab [Xolair] 300 mg SQ Q14D Discharge Medication List Montelukast Sodium [Singulair] 10 mg PO DAILY 03/08/14 [History] Albuterol Sulfate [Ventolin HFA] 2 puff INHALATION RT-Q4H PRN 12/04/16 [History] traZODone HCL [Desyrel] 50 - 100 mg PO HS PRN 12/20/20 [History] Vitamin D3 (Unknown Dose) 1 tab PO DAILY 05/22/21 [History] Acetaminophen Tab [Tylenol] 1,000 mg PO Q6HR PRN #30 tablet 05/24/21 [Rx] Tamsulosin [Flomax] 0.4 mg PO DAILY #5 cap 05/24/21 [Rx] Budesonide/Formoterol Fumarate [Symbicort 160-4.5 Mcg Inhaler] 1 puff INHALATION BID 05/26/22 [History] Cholecalciferol [Vitamin D3 (25 Mcg = 1000 Iu)] 50 mcg PO DAILY 05/26/22 [History] NIFEdipine [NIFEdipine ER (Osmotic)] 60 mg PO DAILY 05/26/22 [History] Pantoprazole [Protonix] 40 mg PO DAILY #14 tab 05/28/22 [Rx] Sucralfate [Carafate] 1 gm PO BID #30 tablet 05/28/22 [Rx] Follow up App[facility]ment(s[facility] [place] [facility] [place] [facility] Patient Instructions/Handouts: Diet for Stomach Ulcers and Gastritis (ED), Esophageal Dilation (DC) Activity/Diet/Wound Care/Special Instructions: Repeat upper endoscopy in 1 month Discharge Disposition: HOME SELF-CARE
[2022-05-28 08:50] VITALS: PULSE 83; RESP 16
[2022-05-28 09:12] VITALS: BP 163/99
== END 2022-05-28 09:13 | disposition home or self-care (01) ==
LOC: ORWHC2ENDO 06:48
PROVIDERS: ATTEND Surgery Plastic and Reconstructive Surgery
DX: K31.2 Hourglass stricture and stenosis of stomach (principal); I48.91 Unspecified atrial fibrillation; J45.909 Unspecified asthma, uncomplicated; I10 Essential (primary) hypertension; K21.9 Gastro-esophageal reflux disease without esophagitis; G47.30 Sleep apnea, unspecified; Z88.0 Allergy status to penicillin; K44.9 Diaphragmatic hernia without obstruction or gangrene; Z79.51 Long term (current) use of inhaled steroids; Z79.899 Other long term (current) drug therapy
CPT/HCPCS: 43245; J2405; J2704; J2001; C1726

== ENCOUNTER 2022-08-04 06:37 | Day surgery (SDC) | payer MEDICAID ==
[2022-07-30 16:18] VITALS: BMI 36.0
[2022-08-04 07:26] VITALS: RESP 16; TEMP 98.4
[2022-08-04] MEDS ORDERED: PROPOFOL 10 MG/ML 20 ML VIAL IV ONE (07:30)
[2022-08-04] MEDS ORDERED: ONDANSETRON 4 MG/2 ML VIAL ONE (07:30)
[2022-08-04] MEDS ORDERED: LIDOCAINE 2% INJ 20 MG/ML (2 ML VIAL) ONE (07:30)
--- NOTE | 2022-08-04 07:31 | P.GSHP ---
History of Present Illness H&P Date: 08/04/22 CHIEF COMPLAINT: GERD HISTORY OF PRESENT ILLNESS: The patient is a 57-year-old male who presents reports gastroesophageal reflux disease. Upper endoscopy was offered for further evaluation and management. PAST MEDICAL HISTORY: Please see list. PAST SURGICAL HISTORY: Please see list. MEDICATIONS: Please see list. ALLERGIES: Please see list. SOCIAL HISTORY: No illicit drug use FAMILY HISTORY: No reports of Crohn disease or ulcerative colitis. REVIEW OF ORGAN SYSTEMS: CONSTITUTIONAL: No reports of fevers or chills. GI: Denies any blood in stools or constipation. PHYSICAL EXAM: VITAL SIGNS: Stable GENERAL: Well-developed and pleasant in no acute distress. HEENT: No scleral icterus. Extraocular movements grossly intact. Moist buccal mucosa. NECK: Supple without lymphadenopathy. CHEST: Unlabored respirations. Equal bilateral excursions. CARDIOVASCULAR: Regular rate and rhythm. Distal 2+ pulses. ABDOMEN: Soft, nondistended. MUSCULOSKELETAL: No clubbing, cyanosis, or edema. ASSESSMENT: 1. Gastroesophageal reflux disease PLAN: 1. Recommend proceeding with an upper endoscopy Past Medical History Past Medical History: Atrial Fibrillation, Asthma, GERD/Reflux, Hypertension, Sleep Apnea/CPAP/BIPAP Additional Past Medical History / Comment(s): Hx Kidney stones, afib in past d/t hypokalemia after bariatric surgery-none since, bronchitis, uses CPAP. fx Rt fibula 03/2021 History of Any Multi-Drug Resistant Organisms: None Reported Past Surgical History: Bariatric Surgery, Hernia Repair, Orthopedic Surgery Additional Past Surgical History / Comment(s): Panniculectomy w/ ventral hernia repair, Liliana-en-Y, left knee surgery for torn meniscus, R knee arthroscopy, R bicep reattachment, sinus surgery x3, Lithotripsies w/ 2 kidney stones removed. LEFT SHOULDER SURGERY Past Anesthesia/Blood Transfusion Reactions: Previous Problems w/ Anesthesia, Motion Sickness, Postoperative Nausea & Vomiting (PONV) Smoking Status: Never smoker - Past Family History Father Family Medical History: Cancer, Myocardial Infarction ([place]) Additional Family Medical History / Comment(s): Father had prostate cancer Mother Family Medical History: Pulmonary Embolus Additional Family Medical History / Comment(s): Mother is healthy and is 73 yrs old. Medications and Allergies Home Medications Medication Instructions Recorded Confirmed Type Montelukast Sodium [Singulair] 10 mg PO BID 03/08/14 08/04/22 History Albuterol Sulfate [Ventolin HFA] 2 puff INHALATION RT-Q4H PRN 12/04/16 08/04/22 History traZODone HCL [Desyrel] 50 - 100 mg PO HS PRN 12/20/20 08/04/22 History Budesonide/Formoterol Fumarate 1 puff INHALATION BID 05/26/22 08/04/22 History [Symbicort 160-4.5 Mcg Inhaler] NIFEdipine [NIFEdipine ER 60 mg PO HS 05/26/22 08/04/22 History (Osmotic)] Omeprazole 20 mg PO DAILY PRN 07/09/22 08/04/22 History Sucralfate [Carafate] 1 gm PO TID 07/09/22 08/04/22 History Allergies Allergy/AdvReac Type Severity Reaction Status Date / Time adhesive tape Allergy Rash/Hives Verified 08/04/22 07:17 Penicillins AdvReac Anaphylaxis Verified 08/04/22 07:17 Qlegfag-BKZ-AlK Reductase AdvReac joint Pain Verified 08/04/22 07:17 Inhibitor [Jnmafxl-Hem-Dot Reductase Inhibitor] Dermabond Allergy Rash/Hives Uncoded 08/04/22 07:17 Surgical - Exam Vital Signs Temp Pulse Resp BP Pulse Ox 98.4 F 82 16 152/97 98 08/04/22 07:25 08/04/22 07:25 08/04/22 07:25 08/04/22 07:25 08/04/22 07:25
[2022-08-04 08:08] VITALS: BP 147/90; PULSE 72
--- NOTE | 2022-08-04 08:09 | P.PCN ---
Date of Procedure: 08/04/22 Description of Procedure: PREOPERATIVE DIAGNOSIS: Gastroesophageal reflux disease Dysphagia. Nausea with vomiting. Morbid obesity due to excess calories, BMI 36.4 POSTOPERATIVE DIAGNOSIS: Diaphragmatic hiatal hernia, incarcerated Gastric stenosis with ulcer Gastrojejunal stricture with chronic ulcer without perforation Gastritis OPERATION: Esophagogastrojejunoscopy with balloon dilatation from 9.5 to 18 mm. Esophagogastrojejunoscopy with cold biopsies gastric pouch SURGEON: Arielle Medeiros MD ANESTHESIA: MAC. INDICATIONS: The patient is a 57-year-old gastroesophageal reflux disease, male who presents with history of dysphagia, including new-onset nausea and vomiting. Benefits and risks of the procedure were described. Informed consent was obtained. DESCRIPTION: The patient was brought into the endoscopy suite and laid in the left lateral decubitus position. After a timeout was confirmed, the procedure was initiated. An Olympus gastroscope was passed along the posterior oropharynx down to the distal esophagus where the squamocolumnar junction was unremarkable. The gastric pouch was entered. A gastrojejunal stricture of 9.5 mm was found as the adult gastroscope was 9.5 mm in size. A [email or web address] balloon dilator was placed through the scope. Final insufflation up to 18 mm was performed with a total of 1 minutes followed by perforation of balloon. The scope was advanced up to 60 cm from the incisors into the Liliana limb. The mucosa of the gastrojejunal anastomosis was intact. However chronic gastrojejunal marginal ulcer was encountered. No full-thickness injury was encountered. The GI tract was desufflated. The patient tolerated the procedure well. FINDINGS: Squamocolumnar junction unremarkable at 37 cm. Diaphragmatic hiatal hernia, 2 cm, incarcerated Stricture of approximately 9.5 mm encountered. Chronic gastrojejunal ulceration encountered. Biopsies obtained gastric pouch Gastric pouch, 5 cm RECOMMENDATIONS: Liquid diet. Omeprazole 40 mg daily Repeat upper endoscopy 4 weeks for dilation Plan - Discharge Summary New Discharge Prescriptions: New Omeprazole [PriLOSEC] 40 mg PO DAILY #90 cap Continue Montelukast Sodium [Singulair] 10 mg PO BID Albuterol Sulfate [Ventolin HFA] 2 puff INHALATION RT-Q4H PRN PRN Reason: Shortness Of Breath Or Wheezing traZODone HCL [Desyrel] 50 - 100 mg PO HS PRN PRN Reason: SLEEP NIFEdipine [NIFEdipine ER (Osmotic)] 60 mg PO HS Sucralfate [Carafate] 1 gm PO TID Budesonide/Formoterol Fumarate [Symbicort 160-4.5 Mcg Inhaler] 1 puff INHALATION BID Discontinued Omeprazole 20 mg PO DAILY PRN PRN Reason: reflux Discharge Medication List Montelukast Sodium [Singulair] 10 mg PO BID 03/08/14 [History] Albuterol Sulfate [Ventolin HFA] 2 puff INHALATION RT-Q4H PRN 12/04/16 [History] traZODone HCL [Desyrel] 50 - 100 mg PO HS PRN 12/20/20 [History] Budesonide/Formoterol Fumarate [Symbicort 160-4.5 Mcg Inhaler] 1 puff INHALATION BID 05/26/22 [History] NIFEdipine [NIFEdipine ER (Osmotic)] 60 mg PO HS 05/26/22 [History] Sucralfate [Carafate] 1 gm PO TID 07/09/22 [History] Omeprazole [PriLOSEC] 40 mg PO DAILY #90 cap 08/04/22 [Rx] Follow up Appointment(s)/Referral(s): [facility] [place] [facility] - 08/[facility]/22 Patient Instructions/Handouts: Esophageal Dilation (DC), Peptic Ulcer ([place]), Level 1 National Dysphagia Diet ([place]) Activity/Diet/Wound Care/Special Instructions: Recommend liquid diet or pureed. No solid foods. Cut or crush all medications or open capsules. Repeat upper scope in 4 weeks. Discharge Disposition: HOME SELF-CARE
== END 2022-08-04 08:35 | disposition home or self-care (01) ==
LOC: ORWHC2ENDO 06:37
PROVIDERS: ATTEND Surgery Plastic and Reconstructive Surgery
DX: K91.30 Postprocedural intestinal obstruction, unspecified as to partial versus complete (principal); K29.50 Unspecified chronic gastritis without bleeding; K44.9 Diaphragmatic hernia without obstruction or gangrene; K21.9 Gastro-esophageal reflux disease without esophagitis; K28.7 Chronic gastrojejunal ulcer without hemorrhage or perforation; E66.9 Obesity, unspecified; Z68.36 Body mass index [BMI] 36.0-36.9, adult; Z98.84 Bariatric surgery status; Z98.0 Intestinal bypass and anastomosis status; Z98.890 Other specified postprocedural states; I48.91 Unspecified atrial fibrillation; J45.909 Unspecified asthma, uncomplicated; I10 Essential (primary) hypertension; G47.33 Obstructive sleep apnea (adult) (pediatric); Z99.89 Dependence on other enabling machines and devices; Z87.442 Personal history of urinary calculi; E87.6 Hypokalemia; Z80.42 Family history of malignant neoplasm of prostate; Z82.49 Family history of ischemic heart disease and other diseases of the circulatory system; Z83.2 Family history of diseases of the blood and blood-forming organs and certain disorders involving the immune mechanism; Z79.51 Long term (current) use of inhaled steroids; Z79.891 Long term (current) use of opiate analgesic; Z79.811 Long term (current) use of aromatase inhibitors; Z79.899 Other long term (current) drug therapy; Z88.0 Allergy status to penicillin; Z91.048 Other nonmedicinal substance allergy status; Z88.8 Allergy status to other drugs, medicaments and biological substances
CPT/HCPCS: 43249 ×2; 43239 ×2; 88305; J2405; J2704; J2001; C1726

== ENCOUNTER → 2022-11-19 | Outpatient (CLI) | payer MEDICAID ==
[2022-11-19 15:11] VITALS: BP 181/98; PULSE 77; TEMP 98.1; BMI 32.8
--- NOTE | 2022-11-19 15:25 | P.BASOAP ---
Subjective Progress Note Date: 11/19/22 He is doing well. Upper endoscopy as needed. Objective - Vital Signs Vital signs: Vital Signs Temp 98.1 F 11/19/22 15:08 Pulse 77 11/19/22 15:08 Resp BP 181/98 11/19/22 15:08 Pulse Ox FiO2 Intake & Output 11/18/22 11/19/22 11/19/22 18:59 06:59 18:59 Weight 103.873 kg Assessment/Plan Plan: Date: 11/19/22 Initial Weight: 163.52 kg Initial BMI: 51.7 Current Weight: 103.873 kg Current BMI: 32.8 Type of Surgery: Total Volume in Band: Previous Volume: Volume Removed: Volume Added: Band Size:
== END ==
LOC: BARWHC3 14:17
PROVIDERS: ATTEND Surgery Plastic and Reconstructive Surgery
DX: E66.01 Morbid (severe) obesity due to excess calories (principal); Z68.32 Body mass index [BMI] 32.0-32.9, adult; Z91.048 Other nonmedicinal substance allergy status; Z88.0 Allergy status to penicillin; Z88.5 Allergy status to narcotic agent
CPT/HCPCS: 99211

== ENCOUNTER 2022-12-15 13:02 | Inpatient (IN) | payer MEDICAID ==
[~2022-12-15 13:02] MED LIST changes: +LACTATED RINGERS 1,000 ML IV ONE; -LACTATED RINGERS 1,000 ML IV SCH
[2022-12-15] MEDS ORDERED: SODIUM CHLORIDE 0.9% 1,000 ML IV ONE ×2 (13:34→15:59)
[2022-12-15] MEDS ORDERED: FAMOTIDINE 20 MG/2 ML VIAL IV STA (13:36)
[2022-12-15] MEDS ORDERED: KETOROLAC 15 MG/ML 1 ML VIAL IVP STA (13:36)
[2022-12-15 13:51] LABS: Basophils # (A) 0.1 k/uL (0-0.2); Basophils % (A) 0 %; Eosinophils % (A) 0 %; HCT 41.7 % (39.0-53.0); HGB 13.6 gm/dL (13.0-17.5); Lymphocytes # (A) 0.4 k/uL (1.0-4.8); Lymphocytes % (A) 2 %; MCH 28.2 pg (25.0-35.0); MCHC 32.7 g/dL (31.0-37.0); MCV 86.2 fL (80.0-100.0); Mean Platelet Volume 6.6; Monocytes # (A) 0.6 k/uL (0-1.0); Monocytes % (A) 4 %; Neutrophils # (A) 15.2 k/uL (1.3-7.7); Neutrophils % (A) 93 %; Platelet Count 500 k/uL (150-450); RBC 4.83 m/uL (4.30-5.90); RDW 15.5 % (11.5-15.5); WBC 16.3 k/uL (3.8-10.6)
[2022-12-15 13:56] LABS: ALT 19 U/L (4-49); AST 27 U/L (17-59); African American GFR (CKD) >90 (>60 ml/min/1.73 sqM); Albumin 3.7 g/dL (3.5-5.0); Alkaline Phosphatase 118 U/L (38-126); Amylase 43 U/L (30-110); Anion Gap 10 mmol/L; Blood Urea Nitrogen 8 mg/dL (9-20); Calcium 8.7 mg/dL (8.4-10.2); Carbon Dioxide 30 mmol/L (22-30); Chloride 96 mmol/L (98-107); Glucose 171 mg/dL (74-99); Lipase 56 U/L (23-300); Non-African American GFR(CKD) >90 (>60 ml/min/1.73 sqM); Potassium 3.6 mmol/L (3.5-5.1); Sodium 136 mmol/L (137-145); Total Bilirubin 0.8 mg/dL (0.2-1.3); Total Protein 6.4 g/dL (6.3-8.2)
[2022-12-15] MEDS ORDERED: MORPHINE SULFATE 4 MG/ML SYRINGE IVP STA (14:36)
--- NOTE | 2022-12-15 15:08 | ED ---
General Adult HPI - General Chief complaint: Abdominal Pain Stated complaint: abd pain Time Seen by Provider: 12/15/22 13:13 Source: patient, RN notes reviewed Mode of arrival: ambulatory Limitations: no limitations - History of Present Illness Initial comments: 57-year-old male with no significant past medical history presents to the emergency department with generalized abdominal pain that started last night. He describes his abdominal pain of sharp and constant. He has been taking an antacid without symptomatic relief. He denies for coming symptoms of fever, fatigue, hematemesis, chest pain, shortness of breath nausea, vomiting, diarrhea, melena, hematochezia. Reports last bowel movement was early this morning and was normal for him. He admits to cholecystectomy. His general surgeon is Dr. Pathak. - Related Data Home Medications Medication Instructions Recorded Confirmed Montelukast Sodium [Singulair] 10 mg PO DAILY 03/08/14 12/15/22 Albuterol Sulfate [Ventolin HFA] 2 puff INHALATION RT-Q4H PRN 12/04/16 12/15/22 traZODone HCL [Desyrel] 50 - 100 mg PO HS 12/20/20 12/15/22 NIFEdipine [NIFEdipine ER 60 mg PO DAILY 05/26/22 12/15/22 (Osmotic)] Dupilumab [Dupixent Syringe] 300 mg SQ Q14D 12/15/22 12/15/22 EPINEPHrine (Auto Inject) [Epipen] 0.3 mg IM ONCE PRN 12/15/22 12/15/22 Fluticasone Nasal [place] [Flonase 1 spray EA NOSTRIL DAILY 12/15/22 12/15/22 Nasal [place]] modafiniL [Provigil] 200 mg PO DAILY 12/15/22 12/15/22 Previous Rx's Medication Instructions Recorded Omeprazole [PriLOSEC] 40 mg PO DAILY #90 cap 08/04/22 Allergies Allergy/AdvReac Type Severity Reaction Status Date / Time adhesive tape Allergy Rash/Hives Verified 12/15/22 14:31 Penicillins AdvReac Anaphylaxis Verified 12/15/22 14:31 Qgthmyg-HQV-DuU Reductase AdvReac joint Pain Verified 12/15/22 14:31 Inhibitor [Rjcvdam-Wkf-Jgc Reductase Inhibitor] Dermabond Allergy Rash/Hives Uncoded 12/15/22 14:31 Review of Systems ROS Statement: Those systems with pertinent positive or pertinent negative responses have been documented in the HPI. ROS Other: All systems not noted in ROS Statement are negative. Past Medical History Past Medical History: Atrial Fibrillation, Asthma, GERD/Reflux, Hypertension, Sleep Apnea/CPAP/BIPAP Additional Past Medical History / Comment(s): Hx Kidney stones, afib in past d/t hypokalemia after bariatric surgery-none since, bronchitis, uses CPAP. fx Rt fibula 03/2021, recent hx. gastric ulcers History of Any Multi-Drug Resistant Organisms: None Reported Past Surgical History: Bariatric Surgery, Hernia Repair, Joint Replacement, Orthopedic Surgery Additional Past Surgical History / Comment(s): Panniculectomy w/ ventral hernia repair, Liliana-en-Y, left knee surgery for torn meniscus, R knee arthroscopy, R bicep reattachment, sinus surgery x3, Lithotripsies w/ 2 kidney stones removed. LEFT SHOULDER SURGERY, left knee replaced recently Past Anesthesia/Blood Transfusion Reactions: Motion Sickness, Postoperative Nausea & Vomiting (PONV) Past Psychological History: No Psychological Hx Reported Smoking Status: Never smoker Past Alcohol Use History: Occasional Past Drug Use History: None Reported - Past Family History Father Family Medical History: Cancer, Myocardial Infarction ([place]) Additional Family Medical History / Comment(s): Father had prostate cancer Mother Family Medical History: Pulmonary Embolus Additional Family Medical History / Comment(s): Mother is healthy and is 73 yrs old. General Exam - General Exam Comments Initial Comments: General: Alert, in no acute distress Head: atraumatic normocephalic. Eyes PERRL, EOMI intact, mucous membranes moist Respiratory: Lungs clear to auscultation bilaterally Cardiovascular: Heart rate regular rate and rhythm Abdominal: Soft without guarding or rebound, generalized abdominal tenderness Extremities: Normal inspection with full range of motion and normal capillary refill Neuroogic: alert and oriented 3, CN II-XII intact, able to ambulate with steady gait Skin: warm dry and intact with normal color Limitations: no limitations Course Vital Signs 12/15/22 12/15/22 12/15/22 13:04 15:03 16:11 Temperature 98.2 F Pulse Rate 105 H 88 88 Respiratory 20 18 18 Rate Blood Pressure 154/89 162/94 163/114 O2 Sat by Pulse 99 98 98 Oximetry 12/15/22 18:06 Temperature Pulse Rate 89 Respiratory 18 Rate Blood Pressure 167/112 O2 Sat by Pulse 95 Oximetry - Reevaluation(s) Reevaluation #1: 12/15/22 15:08 Patient reevaluated and updated on laboratory results. Reevaluation #2: 12/15/22 15:[address] critical [address] results by Dr. Russo. Dr. Pathak paged. Surgical labs added. Reevaluation #3: 12/15/22 16:[address] Pathak, general surgery who agrees and accepts the patient for admission Medical Decision Making - Medical Decision Making Was pt. sent in by a medical professional or institution (, PA, [employer], urgent care, hospital, or penitentiary...) When possible be specific @ -[No] Did you speak to anyone other than the patient for history (EMS, parent, family, police, friend...)? What history was obtained from this source @ -[No] Did you review nursing and triage notes (agree or disagree)? Why? @ -[I reviewed and agree with nursing and triage notes] Were old charts reviewed (outside hosp., previous admission, EMS record, old EKG, old radiological studies, urgent care reports/EKG's, penitentiary records)? Report findings @ -[No old charts were reviewed] Differential Diagnosis (chest pain, altered mental status, abdominal pain women, abdominal pain men, vaginal bleeding, weakness, fever, dyspnea, syncope, headache, dizziness, GI bleed, back pain, seizure, CVA, palpatations, mental health, musculoskeletal)? @ -[not applicable] EKG interpreted by me (3pts min.). @ -[As above] X-rays interpreted by me (1pt min.). @ -[None done] CT interpreted by me (1pt min.). @ -[None done] U/S interpreted by me (1pt. min.). @ -[None done] What testing was considered but not performed or refused? (CT, X-rays, U/S, labs)? Why? @ -[None] What meds were considered but not given or refused? Why? @ -[None] Did you discuss the management of the patient with other professionals (professionals i.e. , PA, [employer], lab, RT, psych nurse, social service technician, automated manufacturing instructor, teacher, air support control officer, case packer and sealer)? Give summary @ -[No] Was smoking cessation discussed for >3mins.? @ -[No] Was critical care preformed (if so, how long)? @ -[No] Were there social determinants of health that impacted care today? How? (Homelessness, low income, unemployed, alcoholism, drug addiction, transportation, low edu. Level, literacy, decrease access to med. care, penitentiary, rehab)? @ -[No] Was there de-escalation of care discussed even if they declined (Discuss DNR or withdrawal of care, Hospice)? DNR status @ -[No] What co-morbidities impacted this encounter? (DM, HTN, Smoking, COPD, CAD, Cancer, CVA, ARF, Chemo, Hep., AIDS, mental health diagnosis, sleep apnea, morbid obesity)? @ -[None] Was patient admitted / discharged? Hospital course, mention meds given and route, prescriptions, significant lab abnormalities, going to OR and other pertinent info. @ -Admission. This is a 57-year-old male who presents to the emergency department with abdominal pain. Patient had a thorough history and physical exam performed while in the ED. Physical exam reveals generalized ab dominal tenderness. Patient had lab work and imaging performed which revealed: Labs remarkable for WBC 16.3, hemoglobin 13.6, coagulation unremarkable sodium 136 BUNs 8, creatinine 0.50 lactic acid 2.8 amylase 43, lipase 56 CT reveals status post Liliana-en-y gastric bypass. There is abnormal thickening at and just after the gastrojejunostomy with inflammatory changes and mild to moderate 3 inch peritoneal air and scattered mild abdominal ascites likely secondary to perforation I discussed the results in detail with the patient verbalized understanding. He is agreeable with the plan for admission. He was started on cefepime. He was given 2 L IV fluids. At that time Dr. Pathak came down into the emergency department to evaluate the patient. She agrees and accepts the patient for a dmission. Case discussed with Dr. Campbell who agrees with plan of care Undiagnosed new problem with uncertain prognosis? @ -[No] Drug Therapy requiring intensive monitoring for toxicity (Heparin, Nitro, Insulin, Cardizem)? @ -[No] Were any procedures done? @ -[No] Diagnosis/symptom? @ -Abdominal pain - Perforated Bowel -History of Liliana-En-Y procedure Acute, or Chronic, or Acute on Chronic? @ -acute Uncomplicated (without systemic symptoms) or Complicated (systemic symptoms)? @ -complicated Side effects of treatment? @ -[No] Exacerbation, Progression, or Severe Exacerbation? @ -[No] Poses a threat to life or bodily function? How? (Chest pain, [place], [place], pneumonia, PE, COPD, DKA, ARF, appy, cholecystitis, CVA, Diverticulitis, Homicidal, Suicidal, threat to staff... and all critical care pts) @ -high likelihood - Lab Data Result diagrams: 12/16/22 05:25 12/16/22 11:31 Lab Results 12/15/22 12/15/22 12/15/22 Range/Units 13:37 13:37 13:37 WBC 16.3 H (3.8-10.6) k/uL RBC 4.83 (4.30-5.90) m/uL Hgb 13.6 (13.0-17.5) gm/dL Hct 41.7 (39.0-53.0) % MCV 86.2 (80.0-100.0) fL MCH 28.2 (25.0-35.0) pg MCHC 32.7 (31.0-37.0) g/dL RDW 15.5 (11.5-15.5) % Plt Count 500 H (150-450) k/uL MPV 6.6 Neutrophils % 93 % Lymphocytes % 2 % Monocytes % 4 % Eosinophils % 0 % Basophils % 0 % Neutrophils # 15.2 H (1.3-7.7) k/uL Lymphocytes # 0.4 L (1.0-4.8) k/uL Monocytes # 0.6 (0-1.0) k/uL Eosinophils # 0.0 (0-0.7) k/uL Basophils # 0.1 (0-0.2) k/uL PT (9.0-12.0) sec INR (<1.2) APTT (22.0-30.0) sec Sodium 136 L (137-145) mmol/L Potassium 3.6 (3.5-5.1) mmol/L Chloride 96 L (98-107) mmol/L Carbon Dioxide 30 (22-30) mmol/L Anion Gap 10 mmol/L BUN 8 L (9-20) mg/dL Creatinine 0.50 L (0.66-1.25) mg/dL Est GFR (CKD-EPI)AfAm >90 (>60 ml/min/1.73 sqM) Est GFR (CKD-EPI)NonAf >90 (>60 ml/min/1.73 sqM) Glucose 171 H (74-99) mg/dL Lactic Ac Sepsis Rflx Plasma Lactic Acid Tristin 2.8 H* (0.7-2.0) mmol/L Calcium 8.7 (8.4-10.2) mg/dL Total Bilirubin 0.8 (0.2-1.3) mg/dL AST 27 (17-59) U/L ALT 19 (4-49) U/L Alkaline Phosphatase 118 (38-126) U/L Total Protein 6.4 (6.3-8.2) g/dL Albumin 3.7 (3.5-5.0) g/dL Amylase 43 (30-110) U/L Lipase 56 (23-300) U/L Blood Type Blood Type Recheck Bld Type Recheck Status Antibody Screen Spec Expiration Date 12/15/22 12/15/22 12/15/22 Range/Units 13:59 16:06 16:06 WBC (3.8-10.6) k/uL RBC (4.30-5.90) m/uL Hgb (13.0-17.5) gm/dL Hct (39.0-53.0) % MCV (80.0-100.0) fL MCH (25.0-35.0) pg MCHC (31.0-37.0) g/dL RDW (11.5-15.5) % Plt Count (150-450) k/uL MPV Neutrophils % % Lymphocytes % % Monocytes % % Eosinophils % % Basophils % % Neutrophils # (1.3-7.7) k/uL Lymphocytes # (1.0-4.8) k/uL Monocytes # (0-1.0) k/uL Eosinophils # (0-0.7) k/uL Basophils # (0-0.2) k/uL PT 10.8 (9.0-12.0) sec INR 1.0 (<1.2) APTT 23.1 (22.0-30.0) sec Sodium (137-145) mmol/L Potassium (3.5-5.1) mmol/L Chloride (98-107) mmol/L Carbon Dioxide (22-30) mmol/L Anion Gap mmol/L BUN (9-20) mg/dL Creatinine (0.66-1.25) mg/dL Est GFR (CKD-EPI)AfAm (>60 ml/min/1.73 sqM) Est GFR (CKD-EPI)NonAf (>60 ml/min/1.73 sqM) Glucose (74-99) mg/dL Lactic Ac Sepsis Rflx Y Plasma Lactic Acid Tristin 1.7 (0.7-2.0) mmol/L Calcium (8.4-10.2) mg/dL Total Bilirubin (0.2-1.3) mg/dL AST (17-59) U/L ALT (4-49) U/L Alkaline Phosphatase (38-126) U/L Total Protein (6.3-8.2) g/dL Albumin (3.5-5.0) g/dL Amylase (30-110) U/L Lipase (23-300) U/L Blood Type Blood Type Recheck Bld Type Recheck Status Antibody Screen Spec Expiration Date 12/15/22 Range/Units 16:13 WBC (3.8-10.6) k/uL RBC (4.30-5.90) m/uL Hgb (13.0-17.5) gm/dL Hct (39.0-53.0) % MCV (80.0-100.0) fL MCH (25.0-35.0) pg MCHC (31.0-37.0) g/dL RDW (11.5-15.5) % Plt Count (150-450) k/uL MPV Neutrophils % % Lymphocytes % % Monocytes % % Eosinophils % % Basophils % % Neutrophils # (1.3-7.7) k/uL Lymphocytes # (1.0-4.8) k/uL Monocytes # (0-1.0) k/uL Eosinophils # (0-0.7) k/uL Basophils # (0-0.2) k/uL PT (9.0-12.0) sec INR (<1.2) APTT (22.0-30.0) sec Sodium (137-145) mmol/L Potassium (3.5-5.1) mmol/L Chloride (98-107) mmol/L Carbon Dioxide (22-30) mmol/L Anion Gap mmol/L BUN (9-20) mg/dL Creatinine (0.66-1.25) mg/dL Est GFR (CKD-EPI)AfAm (>60 ml/min/1.73 sqM) Est GFR (CKD-EPI)NonAf (>60 ml/min/1.73 sqM) Glucose (74-99) mg/dL Lactic Ac Sepsis Rflx Plasma Lactic Acid Tristin (0.7-2.0) mmol/L Calcium (8.4-10.2) mg/dL Total Bilirubin (0.2-1.3) mg/dL AST (17-59) U/L ALT (4-49) U/L Alkaline Phosphatase (38-126) U/L Total Protein (6.3-8.2) g/dL Albumin (3.5-5.0) g/dL Amylase (30-110) U/L Lipase (23-300) U/L Blood Type B Positive Blood Type Recheck B Pos Bld Type Recheck Status No Antibody Screen NEGATIVE Spec Expiration Date 12/18/20222312 Disposition Clinical Impression: Bowel perforation, Abdominal pain Disposition: ADMITTED IP TO THIS HOSP Condition: Fair Is patient prescribed a controlled substance at d/c from ED?: No Time of Disposition: 15:44
--- NOTE | 2022-12-15 15:41 | CT ---
EXAMINATION TYPE: CT abdomen pelvis w con DATE OF EXAM: 12/15/2022 COMPARISON: 02/10/2022 HISTORY: 57-year-old male abdominal pain TECHNIQUE: Contiguous axial scanning of the abdomen and pelvis following administration of 100 ml Iso bebeto 300 IV contrast. Delayed images through the kidneys and coronal/sagittal reconstructions perform ed. CT DLP: 2033.7 mGycm Automated exposure control for dose reduction was used. FINDINGS: The heart is upper limits of normal in size without pericardial effusion. Some patchy peripheral opac ities have increased from 02/10/2022, possible postinfectious scarring. Clinically correlate. A vague hypodense lesion within the mid liver measures 2.1 cm versus 2.3 cm, previously. Portal venou s system is patent. No biliary ductal dilatation. Adrenal glands, kidneys, spleen, pancreas and a personality. Postsurgical change of Liliana-en-Y gastric bypass. This seems to be an antecolic gastric bypass. There is abnormal thickening and moderate inflammatory fat stranding in the anterior left upper quadrant at and just after the gastrojejunostomy. Scattered mild to moderate free intraperitoneal air is present . No dilated small bowel. Mild free fluid throughout the abdomen. No significant stool burden. Bladder is nondistended. No abnormal fluid collection the pelvis or pelvic lymphadenopathy. Bones: [facility] lower thoracic to upper lumbar spine. Hypertrophic facet arthropathy lower lumbar spine. Bilateral L5 pars defects with grade 1 anterolisthesis L5-S1. IMPRESSION: 1. STATUS POST LILIANA-EN-Y GASTRIC BYPASS. THERE IS ABNORMAL THICKENING AT AND JUST AFTER THE GASTROJEJ UNOSTOMY WITH INFLAMMATORY CHANGES AND MILD TO MODERATE FREE INTRAPERITONEAL AIR. CONSIDER MARGINAL U LCER WITH ASSOCIATED PERFORATION. 2. SCATTERED MILD ABDOMINAL ASCITES LIKELY SECONDARY TO PERFORATION. 3. NONSPECIFIC HYPODENSE LESION WITHIN THE MID LIVER MEASURES 2.1 CM VERSUS 2.3 CM ON 02/10/2022. OVER ALL STABILITY/INDOLENT BEHAVIOR SUGGESTS A BENIGN ETIOLOGY. Critical findings called to Dr. Russo in the ER at 3:36 PM.
[2022-12-15] MEDS ORDERED: HYDROmorphone 1 MG/ML 1 ML SYRINGE IVP STA (15:43)
[2022-12-15] MEDS ORDERED: CEFEPIME 2 GM in SODIUM CHLORIDE 0.9% 100 ML IVPB STA (15:46)
[2022-12-15] MEDS ORDERED: NALOXONE 0.4 MG/ML 1 ML VIAL IV PRN (16:31)
[2022-12-15 16:41] LABS: Partial Thromboplastin Time 23.1 sec (22.0-30.0); Prothrombin Time 10.8 sec (9.0-12.0)
--- NOTE | 2022-12-15 17:50 | P.GSHP ---
History of Present Illness H&P Date: 12/15/22 CHIEF COMPLAINT: Perforated bowel with peritonitis HISTORY OF PRESENT ILLNESS: The patient is a 57 year old male who presents to the emergency room with severe epigastric to bilateral lower abdominal pain for 4 days. Patient has recent history of gastric ulcer treated 2 months ago. He also reports knee replacement less than 2 weeks ago and started a new medication Dupixent. He reports persistent epigastric abdominal pain prior to his presentation that is 10/10 today. Reports dark stools which started 2 days ago. Reports troubles with eating with epigastric pain. Also reports dysphagia prior to presentation. Patient reports pain is worse with ambulating or movement. PAST MEDICAL HISTORY: See list and reviewed PAST SURGICAL HISTORY: See list and reviewed MEDICATIONS: See list and reviewed ALLERGIES: See list and reviewed SOCIAL HISTORY: See list and reviewed FAMILY HISTORY: See list and reviewed REVIEW OF ORGAN SYSTEMS: CONSTITUTIONAL: Intentional weight loss over 90 to 100 pounds from gastric bypass, over 8-10 years. EYES: Denies any trouble with vision. No glasses. HEENT: No difficulties with hearing. No nosebleeds. No difficulty swallowing. RESPIRATORY: Denies pneumonia. Denies any troubles with breathing or dyspnea on exertion. History of sleep apnea. Has asthma. CARDIOVASCULAR: Has atrial fibrillation. Has hypertensive heart disease. GASTROINTESTINAL: Personal history of recent gastric ulcer and stricture with dysphagia. Has gastric bypass. Has postop nausea or vomiting. GENITOURINARY: Personal history of multiple kidney stones with lithotripsy. NEUROLOGICAL: Denies any numbness or tingling along the distal extremities. No seizure disorders or headaches. MUSCULOSKELETAL: Has back pain, stiffness or joint arthritis. Has recent bilateral knee arthroplasty in the last 2 weeks to 3 months. SKIN: No current skin cancer. No rash. PSYCHIATRIC: Denies current depression or suicidal thoughts. ENDOCRINE: Denies current thyroid disorders. Denies any blood sugar glucose intolerance. HEME/LYMPHATIC: Denies any lumps and bumps around the neck. No recent deep venous thrombosis. ALLERGY/IMMUNOLOGY: No immunoglobulin therapy. No immune deficiencies. BREAST: Denies current breast lumps, pain or nipple discharge. PHYSICAL EXAM: VITALS: Reviewed CONSTITUTIONAL: Well developed male in acute distress, toxic in appearance. EYES: Conjuctivae without sclera icterus. Extraocular movements grossly intact. HEAD, EARS, NOSE, THROAT: Moist buccal mucosa. Head is atraumatic, normocephalic. Hears conversational speech. No nasal drainage. NECK: Supple. No JV distention. No thyroidomegaly. RESPIRATORY: Non-labored respirations and equal bilateral excursions. No gross wheezes. CARDIOVASCULAR: Palpable 2+ radial pulses.tachycardic. ABDOMEN: Generalized peritonitis epigastrium and bilateral lower abdomen. LYMPH: No neck lymphadenopathy. MUSCULOSKELETAL: No clubbing cyanosis or edema SKIN: Warm and well perfused with good skin turgor. NEUROLOGIC: Cranial nerves II through XII grossly intact. No focal or lateralizing signs. PSYCH: Appropriate affect. Alert and oriented to person, place and time. Displays appropriate insight. CLINCAL LABS: Reviewed. WBC elevated over 16,000. Platelets elevated over 500,000. Lactic acid elevated lactic acidosis. IMAGING: Independently reviewed. CT of the abdomen and pelvis reviewed dem onstrates air around upper abdomen, gastrojejunal anastomosis consistent with perforated gastrojejunal ulcer. This my independent interpretation. RADIOLOGY: Report revieweda CT demonstrates localize thickness along the gastric pouch suspected perforation. RECORDS: previous old records reviewed October 2022 demonstrates resolved chronic gastrojejunal ulcer. ASSESSMENT: 1. Acute abdomen with peritonitis and perforated gastrojejunal ulcer 2. Adverse event from the Dupixent 3. Status post right knee replacement, 2 weeks ago 4. Status post left knee replacement, 3 months ago 5. History of gastric bypass 6. Asthma 7. Hypertensive heart disease 8. lactic acidosis 9. Sepsis due to perforated ulcer PLAN: 1. IV fluid hydration lactic acidosis 2. Antibiotics and antifungal for perforated gastric viscus 3. Emergent diagnostic laparoscopy with repair of perforated gastrojejunal ulce r with patch for peritonitis 4. Prolonged nothing by mouth status beyond 3 days 5. Inpatient hospitalization anticipated 5-7 days ADVANCE DIRECTIVE: Past Medical History Past Medical History: Atrial Fibrillation, Asthma, GERD/Reflux, Hypertension, Sleep Apnea/CPAP/BIPAP Additional Past Medical History / Comment(s): Hx Kidney stones, afib in past d/t hypokalemia after bariatric surgery-none since, bronchitis, uses CPAP. fx Rt fibula 03/2021, recent hx. gastric ulcers History of Any Multi-Drug Resistant Organisms: None Reported Past Surgical History: Bariatric Surgery, Hernia Repair, Joint Replacement, Orthopedic Surgery Additional Past Surgical History / Comment(s): Panniculectomy w/ ventral hernia repair, Liliana-en-Y, left knee surgery for torn meniscus, R knee arthroscopy, R bicep reattachment, sinus surgery x3, Lithotripsies w/ 2 kidney stones removed. LEFT SHOULDER SURGERY, left knee replaced recently Past Anesthesia/Blood Transfusion Reactions: Motion Sickness, Postoperative Nausea & Vomiting (PONV) Past Psychological History: No Psychological Hx Reported Smoking Status: Never smoker Past Alcohol Use History: Occasional Past Drug Use History: None Reported - Past Family History Father Family Medical History: Cancer, Myocardial Infarction (ND) Additional Family Medical History / Comment(s): Father had prostate cancer Mother Family Medical History: Pulmonary Embolus Additional Family Medical History / Comment(s): Mother is healthy and is 73 yrs old. Medications and Allergies Home Medications Medication Instructions Recorded Confirmed Type Montelukast Sodium [Singulair] 10 mg PO DAILY 03/08/14 12/15/22 History Albuterol Sulfate [Ventolin HFA] 2 puff INHALATION RT-Q4H PRN 12/04/16 12/15/22 History traZODone HCL [Desyrel] 50 - 100 mg PO HS 12/20/20 12/15/22 History NIFEdipine [NIFEdipine ER 60 mg PO DAILY 05/26/22 12/15/22 History (Osmotic)] Omeprazole [PriLOSEC] 40 mg PO DAILY #90 cap 08/04/22 12/15/22 Rx Dupilumab [Dupixent Syringe] 300 mg SQ Q14D 12/15/22 12/15/22 History EPINEPHrine (Auto Inject) [Epipen] 0.3 mg IM ONCE PRN 12/15/22 12/15/22 History Fluticasone Nasal [place] [Flonase 1 spray EA NOSTRIL DAILY 12/15/22 12/15/22 History Nasal [place]] modafiniL [Provigil] 200 mg PO DAILY 12/15/22 12/15/22 History Allergies Allergy/AdvReac Type Severity Reaction Status Date / Time adhesive tape Allergy Rash/Hives Verified 12/15/22 14:31 Penicillins AdvReac Anaphylaxis Verified 12/15/22 14:31 Ndinhvo-NNE-BkT Reductase AdvReac joint Pain Verified 12/15/22 14:31 Inhibitor [Yixtemy-Eyc-Qts Reductase Inhibitor] Dermabond Allergy Rash/Hives Uncoded 12/15/22 14:31 Surgical - Exam Vital Signs Temp Pulse Resp BP Pulse Ox 98.2 F 105 H 20 154/89 99 12/15/22 13:04 12/15/22 13:04 12/15/22 13:04 12/15/22 13:04 12/15/22 13:04 Results - Labs 12/15/22 13:37 12/15/22 13:37 Abnormal Lab Results - Last 24 Hours (Table) 12/15/22 12/15/22 12/15/22 Range/Units 13:37 13:37 13:37 WBC 16.3 H (3.8-10.6) k/uL Plt Count 500 H (150-450) k/uL Neutrophils # 15.2 H (1.3-7.7) k/uL Lymphocytes # 0.4 L (1.0-4.8) k/uL Sodium 136 L (137-145) mmol/L Chloride 96 L (98-107) mmol/L BUN 8 L (9-20) mg/dL Creatinine 0.50 L (0.66-1.25) mg/dL Glucose 171 H (74-99) mg/dL Plasma Lactic Acid Tristin 2.8 H* (0.7-2.0) mmol/L Diabetes panel 12/15/22 Range/Units 13:37 Sodium 136 L (137-145) mmol/L Potassium 3.6 (3.5-5.1) mmol/L Chloride 96 L (98-107) mmol/L Carbon Dioxide 30 (22-30) mmol/L BUN 8 L (9-20) mg/dL Creatinine 0.50 L (0.66-1.25) mg/dL Glucose 171 H (74-99) mg/dL Calcium 8.7 (8.4-10.2) mg/dL AST 27 (17-59) U/L ALT 19 (4-49) U/L Alkaline Phosphatase 118 (38-126) U/L Total Protein 6.4 (6.3-8.2) g/dL Albumin 3.7 (3.5-5.0) g/dL Calcium panel 12/15/22 Range/Units 13:37 Calcium 8.7 (8.4-10.2) mg/dL Albumin 3.7 (3.5-5.0) g/dL Pituitary panel 12/15/22 Range/Units 13:37 Sodium 136 L (137-145) mmol/L Potassium 3.6 (3.5-5.1) mmol/L Chloride 96 L (98-107) mmol/L Carbon Dioxide 30 (22-30) mmol/L BUN 8 L (9-20) mg/dL Creatinine 0.50 L (0.66-1.25) mg/dL Glucose 171 H (74-99) mg/dL Calcium 8.7 (8.4-10.2) mg/dL Adrenal panel 12/15/22 Range/Units 13:37 Sodium 136 L (137-145) mmol/L Potassium 3.6 (3.5-5.1) mmol/L Chloride 96 L (98-107) mmol/L Carbon Dioxide 30 (22-30) mmol/L BUN 8 L (9-20) mg/dL Creatinine 0.50 L (0.66-1.25) mg/dL Glucose 171 H (74-99) mg/dL Calcium 8.7 (8.4-10.2) mg/dL Total Bilirubin 0.8 (0.2-1.3) mg/dL AST 27 (17-59) U/L ALT 19 (4-49) U/L Alkaline Phosphatase 118 (38-126) U/L Total Protein 6.4 (6.3-8.2) g/dL Albumin 3.7 (3.5-5.0) g/dL
[2022-12-15] MEDS: HYDROmorphone 0.5 MG/0.5 ML SYRINGE IVP PRN (18:05)
[2022-12-15] MEDS ORDERED: SCOPOLAMINE 1 MG/72 HR PATCH TRANSDERM ONE (20:15)
[2022-12-15] MEDS ORDERED: HEPARIN SODIUM,PORCINE 5,000 UNIT/ML 1 ML VIAL ONE (20:38)
[2022-12-15] MEDS ORDERED: PROPOFOL 10 MG/ML 20 ML VIAL IV ONE (20:38)
[2022-12-15] MEDS ORDERED: HYDROmorphone (PF) 1 MG/ML ONE (20:38)
[2022-12-15] MEDS ORDERED: MIDAZOLAM 2 MG/2 ML VIAL ONE (20:38)
[2022-12-15] MEDS ORDERED: PHENYLEPHRINE-0.9% NACL SYG 1,000 MCG/10 ML SYRINGE ONE (20:38)
[2022-12-15] MEDS ORDERED: KETAMINE 10 MG/ML 20 ML VIAL ONE (20:38)
[2022-12-15] MEDS ORDERED: fentaNYL (PF) 50 MCG/ML 2 ML AMP ONE (20:38)
[2022-12-15] MEDS ORDERED: ONDANSETRON 4 MG/2 ML VIAL ONE (20:38)
[2022-12-15] MEDS ORDERED: LIDOCAINE 2% INJ 20 MG/ML (2 ML VIAL) ONE (20:38)
[2022-12-15] MEDS ORDERED: ROCURONIUM 10 MG/ML (5 ML VIAL) IV ONE (20:38)
[2022-12-15] MEDS ORDERED: GLYCOPYRROLATE 0.2 MG/ML 2 ML VIAL ONE (20:38)
[2022-12-15] MEDS ORDERED: NEOSTIGMINE 1 MG/ML 10 ML VIAL ONE (20:38)
[2022-12-15] MEDS ORDERED: SUCCINYLCHOLINE CHLORIDE 200 MG/10 ML VIAL IV ONE (20:38)
[2022-12-15] MEDS ORDERED: LACTATED RINGERS 1,000 ML IV ONE ×2 (20:41→22:43)
[2022-12-15] MEDS ORDERED: METOCLOPRAMIDE 5 MG/ML 2 ML VIAL IVP PRN (20:48)
[2022-12-15] MEDS ORDERED: ONDANSETRON 4 MG/2 ML VIAL IVP PRN (20:48)
[2022-12-15] MEDS ORDERED: ALBUTEROL NEBULIZED 2.5 MG/3 ML INHALATION PRN (20:50)
[2022-12-15] MEDS ORDERED: SODIUM CHLORIDE 0.9% 50 ML with ceFAZolin 2,000 MG IV ONE ×2 (20:50)
[2022-12-15] MEDS ORDERED: BUPIVACAINE (PF) 0.5% 30 ML VIAL SQ ONE (21:10)
--- NOTE | 2022-12-16 00:34 | P.OP ---
Date of Procedure: 12/16/22 Description of Procedure: SURGEON: PANDA MORENO MD PREOPERATIVE DIAGNOSES: 1. Epigastric abdominal pain with peritonitis 2. Pneumoperitoneum 3. Perforated gastrojejunal anastomosis 4. History of gastric bypass POSTOPERATIVE DIAGNOSES: 1. Epigastric abdominal pain with peritonitis 2. Pneumoperitoneum 3. Perforated gastrojejunal anastomosis 4. History of gastric bypass 5. Abdominal ascites OPERATION: 1. Robotic-assisted da Dwayne Xi laparoscopic repair of gastrojejunal perf oration with lysis of adhesions, over 2 hours an drainage of left upper quadrant abscess 2. Abdominal washout with peritoneal lavage 2 L normal saline 3. Placement of #19 round Jose Manuel-Dunlap drain gastrojejunal anastomosis, right and left, pelvic 4. Intraoperative esophagogastrojejunoscopy ESTIMATED BLOOD LOSS: 20 mL. SPECIMENS REMOVED: aerobic, anaerobic cultures, peritoneal fluid COMPLICATIONS: None. OPERATIVE FINDINGS: 1. Upper endoscopy confirms sealed gastrojejunal perforation 2. Peritoneal adhesions left upper quadrant including periumbilical with lysis of adhesions of the left upper quadrant 3. Negative leak test upon upper endoscopy 4. Abdominal washout for abdominal ascites 2 L normal saline with peritoneal lavage 5. Placement of NICOLLE drain anterior left lateral to gastrojejunal anastomosis 6. Moderate contamination identified at or near gastrojejunal anastomosis 7. Gastric pouch adherence to the chest wall without clear demarcation or dissection from the anterior abdominal INDICATIONS: The patient is a 57-year-old male who dense with peritonitis, sepsis, lactic acidosis due to perforated gastrojejunal anastomosis from ulceration. Surgical intervention with diagnostic laparoscopy, lysis of adhesions were described, closure of gastrojejunal perforation was described including placement of drain. Robotic assisted laparoscopic approach was described. Benefits and risks of the procedure including but not limited to bleeding, infection, injury to the small bowel was described. Informed consent was obtained. DESCRIPTION OF PROCEDURE: Patient was brought to the operating room, placed in supine position. After general induction, the abdomen had been prepped and draped in standard sterile fashion. The robotic da Dwayne XI system was primed. After a timeout protocol was performed, the patient had been prepped and draped in standard sterile fashion. The robot was docked along the left lateral abdomen. Please note prior to docking of the robot; however, a 5 mm 0 degrees laparoscopic trocar entry was performed along the right upper quadrant. The abdomen was insufflated to 15 mmHg pressure which she tolerated well. Diagnostic laparoscopy was performed. Next, three 8 mm robotic ports were placed along the upper abdomen. The 5-mm trocar was exchanged for a 12 mm trocar at the left upper quadrant. Please note that the ports were placed at least 10 to 15 cm away from the target anatomy. A medium-sized Kyler liver retractor was used to elevate the left lobe of the liver and held in place using iron analysis intern. Instruments including grasp suction small battery plate assembler and needle dump truck driver were interchanged by the preschool assistant teacher. I had sat at the console. Abdominal ascites was identified along the upper and lower abdomen however clear. Little to no contamination was identified at the upper abdomen along the gastrojejunal anastomosis. The upper abdomen was irrigated with normal saline. Peritoneal adhesions including omentum was found along the left upper quadrant including along the periumbilical area. Next, the gastrojejunal anastomosis was explored where minimal bleeding was verified along the 3 o'clock position otherwise left lateral portion of the anastomosis. I went to the head of the bed to perform an upper endoscopy and confirmed any leaks. The gastroscope was entered into the mouth and posterior oropharynx to the anastomosis. With air insufflation, o evidence of air leak was found. The anastomosis had been submerged under normal saline also confirming no air leak or further tear. The gastrojejunal anastomosis perforation had sealed. Next, the omental adhesions along the abdominal wall was lysed and omentum was placed to buttress the perforated site. Around the upper 19 Jose Manuel-Dunlap drain was entered via the left lateral trocar and positioned along the left lateral aspect to the anastomosis. The drain was secured to skin using 2-0 nylon. The patient was flattened. The pelvis was irrigated and washed using normal saline. The irrigant was aspirated. All pneumoperitoneum and instruments were evacuated from the abdominal cavity using a closed suction system. The incisions were reapproximated using 4-0 Monocryl in an interrupted subcuticular fashion. Please note along the trocar sites, local anesthetic was placed as a field block prior to insertion of all instruments. Exofin was applied to the skin. At the left upper quadrant, Optifoam dressing was placed along the NICOLLE site. At the end of the procedure needle, sponge, and instrument count had been verified correct by the surgical elastic knitter. The patient was transferred to postanesthesia care unit in stable condition. [id number] was immediately reviewed all findings over the telephone
[2022-12-16] MEDS: ACETAMINOPHEN IV (For NPO) 1,000 MG in EMPTY BAG 1 BAG IVPB SCH ×6 (01:00→23:14)
[2022-12-16] MEDS: HEPARIN SODIUM,PORCINE/PF 5,000 UNIT/0.5 ML SYRINGE SQ SCH ×3 (02:24→21:19)
[2022-12-16] MEDS: PANTOPRAZOLE 40 MG/10 ML VIAL IV SCH ×3 (02:24→21:19)
[2022-12-16] MEDS: HYDROmorphone 0.5 MG/0.5 ML SYRINGE IVP PRN ×5 (02:26→14:49)
[2022-12-16 09:48] LABS: Basophils # (A) 0.02 X 10*3/uL (0.00-0.10); Basophils % (A) 0.2 %; Eosinophils # (A) 0 X 10*3/uL (0.04-0.35); Eosinophils % (A) 0 %; HCT 32.4 % (39.6-50.0); HGB 10.2 g/dL (13.0-17.0); Immature Grans, Automated 0.4 %; Lymphocytes # (A) 0.79 X 10*3/uL (0.90-5.00); Lymphocytes % (A) 7.1 %; MCH 27.4 pg (27.0-32.0); MCHC 31.5 g/dL (32.0-37.0); MCV 87.1 fL (80.0-97.0); Mean Platelet Volume 8.3 fL (9.5-12.2); Monocytes # (A) 0.51 X 10*3/uL (0.20-1.00); Monocytes % (A) 4.6 %; NRBC Per 100 WBC 0 /100 WBCS (0.0-0.0); Neutrophils # (A) 9.77 X 10*3/uL (1.80-7.70); Neutrophils % (A) 87.7 %; Platelet Count 372 X 10*3/uL (140-440); RBC 3.72 X 10*6/uL (4.40-5.60); RDW 15.9 % (11.5-14.5); WBC 11.14 X 10*3/uL (4.50-10.00)
[2022-12-16 10:26] VITALS: BMI 33.0
[2022-12-16] MEDS: FLUCONAZOLE IN NACL,ISO-OSM 200 MG in SALINE 1 100ML.BAG IVPB SCH (10:49)
[2022-12-16 11:40] LABS: African American GFR (CKD) 115.7 (60.0-200.0); BUN/Creat Ratio 15.25 Ratio (12.00-20.00); Blood Urea Nitrogen 12.2 mg/dL (9.0-27.0); Calcium 8.3 mg/dL (8.7-10.3); Non-African American GFR(CKD) 99.9 (60.0-200.0); Potassium 3.9 mmol/L (3.5-5.5)
[2022-12-16 11:56] LABS: ALT 15 U/L (4-49); AST 21 U/L (17-59); African American GFR (CKD) >90 (>60 ml/min/1.73 sqM); Albumin 2.5 g/dL (3.5-5.0); Albumin/Globulin Ratio 1.1; Alkaline Phosphatase 75 U/L (38-126); Anion Gap 8 mmol/L; Blood Urea Nitrogen 15 mg/dL (9-20); Calcium 7.8 mg/dL (8.4-10.2); Carbon Dioxide 29 mmol/L (22-30); Chloride 100 mmol/L (98-107); Globulin 2.3 g/dL; Glucose 108 mg/dL (74-99); Magnesium 1.7 mg/dL (1.6-2.3); Non-African American GFR(CKD) >90 (>60 ml/min/1.73 sqM); Phosphorus 3.2 mg/dL (2.5-4.5); Potassium 3.5 mmol/L (3.5-5.1); Sodium 137 mmol/L (137-145); Total Bilirubin 0.6 mg/dL (0.2-1.3); Total Protein 4.8 g/dL (6.3-8.2)
[2022-12-16] MEDS: CEFEPIME 2 GM in SODIUM CHLORIDE 0.9% 100 ML IVPB SCH ×2 (12:25→22:20)
[2022-12-16] MEDS: metroNIDAZOLE-NS PMX 500 MG in SALINE 1 100ML.BAG IVPB SCH ×2 (12:25→21:18)
[2022-12-16] MEDS: FLUTICASONE 50MCG/SPRAY NASAL 16GM EA NOSTRIL SCH (12:36)
--- NOTE | 2022-12-16 14:57 | IR ---
PICC LINE PLACEMENT: HISTORY: Infection requiring long-term antibiotic therapy PROCEDURE: Ultrasound and fluoroscopic guidance of PICC line placement. COMPLICATIONS: None ANESTHESIA: 1. 1% Lidocaine locally. FINDINGS/TECHNIQUE: The procedure was explained to the patient. The risks, complications, benefits and alternatives were discussed and any questions were answered. Informed consent was obtained. The patient was placed supine on the fluoroscopic table and prepped and draped in the usual sterile fash ion. Utilizing a 21 gauge needle and sonographic and fluoroscopic guidance, access in the right bas ilic vein was achieved and there is placement of a 0.018 guidewire. The vein is patent. A 4-F sheat h was placed over the guidewire. The guidewire and dilator were removed and a 4-F. PICC line was shelbi aric through the sheath with the tip at the level of the SVC. The sheath was removed, the catheter wa s flushed and sutured into position. The patient was stable throughout the procedure and remained st able upon discharge from the Department of Radiology. The vein puncture was patent under ultrasound. A rodas scale image was obtained to document patency of the vein punctured. All elements of the maximal barrier technique were utilized. FLUOROSCOPY TIME: DAP [id number] cm2 IMPRESSION: Successful PICC line placement under ultrasound and fluoroscopic guidance.
[2022-12-16] MEDS ORDERED: MAGNESIUM SULFATE-D5W PMX 1 GM in DEXTROSE/WATER 1 100ML.BAG IVPB ONE (16:00)
[2022-12-16] MEDS ORDERED: MVI, ADULT NO.4 WITH VIT K 10 ML, TRACE (CONC-1ML/DOSE) 1 ML in AMINO ACID 5%-D15W+LYTE... IV ONE ×3 (16:00)
[2022-12-16] MEDS ORDERED: FAT EMULSION 20% 250 ML IV SCH (16:00)
--- NOTE | 2022-12-16 16:45 | P.PN ---
Subjective Progress Note Date: 12/16/22 CHIEF COMPLAINT: Epigastric abdominal pain HISTORY OF PRESENT ILLNESS: Patient is postop day #1 status post Robotic- assisted da Dwayne Xi laparoscopic repair of gastrojejunal perforation with lysis of adhesions, drainage of left upper quadrant abscess and Abdominal washout. Patient reports that his pain is controlled. He denies any nausea or vomiting. He does report flatus. Afebrile. WBC is down from 16-11.1 4H she be is 10.2 platelets 372 sodium 137 potassium 3.5 creatinine 0.60 PHYSICAL EXAM: VITAL SIGNS: Reviewed GENERAL: Well-developed in no acute distress. HEENT: No sclera icterus. Extraocular movements grossly intact. Moist buccal mucosa. Head is atraumatic, normocephalic. Hears conversational speech. No nasal drainage. NECK: Supple without lymphadenopathy. CHEST: Non-labored respirations and equal bilateral excursions. CARDIOVASCULAR: Palpable 2+ radial pulses. ABDOMEN: Soft. Nondistended. Incisions clean dry and intact MUSCULOSKELETAL: No clubbing or cyanosis. NEUROLOGIC: No focal or lateralizing signs. Cranial nerves II through XII grossly intact. PSYCH: Appropriate affect. Alert and oriented to person, place and time. SKIN: Well perfused. Good skin turgor. ASSESSMENT: 1. Epigastric abdominal pain with peritonitis 2. Pneumoperitoneum 3. Perforated gastrojejunal anastomosis 4. History of gastric bypass 5. Abdominal ascites PLAN: -Keep patient nothing by mouth for the next 3 days -Infectious disease consulted for antibiotic recommendations -PICC line ordered for TPN and antibiotics -Consult dietitian for TPN recommendations -Continue pain management -Continue to monitor and replace electrolytes -Continue IV Protonix -DVT prophylaxis subcu heparin Physician Youth Counselor note has been reviewed by physician. Signing provider agrees with the documented findings, assessment, and plan of care. Objective - Vital Signs Vital signs: Vital Signs Temp 97.9 F 12/16/22 06:45 Pulse 69 12/16/22 06:45 Resp 12/16/22 06:45 BP 119/75 12/16/22 06:45 Pulse Ox 99 12/16/22 06:45 FiO2 Intake & Output 12/15/22 12/16/22 12/16/22 18:59 06:59 18:59 Intake Total 2450 Output Total 90 300 Balance 2360 -300 Weight 104.326 kg 104.326 kg 104.326 kg Intake: IV 1850 Intake, IV Titration 600 Amount ACETAMINOPHEN IV (For NPO 100 ) 1,000 mg In Empty Bag 1 bag @ 400 mls/hr IVPB Q6HR [facility] Rx#:[id number] Lactated Ringers 1,000 ml 500 @ 0 mls/hr IV .[facility] Rx#:[id number] Output: Drainage 90 50 Left Abdomen 40 20 Right Abdomen 50 30 Urine 250 Other: # Voids 1 - Labs CBC & Chem 7: 12/16/22 05:25 12/16/22 11:31 Labs: Abnormal Lab Results - Last 24 Hours (Table) 12/15/22 12/15/22 12/15/22 Range/Units 13:37 13:37 13:37 WBC 16.3 H (3.8-10.6) k/uL RBC (4.40-5.60) X 10*6/uL Hgb (13.0-17.0) g/dL Hct (39.6-50.0) % MCHC (32.0-37.0) g/dL RDW (11.5-14.5) % Plt Count 500 H (150-450) k/uL MPV (9.5-12.2) fL Immature Gran # (0.00-0.04) X 10*3/uL Neutrophils # 15.2 H (1.3-7.7) k/uL Lymphocytes # 0.4 L (1.0-4.8) k/uL Eosinophils # (0.04-0.35) X 10*3/uL Sodium 136 L (137-145) mmol/L Chloride 96 L (98-107) mmol/L Carbon Dioxide (20.0-27.5) mmol/L Anion Gap (10.00-18.00) mmol/L BUN 8 L (9-20) mg/dL Creatinine 0.50 L (0.66-1.25) mg/dL Glucose 171 H (74-99) mg/dL Plasma Lactic Acid Tristin 2.8 H* (0.7-2.0) mmol/L Calcium (8.7-10.3) mg/dL Total Protein (6.3-8.2) g/dL Albumin (3.5-5.0) g/dL 12/16/22 12/16/2223 Range/Units 05:25 05:25 11:31 WBC 11.14 H (3.8-10.6) k/uL RBC 3.72 L (4.40-5.60) X 10*6/uL Hgb 10.2 L (13.0-17.0) g/dL Hct 32.4 L (39.6-50.0) % MCHC 31.5 L (32.0-37.0) g/dL RDW 15.9 H (11.5-14.5) % Plt Count (150-450) k/uL MPV 8.3 L (9.5-12.2) fL Immature Gran # 0.05 H (0.00-0.04) X 10*3/uL Neutrophils # 9.77 H (1.3-7.7) k/uL Lymphocytes # 0.79 L (1.0-4.8) k/uL Eosinophils # 0 L (0.04-0.35) X 10*3/uL Sodium (137-145) mmol/L Chloride (98-107) mmol/L Carbon Dioxide 29.0 H (20.0-27.5) mmol/L Anion Gap 6.00 L (10.00-18.00) mmol/L BUN (9-20) mg/dL Creatinine 0.60 L (0.66-1.25) mg/dL Glucose 119 H 108 H (74-99) mg/dL Plasma Lactic Acid Tristin (0.7-2.0) mmol/L Calcium 8.3 L 7.8 L (8.7-10.3) mg/dL Total Protein 4.8 L (6.3-8.2) g/dL Albumin 2.5 L (3.5-5.0) g/dL
[2022-12-16] MEDS: POTASSIUM CHLORIDE 20 MEQ in WATER FOR INJECTION 1 100ML.BAG IVPB SCH ×3 (16:56→19:55)
[2022-12-16] MEDS: HYDROmorphone 1 MG/ML 1 ML SYRINGE IVP PRN ×2 (17:50→21:19)
--- NOTE | 2022-12-16 21:39 | P.CONS ---
History of Present Illness - Reason for Consult Consult date: 12/16/22 - History of Present Illness Patient is a 57-year-old male with a past medical history significant for hypertension atrial fibrillation reflux and did have a history of bariatric surgery few years ago patient presenting to the ER for evaluation of abdominal pain that has been going on for about 4 days patient apparently sent did have a knee replacement and was started on new medication has been complaining of e pigastric abdominal pain mostly sharp almost 10 out of 10 in severity by the time he present to hospital with associated nausea and vomiting denies high- grade fever on presentation to hospital patient was afebrile patient was not hypotensive or needed. Given oxygen did have elevated white count 16.3 creatinine was normal lactic acid was elevated liver enzymes are normal amylase lipase was normal patient did have a CT of abdominal pelvis abnormal thickening of the gastrojejunostomy with inflammatory changes and mild to moderate free air with concern for perforated gastrojejunal anastomosis the patient was taken to the OR the patient is status post robotic assisted laparoscopic repair of the gastrojejunal junction perforation with lysis of adhesion abdominal washout intraoperative esophagogastrojejunoscopy and abdominal cultures obtained patient did receive a dose of cefepime subsequently was started on Diflucan with his history of penicillin allergy infectious disease was consulted for further management of antibiotic therapy Past Medical History Past Medical History: Atrial Fibrillation, Asthma, GERD/Reflux, Hypertension, Sleep Apnea/CPAP/BIPAP Additional Past Medical History / Comment(s): Hx Kidney stones, afib in past d/t hypokalemia after bariatric surgery-none since, bronchitis, uses CPAP. fx Rt fibula 03/2021, recent hx. gastric ulcers History of Any Multi-Drug Resistant Organisms: None Reported Past Surgical History: Bariatric Surgery, Hernia Repair, Joint Replacement, Orthopedic Surgery Additional Past Surgical History / Comment(s): Panniculectomy w/ ventral hernia repair, Liliana-en-Y, left knee surgery for torn meniscus, R knee arthroscopy, R bicep reattachment, sinus surgery x3, Lithotripsies w/ 2 kidney stones removed. LEFT SHOULDER SURGERY, left knee replaced recently, right knee replacement 12/02/22 Past Anesthesia/Blood Transfusion Reactions: Motion Sickness, Postoperative Nausea & Vomiting (PONV) Past Psychological History: No Psychological Hx Reported Additional Psychological History / Comment(s): . Smoking Status: Never smoker Past Alcohol Use History: Occasional Past Drug Use History: None Reported - Past Family History Father Family Medical History: Cancer, Myocardial Infarction ([place]) Additional Family Medical History / Comment(s): Father had prostate cancer Mother Family Medical History: Pulmonary Embolus Additional Family Medical History / Comment(s): Mother is healthy and is 73 yrs old. Medications and Allergies Home Medications Medication Instructions Recorded Confirmed Type Montelukast Sodium [Singulair] 10 mg PO DAILY 03/08/14 12/15/22 History Albuterol Sulfate [Ventolin HFA] 2 puff INHALATION RT-Q4H PRN 12/04/16 12/15/22 History traZODone HCL [Desyrel] 50 - 100 mg PO HS 12/20/20 12/15/22 History NIFEdipine [NIFEdipine ER 60 mg PO DAILY 05/26/22 12/15/22 History (Osmotic)] Omeprazole [PriLOSEC] 40 mg PO DAILY #90 cap 08/04/22 12/15/22 Rx Dupilumab [Dupixent Syringe] 300 mg SQ Q14D 12/15/22 12/15/22 History EPINEPHrine (Auto Inject) [Epipen] 0.3 mg IM ONCE PRN 12/15/22 12/15/22 History Fluticasone Nasal [place] [Flonase 1 spray EA NOSTRIL DAILY 12/15/22 12/15/22 History Nasal [place]] modafiniL [Provigil] 200 mg PO DAILY 12/15/22 12/15/22 History Allergies Allergy/AdvReac Type Severity Reaction Status Date / Time adhesive tape Allergy Rash/Hives Verified 12/15/22 14:31 Penicillins AdvReac Anaphylaxis Verified 12/15/22 14:31 Zhpdkvp-ZPG-PoA Reductase AdvReac joint Pain Verified 12/15/22 14:31 Inhibitor [Ralikqw-Adx-Aoq Reductase Inhibitor] Dermabond Allergy Rash/Hives Uncoded 12/15/22 14:31 Physical Exam Vitals: Vital Signs Temp Pulse Pulse Resp BP BP Pulse Ox 12/16/22 06:45 97.9 F 69 16 119/75 99 12/16/22 03:45 69 114/77 98 12/16/22 03:30 68 116/73 98 12/16/22 03:15 79 123/80 98 12/16/22 03:00 74 117/80 98 12/16/22 02:45 74 123/81 98 12/16/22 02:30 79 125/81 98 12/16/22 02:15 78 127/79 97 12/16/22 01:59 98.7 F 98 18 122/79 97 12/16/22 01:13 82 16 124/76 93 L 12/16/22 00:47 89 16 121/89 94 L 12/16/22 00:32 89 16 125/69 96 12/16/22 00:17 98.2 F 94 16 134/79 97 12/15/22 18:06 89 18 167/112 95 12/15/22 16:11 88 18 163/114 98 12/15/22 15:03 88 18 162/94 98 12/15/22 13:04 98.2 F 105 H 20 154/89 99 Intake and Output 12/15/22 12/16/22 12/16/22 22:59 06:59 14:59 Intake Total 1750 700 Output Total 90 300 Balance 1750 610 -300 Intake: IV 1750 100 Intake, IV Titration 600 Amount ACETAMINOPHEN IV (For NPO 100 ) 1,000 mg In Empty Bag 1 bag @ 400 mls/hr IVPB Q6HR [facility] Rx#:[id number] Lactated Ringers 1,000 ml 500 @ 0 mls/hr IV .[facility] Rx#:[id number] Output: Drainage 90 50 Left Abdomen 40 20 Right Abdomen 50 30 Urine 250 Other: # Voids 1 Weight 104.326 kg 104.326 kg Results CBC & Chem 7: 12/16/22 05:25 12/16/22 11:31 Labs: Abnormal Lab Results - Last 24 Hours (Table) 12/15/22 12/15/22 12/15/22 Range/Units 13:37 13:37 13:37 WBC 16.3 H (3.8-10.6) k/uL RBC (4.40-5.60) X 10*6/uL Hgb (13.0-17.0) g/dL Hct (39.6-50.0) % MCHC (32.0-37.0) g/dL RDW (11.5-14.5) % Plt Count 500 H (150-450) k/uL MPV (9.5-12.2) fL Immature Gran # (0.00-0.04) X 10*3/uL Neutrophils # 15.2 H (1.3-7.7) k/uL Lymphocytes # 0.4 L (1.0-4.8) k/uL Eosinophils # (0.04-0.35) X 10*3/uL Sodium 136 L (137-145) mmol/L Chloride 96 L (98-107) mmol/L BUN 8 L (9-20) mg/dL Creatinine 0.50 L (0.66-1.25) mg/dL Glucose 171 H (74-99) mg/dL Plasma Lactic Acid Tristin 2.8 H* (0.7-2.0) mmol/L 12/16/22 Range/Units 05:25 WBC 11.14 H (3.8-10.6) k/uL RBC 3.72 L (4.40-5.60) X 10*6/uL Hgb 10.2 L (13.0-17.0) g/dL Hct 32.4 L (39.6-50.0) % MCHC 31.5 L (32.0-37.0) g/dL RDW 15.9 H (11.5-14.5) % Plt Count (150-450) k/uL MPV 8.3 L (9.5-12.2) fL Immature Gran # 0.05 H (0.00-0.04) X 10*3/uL Neutrophils # 9.77 H (1.3-7.7) k/uL Lymphocytes # 0.79 L (1.0-4.8) k/uL Eosinophils # 0 L (0.04-0.35) X 10*3/uL Sodium (137-145) mmol/L Chloride (98-107) mmol/L BUN (9-20) mg/dL Creatinine (0.66-1.25) mg/dL Glucose (74-99) mg/dL Plasma Lactic Acid Tristin (0.7-2.0) mmol/L Assessment and Plan Plan: 1patient presented to hospital with abdominal pain has been diagnosed with p erforated gastrojejunal anastomosis status post laparoscopic repair of the same and will need to cover for enteric gram-negative both anaerobes and anaerobes 2-patient with a penicillin allergy that would limit the number of antibiotics safe to use however the patient mentioned has taken amoxicillin clinical doubt true penicillin allergy, RN to confirm that from his pharmacy 3-for now the patient will be started on cefepime 2 g every 8 hours and IV Flagyl and continue with the Diflucan while waiting for the culture to finalize We will follow on clinical condition and cultures to further adjust medication if needed Thank you for this consultation we will follow the patient along with you Time with Patient: Greater than 30
[2022-12-17] MEDS: HYDROmorphone 1 MG/ML 1 ML SYRINGE IVP PRN ×6 (00:14→19:48)
[2022-12-17] MEDS: metroNIDAZOLE-NS PMX 500 MG in SALINE 1 100ML.BAG IVPB SCH ×3 (04:40→18:13)
[2022-12-17] MEDS: ACETAMINOPHEN IV (For NPO) 1,000 MG in EMPTY BAG 1 BAG IVPB SCH ×2 (06:22→11:44)
[2022-12-17] MEDS: CEFEPIME 2 GM in SODIUM CHLORIDE 0.9% 100 ML IVPB SCH ×3 (06:23→20:52)
[2022-12-17 06:33] LABS: Ionized Calcium 4.9 mg/dL (4.5-5.3)
[2022-12-17 06:40] LABS: African American GFR (CKD) >90 (>60 ml/min/1.73 sqM); Anion Gap 7 mmol/L; Blood Urea Nitrogen 15 mg/dL (9-20); Carbon Dioxide 26 mmol/L (22-30); Chloride 102 mmol/L (98-107); Glucose 114 mg/dL (74-99); Magnesium 1.9 mg/dL (1.6-2.3); Non-African American GFR(CKD) >90 (>60 ml/min/1.73 sqM); Phosphorus 2.7 mg/dL (2.5-4.5); Potassium 3.7 mmol/L (3.5-5.1); Sodium 135 mmol/L (137-145)
[2022-12-17] MEDS: HEPARIN SODIUM,PORCINE/PF 5,000 UNIT/0.5 ML SYRINGE SQ SCH ×2 (08:33→20:52)
[2022-12-17] MEDS: PANTOPRAZOLE 40 MG/10 ML VIAL IV SCH ×2 (08:36→20:53)
[2022-12-17] MEDS: FLUCONAZOLE IN NACL,ISO-OSM 200 MG in SALINE 1 100ML.BAG IVPB SCH (08:46)
[2022-12-17] MEDS: FLUTICASONE 50MCG/SPRAY NASAL 16GM EA NOSTRIL SCH (10:32)
--- NOTE | 2022-12-17 13:36 | P.PN ---
Subjective Progress Note Date: 12/17/22 CHIEF COMPLAINT: Epigastric abdominal pain HISTORY OF PRESENT ILLNESS: Patient is postop day #2 status post Robotic- assisted da Dwayne Xi laparoscopic repair of gastrojejunal perforation with lysis of adhesions, drainage of left upper quadrant abscess and Abdominal washout. Patient reports that his pain is controlled. He denies any nausea or vomiting. He does report flatus. No BM. Afebrile. Sodium 135 potassium 3.7 creatinine 0.48 magnesium 1.9 NICOLLE drain 30 mL output through the left chain and right chain 60 mL PHYSICAL EXAM: VITAL SIGNS: Reviewed GENERAL: Well-developed in no acute distress. HEENT: No sclera icterus. Extraocular movements grossly intact. Moist buccal mucosa. Head is atraumatic, normocephalic. Hears conversational speech. No nasal drainage. NECK: Supple without lymphadenopathy. CHEST: Non-labored respirations and equal bilateral excursions. CARDIOVASCULAR: Palpable 2+ radial pulses. ABDOMEN: Soft. Nondistended. Incisions clean dry and intact. NICOLLE change with serosanguineous output MUSCULOSKELETAL: No clubbing or cyanosis. NEUROLOGIC: No focal or lateralizing signs. Cranial nerves II through XII grossly intact. PSYCH: Appropriate affect. Alert and oriented to person, place and time. SKIN: Well perfused. Good skin turgor. ASSESSMENT: 1. Epigastric abdominal pain with peritonitis 2. Pneumoperitoneum 3. Perforated gastrojejunal anastomosis 4. History of gastric bypass 5. Abdominal ascites PLAN: -Keep patient nothing by mouth -Continue TPN for nutrition support -Upper GI scheduled for tomorrow -Continue IV Protonix -Encouraged patient to increase activity level -Encouraged patient to use incentive spirometer -DVT prophylaxis subcu heparin Physician Technical Support 1 Software Engineer note has been reviewed by physician. Signing provider agrees with the documented findings, assessment, and plan of care. Objective - Vital Signs Vital signs: Vital Signs Temp 97.9 F 12/17/22 06:40 Pulse 68 12/17/22 06:40 Resp 16 12/17/22 06:40 BP 145/91 12/17/22 06:40 Pulse Ox 99 12/17/22 06:40 FiO2 Intake & Output 12/16/22 12/17/22 12/17/22 18:59 06:59 18:59 Output Total 300 620 Balance -300 -620 Weight 104.326 kg Output: Drainage 50 170 Left Abdomen 20 70 Right Abdomen 30 100 Urine 250 450 Other: # Voids 2 1 - Labs CBC & Chem 7: 12/16/22 05:25 12/17/22 05:44 Labs: Abnormal Lab Results - Last 24 Hours (Table) 12/16/22 12/16/22 12/17/22 Range/Units 05:25 11:31 05:44 Sodium 135 L (137-145) mmol/L Carbon Dioxide 29.0 H (20.0-27.5) mmol/L Anion Gap 6.00 L (10.00-18.00) mmol/L Creatinine 0.60 L 0.48 L (0.66-1.25) mg/dL Glucose 119 H 108 H 114 H (70-110) mg/dL Calcium 8.3 L 7.8 L 8.0 L (8.7-10.3) mg/dL Total Protein 4.8 L (6.3-8.2) g/dL Albumin 2.5 L (3.5-5.0) g/dL Microbiology - Last 24 Hours (Table) 12/15/22 16:13 Blood Culture - Preliminary Blood 12/15/22 00:05 Wound Culture - Preliminary Abdomen 12/15/22 00:05 Anaerobic Culture - Preliminary Abdomen
[2022-12-17] MEDS: 1: MVI, ADULT NO.4 WITH VIT K 10 ML, TRACE (CONC-1ML/DOSE) 1 ML in AMINO ACID 5%-D15W+LY IV SCH ×3 (16:20)
[2022-12-17] MEDS: SYMBICORT 160-4.5 MCG INHALER INHALATION SCH (21:00)
[2022-12-18] MEDS: HYDROmorphone 1 MG/ML 1 ML SYRINGE IVP PRN ×6 (00:43→22:10)
[2022-12-18] MEDS: metroNIDAZOLE-NS PMX 500 MG in SALINE 1 100ML.BAG IVPB SCH ×3 (03:26→19:20)
[2022-12-18] MEDS: CEFEPIME 2 GM in SODIUM CHLORIDE 0.9% 100 ML IVPB SCH ×3 (03:27→20:56)
[2022-12-18] MEDS: 1: MVI, ADULT NO.4 WITH VIT K 10 ML, TRACE (CONC-1ML/DOSE) 1 ML in AMINO ACID 5%-D15W+LY IV SCH ×3 (04:13)
[2022-12-18 07:44] LABS: African American GFR (CKD) >90 (>60 ml/min/1.73 sqM); Anion Gap 8 mmol/L; Blood Urea Nitrogen 10 mg/dL (9-20); Calcium 7.9 mg/dL (8.4-10.2); Carbon Dioxide 29 mmol/L (22-30); Chloride 99 mmol/L (98-107); Glucose 151 mg/dL (74-99); Magnesium 1.8 mg/dL (1.6-2.3); Non-African American GFR(CKD) >90 (>60 ml/min/1.73 sqM); Phosphorus 3.9 mg/dL (2.5-4.5); Potassium 3.3 mmol/L (3.5-5.1); Sodium 136 mmol/L (137-145)
[2022-12-18] MEDS: PANTOPRAZOLE 40 MG/10 ML VIAL IV SCH ×2 (08:19→21:21)
[2022-12-18] MEDS: HEPARIN SODIUM,PORCINE/PF 5,000 UNIT/0.5 ML SYRINGE SQ SCH ×2 (08:19→20:57)
[2022-12-18] MEDS: SYMBICORT 160-4.5 MCG INHALER INHALATION SCH ×2 (09:24→21:14)
--- NOTE | 2022-12-18 12:12 | FL ---
EXAMINATION TYPE: FL UGI w esophagus DATE OF EXAM: 12/18/2022 CLINICAL INDICATION: 57-year-old male previous gastric bypass presents with gastric perforation. Stat us post patch repair. COMPARISON: 12/15/2022 Total Fluoroscopy Time: 2 minutes 18 seconds DOSE AREA PRODUCT (DAP) UGY*M,MGY*CM: 953 60 images obtained. Single contrast technique utilizing 50 mL Isovue-370 contrast. FINDINGS: The patient swallowed oral contrast without difficulty or delay. There is satisfactory course and shahbaz iber of the thoracic esophagus. Satisfactory passage of contrast across the GE junction into the prox imal stomach and promptly across the gastrojejunostomy. Slight delay in clearance from the distal eso phagus in keeping with patient's Liliana-en-Y gastric bypass and an episode of mild intraesophageal refl ux noted. There is satisfactory passage along the proximal jejunum. No contrast extravasation to suggest leak n o discrete ulcer clearly identified. No free intraperitoneal air is seen. IMPRESSION: Prior Liliana-en-Y gastric bypass, status post patch repair of perforated ulcer. No extravasation of con trast to suggest leak. No obstruction.
[2022-12-18 13:36] LABS: Basophils % (A) 0 %; Eosinophils # (A) 0.5 k/uL (0-0.7); Eosinophils % (A) 8 %; HCT 31.3 % (39.0-53.0); Hypochromasia Moderate; Lymphocytes # (A) 0.7 k/uL (1.0-4.8); Lymphocytes % (A) 10 %; MCH 28.7 pg (25.0-35.0); MCHC 32.2 g/dL (31.0-37.0); Mean Platelet Volume 7.9; Monocytes # (A) 0.3 k/uL (0-1.0); Monocytes % (A) 5 %; Neutrophils # (A) 4.8 k/uL (1.3-7.7); Neutrophils % (A) 75 %; Platelet Count 448 k/uL (150-450); RBC 3.51 m/uL (4.30-5.90); RDW 15.1 % (11.5-15.5); WBC 6.4 k/uL (3.8-10.6)
[2022-12-18] MEDS: FLUCONAZOLE IN NACL,ISO-OSM 200 MG in SALINE 1 100ML.BAG IVPB SCH (13:43)
[2022-12-18] MEDS: FLUTICASONE 50MCG/SPRAY NASAL 16GM EA NOSTRIL SCH (13:44)
--- NOTE | 2022-12-18 13:52 | P.PN ---
Subjective Progress Note Date: 12/18/22 CHIEF COMPLAINT: Epigastric abdominal pain HISTORY OF PRESENT ILLNESS: Patient is postop day #3 status post Robotic- assisted da Dwayne Xi laparoscopic repair of gastrojejunal perforation with lysis of adhesions, drainage of left upper quadrant abscess and Abdominal washout. Patient reports that his pain is controlled. He denies any nausea or vomiting. He had a small BM. Esophagram shows prior history of Liliana-en-Y gastric bypass status post patch repair of perforated ulcer. No extravasation of contrast to suggest leak or obstruction. Afebrile. Sodium 136 potassium 3.3 creatinine 0.47 magnesium 1.8 phosphorus 3.9 BP elevated. NICOLLE drain serosanguineous output 90 mL on the left and right NICOLLE 20ml output. Cultures pending PHYSICAL EXAM: VITAL SIGNS: Reviewed GENERAL: Well-developed in no acute distress. HEENT: No sclera icterus. Extraocular movements grossly intact. Moist buccal mucosa. Head is atraumatic, normocephalic. Hears conversational speech. No nasal drainage. NECK: Supple without lymphadenopathy. CHEST: Non-labored respirations and equal bilateral excursions. CARDIOVASCULAR: Palpable 2+ radial pulses. ABDOMEN: Soft. Nondistended. Incisions clean dry and intact. NICOLLE change with serosanguineous output MUSCULOSKELETAL: No clubbing or cyanosis. NEUROLOGIC: No focal or lateralizing signs. Cranial nerves II through XII grossly intact. PSYCH: Appropriate affect. Alert and oriented to person, place and time. SKIN: Well perfused. Good skin turgor. ASSESSMENT: 1. Epigastric abdominal pain with peritonitis 2. Pneumoperitoneum 3. Perforated gastrojejunal anastomosis 4. History of gastric bypass 5. Abdominal ascites PLAN: -Start bariatric clear liquid diet -Antibiotics per infectious disease. Please note that patient will have to have liquid or IV form of antibiotics. No pills -Continue TPN for nutrition support -Continue IV Protonix -Encouraged patient to increase activity level -Encouraged patient to use incentive spirometer -DVT prophylaxis subcu heparin Physician Coupon Clerk note has been reviewed by physician. Signing provider agrees with the documented findings, assessment, and plan of care. Please see additional documentation below. Patient is tolerating clear liquid diet. Upper GI swallow study independently reviewed demonstrates no leaks or obstruction. At this time, pending antibiotic management for discharge. Patient does have a PICC line. Patient will be discharged home with Jose Manuel-Dunlap drains and on full liquid diet/pure diet. Overall, moderate clinical improvement from sepsis and pneumoperitoneum with pe ritonitis Objective - Vital Signs Vital signs: Vital Signs Temp 98.0 F 12/18/22 07:27 Pulse 67 12/18/22 07:27 Resp 19 12/18/22 07:27 BP 179/99 12/18/22 07:27 Pulse Ox 100 12/18/22 07:27 FiO2 Intake & Output 12/17/22 12/18/22 12/18/22 18:59 06:59 18:59 Intake Total 1000 Output Total 760 510 Balance -760 1000 -510 Intake: Intake, IV Titration 1000 Amount Amino Acid 5%-D15w+Lytes* 1000 E* 1,000 ml @ 92 mls/hr IV .BY DURATION [facility] Rx#: [id number] Output: Drainage 110 110 Left Abdomen 70 90 Right Abdomen 40 20 Urine 650 400 Other: Voiding Method Urinal # Voids 2 - Labs CBC & Chem 7: 12/18/22 06:41 12/18/22 06:41 Labs: Abnormal Lab Results - Last 24 Hours (Table) 12/18/22 Range/Units 06:41 Sodium 136 L (137-145) mmol/L Potassium 3.3 L (3.5-5.1) mmol/L Creatinine 0.47 L (0.66-1.25) mg/dL Glucose 151 H (74-99) mg/dL Calcium 7.9 L (8.4-10.2) mg/dL Microbiology - Last 24 Hours (Table) 12/15/22 16:13 Blood Culture - Preliminary Blood 12/15/22 00:05 Gram Stain - Final Abdomen Wound Culture - Final
[2022-12-18 14:03] LABS: HGB 10.1 gm/dL (13.0-17.5)
--- NOTE | 2022-12-18 14:53 | P.PN ---
Subjective Progress Note Date: 12/17/22 Principal diagnosis: Perforated anastomosis and peritonitis Patient is a 57-year-old male with a past medical history significant for hypertension atrial fibrillation reflux and did have a history of bariatric surgery few years ago patient presenting to the ER for evaluation of abdominal pain , patient did have a free air and was concern for perforated gastrojejunal anastomosis, patient is status post laparoscopic repair and lysis of adhesion. On today's evaluation that is 12/17/2022, the patient denies having any fever or any chills, the patient is breathing comfortably abdominal pain is controlled with the current medication no nausea no vomiting no chest pain shortness of breath or cough Objective - Vital Signs Vital signs: Vital Signs Temp 97.9 F 12/17/22 06:40 Pulse 68 12/17/22 06:40 Resp 16 12/17/22 06:40 BP 145/91 12/17/22 06:40 Pulse Ox 99 12/17/22 06:40 FiO2 Intake & Output 12/16/22 12/17/22 12/17/22 18:59 06:59 18:59 Output Total 300 620 Balance -300 -620 Weight 104.326 kg Output: Drainage 50 170 Left Abdomen 20 70 Right Abdomen 30 100 Urine 250 450 Other: # Voids 2 1 - Exam GENERAL DESCRIPTION: Middle-age male lying in bed in no distress RESPIRATORY SYSTEM: Unlabored breathing , decreased breath sounds at bases HEART: S1 S2 regular rate and rhythm , ABDOMEN: Soft , no tenderness EXTREMITIES: No edema feet - Labs CBC & Chem 7: 12/18/22 06:41 12/18/22 06:41 Labs: Abnormal Lab Results - Last 24 Hours (Table) 12/17/22 Range/Units 05:44 Sodium 135 L (137-145) mmol/L Creatinine 0.48 L (0.66-1.25) mg/dL Glucose 114 H (74-99) mg/dL Calcium 8.0 L (8.4-10.2) mg/dL Microbiology - Last 24 Hours (Table) 12/15/22 16:13 Blood Culture - Preliminary Blood 12/15/22 00:05 Wound Culture - Preliminary Abdomen 12/15/22 00:05 Anaerobic Culture - Preliminary Abdomen Assessment and Plan (1) Peritonitis Current Visit: Yes Status: Acute Code(s): K65.9 - PERITONITIS, UNSPECIFIED SNOMED Code(s): 10215131 (2) Bowel perforation Current Visit: Yes Status: Acute Code(s): K63.1 - PERFORATION OF INTESTINE (NONTRAUMATIC) SNOMED Code(s): 46046793 Plan: 1patient presented to hospital with abdominal pain has been diagnosed with perforated gastrojejunal anastomosis status post laparoscopic repair of the same and will need to cover for enteric gram-negative both anaerobes and anaerobes 2-patient with a penicillin allergy that would limit the number of antibiotics safe to use however the patient mentioned has taken amoxicillin clinical doubt true penicillin allergy, RN to confirm that from his pharmacy 3Patient to continue cefepime 2 g every 8 hours , IV Flagyl and Diflucan while waiting for the culture to finalize Time with Patient: Less than 30
--- NOTE | 2022-12-18 14:55 | P.PN ---
Subjective Progress Note Date: 12/18/22 Principal diagnosis: Perforated anastomosis and peritonitis Patient is a 57-year-old male with a past medical history significant for hypertension atrial fibrillation reflux and did have a history of bariatric surgery few years ago patient presenting to the ER for evaluation of abdominal pain , patient did have a free air and was concern for perforated gastrojejunal anastomosis, patient is status post laparoscopic repair and lysis of adhesion. On today's evaluation that is 12/18/2022, the patient remains to be afebrile, the patient is breathing comfortably on room air, the patient denies having any nausea no vomiting abdominal pain is controlled with the current medication, no chest pain shortness of breath or cough Objective - Vital Signs Vital signs: Vital Signs Temp 98.0 F 12/18/22 07:27 Pulse 67 12/18/22 07:27 Resp 19 12/18/22 07:27 BP 179/99 12/18/22 07:27 Pulse Ox 100 12/18/22 07:27 FiO2 Intake & Output 12/17/22 12/18/22 12/18/22 18:59 06:59 18:59 Intake Total 1000 Output Total 760 510 Balance -760 1000 -510 Intake: Intake, IV Titration 1000 Amount Amino Acid 5%-D15w+Lytes* 1000 E* 1,000 ml @ 92 mls/hr IV .BY DURATION [facility] Rx#: [id number] Output: Drainage 110 110 Left Abdomen 70 90 Right Abdomen 40 20 Urine 650 400 Other: Voiding Method Urinal # Voids 2 - Exam GENERAL DESCRIPTION: Middle-age male lying in bed in no distress RESPIRATORY SYSTEM: Unlabored breathing , decreased breath sounds at bases HEART: S1 S2 regular rate and rhythm , ABDOMEN: Soft , no tenderness EXTREMITIES: No edema feet - Labs CBC & Chem 7: 12/18/22 06:41 12/18/22 06:41 Labs: Abnormal Lab Results - Last 24 Hours (Table) 12/18/22 Range/Units 06:41 Sodium 136 L (137-145) mmol/L Potassium 3.3 L (3.5-5.1) mmol/L Creatinine 0.47 L (0.66-1.25) mg/dL Glucose 151 H (74-99) mg/dL Calcium 7.9 L (8.4-10.2) mg/dL Microbiology - Last 24 Hours (Table) 12/15/22 16:13 Blood Culture - Preliminary Blood 12/15/22 00:05 Gram Stain - Final Abdomen Wound Culture - Final Assessment and Plan (1) Bowel perforation Current Visit: Yes Status: Acute Code(s): K63.1 - PERFORATION OF INTESTINE (NONTRAUMATIC) SNOMED Code(s): 85768856 (2) Peritonitis Current Visit: Yes Status: Acute Code(s): K65.9 - PERITONITIS, UNSPECIFIED SNOMED Code(s): 36085608 Plan: 1patient presented to hospital with abdominal pain has been diagnosed with perforated gastrojejunal anastomosis status post laparoscopic repair of the same and will need to cover for enteric gram-negative both anaerobes and anaerobes 2-patient with a penicillin allergy that would limit the number of antibiotics safe to use however the patient mentioned has taken amoxicillin clinical doubt true penicillin allergy, RN to confirm that from his pharmacy 3Patient seemed to have shortness with improvement and the patient white count has normalized, to continue cefepime 2 g every 8 hours , IV Flagyl and Diflucan while waiting for the culture to finalize and monitor clinical course closely Time with Patient: Less than 30
[2022-12-18] MEDS ORDERED: POTASSIUM CHLORIDE 20 MEQ in WATER FOR INJECTION 1 100ML.BAG IVPB ONE (15:00)
[2022-12-18] MEDS: 1: MVI, ADULT NO.4 WITH VIT K 10 ML, TRACE (CONC-1ML/DOSE) 1 ML, POTASSIUM CHLORIDE 20 M IV SCH ×4 (15:39)
[2022-12-19] MEDS: HYDROmorphone 1 MG/ML 1 ML SYRINGE IVP PRN ×2 (01:09→05:22)
[2022-12-19] MEDS: 1: MVI, ADULT NO.4 WITH VIT K 10 ML, TRACE (CONC-1ML/DOSE) 1 ML, POTASSIUM CHLORIDE 20 M IV SCH ×4 (01:42)
[2022-12-19] MEDS: CEFEPIME 2 GM in SODIUM CHLORIDE 0.9% 100 ML IVPB SCH ×2 (03:21→12:19)
[2022-12-19] MEDS: metroNIDAZOLE-NS PMX 500 MG in SALINE 1 100ML.BAG IVPB SCH ×2 (03:21→11:41)
[2022-12-19] MEDS: PANTOPRAZOLE 40 MG/10 ML VIAL IV SCH (09:47)
[2022-12-19] MEDS: HEPARIN SODIUM,PORCINE/PF 5,000 UNIT/0.5 ML SYRINGE SQ SCH (09:47)
[2022-12-19] MEDS: FLUCONAZOLE IN NACL,ISO-OSM 200 MG in SALINE 1 100ML.BAG IVPB SCH (09:48)
[2022-12-19] MEDS: FLUTICASONE 50MCG/SPRAY NASAL 16GM EA NOSTRIL SCH (09:48)
[2022-12-19] MEDS: SYMBICORT 160-4.5 MCG INHALER INHALATION SCH (09:53)
[2022-12-19 10:25] LABS: African American GFR (CKD) >90 (>60 ml/min/1.73 sqM); Anion Gap 10 mmol/L; Blood Urea Nitrogen 11 mg/dL (9-20); Calcium 8.5 mg/dL (8.4-10.2); Carbon Dioxide 31 mmol/L (22-30); Chloride 97 mmol/L (98-107); Glucose 128 mg/dL (74-99); Non-African American GFR(CKD) >90 (>60 ml/min/1.73 sqM); Phosphorus 3.9 mg/dL (2.5-4.5); Potassium 3.7 mmol/L (3.5-5.1); Sodium 138 mmol/L (137-145)
[2022-12-19] MEDS: HYDROmorphone 0.5 MG/0.5 ML SYRINGE IVP PRN (12:27)
[2022-12-19] MEDS ORDERED: AMPICILLIN-SULBACTAM 3 GM in SODIUM CHLORIDE 0.9% 100 ML IVPB SCH (12:45)
[2022-12-19] MEDS ORDERED: POTASSIUM CHLORIDE 20 MEQ in WATER FOR INJECTION 1 100ML.BAG IVPB ONE (13:00)
[2022-12-19 13:54] VITALS: BP 163/89; PULSE 77; RESP 16; TEMP 98.9
[2022-12-19 15:23] LABS: Basophils # (A) 0.05 X 10*3/uL (0.00-0.10); Basophils % (A) 0.9 %; Eosinophils # (A) 0.72 X 10*3/uL (0.04-0.35); Eosinophils % (A) 12.8 %; HCT 33.5 % (39.6-50.0); HGB 10.4 g/dL (13.0-17.0); Immature Grans, Automated 0.4 %; Lymphocytes % (A) 17.8 %; MCH 27.4 pg (27.0-32.0); MCV 88.4 fL (80.0-97.0); Mean Platelet Volume 8.3 fL (9.5-12.2); Monocytes # (A) 0.57 X 10*3/uL (0.20-1.00); Monocytes % (A) 10.1 %; NRBC Per 100 WBC 0 /100 WBCS (0.0-0.0); Neutrophils # (A) 3.27 X 10*3/uL (1.80-7.70); Platelet Count 500 X 10*3/uL (140-440); RBC 3.79 X 10*6/uL (4.40-5.60); RDW 15.2 % (11.5-14.5); WBC 5.63 X 10*3/uL (4.50-10.00)
--- NOTE | 2022-12-19 15:33 | P.PN ---
Subjective Progress Note Date: 12/19/22 Principal diagnosis: Perforated anastomosis and peritonitis Patient is a 57-year-old male with a past medical history significant for hypertension atrial fibrillation reflux and did have a history of bariatric surgery few years ago patient presenting to the ER for evaluation of abdominal pain , patient did have a free air and was concern for perforated gastrojejunal anastomosis, patient is status post laparoscopic repair and lysis of adhesion. On today's evaluation that is 12/19/2022, the patient continue to be afebrile, the patient is breathing comfortably on room air, the patient denies having any nausea no vomiting , the patient abdominal pain is controlled with the current medication, the patient denies chest pain shortness of breath or cough Objective - Vital Signs Vital signs: Vital Signs Temp 97.6 F 12/19/22 06:58 Pulse 61 12/19/22 06:58 Resp 18 12/19/22 06:58 BP 165/90 12/19/22 06:58 Pulse Ox 99 12/19/22 06:58 FiO2 Intake & Output 12/18/22 12/19/22 12/19/22 18:59 06:59 18:59 Intake Total 236 870.933 Output Total 890 1655 20 Balance -654 -1655 850.933 Intake: Intake, IV Titration 870.933 Amount Potassium Chloride 20 meq 870.933 In Amino Acid 5%-D15w+ Lytes*E* 1,000 ml @ 92 mls/hr IV .BY DURATION TAL Rx#:[id number] Oral 236 Output: Drainage 140 55 20 Left Abdomen 110 40 20 Right Abdomen 30 15 Urine 750 1600 Other: Voiding Method Urinal Urinal # Voids 2 2 2 # Bowel Movements 2 - Exam GENERAL DESCRIPTION: Middle-age male lying in bed in no distress RESPIRATORY SYSTEM: Unlabored breathing , decreased breath sounds at bases HEART: S1 S2 regular rate and rhythm , ABDOMEN: Soft , no tenderness EXTREMITIES: No edema feet - Labs CBC & Chem 7: 12/19/22 09:50 12/19/22 09:50 Labs: Abnormal Lab Results - Last 24 Hours (Table) 12/18/22 12/19/22 Range/Units 06:41 09:50 RBC 3.51 L (4.30-5.90) m/uL Hgb 10.1 L D (13.0-17.5) gm/dL Hct 31.3 L (39.0-53.0) % Lymphocytes # 0.7 L (1.0-4.8) k/uL Chloride 97 L (98-107) mmol/L Carbon Dioxide 31 H (22-30) mmol/L Creatinine 0.42 L (0.66-1.25) mg/dL Glucose 128 H (74-99) mg/dL Microbiology - Last 24 Hours (Table) 12/15/22 16:13 Blood Culture - Preliminary Blood 12/15/22 00:05 Gram Stain - Final Abdomen Wound Culture - Final Assessment and Plan (1) Bowel perforation Current Visit: Yes Status: Acute Code(s): K63.1 - PERFORATION OF INTESTINE (NONTRAUMATIC) SNOMED Code(s): 07517587 (2) Peritonitis Current Visit: Yes Status: Acute Code(s): K65.9 - PERITONITIS, UNSPECIFIED SNOMED Code(s): 42219729 Plan: 1patient presented to hospital with abdominal pain has been diagnosed with perforated gastrojejunal anastomosis status post laparoscopic repair of the same and will need to cover for enteric gram-negative both anaerobes and anaerobes 2-patient with a penicillin allergy that would limit the number of antibiotics safe to use however the patient mentioned has taken amoxicillin clinical doubt true penicillin allergy, RN to confirm that from his pharmacy 3Patient has shown clinical improvement and the patient white count has normalized abdominal culture has been negative so far, we will switch antibiotic therapy to Unasyn and if the patient tolerates it, the level before oral Augmentin and Diflucan in liquid form for 10 days with close outpatient follow- up discussed with and [employer] surgical team Time with Patient: Less than 30
--- NOTE | 2022-12-19 15:38 | P.DS ---
Providers Date of admission: 12/15/22 16:37 Expected date of discharge: 12/19/22 Attending physician: Arielle Medeiros Consults: 12/16/22 00:27 Consult Physician Routine Consulting Provider: Michaela Rodrigez Consult Reason/Comments: peritonitis perforated stomach, PCN allery Do you want consulting provider notified?: Yes, Notify in am Primary care physician: Harjinder Almanzar Hospital Course: Discharge diagnosis 1. Epigastric abdominal pain with peritonitis 2. Pneumoperitoneum 3. Perforated gastrojejunal anastomosis 4. History of gastric bypass 5. Abdominal ascites Hospital course The patient is a 57-year-old male who dense with peritonitis, sepsis, lactic acidosis due to perforated gastrojejunal anastomosis from ulceration. Patient is status post Robotic-assisted da Dwayne Xi laparoscopic repair of gastrojejunal perforation with lysis of adhesions, over 2 hours an drainage of left upper quadrant abscess and abdominal washout. Patient tolerated surgery well. His pain is controlled. He had upper GI that showed no evidence of leak or obstruction. He was nothing by mouth for 3 days. He is tolerating a clear liquid diet. His pain is controlled. He is having bowel movement and flatus. He is stable for discharge. He will be discharged with Augmentin and Diflucan elixirs per infectious disease recommendations. Patient is afebrile. He is ambulating. He is stable for discharge. Physician Broke Man note has been reviewed by physician. Signing provider agrees with the documented findings, assessment, and plan of care. Patient Condition at Discharge: Stable Plan - Discharge Summary Discharge Rx Participant: No New Discharge Prescriptions: New Fluconazole Oral Susp [Diflucan Oral Susp] 200 mg PO DAILY 10 Days #500 ml Pantoprazole Sodium [Protonix] 40 mg PO DAILY #30 capsule Amoxic-Pot Clav 200-28.5MG/5Ml [Augmentin 200-28.5 mg/5 ml Susp] 20 ml PO BID 10 Days #400 ml Sucralfate [Carafate] 1 gm PO BID #500 ml Acetaminophen Oral Susp [Tylenol] 1,000 mg PO Q6H #400 ml No Action Montelukast Sodium [Singulair] 10 mg PO DAILY Albuterol Sulfate [Ventolin HFA] 2 puff INHALATION RT-Q4H PRN PRN Reason: Shortness Of Breath Or Wheezing traZODone HCL [Desyrel] 50 - 100 mg PO HS NIFEdipine [NIFEdipine ER (Osmotic)] 60 mg PO DAILY Omeprazole [PriLOSEC] 40 mg PO DAILY #90 cap EPINEPHrine (Auto Inject) [Epipen] 0.3 mg IM ONCE PRN PRN Reason: Anaphylaxis Fluticasone Nasal [place] [Flonase Nasal [place]] 1 spray EA NOSTRIL DAILY Dupilumab [Dupixent Syringe] 300 mg SQ Q14D modafiniL [Provigil] 200 mg PO DAILY Discharge Medication List Montelukast Sodium [Singulair] 10 mg PO DAILY 03/08/14 [History] Albuterol Sulfate [Ventolin HFA] 2 puff INHALATION RT-Q4H PRN 12/04/16 [History] traZODone HCL [Desyrel] 50 - 100 mg PO HS 12/20/20 [History] NIFEdipine [NIFEdipine ER (Osmotic)] 60 mg PO DAILY 05/26/22 [History] Omeprazole [PriLOSEC] 40 mg PO DAILY #90 cap 08/04/22 [Rx] Dupilumab [Dupixent Syringe] 300 mg SQ Q14D 12/15/22 [History] EPINEPHrine (Auto Inject) [Epipen] 0.3 mg IM ONCE PRN 12/15/22 [History] Fluticasone Nasal [place] [Flonase Nasal [place]] 1 spray EA NOSTRIL DAILY 12/15/22 [History] modafiniL [Provigil] 200 mg PO DAILY 12/15/22 [History] Acetaminophen Oral Susp [Tylenol] 1,000 mg PO Q6H #400 ml 12/19/22 [Rx] Amoxic-Pot Clav 200-28.5MG/5Ml [Augmentin 200-28.5 mg/5 ml Susp] 20 ml PO BID 10 Days #400 ml 12/19/22 [Rx] Fluconazole Oral Susp [Diflucan Oral Susp] 200 mg PO DAILY 10 Days #500 ml 12/19/22 [Rx] Pantoprazole Sodium [Protonix] 40 mg PO DAILY #30 capsule 12/19/22 [Rx] Sucralfate [Carafate] 1 gm PO BID #500 ml 12/19/22 [Rx] Follow up Appointment(s)/Referral(s): Harjinder Almanzar MD [Primary Care Provider] - 1-2 days [place], [place] [NON-STAFF] - 12/24/22 Activity/Diet/Wound Care/Special Instructions: Wear abdominal binder at all times for comfort. No lifting over 4 pounds in 4 weeks You May shower. No bath tub soaks for two weeks Use ice along incisions for the today to prevent swelling. Continue a full liquid/pured diet until seen by surgeon Do not take pill medication until seen by surgeon Keep a log of NICOLLE drain output and bring with you to your follow-up appointment Milk/strip drains 2-3 times a day Discharge Disposition: HOME SELF-CARE
== END 2022-12-19 18:57 | disposition home or self-care (01) | DRG 853 ==
LOC: EC 13:02 → 4SSUR 16:37
PROVIDERS: ADMIT Surgery Plastic and Reconstructive Surgery; ATTEND Surgery Plastic and Reconstructive Surgery
PROC: 02HV33Z Insertion of Infusion Device into Superior Vena Cava, Percutaneous Approach (ICD-10-PCS; 2022-12-16)
PROC: 0W9G40Z Drainage of Peritoneal Cavity with Drainage Device, Percutaneous Endoscopic Approach (ICD-10-PCS; principal; 2022-12-16 16:45)
PROC: 0DNW4ZZ Release Peritoneum, Percutaneous Endoscopic Approach (ICD-10-PCS; principal; 2022-12-16 16:45)
PROC: 0DQ64ZZ Repair Stomach, Percutaneous Endoscopic Approach (ICD-10-PCS; principal; 2022-12-16 16:45)
PROC: 3E1M48Z Irrigation of Peritoneal Cavity using Irrigating Substance, Percutaneous Endoscopic Approach (ICD-10-PCS; principal; 2022-12-16 16:45)
PROC: 0DJ08ZZ Inspection of Upper Intestinal Tract, Via Natural or Artificial Opening Endoscopic (ICD-10-PCS; principal; 2022-12-16 16:45)
PROC: 0DQA4ZZ Repair Jejunum, Percutaneous Endoscopic Approach (ICD-10-PCS; principal; 2022-12-16 16:45)
DX: A41.9 Sepsis, unspecified organism (principal); K28.5 Chronic or unspecified gastrojejunal ulcer with perforation; K65.9 Peritonitis, unspecified; E87.20 Acidosis, unspecified; R18.8 Other ascites; E87.6 Hypokalemia; I11.9 Hypertensive heart disease without heart failure; I48.91 Unspecified atrial fibrillation; K21.9 Gastro-esophageal reflux disease without esophagitis; K66.0 Peritoneal adhesions (postprocedural) (postinfection); R13.10 Dysphagia, unspecified; Z79.899 Other long term (current) drug therapy; Z82.49 Family history of ischemic heart disease and other diseases of the circulatory system; Z87.11 Personal history of peptic ulcer disease; Z87.442 Personal history of urinary calculi; Z88.0 Allergy status to penicillin; Z96.653 Presence of artificial knee joint, bilateral; Z98.84 Bariatric surgery status; Z71.3 Dietary counseling and surveillance
CPT/HCPCS: 36415; 36573; 74177; 74240; 80048; 80053; 82150; 82330; 83605; 83690; 83735; 84100; 84478; 85025; 85610; 85730; 86850; 86900; 86901; 87040; 87070; 87075; 87205; 93005; 94640

== ENCOUNTER → 2022-12-24 | Outpatient (CLI) | payer MEDICAID ==
[2022-12-25 02:08] LABS: HCT 38.6 % (39.6-50.0); HGB 11.6 g/dL (13.0-17.0); MCH 26.9 pg (27.0-32.0); MCHC 30.1 g/dL (32.0-37.0); MCV 89.6 fL (80.0-97.0); Mean Platelet Volume 8.2 fL (9.5-12.2); NRBC Per 100 WBC 0 /100 WBCS (0.0-0.0); Platelet Count 544 X 10*3/uL (140-440); RBC 4.31 X 10*6/uL (4.40-5.60); RDW 15.2 % (11.5-14.5); WBC 5.97 X 10*3/uL (4.50-10.00)
== END | disposition home or self-care (01) ==
LOC: LABWHC1 14:40
PROVIDERS: ATTEND Surgery Plastic and Reconstructive Surgery
DX: E66.01 Morbid (severe) obesity due to excess calories (principal)
CPT/HCPCS: 36415; 85027

== ENCOUNTER → 2022-12-24 | Outpatient (CLI) | payer MEDICAID ==
[2022-12-24 13:31] VITALS: BP 137/92; PULSE 66; TEMP 98.3; BMI 32.2
--- NOTE | 2022-12-24 14:32 | P.BASOAP ---
Subjective Progress Note Date: 12/24/22 He has allergic reaction to glue using benadryl. Nothing is coming out of the drain. He is on liquid diet. Plan for removal of drain. Repeat CBC. And have CT scan. Objective - Vital Signs Vital signs: Vital Signs Temp 98.3 F 12/24/22 13:27 Pulse 66 12/24/22 13:27 Resp BP 137/92 12/24/22 13:27 Pulse Ox FiO2 Intake & Output 12/23/22 12/24/22 12/24/22 18:59 06:59 18:59 Weight 101.968 kg Assessment/Plan Plan: Date: 12/24/22 Initial Weight: 163.52 kg Initial BMI: 51.7 Current Weight: 101.968 kg Current BMI: 32.2 Type of Surgery: Total Volume in Band: Previous Volume: Volume Removed: Volume Added: Band Size:
== END ==
LOC: BARWHC3 13:01
PROVIDERS: ATTEND Surgery Plastic and Reconstructive Surgery
DX: E66.01 Morbid (severe) obesity due to excess calories (principal); Z68.32 Body mass index [BMI] 32.0-32.9, adult; Z91.048 Other nonmedicinal substance allergy status; Z88.0 Allergy status to penicillin; Z88.8 Allergy status to other drugs, medicaments and biological substances; Z88.5 Allergy status to narcotic agent
CPT/HCPCS: 99211

== ENCOUNTER → 2022-12-31 | Outpatient (CLI) | payer MEDICAID ==
--- NOTE | 2023-01-01 09:20 | CT ---
EXAMINATION TYPE: CT abdomen pelvis w con DATE OF EXAM: 12/31/2022 COMPARISON: 12/15/2022 HISTORY: post-op bowel resection CT DLP: 1783 mGycm Automated exposure control for dose reduction was used. CONTRAST: CT scan of the abdomen pelvis is performed with IV Contrast, patient injected with 100 mL of Isovue 3 00. FINDINGS- The heart is upper limits of normal in size without pericardial effusion. Some patchy peripheral opac ities have increased from 02/10/2022, possible postinfectious scarring. Clinically correlate. A vague hypodense lesion within the mid liver measures 2.1 cm versus 2.3 cm, previously. Portal venou s system is patent. No biliary ductal dilatation. Adrenal glands, kidneys, spleen, pancreas demonstrate no significant abnormality. Tiny hypodensity me asuring 2 mm upper pole left kidney too small to characterize but statistically most likely related t o a cyst. Postsurgical change of Liliana-en-Y gastric bypass. This seems to be an antecolic gastric bypa ss. There is abnormal thickening and moderate inflammatory fat stranding in the anterior left upper q uadrant at and just after the gastrojejunostomy. No free intraperitoneal air is present. No dilated small bowel. Mild free fluid throughout the abdomen. Small hiatal hernia noted. Bladder is nondistended. No abnormal fluid collection the pelvis or pelvic lymphadenopathy. Bones: [facility] lower thoracic to upper lumbar spine. Hypertrophic facet arthropathy lower lumbar spine. Bilateral L5 pars defects with grade 1 anterolisthesis L5-S1. IMPRESSION: 1. Status post Liliana-en-Y gastric bypass. Persistent mild wall thickening just after the gastrojejunos sangita. The degree of inflammation is improved. There is persistent residual inflammatory changes seen axial image 25 through 30. Correlate for active inflammatory changes within the jejunum. Enteritis. 2. Nonspecific hepatic lesion could be correlated with MRI and is stable from previous study.
== END | disposition home or self-care (01) ==
LOC: RADCTMAIN 17:24
PROVIDERS: ATTEND Surgery Plastic and Reconstructive Surgery
DX: K65.1 Peritoneal abscess (principal); K52.9 Noninfective gastroenteritis and colitis, unspecified; Z98.84 Bariatric surgery status
CPT/HCPCS: 74177; Q9967

== ENCOUNTER → 2023-01-14 | Outpatient (CLI) | payer MEDICAID ==
[2023-01-14 16:00] VITALS: BP 129/86; PULSE 94; TEMP 98.4; BMI 31.7
--- NOTE | 2023-01-14 16:12 | P.BASOAP ---
Subjective Progress Note Date: 01/14/23 He is doing anything. He is on protein shakes. Plan for EGD with dilation. Objective - Vital Signs Vital signs: Vital Signs Temp 98.4 F 01/14/23 15:55 Pulse 94 01/14/23 15:55 Resp BP 129/86 01/14/23 15:55 Pulse Ox FiO2 Intake & Output 01/13/23 01/14/23 01/14/23 18:59 06:59 18:59 Weight 100.244 kg Assessment/Plan Plan: Date: 01/14/23 Initial Weight: 163.52 kg Initial BMI: 51.7 Current Weight: 100.244 kg Current BMI: 31.7 Type of Surgery: Total Volume in Band: Previous Volume: Volume Removed: Volume Added: Band Size:
== END ==
LOC: BARWHC3 15:06
PROVIDERS: ATTEND Surgery Plastic and Reconstructive Surgery
DX: E66.01 Morbid (severe) obesity due to excess calories (principal); Z68.31 Body mass index [BMI] 31.0-31.9, adult; Z88.0 Allergy status to penicillin; Z91.048 Other nonmedicinal substance allergy status; Z88.6 Allergy status to analgesic agent; Z88.8 Allergy status to other drugs, medicaments and biological substances
CPT/HCPCS: 99211

== ENCOUNTER 2023-01-26 08:16 | Day surgery (SDC) | payer MEDICAID ==
[2023-01-22 10:55] VITALS: BMI 31.5
--- NOTE | 2023-01-26 07:33 | P.GSHP ---
History of Present Illness H&P Date: 01/26/23 CHIEF COMPLAINT: GERD HISTORY OF PRESENT ILLNESS: The patient is a 58-year-old male who presents reports gastroesophageal reflux disease. Upper endoscopy was offered for further evaluation and management. PAST MEDICAL HISTORY: Please see list. PAST SURGICAL HISTORY: Please see list. MEDICATIONS: Please see list. ALLERGIES: Please see list. SOCIAL HISTORY: No illicit drug use FAMILY HISTORY: No reports of Crohn disease or ulcerative colitis. REVIEW OF ORGAN SYSTEMS: CONSTITUTIONAL: No reports of fevers or chills. GI: Denies any blood in stools or constipation. PHYSICAL EXAM: VITAL SIGNS: Stable GENERAL: Well-developed and pleasant in no acute distress. HEENT: No scleral icterus. Extraocular movements grossly intact. Moist buccal mucosa. NECK: Supple without lymphadenopathy. CHEST: Unlabored respirations. Equal bilateral excursions. CARDIOVASCULAR: Regular rate and rhythm. Distal 2+ pulses. ABDOMEN: Soft, nondistended. MUSCULOSKELETAL: No clubbing, cyanosis, or edema. ASSESSMENT: 1. Gastroesophageal reflux disease PLAN: 1. Recommend proceeding with an upper endoscopy Past Medical History Past Medical History: Atrial Fibrillation, Asthma, GERD/Reflux, Hypertension, Sleep Apnea/CPAP/BIPAP Additional Past Medical History / Comment(s): Hx Kidney stones, hx afib due to hypokalemia after bariatric surgery-none since, hx bronchitis, uses CPAP, hx fractured right fibula, recent gastric ulcers, peritonitis and sepsis (12/15/22). History of Any Multi-Drug Resistant Organisms: None Reported Past Surgical History: Bariatric Surgery, Hernia Repair, Joint Replacement, Orthopedic Surgery Additional Past Surgical History / Comment(s): Panniculectomy w/ ventral hernia repair, Liliana-en-Y, left knee surgery for torn meniscus, right knee arthroscopy, right bicep reattachment, sinus surgery X3, lithotripsy w/ 2 kidney stones removed, LEFT SHOULDER SURGERY, bilateral knee replacements, EGD with dialtion. Past Anesthesia/Blood Transfusion Reactions: Motion Sickness, Postoperative Nausea & Vomiting (PONV) Past Psychological History: No Psychological Hx Reported Smoking Status: Never smoker Past Alcohol Use History: Occasional Past Drug Use History: None Reported - Past Family History Father Family Medical History: Cancer, Myocardial Infarction (HI) Additional Family Medical History / Comment(s): Prostate cancer. Mother Family Medical History: Pulmonary Embolus Additional Family Medical History / Comment(s): Mother is healthy and is 73 yrs old. Medications and Allergies Home Medications Medication Instructions Recorded Confirmed Type Montelukast Sodium [Singulair] 10 mg PO DAILY 03/08/14 01/22/23 History Albuterol Sulfate [Ventolin HFA] 2 puff INHALATION Q4H PRN 12/04/16 01/22/23 History traZODone HCL [Desyrel] 50 - 100 mg PO HS 12/20/20 01/22/23 History NIFEdipine [NIFEdipine ER 60 mg PO QAM 05/26/22 01/22/23 History (Osmotic)] Dupilumab [Dupixent Syringe] 300 mg SQ Q14D 12/15/22 01/22/23 History EPINEPHrine (Auto Inject) [Epipen] 0.3 mg IM ONCE PRN 12/15/22 01/22/23 History Fluticasone Nasal [place] [Flonase 1 spray EA NOSTRIL DAILY 12/15/22 01/22/23 History Nasal [place]] modafiniL [Provigil] 200 mg PO DAILY 12/15/22 01/22/23 History Acetaminophen Oral Susp [Tylenol] 1,000 mg PO Q6H PRN 01/22/23 01/22/23 History Omeprazole [PriLOSEC] 40 mg PO QAM 01/22/23 01/22/23 History Allergies Allergy/AdvReac Type Severity Reaction Status Date / Time adhesive tape Allergy Rash/Hives Verified 01/22/23 10:56 alcohol Allergy Rash/Hives Verified 01/22/23 10:56 [From Mastisol Liquid Adhesive] gum mastic Allergy Rash/Hives Verified 01/22/23 10:56 [From Mastisol Liquid Adhesive] methyl salicylate Allergy Rash/Hives Verified 01/22/23 10:56 [From Mastisol Liquid Adhesive] storax Allergy Rash/Hives Verified 01/22/23 10:56 [From Mastisol Liquid Adhesive] Penicillins AdvReac Anaphylaxis Verified 01/22/23 10:56 Nvsvvid-GGZ-BcA Reductase AdvReac joint Pain Verified 01/22/23 10:56 Inhibitor [Yafruag-Hkh-Lzd Reductase Inhibitor] Surgical Glue Allergy Severe Rash/Hives Uncoded 01/22/23 10:56 Dermabond Allergy Rash/Hives Uncoded 01/22/23 10:56
[~2023-01-26 08:16] MED LIST changes: -LACTATED RINGERS 1,000 ML IV ONE; +LACTATED RINGERS 1,000 ML IV SCH
[2023-01-26] MEDS ORDERED: LACTATED RINGERS 1,000 ML IV ONE (09:04)
[2023-01-26 09:06] VITALS: TEMP 97.8
[2023-01-26] MEDS ORDERED: LIDOCAINE 2% INJ 20 MG/ML (2 ML VIAL) ONE (09:48)
[2023-01-26] MEDS ORDERED: PROPOFOL 10 MG/ML 20 ML VIAL IV ONE (09:48)
[2023-01-26] MEDS ORDERED: ONDANSETRON 4 MG/2 ML VIAL ONE (09:48)
[2023-01-26 10:05] VITALS: RESP 16
[2023-01-26 10:19] VITALS: BP 150/86; PULSE 80
--- NOTE | 2023-01-26 10:30 | P.PCN ---
Date of Procedure: 01/26/23 Description of Procedure: PREOPERATIVE DIAGNOSIS: Perforated gastrojejunal ulcer history Dysphagia POSTOPERATIVE DIAGNOSIS: Gastrojejunal stricture with chronic ulcer without perforation OPERATION: Esophagogastrojejunoscopy with balloon dilatation from 9 to 12 mm. Esophagogastrojejunoscopy with cold forceps gastric pouch SURGEON: Arielle Medeiros MD ANESTHESIA: MAC. INDICATIONS: The patient is a 58-year-old male who presents with recent gastric perforation and dysphagia. Benefits and risks of the procedure were described. Informed consent was obtained. DESCRIPTION: The patient was brought into the endoscopy suite and laid in the left lateral decubitus position. After a timeout was confirmed, the procedure was initiated. An Olympus gastroscope was passed along the posterior oropharynx down to the distal esophagus where the squamocolumnar junction was unremarkable. The gastric pouch was entered. A gastrojejunal stricture of 9 mm was found as the adult gastroscope was 9.5 mm in size. A Mir Vracha balloon dilator was placed through the scope. Final insufflation up to 12 mm was performed with a total of 2 minutes. The scope was advanced up to 60 cm from the incisors into the Liliana limb. The mucosa of the gastrojejunal anastomosis was intact. However chronic gastrojejunal marginal ulcer was encountered. No full-thickness injury was encountered. Biopsies were obtained cold forceps of the gastric pouch. The GI tract was desufflated. The patient tolerated the procedure well. FINDINGS: Stricture of approximately 9 mm encountered. Chronic gastrojejunal ulceration encountered. Successful balloon dilatation to 12 mm. Gastric pouch 5 cm. RECOMMENDATIONS: Start combined therapy of Carafate and omeprazole of at least 4 weeks. May repeat upper endoscopy with dilation Plan - Discharge Summary Discharge Rx Participant: No New Discharge Prescriptions: New Sucralfate [Carafate] 1 gm PO BID #30 tablet Continue Montelukast Sodium [Singulair] 10 mg PO DAILY Albuterol Sulfate [Ventolin HFA] 2 puff INHALATION Q4H PRN PRN Reason: Shortness Of Breath Or Wheezing traZODone HCL [Desyrel] 50 - 100 mg PO HS NIFEdipine [NIFEdipine ER (Osmotic)] 60 mg PO QAM EPINEPHrine (Auto Inject) [Epipen] 0.3 mg IM ONCE PRN PRN Reason: Anaphylaxis Fluticasone Nasal [place] [Flonase Nasal [place]] 1 spray EA NOSTRIL DAILY Dupilumab [Dupixent Syringe] 300 mg SQ Q14D Omeprazole [PriLOSEC] 40 mg PO QAM modafiniL [Provigil] 200 mg PO DAILY Acetaminophen Oral Susp [Tylenol] 1,000 mg PO Q6H PRN PRN Reason: Pain Discharge Medication List Montelukast Sodium [Singulair] 10 mg PO DAILY 03/08/14 [History] Albuterol Sulfate [Ventolin HFA] 2 puff INHALATION Q4H PRN 12/04/16 [History] traZODone HCL [Desyrel] 50 - 100 mg PO HS 12/20/20 [History] NIFEdipine [NIFEdipine ER (Osmotic)] 60 mg PO QAM 05/26/22 [History] Dupilumab [Dupixent Syringe] 300 mg SQ Q14D 12/15/22 [History] EPINEPHrine (Auto Inject) [Epipen] 0.3 mg IM ONCE PRN 12/15/22 [History] Fluticasone Nasal [place] [Flonase Nasal [place]] 1 spray EA NOSTRIL DAILY 12/15/22 [History] modafiniL [Provigil] 200 mg PO DAILY 12/15/22 [History] Acetaminophen Oral Susp [Tylenol] 1,000 mg PO Q6H PRN 01/22/23 [History] Omeprazole [PriLOSEC] 40 mg PO QAM 01/22/23 [History] Sucralfate [Carafate] 1 gm PO BID #30 tablet 01/26/23 [Rx] Follow up [facility]ment(s[facility] [facility] [place] [place] - As Needed Patient Instructions/Handouts: Esophageal Dilation (DC) Discharge Disposition: HOME SELF-CARE
== END 2023-01-26 10:54 | disposition home or self-care (01) ==
LOC: ORWHC2ENDO 08:16
PROVIDERS: ATTEND Surgery Plastic and Reconstructive Surgery
DX: K22.2 Esophageal obstruction (principal); K28.7 Chronic gastrojejunal ulcer without hemorrhage or perforation; K21.9 Gastro-esophageal reflux disease without esophagitis; I10 Essential (primary) hypertension; G47.33 Obstructive sleep apnea (adult) (pediatric); I48.91 Unspecified atrial fibrillation; J45.909 Unspecified asthma, uncomplicated; K91.0 Vomiting following gastrointestinal surgery; F10.90 Alcohol use, unspecified, uncomplicated; Z99.89 Dependence on other enabling machines and devices; Z98.84 Bariatric surgery status; Z79.899 Other long term (current) drug therapy; Z82.49 Family history of ischemic heart disease and other diseases of the circulatory system; Z91.048 Other nonmedicinal substance allergy status; Z88.0 Allergy status to penicillin; Z88.8 Allergy status to other drugs, medicaments and biological substances
CPT/HCPCS: 88305; 43239; 43249; J2405; J2704; J2001; C1726

== ENCOUNTER 2023-05-02 23:04 | Emergency (ER) | payer MEDICAID ==
[2023-05-02 23:22] VITALS: RESP 18
[2023-05-02] MEDS ORDERED: MORPHINE SULFATE 4 MG/ML SYRINGE IV STA (23:45)
--- NOTE | 2023-05-02 23:49 | ED ---
Abdominal Pain HPI - General Chief Complaint: Abdominal Pain Stated Complaint: Left Side Pain Time Seen by Provider: 05/02/23 23:22 Source: patient Mode of arrival: wheelchair Limitations: no limitations - History of Present Illness Initial Comments: This patient is 58-year-old man who presents with approximately 1-2 weeks of left sided abdominal discomfort. He states that initially symptoms were mild and tolerable however for the past week or so with things have been getting progressively worse. He also has started to have nausea and vomiting. The triage note does mention diarrhea and the patient states that he has had soft bowel movements though not really increased frequency or volume. Patient states that he had similar episode to this and had perforated ulcer. No fever or chills. No chest pain, cough, dyspnea. The pain does not radiate distally no symptoms to the scrotum or testicles. No leg symptoms Patient had a Liliana-en-Y bypass in 2011, Dr. Medeiros. Complaint: abdominal pain Onset/Timin -: week(s) Location: LUQ, LLQ Radiation: none Severity: moderate Quality: aching Consistency: constant Improves With: nothing Worsens With: nothing Associated Symptoms: nausea, vomiting - Related Data Home Medications Medication Instructions Recorded Confirmed Montelukast Sodium [Singulair] 10 mg PO DAILY 03/08/14 01/22/23 Albuterol Sulfate [Ventolin HFA] 2 puff INHALATION Q4H PRN 12/04/16 01/22/23 traZODone HCL [Desyrel] 50 - 100 mg PO HS 12/20/20 01/22/23 NIFEdipine [NIFEdipine ER 60 mg PO QAM 05/26/22 01/22/23 (Osmotic)] Dupilumab [Dupixent Syringe] 300 mg SQ Q14D 12/15/22 01/22/23 EPINEPHrine (Auto Inject) [Epipen] 0.3 mg IM ONCE PRN 12/15/22 01/22/23 Fluticasone Nasal Lowes [Flonase 1 spray EA NOSTRIL DAILY 12/15/22 01/22/23 Nasal Lowes] modafiniL [Provigil] 200 mg PO DAILY 12/15/22 01/22/23 Acetaminophen Oral Susp [Tylenol] 1,000 mg PO Q6H PRN 01/22/23 01/22/23 Omeprazole [PriLOSEC] 40 mg PO QAM 01/22/23 01/22/23 Previous Rx's Medication Instructions Recorded Sucralfate [Carafate] 1 gm PO BID #30 tablet 01/26/23 Allergies Allergy/AdvReac Type Severity Reaction Status Date / Time adhesive tape Allergy Rash/Hives Verified 01/22/23 10:56 alcohol Allergy Rash/Hives Verified 01/22/23 10:56 [From Mastisol Liquid Adhesive] gum mastic Allergy Rash/Hives Verified 01/22/23 10:56 [From Mastisol Liquid Adhesive] methyl salicylate Allergy Rash/Hives Verified 01/22/23 10:56 [From Mastisol Liquid Adhesive] storax Allergy Rash/Hives Verified 01/22/23 10:56 [From Mastisol Liquid Adhesive] Penicillins AdvReac Anaphylaxis Verified 01/22/23 10:56 [id number] Reductase AdvReac joint Pain Verified 01/22/23 10:56 Inhibitor [Oidtfvx-Ubt-Zmw Reductase Inhibitor] Surgical Glue Allergy Severe Rash/Hives Uncoded 01/22/23 10:56 Dermabond Allergy Rash/Hives Uncoded 01/22/23 10:56 Review of Systems ROS Statement: Those systems with pertinent positive or pertinent negative responses have been documented in the HPI. ROS Other: All systems not noted in ROS Statement are negative. Constitutional: Denies: fever, chills, weakness Respiratory: Denies: cough, dyspnea Cardiovascular: Denies: chest pain, palpitations, edema Gastrointestinal: Reports: abdominal pain, nausea, vomiting. Denies: diarrhea, hematemesis, melena, hematochezia Genitourinary: Denies: dysuria, hematuria, testicular pain, testicular mass Musculoskeletal: Denies: back pain Skin: Denies: rash Neurological: Denies: headache, weakness, numbness Past Medical History Past Medical History: Atrial Fibrillation, Asthma, GERD/Reflux, Hypertension, Sleep Apnea/CPAP/BIPAP Additional Past Medical History / Comment(s): Hx Kidney stones, afib in past d/t hypokalemia after bariatric surgery-none since, bronchitis, uses CPAP. fx Rt fibula 03/2021, recent hx. gastric ulcers History of Any Multi-Drug Resistant Organisms: None Reported Past Surgical History: Bariatric Surgery, Hernia Repair, Joint Replacement, Orthopedic Surgery Additional Past Surgical History / Comment(s): Panniculectomy w/ ventral hernia repair, Liliana-en-Y, left knee surgery for torn meniscus, R knee arthroscopy, R bicep reattachment, sinus surgery x3, Lithotripsies w/ 2 kidney stones removed. LEFT SHOULDER SURGERY, left knee replaced recently, right knee replacement 12/02 Past Anesthesia/Blood Transfusion Reactions: Motion Sickness, Postoperative Nausea & Vomiting (PONV) Past Psychological History: No Psychological Hx Reported Smoking Status: Never smoker Past Alcohol Use History: Occasional Past Drug Use History: None Reported - Past Family History Father Family Medical History: Cancer, Myocardial Infarction ([place]) Mother Family Medical History: Pulmonary Embolus General Exam Limitations: no limitations General appearance: alert, in no apparent distress Head exam: Present: atraumatic, normocephalic Eye exam: Present: normal appearance. Absent: scleral icterus, conjunctival injection Neck exam: Present: normal inspection Respiratory exam: Present: normal lung sounds bilaterally. Absent: respiratory distress, wheezes, rales, rhonchi, stridor Cardiovascular Exam: Present: regular rate, normal rhythm, normal heart sounds. Absent: systolic murmur, diastolic murmur, rubs, gallop GI/Abdominal exam: Present: soft, tenderness. Absent: distended, guarding, rebound, rigid, mass, pulsatile mass, hernia Extremities exam: Present: normal inspection, normal capillary refill. Absent: pedal edema, calf tenderness Back exam: Present: normal inspection. Absent: CVA tenderness (R), CVA tenderness (L) Neurological exam: Present: alert Skin exam: Present: warm, dry, intact, normal color. Absent: rash Course Vital Signs 05/02/23 05/03/23 05/03/23 23:10 02:00 05:58 Temperature 98.9 F Pulse Rate 89 72 72 Respiratory 18 18 18 Rate Blood Pressure 139/78 126/67 124/76 O2 Sat by Pulse 99 99 99 Oximetry 05/03/23 08:15 Temperature 98.6 F Pulse Rate 74 Respiratory 18 Rate Blood Pressure 130/84 O2 Sat by Pulse 99 Oximetry Medical Decision Making - Medical Decision Making Patient's 58-year-old man here with left upper abdominal pain. He does have moderate tenderness on the exam, and is sent for computed tomography scan which is interpreted as showing dilated bowel loop, concerning for possible internal hernia. The patient's surgeon Dr. Medeiros, is out of town for one week and case is discussed with surgery on-call states that there is no one else in [place] really managing internal hernia. Discussed with patient who requests to go to [facility] of as possible. I phoned and spoke with Dr. Weber at [facility] will accept transfer. Was pt. sent in by a medical professional or institution (, PA, DIRECTOR OF CORPORATE MARKETING, urgent care, hospital, or long-term...) When possible be specific @ -[No] Did you speak to anyone other than the patient for history (EMS, parent, family, police, friend...)? What history was obtained from this source @ -[No] Did you review nursing and triage notes (agree or disagree)? Why? @ -[I reviewed and agree with nursing and triage notes] Were old charts reviewed (outside hosp., previous admission, EMS record, old EKG, old radiological studies, urgent care reports/EKG's, long-term records)? Report findings @ -[Yes old charts were reviewed] Differential Diagnosis (chest pain, altered mental status, abdominal pain women, abdominal pain men, vaginal bleeding, weakness, fever, dyspnea, syncope, headache, dizziness, GI bleed, back pain, seizure, CVA, palpatations, mental health, musculoskeletal)? @ -[Differential Abdominal Pain Men: Appendicitis, cholecystitis, diverticulosis, ischemic bowel, pancreatitis, hepatitis, UTI, gastroenteritis, AAA, incarcerated hernia, bowel obstruction, constipation, inflammatory bowel, hepatitis, peptic ulcer disease, splenic infarction, perforated viscus, testicular torsion, this is not meant to be an all-inclusive list EKG interpreted by me (3pts min.). @ -[As above] X-rays interpreted by me (1pt min.). @ -[None done] CT interpreted by me (1pt min.). @ -[None done] U/S interpreted by me (1pt. min.). @ -[None done] What testing was considered but not performed or refused? (CT, X-rays, U/S, labs)? Why? @ -[None] What meds were considered but not given or refused? Why? @ -[None] Did you discuss the management of the patient with other professionals (professionals i.e. , PA, DIRECTOR OF CORPORATE MARKETING, lab, RT, psych nurse, neonatal social worker, bilingual elementary school teacher, teacher, duty officer, senior case manager)? Give summary @ -[Yes the case was discussed with surgeon who is covering for Dr. Medeiros, and then with the receiving physician at the transfer hospital Was smoking cessation discussed for >3mins.? @ -[No] Was critical care preformed (if so, how long)? @ -[No] Were there social determinants of health that impacted care today? How? (Homelessness, low income, unemployed, alcoholism, drug addiction, transportation, low edu. Level, literacy, decrease access to med. care, detention, rehab)? @ -[No] Was there de-escalation of care discussed even if they declined (Discuss DNR or withdrawal of care, Hospice)? DNR status @ -[No] What co-morbidities impacted this encounter? (DM, HTN, Smoking, COPD, CAD, Cancer, CVA, ARF, Chemo, Hep., AIDS, mental health diagnosis, sleep apnea, morbid obesity)? @ -[Previous surgical history Was patient admitted / discharged? Hospital course, mention meds given and route, prescriptions, significant lab abnormalities, going to OR and other pertinent info. @ -[See above, patient transferred for higher level surgical care Undiagnosed new problem with uncertain prognosis? @ -[No] Drug Therapy requiring intensive monitoring for toxicity (Heparin, Nitro, Insulin, Cardizem)? @ -[No] Were any procedures done? @ -[No] Diagnosis/symptom? @ -[Acute abdominal pain Acute internal hernia Acute, or Chronic, or Acute on Chronic? @ -[Acute Uncomplicated (without systemic symptoms) or Complicated (systemic symptoms)? @ -[Uncomplicated Side effects of treatment? @ -[No] Exacerbation, Progression, or Severe Exacerbation? @ -[No] Poses a threat to life or bodily function? How? (Chest pain, [place], [place], pneumonia, PE, COPD, DKA, ARF, appy, cholecystitis, CVA, Diverticulitis, Homicidal, Suicidal, threat to staff... and all critical care pts) @ -[Yes, untreated hernia may progress to bowel ischemia - Lab Data Result diagrams: 05/02/23 23:53 05/02/23 23:53 Lab Results 05/02/23 05/02/23 05/02/23 Range/Units 23:53 23:53 23:53 WBC 7.6 (3.8-10.6) k/uL RBC 5.08 (4.30-5.90) m/uL Hgb 13.3 (13.0-17.5) gm/dL Hct 40.7 (39.0-53.0) % MCV 80.0 (80.0-100.0) fL MCH 26.2 (25.0-35.0) pg MCHC 32.8 (31.0-37.0) g/dL RDW 15.9 H (11.5-15.5) % Plt Count 385 (150-450) k/uL MPV 7.2 Neutrophils % 49 % Lymphocytes % 40 % Monocytes % 6 % Eosinophils % 2 % Basophils % 0 % Neutrophils # 3.7 (1.3-7.7) k/uL Lymphocytes # 3.0 (1.0-4.8) k/uL Monocytes # 0.4 (0-1.0) k/uL Eosinophils # 0.1 (0-0.7) k/uL Basophils # 0.0 (0-0.2) k/uL Sodium 139 (137-145) mmol/L Potassium 3.5 (3.5-5.1) mmol/L Chloride 103 (98-107) mmol/L Carbon Dioxide 19 L (22-30) mmol/L Anion Gap 17 mmol/L BUN 12 (9-20) mg/dL Creatinine 0.57 L (0.66-1.25) mg/dL Est GFR (CKD-EPI)AfAm >90 (>60 ml/min/1.73 sqM) Est GFR (CKD-EPI)NonAf >90 (>60 ml/min/1.73 sqM) Glucose 127 H (74-99) mg/dL Lactic Ac Sepsis Rflx Plasma Lactic Acid Tristin 3.3 H* (0.7-2.0) mmol/L Calcium 9.5 (8.4-10.2) mg/dL Total Bilirubin 0.3 (0.2-1.3) mg/dL AST 31 (17-59) U/L ALT 18 (4-49) U/L Alkaline Phosphatase 118 (38-126) U/L C-Reactive Protein <0.5 (<1.0) mg/dL Total Protein 7.7 (6.3-8.2) g/dL Albumin 4.6 (3.5-5.0) g/dL Amylase 57 (30-110) U/L Lipase 266 (23-300) U/L Urine Color Urine Appearance (Clear) Urine pH (5.0-8.0) Ur Specific [place] (1.001-1.035) Urine Protein (Negative) Urine Glucose (UA) (Negative) Urine Ketones (Negative) Urine Blood (Negative) Urine Nitrite (Negative) Urine Bilirubin (Negative) Urine Urobilinogen (<2.0) mg/dL Ur Leukocyte Esterase (Negative) 05/03/23 05/03/23 Range/Units 00:58 01:08 WBC (3.8-10.6) k/uL RBC (4.30-5.90) m/uL Hgb (13.0-17.5) gm/dL Hct (39.0-53.0) % MCV (80.0-100.0) fL MCH (25.0-35.0) pg MCHC (31.0-37.0) g/dL RDW (11.5-15.5) % Plt Count (150-450) k/uL MPV Neutrophils % % Lymphocytes % % Monocytes % % Eosinophils % % Basophils % % Neutrophils # (1.3-7.7) k/uL Lymphocytes # (1.0-4.8) k/uL Monocytes # (0-1.0) k/uL Eosinophils # (0-0.7) k/uL Basophils # (0-0.2) k/uL Sodium (137-145) mmol/L Potassium (3.5-5.1) mmol/L Chloride (98-107) mmol/L Carbon Dioxide (22-30) mmol/L Anion Gap mmol/L BUN (9-20) mg/dL Creatinine (0.66-1.25) mg/dL Est GFR (CKD-EPI)AfAm (>60 ml/min/1.73 sqM) Est GFR (CKD-EPI)NonAf (>60 ml/min/1.73 sqM) Glucose (74-99) mg/dL Lactic Ac Sepsis Rflx Y Plasma Lactic Acid Tristin (0.7-2.0) mmol/L Calcium (8.4-10.2) mg/dL Total Bilirubin (0.2-1.3) mg/dL AST (17-59) U/L ALT (4-49) U/L Alkaline Phosphatase (38-126) U/L C-Reactive Protein (<1.0) mg/dL Total Protein (6.3-8.2) g/dL Albumin (3.5-5.0) g/dL Amylase (30-110) U/L Lipase (23-300) U/L Urine Color Colorless Urine Appearance Clear (Clear) Urine pH 6.0 (5.0-8.0) Ur Specific [place] 1.008 (1.001-1.035) Urine Protein Negative (Negative) Urine Glucose (UA) Negative (Negative) Urine Ketones Negative (Negative) Urine Blood Negative (Negative) Urine Nitrite Negative (Negative) Urine Bilirubin Negative (Negative) Urine Urobilinogen <2.0 (<2.0) mg/dL Ur Leukocyte Esterase Negative (Negative) - EKG Data -: EKG Interpreted by [facility] EKG shows normal: sinus rhythm, axis (Normal), intervals (Normal), ST-T waves (Normal) Rate: normal (Rate 80 bpm) Disposition Clinical Impression: Abdominal pain, Internal hernia Disposition: OTHER INSTITUTION NOT DEFINED Condition: Fair Is patient prescribed a controlled substance at d/c from ED?: No Referrals: Miguel Almanzar MD [Primary Care Provider] - 1-2 days - Out of Hospital Transfer - Req. Specs Out of Hospital Transfer - Requested Specifics: Other Emergency Center ([facility])
[2023-05-03 00:04] LABS: Basophils % (A) 0 %; Eosinophils # (A) 0.1 k/uL (0-0.7); Eosinophils % (A) 2 %; HCT 40.7 % (39.0-53.0); HGB 13.3 gm/dL (13.0-17.5); Lymphocytes % (A) 40 %; MCH 26.2 pg (25.0-35.0); MCHC 32.8 g/dL (31.0-37.0); Mean Platelet Volume 7.2; Monocytes # (A) 0.4 k/uL (0-1.0); Monocytes % (A) 6 %; Neutrophils # (A) 3.7 k/uL (1.3-7.7); Neutrophils % (A) 49 %; Platelet Count 385 k/uL (150-450); RBC 5.08 m/uL (4.30-5.90); RDW 15.9 % (11.5-15.5); WBC 7.6 k/uL (3.8-10.6)
[2023-05-03 00:17] LABS: ALT 18 U/L (4-49); AST 31 U/L (17-59); African American GFR (CKD) >90 (>60 ml/min/1.73 sqM); Albumin 4.6 g/dL (3.5-5.0); Alkaline Phosphatase 118 U/L (38-126); Amylase 57 U/L (30-110); Anion Gap 17 mmol/L; Blood Urea Nitrogen 12 mg/dL (9-20); C Reactive Protein <0.5 mg/dL (<1.0); Calcium 9.5 mg/dL (8.4-10.2); Carbon Dioxide 19 mmol/L (22-30); Chloride 103 mmol/L (98-107); Glucose 127 mg/dL (74-99); Lipase 266 U/L (23-300); Non-African American GFR(CKD) >90 (>60 ml/min/1.73 sqM); Potassium 3.5 mmol/L (3.5-5.1); Sodium 139 mmol/L (137-145); Total Bilirubin 0.3 mg/dL (0.2-1.3); Total Protein 7.7 g/dL (6.3-8.2)
[2023-05-03 01:27] LABS: Appearance,Urine Clear (Clear); Bilirubin,Urine Negative (Negative); Blood,Urine Negative (Negative); Color,Urine Colorless; Glucose,Urine (UA) Negative (Negative); Ketones,Urine Negative (Negative); Leukocyte Esterase,Urine Negative (Negative); Nitrite,Urine Negative (Negative); Protein,Urine Negative (Negative); Specific Gravity,Urine 1.008 (1.001-1.035); Urobilinogen,Urine <2.0 mg/dL (<2.0)
--- NOTE | 2023-05-03 06:48 | CT ---
EXAMINATION TYPE: CT abdomen pelvis w con DATE OF EXAM: 05/03/2023 COMPARISON: 12/31/2022 HISTORY: Liliana-en-Y gastric bypass surgery. Left abdominal pain Technique: Multiple axial images are obtained through the abdomen and pelvis finding administration o f nonionic IV contrast material. Automated exposure control for dose reduction was used. FINDINGS: The lung bases are clear. Small ill-defined hypodensity in the anterior segment of the right lobe of liver which is stable and most likely represents a benign hemangioma. No focal masses are seen within the pancreas, spleen or a drenal glands. There are no solid renal masses or hydronephrosis in the caliber the abdominal aorta is normal. No re troperitoneal adenopathy or hemorrhage. There are postsurgical changes of a Liliana-en-Y gastric bypass procedure which are stable compared to p rior study. There is a loop of small bowel in the left upper quadrant of the abdomen which dilated measuring 3.7 cm. There is no dilatation or obstruction distally or proximally and this could represent a closed lo op obstruction secondary to internal mesenteric hernia or adhesions. There is no free intraperitoneal air or fluid. There is no pelvic mass free fluid, abscess or adenopathy. The osseous structures are intact. IMPRESSION: 1. Liliana-en-Y gastric bypass. 2. Short loop of dilated small bowel in the left upper quadrant of the abdomen which could represent a partial closed-loop obstruction secondary to internal hernia or adhesions. Short-term follow-up is recommended. 3. Stable small hypodensity in the liver most likely representing a benign hemangioma.
[2023-05-03] MEDS ORDERED: HYDROmorphone 0.5 MG/0.5 ML SYRINGE IVP STA (08:21)
[2023-05-03 15:26] VITALS: BP 130/84; PULSE 74; TEMP 98.6
== END 2023-05-03 14:40 | disposition other institution (70) ==
LOC: EC 23:04
DX: K46.9 Unspecified abdominal hernia without obstruction or gangrene (principal); I48.91 Unspecified atrial fibrillation; I10 Essential (primary) hypertension; J45.909 Unspecified asthma, uncomplicated; K21.9 Gastro-esophageal reflux disease without esophagitis; E11.9 Type 2 diabetes mellitus without complications; Z88.0 Allergy status to penicillin; Z88.8 Allergy status to other drugs, medicaments and biological substances; Z79.899 Other long term (current) drug therapy; Z79.51 Long term (current) use of inhaled steroids
CPT/HCPCS: 36415 ×2; 93005; 80053; 82150; 83605; 83690; 85025; 86140; 81003; 74177; 99285; 96374; 96375; J2270; J1170; Q9967

== ENCOUNTER 2023-07-24 16:34 | Emergency (ER) | payer MEDICAID ==
--- NOTE | 2023-07-24 16:51 | ED ---
General Adult HPI - General Source: patient Mode of arrival: ambulatory Limitations: no limitations <Reggie Bernal - Last Filed: 07/24/23 16:50> - History of Present Illness Onset/Timin -: days(s) Location: abdomen Radiation: non-radiation Quality: dull Consistency: constant Improves with: none Worsens with: none Associated Symptoms: nausea/vomiting Treatments Prior to Arrival: none <Jd Morris - Last Filed: 08/15/23 06:16> - General Stated complaint: left side pain Time Seen by Provider: 07/24/23 16:50 - History of Present Illness Initial comments: 58-year-old male presenting with chief complaint of left-sided abdominal pain. History of bowel resection. Pain is been ongoing for a few days and today. Admits to nausea with no vomiting. (Reggie Bernal) - Related Data Home Medications Medication Instructions Recorded Confirmed Montelukast Sodium [Singulair] 10 mg PO DAILY 03/08/14 08/10/23 Albuterol Sulfate [Ventolin HFA] 2 puff INHALATION Q4H PRN 12/04/16 08/10/23 NIFEdipine [NIFEdipine ER 60 mg PO QAM 05/26/22 08/10/23 (Osmotic)] EPINEPHrine (Auto Inject) [Epipen] 0.3 mg IM ONCE PRN 12/15/22 08/10/23 Fluticasone Nasal [place] [Flonase 1 spray EA NOSTRIL DAILY 12/15/22 08/10/23 Nasal [place]] modafiniL [Provigil] 200 mg PO DAILY 12/15/22 08/10/23 Acetaminophen Oral Susp [Tylenol] 1,000 mg PO Q6H PRN 01/22/23 08/10/23 Omeprazole [PriLOSEC] 40 mg PO QAM 01/22/23 08/10/23 Budesonide-Formot 160-4.5 Mcg 2 puff INHALATION BID 06/17/23 08/10/23 [Symbicort 160-4.5 Mcg Inhaler] Eszopiclone 3 mg PO HS PRN 06/17/23 08/10/23 Mepolizumab [Nucala] 100 mg SQ QMONTHLY 06/17/23 08/10/23 Sildenafil Citrate 100 mg PO DAILY PRN 06/17/23 08/10/23 Sucralfate [Carafate] 1 gm PO DAILY 06/17/23 08/10/23 Tiotropium 18 Mcg/Puff [Spiriva] 1 puff INHALATION BID 06/17/23 08/10/23 Previous Rx's Medication Instructions Recorded Dicyclomine [Bentyl] 20 mg PO QID #15 tablet 07/25/23 Famotidine [Pepcid] 20 mg PO BID #14 tablet 07/25/23 Allergies Allergy/AdvReac Type Severity Reaction Status Date / Time adhesive tape Allergy Rash/Hives Verified 08/10/23 12:33 alcohol Allergy Rash/Hives Verified 08/10/23 12:33 [From Mastisol Liquid Adhesive] gum mastic Allergy Rash/Hives Verified 08/10/23 12:33 [From Mastisol Liquid Adhesive] methyl salicylate Allergy Rash/Hives Verified 08/10/23 12:33 [From Mastisol Liquid Adhesive] storax Allergy Rash/Hives Verified 08/10/23 12:33 [From Mastisol Liquid Adhesive] Penicillins AdvReac Anaphylaxis Verified 08/10/23 12:33 Ffdrkxl-HDZ-ZnV Reductase AdvReac joint Pain Verified 08/10/23 12:33 Inhibitor [Avyyjpu-Chv-Yrz Reductase Inhibitor] Surgical Glue Allergy Severe Rash/Hives Uncoded 08/10/23 12:33 Dermabond Allergy Rash/Hives Uncoded 08/10/23 12:33 Review of Systems ROS Other: All systems not noted in ROS Statement are negative. <Reggie Bernal - Last Filed: 07/24/23 16:50> ROS Other: All systems not noted in ROS Statement are negative. Constitutional: Denies: fever, chills Respiratory: Denies: cough, dyspnea Cardiovascular: Denies: chest pain, palpitations, edema, syncope Gastrointestinal: Reports: abdominal pain, nausea. Denies: vomiting, diarrhea Genitourinary: Denies: dysuria, hematuria, testicular pain, testicular mass Musculoskeletal: Denies: back pain Skin: Denies: rash Neurological: Denies: headache, weakness <Jd Morris - Last Filed: 08/15/23 06:16> ROS Statement: Those systems with pertinent positive or pertinent negative responses have been documented in the HPI. Past Medical History Past Medical History: Atrial Fibrillation, Asthma, GERD/Reflux, Hypertension, Sleep Apnea/CPAP/BIPAP Additional Past Medical History / Comment(s): Hx Kidney stones, afib in past d/t hypokalemia after bariatric surgery-none since, bronchitis, uses CPAP. fx Rt fibula 03/2021, recent hx. gastric ulcers, twisted bowel 2022 History of Any Multi-Drug Resistant Organisms: None Reported Past Surgical History: Bariatric Surgery, Hernia Repair, Joint Replacement, Orthopedic Surgery, Tonsillectomy Additional Past Surgical History / Comment(s): Panniculectomy w/ ventral hernia repair, Liliana-en-Y, left knee surgery for torn meniscus, R knee arthroscopy, R bicep reattachment, sinus surgery x3, Lithotripsies w/ 2 kidney stones removed. LEFT SHOULDER SURGERY, left knee replaced recently, right knee replacement 12/02/22, bowel surgery 2022 Edie Hanley Past Anesthesia/Blood Transfusion Reactions: Motion Sickness, Postoperative Na usea & Vomiting (PONV) Past Psychological History: No Psychological Hx Reported Additional Psychological History / Comment(s): . Smoking Status: Never smoker Past Alcohol Use History: Occasional Past Drug Use History: None Reported - Past Family History Father Family Medical History: Cancer, Myocardial Infarction ([place]) Additional Family Medical History / Comment(s): Prostate cancer. Mother Family Medical History: Pulmonary Embolus Additional Family Medical History / Comment(s): Mother is healthy and is 73 yrs old. <Reggie Bernal - Last Filed: 07/24/23 16:50> General Exam <Reggie Bernal - Last Filed: 07/24/23 16:50> General appearance: alert, in no apparent distress Head exam: Present: atraumatic, normocephalic Eye exam: Present: normal appearance. Absent: scleral icterus, conjunctival injection ENT exam: Present: normal oropharynx Neck exam: Present: normal inspection Respiratory exam: Present: normal lung sounds bilaterally. Absent: respiratory distress, wheezes, rales, rhonchi, stridor, accessory muscle use Cardiovascular Exam: Present: regular rate, normal rhythm, normal heart sounds. Absent: systolic murmur, diastolic murmur, rubs, gallop GI/Abdominal exam: Present: soft, tenderness. Absent: distended, guarding, rebound, rigid, mass, pulsatile mass, hernia Extremities exam: Present: normal inspection, normal capillary refill. Absent: pedal edema, calf tenderness Back exam: Present: normal inspection. Absent: CVA tenderness (R), CVA tenderness (L) Neurological exam: Present: alert Skin exam: Present: warm, dry, intact, normal color. Absent: rash <ArturoJd - Last Filed: 08/15/23 06:16> - General Exam Comments Initial Comments: Visual Physical Exam Vital signs reviewed General: Well-appearing, nontoxic, no acute distress. Head: Normocephalic, atraumatic Eyes: PERRLA, EOMI ENT: Airway patent Chest: Nonlabored breathing Skin: No visual rash, normal skin tone Neuro: Alert and oriented 3 Musculoskeletal: No gross abnormalities (Reggie Bernal) Course Vital Signs 07/24/23 07/24/23 07/25/23 16:48 23:00 00:50 Temperature 98.5 F Pulse Rate 97 72 68 Respiratory 20 17 17 Rate Blood Pressure 165/103 186/104 170/96 O2 Sat by Pulse 98 94 L 97 Oximetry 07/25/23 07/25/23 07/25/23 01:00 02:00 03:00 Temperature Pulse Rate 71 64 61 Respiratory 18 17 17 Rate Blood Pressure 163/94 159/92 161/91 O2 Sat by Pulse 96 96 96 Oximetry Medical Decision Making - Lab Data Result diagrams: 07/24/23 22:43 07/24/23 22:43 <ArturoJd - Last Filed: 08/15/23 06:16> - Medical Decision Making The patient had computed tomography scan of the abdomen pelvis which I interpreted as being negative for acute obstruction or free air. No evident surgical condition. Was pt. sent in by a medical professional or institution (, PA, BOSOM PRESSER, urgent care, hospital, or jail...) When possible be specific @ -[No] Did you speak to anyone other than the patient for history (EMS, parent, family, police, friend...)? What history was obtained from this source @ -[No] Did you review nursing and triage notes (agree or disagree)? Why? @ -[I reviewed and agree with nursing and triage notes] Were old charts reviewed (outside hosp., previous admission, EMS record, old EKG, old radiological studies, urgent care reports/EKG's, jail records)? Report findings @ -[No old charts were reviewed] Differential Diagnosis (chest pain, altered mental status, abdominal pain women, abdominal pain men, vaginal bleeding, weakness, fever, dyspnea, syncope, headache, dizziness, GI bleed, back pain, seizure, CVA, palpatations, mental health, musculoskeletal)? @ -[Differential Abdominal Pain Men: Appendicitis, cholecystitis, diverticulosis, ischemic bowel, pancreatitis, hepatitis, UTI, gastroenteritis, AAA, incarcerated hernia, bowel obstruction, constipation, inflammatory bowel, hepatitis, peptic ulcer disease, splenic infarction, perforated viscus, testicular torsion, this is not meant to be an all-inclusive list EKG interpreted by me (3pts min.). @ -[As above] X-rays interpreted by me (1pt min.). @ -[None done] CT interpreted by me (1pt min.). @ -[[I interpreted as above U/S interpreted by me (1pt. min.). @ -[None done] What testing was considered but not performed or refused? (CT, X-rays, U/S, labs)? Why? @ -[None] What meds were considered but not given or refused? Why? @ -[None] Did you discuss the management of the patient with other professionals (professionals i.e. , PA, BOSOM PRESSER, lab, RT, psych nurse, social studies teacher, child & adolescent psychiatrist, teacher, principal gifts officer, hospice case manager)? Give summary @ -[No] Was smoking cessation discussed for >3mins.? @ -[No] Was critical care preformed (if so, how long)? @ -[No] Were there social determinants of health that impacted care today? How? (Homelessness, low income, unemployed, alcoholism, drug addiction, transportation, low edu. Level, literacy, decrease access to med. care, custodial, rehab)? @ -[No] Was there de-escalation of care discussed even if they declined (Discuss DNR or withdrawal of care, Hospice)? DNR status @ -[No] What co-morbidities impacted this encounter? (DM, HTN, Smoking, COPD, CAD, Cancer, CVA, ARF, Chemo, Hep., AIDS, mental health diagnosis, sleep apnea, morbid obesity)? @ -[None] Was patient admitted / discharged? Hospital course, mention meds given and route, prescriptions, significant lab abnormalities, going to OR and other pertinent info. @ -[Patient's 58-year-old man with abdominal pain and some tenderness on the exam. His workup negative for acute surgical condition. The patient did feel better with medication and stable to have close follow-up. Discussed appr opriate further care as well as return parameters Undiagnosed new problem with uncertain prognosis? @ -[No] Drug Therapy requiring intensive monitoring for toxicity (Heparin, Nitro, Insulin, Cardizem)? @ -[No] Were any procedures done? @ -[No] Diagnosis/symptom? @ -[Acute abdominal pain Acute, or Chronic, or Acute on Chronic? @ -[Acute Uncomplicated (without systemic symptoms) or Complicated (systemic symptoms)? @ -[Uncomplicated Side effects of treatment? @ -[No] Exacerbation, Progression, or Severe Exacerbation? @ -[No] Poses a threat to life or bodily function? How? (Chest pain, [place], [place], pneumonia, PE, COPD, DKA, ARF, appy, cholecystitis, CVA, Diverticulitis, Homicidal, Suicidal, threat to staff... and all critical care pts) @ -[Low likelihood (Jd Morris) - Lab Data Lab Results 07/24/23 07/24/23 07/24/23 Range/Units 22:43 22:43 22:43 WBC 7.2 (3.8-10.6) k/uL RBC 5.27 (4.30-5.90) m/uL Hgb 15.0 (13.0-17.5) gm/dL Hct 44.7 (39.0-53.0) % MCV 84.9 (80.0-100.0) fL MCH 28.4 (25.0-35.0) pg MCHC 33.5 (31.0-37.0) g/dL RDW 15.5 (11.5-15.5) % Plt Count 312 (150-450) k/uL MPV 6.5 Neutrophils % 60 % Lymphocytes % 30 % Monocytes % 7 % Eosinophils % 1 % Basophils % 1 % Neutrophils # 4.3 (1.3-7.7) k/uL Lymphocytes # 2.1 (1.0-4.8) k/uL Monocytes # 0.5 (0-1.0) k/uL Eosinophils # 0.1 (0-0.7) k/uL Basophils # 0.1 (0-0.2) k/uL Sodium 135 L (137-145) mmol/L Potassium 3.4 L (3.5-5.1) mmol/L Chloride 99 (98-107) mmol/L Carbon Dioxide 24 (22-30) mmol/L Anion Gap 12 mmol/L BUN 13 (9-20) mg/dL Creatinine 0.51 L (0.66-1.25) mg/dL Est GFR (CKD-EPI)AfAm >90 (>60 ml/min/1.73 sqM) Est GFR (CKD-EPI)NonAf >90 (>60 ml/min/1.73 sqM) Glucose 96 (74-99) mg/dL Calcium 9.3 (8.4-10.2) mg/dL Total Bilirubin 0.6 (0.2-1.3) mg/dL AST 42 (17-59) U/L ALT 42 (4-49) U/L Alkaline Phosphatase 136 H (38-126) U/L Total Protein 6.5 (6.3-8.2) g/dL Albumin 4.1 (3.5-5.0) g/dL Amylase 44 (30-110) U/L Lipase 142 (23-300) U/L Urine Color Yellow Urine Appearance Clear (Clear) Urine pH 6.0 (5.0-8.0) Ur Specific [place] 1.022 (1.001-1.035) Urine Protein 1+ H (Negative) Urine Glucose (UA) Negative (Negative) Urine Ketones 3+ H (Negative) Urine Blood Negative (Negative) Urine Nitrite Negative (Negative) Urine Bilirubin Negative (Negative) Urine Urobilinogen <2.0 (<2.0) mg/dL Ur Leukocyte Esterase Negative (Negative) Urine RBC <1 (0-5) /hpf Urine WBC 2 (0-5) /hpf Ur Squamous Epith Cells <1 (0-4) /hpf Urine Mucus Few H (None) /hpf Disposition <Reggie Bernal - Last Filed: 07/24/23 16:50> Is patient prescribed a controlled substance at d/c from ED?: No <Jd Morris - Last Filed: 08/15/23 06:16> Clinical Impression: Abdominal pain Disposition: HOME SELF-CARE Condition: Good Instructions (If sedation given, give patient instructions): Abdominal Pain (ED) Prescriptions: Dicyclomine [Bentyl] 20 mg PO QID #15 tablet Famotidine [Pepcid] 20 mg PO BID #14 tablet Referrals: Harjinder Almanzar MD [Primary Care Provider] - 1-2 days Arielle Medeiros MD [STAFF PHYSICIAN] - 1-2 days
[2023-07-24 17:01] VITALS: TEMP 98.5
[2023-07-24] MEDS ORDERED: ONDANSETRON 4 MG/2 ML VIAL IVP STA (22:56)
[2023-07-24] MEDS ORDERED: HYDROmorphone 0.5 MG/0.5 ML SYRINGE IVP STA (22:56)
[2023-07-24 23:05] LABS: Basophils # (A) 0.1 k/uL (0-0.2); Basophils % (A) 1 %; Eosinophils # (A) 0.1 k/uL (0-0.7); Eosinophils % (A) 1 %; HCT 44.7 % (39.0-53.0); Lymphocytes # (A) 2.1 k/uL (1.0-4.8); Lymphocytes % (A) 30 %; MCH 28.4 pg (25.0-35.0); MCHC 33.5 g/dL (31.0-37.0); MCV 84.9 fL (80.0-100.0); Mean Platelet Volume 6.5; Monocytes # (A) 0.5 k/uL (0-1.0); Monocytes % (A) 7 %; Neutrophils # (A) 4.3 k/uL (1.3-7.7); Neutrophils % (A) 60 %; Platelet Count 312 k/uL (150-450); RBC 5.27 m/uL (4.30-5.90); RDW 15.5 % (11.5-15.5); WBC 7.2 k/uL (3.8-10.6)
[2023-07-24 23:17] LABS: ALT 42 U/L (4-49); AST 42 U/L (17-59); African American GFR (CKD) >90 (>60 ml/min/1.73 sqM); Albumin 4.1 g/dL (3.5-5.0); Alkaline Phosphatase 136 U/L (38-126); Amylase 44 U/L (30-110); Anion Gap 12 mmol/L; Blood Urea Nitrogen 13 mg/dL (9-20); Calcium 9.3 mg/dL (8.4-10.2); Carbon Dioxide 24 mmol/L (22-30); Chloride 99 mmol/L (98-107); Glucose 96 mg/dL (74-99); Lipase 142 U/L (23-300); Non-African American GFR(CKD) >90 (>60 ml/min/1.73 sqM); Potassium 3.4 mmol/L (3.5-5.1); Sodium 135 mmol/L (137-145); Total Bilirubin 0.6 mg/dL (0.2-1.3); Total Protein 6.5 g/dL (6.3-8.2)
[2023-07-24 23:20] LABS: Appearance,Urine Clear (Clear); Bilirubin,Urine Negative (Negative); Blood,Urine Negative (Negative); Color,Urine Yellow; Glucose,Urine (UA) Negative (Negative); Ketones,Urine 3+ (Negative); Leukocyte Esterase,Urine Negative (Negative); Mucus,Urine Few /hpf; Nitrite,Urine Negative (Negative); Protein,Urine 1+ (Negative); RBC,Urine <1 /hpf (0-5); Specific Gravity,Urine 1.022 (1.001-1.035); Squamous Epithelial Cell,Urine <1 /hpf (0-4); Urobilinogen,Urine <2.0 mg/dL (<2.0); WBC,Urine 2 /hpf (0-5)
[2023-07-24 23:34] VITALS: RESP 17
--- NOTE | 2023-07-25 00:23 | CT ---
EXAM: CT Abdomen and Pelvis With Intravenous Contrast CLINICAL HISTORY: ITS.REASON CT Reason: abdominal pain TECHNIQUE: Axial computed tomography images of the abdomen and pelvis with intravenous contrast. CTDI is 33.7 mGy and DLP is 1788.2 mGy-cm. This CT exam was performed using one or more of the following dose reduction techniques: automated exposure control, adjustment of the mA and/or kV according to patient size, and/or use of iterative reconstruction technique. COMPARISON: 05/03/2023 FINDINGS: Lung bases: Unremarkable. No mass. No consolidation. ABDOMEN: Liver: 2 cm complex low density lesion at the junction of the left and right lobes of the liver is stable from prior exam of 12/2022 consistent with a benign finding. Gallbladder and bile ducts: Gallbladder has been removed. No ductal dilation. Pancreas: Unremarkable. No mass. No ductal dilation. Spleen: Unremarkable. No splenomegaly. Adrenals: Unremarkable. No mass. Kidneys and ureters: 0.2 cm nonobstructing left lower pole renal calculus. Stomach and bowel: Patient is status post gastric bypass surgery. No obstruction. No mucosal thickening. PELVIS: Appendix: No findings to suggest acute appendicitis. Bladder: Unremarkable. No mass. Reproductive: Unremarkable as visualized. ABDOMEN and PELVIS: Intraperitoneal space: Unremarkable. No free air. No significant fluid collection. Bones/joints: No acute fracture. No dislocation. Soft tissues: Unremarkable. Vasculature: Unremarkable. No abdominal aortic aneurysm. Lymph nodes: Unremarkable. No enlarged lymph nodes. IMPRESSION: No acute abdominal or pelvic process. 0.2 cm nonobstructing left lower pole renal calculus.
[2023-07-25 03:43] VITALS: BP 161/91; PULSE 61
== END 2023-07-25 03:48 | disposition home or self-care (01) ==
LOC: EC 16:34
DX: R10.9 Unspecified abdominal pain (principal); I10 Essential (primary) hypertension; I48.91 Unspecified atrial fibrillation; J45.909 Unspecified asthma, uncomplicated; K21.9 Gastro-esophageal reflux disease without esophagitis; Z79.01 Long term (current) use of anticoagulants; Z79.899 Other long term (current) drug therapy; Z91.048 Other nonmedicinal substance allergy status; Z91.018 Allergy to other foods; Z88.6 Allergy status to analgesic agent; Z88.8 Allergy status to other drugs, medicaments and biological substances; Z91.09 Other allergy status, other than to drugs and biological substances
CPT/HCPCS: 99284 ×2; 96374 ×2; 96375 ×2; 36415; 80053; 82150; 83690; 85025; 81001; 74177; J2405; J1170; Q9967

== ENCOUNTER → 2024-01-06 | Outpatient (CLI) | payer MEDICAID ==
[2024-01-06 14:29] VITALS: BP 148/86; PULSE 108; RESP 16; TEMP 98.7; BMI 33.3
--- NOTE | 2024-01-06 15:16 | P.BASOAP ---
Subjective Progress Note Date: 01/06/24 He is having epigastric pain and dark stools. He has history of ulcers with bleeding 1 year ago. Gastric ulcer with bleeding K25.6. Colon screen. Sent to office for SUFLAVE and schedule. Has GI Bleed. Objective - Vital Signs Vital signs: Vital Signs Temp 98.7 F 01/06/24 14:26 Pulse 108 H 01/06/24 14:26 Resp 16 01/06/24 14:26 BP 148/86 01/06/24 14:26 Pulse Ox FiO2 Intake & Output 01/05/24 01/06/24 01/06/24 18:59 06:59 18:59 Weight 105.233 kg Assessment/Plan Plan: Date: 01/06/24 Initial Weight: 163.52 kg Initial BMI: 51.7 Current Weight: 105.233 kg Current BMI: 33.3 Type of Surgery: Liliana-en-Y Gastric Bypass Total Volume in Band: Previous Volume: Volume Removed: Volume Added: Band Size:
== END ==
LOC: BARWHC3 13:55
PROVIDERS: ATTEND Surgery Plastic and Reconstructive Surgery
DX: E66.01 Morbid (severe) obesity due to excess calories (principal); R10.13 Epigastric pain; K25.6 Chronic or unspecified gastric ulcer with both hemorrhage and perforation; Z98.84 Bariatric surgery status; Z90.3 Acquired absence of stomach [part of]; Z91.048 Other nonmedicinal substance allergy status; Z88.8 Allergy status to other drugs, medicaments and biological substances; Z91.018 Allergy to other foods; Z88.0 Allergy status to penicillin; Z68.33 Body mass index [BMI] 33.0-33.9, adult
CPT/HCPCS: 99211

== ENCOUNTER 2024-01-11 07:33 | Day surgery (SDC) | payer MEDICAID ==
[2024-01-07 18:13] VITALS: BMI 38.7
[~2024-01-11 07:33] MED LIST changes: -LACTATED RINGERS 1,000 ML IV SCH; +LIDOCAINE 1% (10MG/ML) FOR IV START INTRADERMA PRN
--- NOTE | 2024-01-11 07:48 | P.GSHP ---
History of Present Illness H&P Date: 01/11/24 CHIEF COMPLAINT: Dysphagia and history of colon polyps HISTORY OF PRESENT ILLNESS: The patient is a 59-year-old male who presents with dysphagia and history of colon polyps. Upper and lower endoscopy were offered for further evaluation and management. PAST MEDICAL HISTORY: Please see list. PAST SURGICAL HISTORY: Please see list. MEDICATIONS: Please see list. ALLERGIES: Please see list. SOCIAL HISTORY: No illicit drug use FAMILY HISTORY: No reports of Crohn disease or ulcerative colitis. REVIEW OF ORGAN SYSTEMS: CONSTITUTIONAL: No reports of fevers or chills. GI: Denies any blood in stools or constipation. PHYSICAL EXAM: VITAL SIGNS: Stable GENERAL: Well-developed pleasant in no acute distress. HEENT: No scleral icterus. Extraocular movements grossly intact. Moist buccal mucosa. NECK: Supple without lymphadenopathy. CHEST: Unlabored respirations. Equal bilateral excursions. CARDIOVASCULAR: Regular rate and rhythm. Distal 2+ pulses. ABDOMEN: Soft, nondistended. MUSCULOSKELETAL: No clubbing, cyanosis, or edema. ASSESSMENT: 1. Dysphagia 2. History of colon polyp PLAN: 1. Recommend proceeding with an upper and lower endoscopy Past Medical History Past Medical History: Atrial Fibrillation, Asthma, GERD/Reflux, Hypertension, Sleep Apnea/CPAP/BIPAP Additional Past Medical History / Comment(s): Hx Kidney stones, afib in past d/t hypokalemia after bariatric surgery-none since, bronchitis, uses CPAP. fx Rt fibula 03/2021, recent hx. gastric ulcers, twisted bowel 2022 History of Any Multi-Drug Resistant Organisms: None Reported Past Surgical History: Bariatric Surgery, Hernia Repair, Joint Replacement, Orthopedic Surgery, Tonsillectomy Additional Past Surgical History / Comment(s): Panniculectomy w/ ventral hernia repair, Liliana-en-Y, left knee surgery for torn meniscus, R knee arthroscopy, R bicep reattachment, sinus surgery x3, Lithotripsies w/ 2 kidney stones removed. LEFT SHOULDER SURGERY, left knee replaced recently, right knee replacement 12/02/22, bowel surgery 2022 Edie Hanley Past Anesthesia/Blood Transfusion Reactions: Motion Sickness, Postoperative Naus ea & Vomiting (PONV) Smoking Status: Never smoker - Past Family History Father Family Medical History: Cancer, Myocardial Infarction ([place]) Additional Family Medical History / Comment(s): Prostate cancer. Mother Family Medical History: Pulmonary Embolus Additional Family Medical History / Comment(s): Mother is healthy and is 73 yrs old. Medications and Allergies Home Medications Medication Instructions Recorded Confirmed Type Montelukast Sodium [Singulair] 10 mg PO HS 03/08/14 01/07/24 History Albuterol Sulfate [Ventolin HFA] 2 puff INHALATION Q4H PRN 12/04/16 01/07/24 History NIFEdipine [NIFEdipine ER 60 mg PO QAM 05/26/22 01/07/24 History (Osmotic)] EPINEPHrine (Auto Inject) [Epipen] 0.3 mg IM ONCE PRN 12/15/22 01/07/24 History Fluticasone Nasal [place] [Flonase 1 spray EA NOSTRIL DAILY 12/15/22 01/07/24 History Nasal [place]] modafiniL [Provigil] 200 mg PO DAILY 12/15/22 01/07/24 History Acetaminophen Oral Susp [Tylenol] 1,000 mg PO Q6H PRN 01/22/23 01/07/24 History Omeprazole [PriLOSEC] 40 mg PO QAM 01/22/23 01/07/24 History Budesonide-Formot 160-4.5 Mcg 2 puff INHALATION BID 06/17/23 01/07/24 History [Symbicort 160-4.5 Mcg Inhaler] Eszopiclone 3 mg PO HS PRN 06/17/23 01/07/24 History Mepolizumab [Nucala] 100 mg SQ QMONTHLY 06/17/23 01/07/24 History Sildenafil Citrate 100 mg PO DAILY PRN 06/17/23 01/07/24 History Sucralfate [Carafate] 1 gm PO DAILY 06/17/23 01/07/24 History Tiotropium 18 Mcg/Puff [Spiriva] 1 puff INHALATION BID 06/17/23 01/07/24 History traZODone HCL [Desyrel] 50 mg PO HS PRN 01/07/24 01/07/24 History Allergies Allergy/AdvReac Type Severity Reaction Status Date / Time adhesive tape Allergy Rash/Hives Verified 01/11/24 07:47 alcohol Allergy Rash/Hives Verified 01/11/24 07:47 [From Mastisol Liquid Adhesive] gum mastic Allergy Rash/Hives Verified 01/11/24 07:47 [From Mastisol Liquid Adhesive] methyl salicylate Allergy Rash/Hives Verified 01/11/24 07:47 [From Mastisol Liquid Adhesive] storax Allergy Rash/Hives Verified 01/11/24 07:47 [From Mastisol Liquid Adhesive] Penicillins AdvReac Anaphylaxis Verified 01/11/24 07:47 Hxjxgfu-RGG-PeL Reductase AdvReac joint Pain Verified 01/11/24 07:47 Inhibitor [Sgupbvz-Yre-Vhz Reductase Inhibitor] Surgical Glue Allergy Severe Rash/Hives Uncoded 01/11/24 07:47 Dermabond Allergy Rash/Hives Uncoded 01/11/24 07:47
[2024-01-11 07:53] VITALS: RESP 16; TEMP 98
[2024-01-11] MEDS: LACTATED RINGERS 1,000 ML IV SCH (07:59)
[2024-01-11] MEDS: IV FLUID CONTINUATION 1,000 ML IV ONE (08:00)
[2024-01-11] MEDS: ONDANSETRON 4 MG/2 ML VIAL IVP STA (08:07)
[2024-01-11] MEDS ORDERED: PROPOFOL 10 MG/ML 20 ML VIAL IV ONE (08:16)
--- NOTE | 2024-01-11 09:06 | P.PCN ---
Date of Procedure: 01/11/24 Description of Procedure: PREOPERATIVE DIAGNOSIS: History of colon polyps Colonoscopy screening. POSTOPERATIVE DIAGNOSIS: Colonoscopy screening. OPERATION: Colonoscopy to the cecum, ileocecal valve and appendiceal orifice. SURGEON: Arielle Medeiros MD. ANESTHESIA: MAC. INDICATIONS: The patient is a 59-year-old male who presents for colonoscopy screening. Last colonoscopy 5 years ago. Benefits and risks were described and informed consent was obtained. DESCRIPTION OF PROCEDURE: The patient had undergone Sutab prep. The patient had been brought into the operating room and laid in the left lateral decubitus position. After adequate intravenous sedation, the rectum was examined with 2% lidocaine jelly. Prostate unremarkable. No external hemorrhoids were encountered. The rectal tone was within normal limits. No lesions were palpated in the rectal vault. An Olympus colonoscope was advanced until the cecum, ileocecal valve and appendiceal orifice were clearly viewed. The prep was fair with semisolid stool. No large scattered diverticulosis was encountered. No large greater than 1 cm colonic polyps were found. No evidence of focal colitis was found. Retroflexion of the scope demonstrated grade 1 internal hemorrhoids without active bleeding or inflammation. The colon was desufflated. The patient had tolerated the procedure well. Withdrawal time was over 6 minutes. FINDINGS: Aronchick preparation quality scale 3 (1-5) Internal hemorrhoids, grade 1 No external prolapsed hemorrhoids. No arteriovenous malformations. No adenomatous polyps limited due to poor prep No focal colitis. RECOMMENDATIONS: Lower endoscopy in 3 years, 2026 Plan - Discharge Summary Discharge Rx Participant: No New Discharge Prescriptions: Continue Montelukast Sodium [Singulair] 10 mg PO HS Albuterol Sulfate [Ventolin HFA] 2 puff INHALATION Q4H PRN PRN Reason: Shortness Of Breath Or Wheezing NIFEdipine [NIFEdipine ER (Osmotic)] 60 mg PO QAM EPINEPHrine (Auto Inject) [Epipen] 0.3 mg IM ONCE PRN PRN Reason: Anaphylaxis Fluticasone Nasal [place] [Flonase Nasal [place]] 1 spray EA NOSTRIL DAILY Omeprazole [PriLOSEC] 40 mg PO QAM Mepolizumab [Nucala] 100 mg SQ QMONTHLY Eszopiclone 3 mg PO HS PRN PRN Reason: sleep modafiniL [Provigil] 200 mg PO DAILY Acetaminophen Oral Susp [Tylenol] 1,000 mg PO Q6H PRN PRN Reason: Pain Budesonide-Formot 160-4.5 Mcg [Symbicort 160-4.5 Mcg Inhaler] 2 puff INHALATION BID Tiotropium 18 Mcg/Puff [Spiriva] 1 puff INHALATION BID Sildenafil Citrate 100 mg PO DAILY PRN PRN Reason: Per Protocol traZODone HCL [Desyrel] 50 mg PO HS PRN PRN Reason: sleep Discontinued Sucralfate [Carafate] 1 gm PO DAILY Discharge Medication List Montelukast Sodium [Singulair] 10 mg PO HS 03/08/14 [History] Albuterol Sulfate [Ventolin HFA] 2 puff INHALATION Q4H PRN 12/04/16 [History] NIFEdipine [NIFEdipine ER (Osmotic)] 60 mg PO QAM 05/26/22 [History] EPINEPHrine (Auto Inject) [Epipen] 0.3 mg IM ONCE PRN 12/15/22 [History] Fluticasone Nasal [place] [Flonase Nasal [place]] 1 spray EA NOSTRIL DAILY 12/15/22 [History] modafiniL [Provigil] 200 mg PO DAILY 12/15/22 [History] Acetaminophen Oral Susp [Tylenol] 1,000 mg PO Q6H PRN 01/22/23 [History] Omeprazole [PriLOSEC] 40 mg PO QAM 01/22/23 [History] Budesonide-Formot 160-4.5 Mcg [Symbicort 160-4.5 Mcg Inhaler] 2 puff INHALATION BID 06/17/23 [History] Eszopiclone 3 mg PO HS PRN 06/17/23 [History] Mepolizumab [Nucala] 100 mg SQ QMONTHLY 06/17/23 [History] Sildenafil Citrate 100 mg PO DAILY PRN 06/17/23 [History] Tiotropium 18 Mcg/Puff [Spiriva] 1 puff INHALATION BID 06/17/23 [History] traZODone HCL [Desyrel] 50 mg PO HS PRN 01/07/24 [History] [facility] [facility] [place] [place] - [place]03[facility]24 Patient Instructions/Handouts: Gastritis (DC), Esophageal Dilation (DC) Activity/Diet/Wound Care/Special Instructions: Repeat colonoscopy 3 years, 2026. Recommend 2-day prep Discharge Disposition: HOME SELF-CARE
--- NOTE | 2024-01-11 09:09 | P.PCN ---
Date of Procedure: 01/11/24 Description of Procedure: PREOPERATIVE DIAGNOSIS: Dysphagia. Nausea with vomiting. POSTOPERATIVE DIAGNOSIS: Acute gastritis with bleeding Diaphragmatic hiatal hernia Gastrojejunal stricture without chronic ulcer without perforation OPERATION: Esophagogastrojejunoscopy with balloon dilatation from 12 to 18 mm for gastric stricture SURGEON: Arielle Medeiros MD ANESTHESIA: MAC. INDICATIONS: The patient is a 59-year-old male who presents with a history of gastric bypass and dysphagia, including nausea and vomiting. Benefits and risks of the procedure were described. Informed consent was obtained. DESCRIPTION: The patient was brought into the endoscopy suite and laid in the left lateral decubitus position. After a timeout was confirmed, the procedure was initiated. An Olympus gastroscope was passed along the posterior oropharynx down to the distal esophagus where the squamocolumnar junction demonstrated LA grade B erosive esophagitis. The gastric pouch was entered with acute gastritis with bleeding. A gastrojejunal stricture of 10 mm was found as the adult gastroscope was 9.5 mm in size. A Newvem balloon dilator was placed through the scope. The scope was reentered for balloon dilation of the gastrojejunal anastomosis. Final insufflation from 15 to 20 mm was performed with a total of 2 minutes. The scope was advanced up to 60 cm from the incisors into the Liliana limb. The mucosa of the gastrojejunal anastomosis was intact. No chronic gastrojejunal marginal ulcer was encountered. No full-thickness injury was encountered. The GI tract was desufflated. The patient tolerated the procedure well. FINDINGS: Squamocolumnar junction unremarkable at 37 cm. Stricture of approximately 12 mm encountered. Acute gastritis with bleeding Gastric pouch 7 cm Diaphragmatic hiatal hernia 3 cm, sliding-type No chronic gastrojejunal ulceration encountered. RECOMMENDATIONS: Recommend final upper endoscopy with dilation to 20 mm Increase to Carafate 1 g twice daily Protonix 40 mg daily Additional diagnostic studies for sliding diaphragmatic hiatal advised.
[2024-01-11 09:19] VITALS: BP 154/95; PULSE 68
== END 2024-01-11 09:34 | disposition home or self-care (01) ==
LOC: ORWHC2ENDO 07:33
PROVIDERS: ATTEND Surgery Plastic and Reconstructive Surgery
DX: Z12.11 Encounter for screening for malignant neoplasm of colon (principal); K64.1 Second degree hemorrhoids; K29.01 Acute gastritis with bleeding; K44.9 Diaphragmatic hernia without obstruction or gangrene; K56.699 Other intestinal obstruction unspecified as to partial versus complete obstruction; K21.9 Gastro-esophageal reflux disease without esophagitis; J45.909 Unspecified asthma, uncomplicated; I48.91 Unspecified atrial fibrillation; I10 Essential (primary) hypertension; G47.33 Obstructive sleep apnea (adult) (pediatric); Z79.51 Long term (current) use of inhaled steroids; Z79.899 Other long term (current) drug therapy; Z87.442 Personal history of urinary calculi; Z88.0 Allergy status to penicillin; Z88.8 Allergy status to other drugs, medicaments and biological substances; Z98.84 Bariatric surgery status; Z98.890 Other specified postprocedural states; Z86.010 Personal history of colon polyps
CPT/HCPCS: 45378; 43245; J2405; J2704; C1726

== ENCOUNTER → 2024-04-27 | Outpatient (CLI) | payer MEDICAID ==
[2024-04-27 15:54] VITALS: BP 125/81; PULSE 88; RESP 16; TEMP 98.1; BMI 33.4
--- NOTE | 2024-04-27 16:13 | P.BASOAP ---
Subjective Progress Note Date: 04/27/24 He has food getting stuck and pain at the LUQ. Prior bowel resection with pain for 1 month. EGD with lysis of adhesions. Objective - Vital Signs Vital signs: Vital Signs Temp 98.1 F 04/27/24 15:43 Pulse 88 04/27/24 15:43 Resp 16 04/27/24 15:43 BP 125/81 04/27/24 15:43 Pulse Ox FiO2 Intake & Output 04/26/24 04/27/24 04/27/24 18:59 06:59 18:59 Weight 105.687 kg Assessment/Plan Plan: Date: 04/27/24 Initial Weight: 163.52 kg Initial BMI: 51.7 Current Weight: 105.687 kg Current BMI: 33.4 Type of Surgery: Total Volume in Band: Previous Volume: Volume Removed: Volume Added: Band Size:
== END | disposition home or self-care (01) ==
LOC: BARWHC3 15:10
PROVIDERS: ATTEND Surgery Plastic and Reconstructive Surgery
DX: E66.01 Morbid (severe) obesity due to excess calories (principal)
CPT/HCPCS: 99211

== ENCOUNTER 2024-05-02 09:57 | Day surgery (SDC) | payer MEDICAID ==
--- NOTE | 2024-05-02 05:39 | P.GSHP ---
History of Present Illness H&P Date: 05/02/24 CHIEF COMPLAINT: Esophageal stricture HISTORY OF PRESENT ILLNESS: The patient is a 59-year-old male who presents reports dysphagia. Upper endoscopy was offered for further evaluation and management. PAST MEDICAL HISTORY: Please see list. PAST SURGICAL HISTORY: Please see list. MEDICATIONS: Please see list. ALLERGIES: Please see list. SOCIAL HISTORY: No illicit drug use FAMILY HISTORY: No reports of Crohn disease or ulcerative colitis. REVIEW OF ORGAN SYSTEMS: CONSTITUTIONAL: No reports of fevers or chills. GI: Denies any blood in stools or constipation. PHYSICAL EXAM: VITAL SIGNS: Stable GENERAL: Well-developed and pleasant in no acute distress. HEENT: No scleral icterus. Extraocular movements grossly intact. Moist buccal mucosa. NECK: Supple without lymphadenopathy. CHEST: Unlabored respirations. Equal bilateral excursions. CARDIOVASCULAR: Regular rate and rhythm. Distal 2+ pulses. ABDOMEN: Soft, nondistended. MUSCULOSKELETAL: No clubbing, cyanosis, or edema. ASSESSMENT: 1. Esophageal stricture PLAN: 1. Recommend proceeding with an upper endoscopy with rigid dilators. Past Medical History Past Medical History: Atrial Fibrillation, Asthma, GERD/Reflux, Hypertension, Sleep Apnea/CPAP/BIPAP Additional Past Medical History / Comment(s): Hx Kidney stones, afib in past d/t hypokalemia after bariatric surgery-none since, bronchitis, uses CPAP. fx Rt fibula 03/2021, recent hx. gastric ulcers, twisted bowel 2022 History of Any Multi-Drug Resistant Organisms: None Reported Past Surgical History: Bariatric Surgery, Hernia Repair, Joint Replacement, Orthopedic Surgery, Tonsillectomy Additional Past Surgical History / Comment(s): Panniculectomy w/ ventral hernia repair, Liliana-en-Y, left knee surgery for torn meniscus, R knee arthroscopy, R bicep reattachment, sinus surgery x3, Lithotripsies w/ 2 kidney stones removed. LEFT SHOULDER SURGERY, left knee replaced recently, right knee replacement 12/02/22, bowel surgery 2022 Edie Hanley Past Anesthesia/Blood Transfusion Reactions: Motion Sickness, Postoperative Nausea & Vomiting (PONV) Past Psychological History: No Psychological Hx Reported Additional Psychological History / Comment(s): . Smoking Status: Never smoker Past Alcohol Use History: Occasional Past Drug Use History: None Reported - Past Family History Father Family Medical History: Cancer, Myocardial Infarction ([place]) Additional Family Medical History / Comment(s): Prostate cancer. Mother Family Medical History: Pulmonary Embolus Additional Family Medical History / Comment(s): Mother is healthy and is 73 yrs old. Medications and Allergies Home Medications Medication Instructions Recorded Confirmed Type Montelukast Sodium [Singulair] 10 mg PO HS 03/08/14 04/27/24 History Albuterol Sulfate [Ventolin HFA] 2 puff INHALATION Q4H PRN 12/04/16 04/27/24 History NIFEdipine [NIFEdipine ER 60 mg PO QAM 05/26/22 04/27/24 History (Osmotic)] EPINEPHrine (Auto Inject) [Epipen] 0.3 mg IM ONCE PRN 12/15/22 04/27/24 History Fluticasone Nasal [place] [Flonase 1 spray EA NOSTRIL DAILY 12/15/22 04/27/24 History Nasal [place]] modafiniL [Provigil] 200 mg PO DAILY 12/15/22 04/27/24 History Acetaminophen Oral Susp [Tylenol] 1,000 mg PO Q6H PRN 01/22/23 04/27/24 History Budesonide-Formot 160-4.5 Mcg 2 puff INHALATION BID 06/17/23 04/27/24 History [Symbicort 160-4.5 Mcg Inhaler] Eszopiclone 3 mg PO HS PRN 06/17/23 04/27/24 History Mepolizumab [Nucala] 100 mg SQ QMONTHLY 06/17/23 04/27/24 History Sildenafil Citrate 100 mg PO DAILY PRN 06/17/23 04/27/24 History traZODone HCL [Desyrel] 50 mg PO HS PRN 01/07/24 04/27/24 History Pantoprazole [Protonix] 40 mg PO DAILY #14 tab 01/11/24 04/27/24 Rx Sucralfate [Carafate] 1 gm PO BID #60 tablet 01/11/24 04/27/24 Rx Tiotropium 2.5 Mcg/Puff [Spiriva 1 puff INHALATION BID 04/27/24 04/27/24 History Respimat 2.5 Mcg] Allergies Allergy/AdvReac Type Severity Reaction Status Date / Time adhesive tape Allergy Rash/Hives Verified 04/27/24 15:44 alcohol Allergy Rash/Hives Verified 04/27/24 15:44 [From Mastisol Liquid Adhesive] gum mastic Allergy Rash/Hives Verified 04/27/24 15:44 [From Mastisol Liquid Adhesive] methyl salicylate Allergy Rash/Hives Verified 04/27/24 15:44 [From Mastisol Liquid Adhesive] storax Allergy Rash/Hives Verified 04/27/24 15:44 [From Mastisol Liquid Adhesive] Penicillins AdvReac Anaphylaxis Verified 04/27/24 15:44 Iyqkegi-TYP-SfX Reductase AdvReac joint Pain Verified 04/27/24 15:44 Inhibitor [Sonqkgb-Vbf-Ytd Reductase Inhibitor] Surgical Glue Allergy Severe Rash/Hives Uncoded 04/27/24 15:44 Dermabond Allergy Rash/Hives Uncoded 04/27/24 15:44
[2024-05-02 10:43] VITALS: TEMP 98.6
[2024-05-02] MEDS: LACTATED RINGERS 1,000 ML IV SCH (10:46)
[2024-05-02] MEDS: IV FLUID CONTINUATION 1,000 ML IV ONE (10:47)
[2024-05-02] MEDS: LIDOCAINE 1% (10MG/ML) FOR IV START INTRADERMA PRN (10:47)
[2024-05-02 11:01] LABS: Glucose,Whole Blood 110 mg/dL (70-110)
[2024-05-02] MEDS ORDERED: LIDOCAINE 1% INJ 10MG/ML (20 ML MDV) ONE (12:22)
[2024-05-02] MEDS ORDERED: PROPOFOL 10 MG/ML 20 ML VIAL IV ONE (12:22)
--- NOTE | 2024-05-02 12:52 | P.PCN ---
Date of Procedure: 05/02/24 Description of Procedure: PREOPERATIVE DIAGNOSIS: Dysphagia. Nausea with vomiting. POSTOPERATIVE DIAGNOSIS: Dysphagia. Morbid obesity. Gastrojejunal stricture without chronic ulcer without perforation OPERATION: Esophagogastrojejunoscopy with balloon dilatation from 12 to 20 mm. SURGEON: Arielle Medeiros MD ANESTHESIA: MAC. INDICATIONS: The patient is a 55-year-old female who presents with a history of dysphagia, including new-onset nausea and vomiting. Benefits and risks of the procedure were described. Informed consent was obtained. DESCRIPTION: The patient was brought into the endoscopy suite and laid in the left lateral decubitus position. After a timeout was confirmed, the procedure was initiated. An Olympus gastroscope was passed along the posterior oropharynx down to the distal esophagus where the squamocolumnar junction was unremarkable. The gastric pouch was entered. A gastrojejunal stricture of 12 mm was found as the adult gastroscope was 9.5 mm in size. A Celaton balloon dilator was placed through the scope. Final insufflation up to 20 mm was performed with a total of 2 minutes. The scope was advanced up to 60 cm from the incisors into the Liliana limb. The mucosa of the gastrojejunal anastomosis was intact. However no chronic gastrojejunal marginal ulcer was encountered. No full-thickness injury was encountered. The GI tract was desufflated. The patient tolerated the procedure well. FINDINGS: Squamocolumnar junction unremarkable at 37 cm. Stricture of approximately 9.5 mm encountered. No chronic gastrojejunal ulceration encountered. Successful balloon dilatation to 20 mm. RECOMMENDATIONS: Upper endoscopy as needed. Plan - Discharge Summary New Discharge Prescriptions: Continue Montelukast Sodium [Singulair] 10 mg PO HS Albuterol Sulfate [Ventolin HFA] 2 puff INHALATION Q4H PRN PRN Reason: Shortness Of Breath Or Wheezing NIFEdipine [NIFEdipine ER (Osmotic)] 60 mg PO QAM EPINEPHrine (Auto Inject) [Epipen] 0.3 mg IM ONCE PRN PRN Reason: Anaphylaxis Fluticasone Nasal [place] [Flonase Nasal [place]] 1 spray EA NOSTRIL DAILY Mepolizumab [Nucala] 100 mg SQ QMONTHLY Eszopiclone 3 mg PO HS PRN PRN Reason: sleep Pantoprazole [Protonix] 40 mg PO DAILY #14 tab Tiotropium 2.5 Mcg/Puff [Spiriva Respimat 2.5 Mcg] 1 puff INHALATION BID modafiniL [Provigil] 200 mg PO DAILY Acetaminophen Oral Susp [Tylenol] 1,000 mg PO Q6H PRN PRN Reason: Pain Budesonide-Formot 160-4.5 Mcg [Symbicort 160-4.5 Mcg Inhaler] 2 puff INHALATION BID Sildenafil Citrate 100 mg PO DAILY PRN PRN Reason: Per Protocol traZODone HCL [Desyrel] 50 mg PO HS PRN PRN Reason: sleep Sucralfate [Carafate] 1 gm PO BID #60 tablet Discharge Medication List Montelukast Sodium [Singulair] 10 mg PO HS 03/08/14 [History] Albuterol Sulfate [Ventolin HFA] 2 puff INHALATION Q4H PRN 12/04/16 [History] NIFEdipine [NIFEdipine ER (Osmotic)] 60 mg PO QAM 05/26/22 [History] EPINEPHrine (Auto Inject) [Epipen] 0.3 mg IM ONCE PRN 12/15/22 [History] Fluticasone Nasal [place] [Flonase Nasal [place]] 1 spray EA NOSTRIL DAILY 12/15/22 [History] modafiniL [Provigil] 200 mg PO DAILY 12/15/22 [History] Acetaminophen Oral Susp [Tylenol] 1,000 mg PO Q6H PRN 01/22/23 [History] Budesonide-Formot 160-4.5 Mcg [Symbicort 160-4.5 Mcg Inhaler] 2 puff INHALATION BID 06/17/23 [History] Eszopiclone 3 mg PO HS PRN 06/17/23 [History] Mepolizumab [Nucala] 100 mg SQ QMONTHLY 06/17/23 [History] Sildenafil Citrate 100 mg PO DAILY PRN 06/17/23 [History] traZODone HCL [Desyrel] 50 mg PO HS PRN 01/07/24 [History] Pantoprazole [Protonix] 40 mg PO DAILY #14 tab 01/11/24 [Rx] Sucralfate [Carafate] 1 gm PO BID #60 tablet 01/11/24 [Rx] Tiotropium 2.5 Mcg/Puff [Spiriva Respimat 2.5 Mcg] 1 puff INHALATION BID 04/27/24 [History] [facility] [place] [facility] [place] [facility]/04/24 2:00 pm Patient Instructions/Handouts: Esophageal Dilation (DC) Discharge Disposition: HOME SELF-CARE
[2024-05-02 13:01] VITALS: BP 156/83; PULSE 85; RESP 18
== END 2024-05-02 13:23 | disposition home or self-care (01) ==
LOC: ORWHC2ENDO 09:57
PROVIDERS: ATTEND Surgery Plastic and Reconstructive Surgery
DX: K21.00 Gastro-esophageal reflux disease with esophagitis, without bleeding
CPT/HCPCS: 43245

== ENCOUNTER 2024-05-04 10:05 | Observation (INO) | payer MEDICAID ==
[2024-05-04 10:41] LABS: Basophils % (A) 0 %; Eosinophils % (A) 1 %; HCT 48.3 % (39.0-53.0); Lymphocytes # (A) 1.2 k/uL (1.0-4.8); Lymphocytes % (A) 20 %; MCH 30.8 pg (25.0-35.0); MCHC 33.1 g/dL (31.0-37.0); MCV 93.1 fL (80.0-100.0); Mean Platelet Volume 6.5; Monocytes # (A) 0.3 k/uL (0-1.0); Monocytes % (A) 5 %; Neutrophils # (A) 4.5 k/uL (1.3-7.7); Neutrophils % (A) 73 %; Platelet Count 271 k/uL (150-450); RBC 5.19 m/uL (4.30-5.90); RDW 12.3 % (11.5-15.5); WBC 6.1 k/uL (3.8-10.6)
--- NOTE | 2024-05-04 10:57 | ED ---
Abdominal Pain HPI - General Chief Complaint: Abdominal Pain Stated Complaint: L sided abd pain Time Seen by Provider: 05/04/24 10:15 Source: patient, RN notes reviewed Mode of arrival: ambulatory Limitations: no limitations - History of Present Illness Initial Comments: This is a 59-year-old male presenting for left side abdominal pain (9 out of 10) x 3 weeks. Patient states pain is constant and stabbing. Endorses history of abdominal surgery, adhesions, obstruction, kidney stones. Patient endorses some postprandial nausea with vomiting but otherwise denies diarrhea or constipation. Patient endorses receiving endoscope from Dr. Medeiros. States he was going to receive colonoscopy from Dr. Maki following vacation but was advised to go to the ER prior to procedure. Denies jqid-efy-ownqvge medication use. Denies fevers, chills, fatigue, body aches, urinary symptoms. Denies chest pain, dyspnea, dizziness, headache, melena, bright red blood per rectum MD Complaint: abdominal pain, flank pain Onset/Timin -: week(s) Location: LUQ, LLQ, L flank - Related Data Home Medications Medication Instructions Recorded Confirmed Montelukast Sodium [Singulair] 10 mg PO HS 03/08/14 05/02/24 Albuterol Sulfate [Ventolin HFA] 2 puff INHALATION Q4H PRN 12/04/16 05/02/24 NIFEdipine [NIFEdipine ER 60 mg PO QAM 05/26/22 05/02/24 (Osmotic)] Fluticasone Nasal [place] [Flonase 1 spray EA NOSTRIL DAILY 12/15/22 05/02/24 Nasal [place]] modafiniL [Provigil] 200 mg PO DAILY 12/15/22 05/02/24 Budesonide-Formot 160-4.5 Mcg 2 puff INHALATION BID 06/17/23 05/02/24 [Symbicort 160-4.5 Mcg Inhaler] Eszopiclone 3 mg PO HS PRN 06/17/23 05/02/24 Sildenafil Citrate 100 mg PO DAILY PRN 06/17/23 05/02/24 traZODone HCL [Desyrel] 50 mg PO HS PRN 01/07/24 05/02/24 Tiotropium 2.5 Mcg/Puff [Spiriva 1 puff INHALATION BID 04/27/24 05/02/24 Respimat 2.5 Mcg] Benzonatate [Tessalon Perle] 200 mg PO TID PRN 05/04/24 05/04/24 Folic Acid 1 mg PO DAILY 05/04/24 05/04/24 Ipratropium-Albuterol Nebulize 3 ml INHALATION RT-QID PRN 05/04/24 05/04/24 [Duoneb 0.5 mg-3 mg/3 ml Soln] Omeprazole [PriLOSEC] 40 mg PO BID 05/04/24 05/04/24 predniSONE See Taper PO DIRECTED 05/04/24 05/04/24 Previous Rx's Medication Instructions Recorded Sucralfate [Carafate] 1 gm PO BID #60 tablet 01/11/24 Allergies Allergy/AdvReac Type Severity Reaction Status Date / Time adhesive tape Allergy Rash/Hives Verified 05/04/24 10:10 alcohol Allergy Rash/Hives Verified 05/04/24 10:10 [From Mastisol Liquid Adhesive] gum mastic Allergy Rash/Hives Verified 05/04/24 10:10 [From Mastisol Liquid Adhesive] methyl salicylate Allergy Rash/Hives Verified 05/04/24 10:10 [From Mastisol Liquid Adhesive] storax Allergy Rash/Hives Verified 05/04/24 10:10 [From Mastisol Liquid Adhesive] Penicillins AdvReac Anaphylaxis Verified 05/04/24 10:10 Gnancvg-QJC-PjQ Reductase AdvReac joint Pain Verified 05/04/24 10:10 Inhibitor [Mbaewed-Bgy-Rts Reductase Inhibitor] Surgical Glue Allergy Severe Rash/Hives Uncoded 05/04/24 10:10 Dermabond Allergy Rash/Hives Uncoded 05/04/24 10:10 Review of Systems ROS Statement: Those systems with pertinent positive or pertinent negative responses have been documented in the HPI. ROS Other: All systems not noted in ROS Statement are negative. Past Medical History Past Medical History: Atrial Fibrillation, Asthma, GERD/Reflux, Hypertension, Sleep Apnea/CPAP/BIPAP Additional Past Medical History / Comment(s): Hx Kidney stones, afib in past d/t hypokalemia after bariatric surgery-none since, bronchitis, uses CPAP. fx Rt fibula 03/2021, recent hx. gastric ulcers, twisted bowel 2022 History of Any Multi-Drug Resistant Organisms: None Reported Past Surgical History: Bariatric Surgery, Hernia Repair, Joint Replacement, Orthopedic Surgery, Tonsillectomy Additional Past Surgical History / Comment(s): Panniculectomy w/ ventral hernia repair, Liliana-en-Y, left knee surgery for torn meniscus, R knee arthroscopy, R bicep reattachment, sinus surgery x3, Lithotripsies w/ 2 kidney stones removed. LEFT SHOULDER SURGERY, left knee replaced recently, right knee replacement 12/02/22, bowel surgery 2022 Edie Hanley Past Anesthesia/Blood Transfusion Reactions: Motion Sickness, Postoperative Nausea & Vomiting (PONV) Past Psychological History: No Psychological Hx Reported Smoking Status: Never smoker Past Alcohol Use History: Occasional Past Drug Use History: None Reported - Past Family History Father Family Medical History: Cancer, Myocardial Infarction ([place]) Additional Family Medical History / Comment(s): Prostate cancer. Mother Family Medical History: Pulmonary Embolus Additional Family Medical History / Comment(s): Mother is healthy and is 73 yrs old. General Exam Limitations: no limitations General appearance: alert, in no apparent distress Head exam: Present: atraumatic, normocephalic, normal inspection Eye exam: Present: normal appearance, PERRL, EOMI. Absent: scleral icterus, conjunctival injection, periorbital swelling ENT exam: Present: normal exam, mucous membranes moist Neck exam: Present: normal inspection. Absent: tenderness, meningismus, lymphadenopathy Respiratory exam: Present: normal lung sounds bilaterally. Absent: respiratory distress, wheezes, rales, rhonchi, stridor Cardiovascular Exam: Present: regular rate, normal rhythm, normal heart sounds. Absent: systolic murmur, diastolic murmur, rubs, gallop, clicks GI/Abdominal exam: Present: soft, distended (Generalized), tenderness (Positive left upper quadrant and left lower quadrant tenderness, tympanic tenderness and rebound tenderness.), rebound, rigid (Some left flank rigidity noted.), diminished bowel sounds. Absent: guarding Extremities exam: Present: normal inspection, full ROM, normal capillary refill. Absent: tenderness, pedal edema, joint swelling, calf tenderness Back exam: Present: normal inspection Neurological exam: Present: alert, oriented X3, CN II-XII intact Psychiatric exam: Present: normal affect, normal mood Skin exam: Present: warm, dry, intact, normal color. Absent: rash Course Vital Signs 05/04/24 05/04/24 05/04/24 10:07 11:13 13:20 Temperature 97.5 F L 98.4 F 98.6 F Pulse Rate 52 L 78 67 Respiratory 18 16 18 Rate Blood Pressure 145/81 109/69 162/92 O2 Sat by Pulse 97 98 96 Oximetry Medical Decision Making - Medical Decision Making Was pt. sent in by a medical professional or institution (, PA, DIRECTOR OF BUSINESS SERVICES, urgent care, hospital, or longterm...) When possible be specific @ -Dr. Medeiros Did you speak to anyone other than the patient for history (EMS, parent, family, police, friend...)? What history was obtained from this source @ -No Did you review nursing and triage notes (agree or disagree)? Why? @ -I reviewed and agree with nursing and triage notes Were old charts reviewed (outside hosp., previous admission, EMS record, old EKG, old radiological studies, urgent care reports/EKG's, longterm records)? Report findings @ -No old charts were reviewed Differential Diagnosis (chest pain, altered mental status, abdominal pain women, abdominal pain men, vaginal bleeding, weakness, fever, dyspnea, syncope, h eadache, dizziness, GI bleed, back pain, seizure, CVA, palpatations, mental health, musculoskeletal)? @ -Differential Abdominal Pain Men: Appendicitis, cholecystitis, diverticulosis, ischemic bowel, pancreatitis, hepatitis, UTI, gastroenteritis, AAA, incarcerated hernia, bowel obstruction, constipation, inflammatory bowel, hepatitis, peptic ulcer disease, splenic infarction, perforated viscus, testicular torsion, this is not meant to be an all-inclusive list EKG interpreted by me (3pts min.). @ -As above X-rays interpreted by me (1pt min.). @ -None done CT interpreted by me (1pt min.). @ -None done U/S interpreted by me (1pt. min.). @ -None done What testing was considered but not performed or refused? (CT, X-rays, U/S, labs)? Why? @ -None What meds were considered but not given or refused? Why? @ -None Did you discuss the management of the patient with other professionals (professionals i.e. , PAULO, DIRECTOR OF BUSINESS SERVICES, lab, RT, psych nurse, bilingual social worker, embossing machine operator, teacher, targeting acquisition officer, case preparer and liner)? Give summary @ -No Was smoking cessation discussed for >3mins.? @ -No Was critical care preformed (if so, how long)? @ -No Were there social determinants of health that impacted care today? How? (Homelessness, low income, unemployed, alcoholism, drug addiction, transportation, low edu. Level, literacy, decrease access to med. care, shelter, rehab)? @ -No Was there de-escalation of care discussed even if they declined (Discuss DNR or withdrawal of care, Hospice)? DNR status @ -No What co-morbidities impacted this encounter? (DM, HTN, Smoking, COPD, CAD, Cancer, CVA, ARF, Chemo, Hep., AIDS, mental health diagnosis, sleep apnea, morbid obesity)? @ -None Was patient admitted / discharged? Hospital course, mention meds given and route, prescriptions, significant lab abnormalities, going to OR and other pertinent info. @ -Admitted. Abdominal CT revealed no acute findings. Lab revealed elevated lactic acid levels. Patient receiving bolus normal saline. Toradol and Dilaudid IV providing transient relief. Dr. Carty requesting patient admission for further workup and treatment Undiagnosed new problem with uncertain prognosis? @ -Yes Drug Therapy requiring intensive monitoring for toxicity (Heparin, Nitro, Insulin, Cardizem)? @ -No Were any procedures done? @ -No Diagnosis/symptom? @ -Left abdominal pain, elevated lactic acid levels Acute, or Chronic, or Acute on Chronic? @ -Acute Uncomplicated (without systemic symptoms) or Complicated (systemic symptoms)? @ -Complicated Side effects of treatment? @ -No Exacerbation, Progression, or Severe Exacerbation? @ -No Poses a threat to life or bodily function? How? (Chest pain, [place], [place], pneumonia, PE, COPD, DKA, ARF, appy, cholecystitis, CVA, Diverticulitis, Homicidal, Suicidal, threat to staff... and all critical care pts) @ -Idiopathic left abdominal pain with elevated lactic acid levels - Lab Data Result diagrams: 05/04/24 10:05/04/24 10: Lab Results 05/04/24 05/04/24 05/04/24 Range/Units 10: 10: 10: WBC 6.1 (3.8-10.6) k/uL RBC 5.19 (4.30-5.90) m/uL Hgb 16.0 (13.0-17.5) gm/dL Hct 48.3 (39.0-53.0) % MCV 93.1 (80.0-100.0) fL MCH 30.8 (25.0-35.0) pg MCHC 33.1 (31.0-37.0) g/dL RDW 12.3 (11.5-15.5) % Plt Count 271 (150-450) k/uL MPV 6.5 Neutrophils % 73 % Lymphocytes % 20 % Monocytes % 5 % Eosinophils % 1 % Basophils % 0 % Neutrophils # 4.5 (1.3-7.7) k/uL Lymphocytes # 1.2 (1.0-4.8) k/uL Monocytes # 0.3 (0-1.0) k/uL Eosinophils # 0.0 (0-0.7) k/uL Basophils # 0.0 (0-0.2) k/uL Sodium 140 (137-145) mmol/L Potassium 3.2 L (3.5-5.1) mmol/L Chloride 103 (98-107) mmol/L Carbon Dioxide 28 (22-30) mmol/L Anion Gap 9 mmol/L BUN 11 (9-20) mg/dL Creatinine 0.61 L (0.66-1.25) mg/dL Est GFR (CKD-EPI)AfAm >90 (>60 ml/min/1.73 sqM) Est GFR (CKD-EPI)NonAf >90 (>60 ml/min/1.73 sqM) Glucose 174 H (74-99) mg/dL Lactic Ac Sepsis Rflx Plasma Lactic Acid Tristin 2.5 H* (0.7-2.0) mmol/L Calcium 8.7 (8.4-10.2) mg/dL Total Bilirubin 0.8 (0.2-1.3) mg/dL AST 26 (17-59) U/L ALT 44 (4-49) U/L Alkaline Phosphatase 79 (38-126) U/L C-Reactive Protein (<1.0) mg/dL Total Protein 6.2 L (6.3-8.2) g/dL Albumin 3.9 (3.5-5.0) g/dL Amylase 45 (30-110) U/L Lipase 120 (23-300) U/L 05/04/24 05/04/24 Range/Units 10:26 11:17 WBC (3.8-10.6) k/uL RBC (4.30-5.90) m/uL Hgb (13.0-17.5) gm/dL Hct (39.0-53.0) % MCV (80.0-100.0) fL MCH (25.0-35.0) pg MCHC (31.0-37.0) g/dL RDW (11.5-15.5) % Plt Count (150-450) k/uL MPV Neutrophils % % Lymphocytes % % Monocytes % % Eosinophils % % Basophils % % Neutrophils # (1.3-7.7) k/uL Lymphocytes # (1.0-4.8) k/uL Monocytes # (0-1.0) k/uL Eosinophils # (0-0.7) k/uL Basophils # (0-0.2) k/uL Sodium (137-145) mmol/L Potassium (3.5-5.1) mmol/L Chloride (98-107) mmol/L Carbon Dioxide (22-30) mmol/L Anion Gap mmol/L BUN (9-20) mg/dL Creatinine (0.66-1.25) mg/dL Est GFR (CKD-EPI)AfAm (>60 ml/min/1.73 sqM) Est GFR (CKD-EPI)NonAf (>60 ml/min/1.73 sqM) Glucose (74-99) mg/dL Lactic Ac Sepsis Rflx Y Plasma Lactic Acid Tristin (0.7-2.0) mmol/L Calcium (8.4-10.2) mg/dL Total Bilirubin (0.2-1.3) mg/dL AST (17-59) U/L ALT (4-49) U/L Alkaline Phosphatase (38-126) U/L C-Reactive Protein <0.5 (<1.0) mg/dL Total Protein (6.3-8.2) g/dL Albumin (3.5-5.0) g/dL Amylase (30-110) U/L Lipase (23-300) U/L Disposition Clinical Impression: Lactic acid acidosis, Left-sided abdominal pain of unknown etiology Disposition: ADMITTED IP TO THIS HOSP Condition: Fair Is patient prescribed a controlled substance at d/c from ED?: No Referrals: Harjinder Almanzar MD [Primary Care Provider] - 1-2 days Time of Disposition: 13:44 Decision Date: 05/04/24 Decision Time: 13:44
[2024-05-04 11:06] LABS: ALT 44 U/L (4-49); AST 26 U/L (17-59); African American GFR (CKD) >90 (>60 ml/min/1.73 sqM); Albumin 3.9 g/dL (3.5-5.0); Alkaline Phosphatase 79 U/L (38-126); Amylase 45 U/L (30-110); Anion Gap 9 mmol/L; Blood Urea Nitrogen 11 mg/dL (9-20); Calcium 8.7 mg/dL (8.4-10.2); Carbon Dioxide 28 mmol/L (22-30); Chloride 103 mmol/L (98-107); Glucose 174 mg/dL (74-99); Lipase 120 U/L (23-300); Non-African American GFR(CKD) >90 (>60 ml/min/1.73 sqM); Potassium 3.2 mmol/L (3.5-5.1); Sodium 140 mmol/L (137-145); Total Bilirubin 0.8 mg/dL (0.2-1.3); Total Protein 6.2 g/dL (6.3-8.2)
[2024-05-04] MEDS: SODIUM CHLORIDE 0.9% 1,000 ML IV STA ×3 (11:16→13:27)
[2024-05-04] MEDS: KETOROLAC 15 MG/ML 1 ML VIAL IVP STA ×2 (11:20→13:27)
[2024-05-04] MEDS: ONDANSETRON 4 MG/2 ML VIAL IVP STA (11:22)
[2024-05-04] MEDS: HYDROmorphone 0.5 MG/0.5 ML SYRINGE IVP STA ×2 (11:25→14:39)
--- NOTE | 2024-05-04 12:16 | CT ---
EXAMINATION TYPE: CT abdomen pelvis w con CT DLP: 1822.9 mGycm, Automated exposure control for dose reduction was used. DATE OF EXAM: 05/04/2024 12:03 PM COMPARISON: Multiple CT Abdomen Pelvis with most recent 07/24/2023 CLINICAL INDICATION:Male, 59 years old with history of severe L side pain, h/o adhesions and obstruct ion; severe L side pain, h/o adhesions and obstruction TECHNIQUE: Standard CT of the abdomen and pelvis following the administration of 100 cc of Isovue 3 00 IV contrast material. Coronal and sagittal reformats were performed. FINDINGS: LOWER CHEST: Unremarkable ABDOMEN LIVER: Stable left hepatic lobe 2.6 cm cyst. GALLBLADDER AND BILE DUCTS: Unremarkable. PANCREAS: Unremarkable. SPLEEN: Unremarkable. ADRENAL GLANDS: Unremarkable. KIDNEYS AND URETERS: No evidence of hydronephrosis. The kidneys enhance symmetrically. There are 2 no nobstructive left renal calculi with largest in the inferior pole measuring up to 3 mm. Subcentimeter hypodense left renal likely cyst. Contrast is demonstrated within both collecting systems on the del ayed phase. PELVIS BLADDER: Unremarkable REPRODUCTIVE: Unremarkable. ABDOMEN & PELVIS STOMACH AND BOWEL: Postsurgical changes from Liliana-en-Y gastric bypass. No focal bowel wall thickening or surrounding inflammatory changes. The appendix is within normal limits. No evidence of bowel obst ruction. PERITONEUM: No evidence of pneumoperitoneum or free fluid. VASCULATURE: Minimal atherosclerotic calcifications are present throughout the abdominal aorta and it s branches. No evidence of aortic aneurysm. Portal venous system appears patent. MUSCULOSKELETAL: No acute osseous abnormalities. Grade 1 anterolisthesis of L4 on L5 and L5 on S1. Th ere are bilateral L5 pars defects. DISH of the lower thoracic spine. LYMPH NODES: No gross evidence for lymphadenopathy. SOFT TISSUE/ABDOMINAL WALL: Post surgical changes in the anterior midline abdominal wall. Calcified g ranulomas within the anterior lower dominant wall. IMPRESSION: 1. No acute abdominal/pelvic process. 2. Postsurgical changes from Liliana-en-Y gastric bypass. No evidence of bowel obstruction. 3. Nonobstructive left renal calculi. [facility], , 05/04/2024 12:13 PM
[2024-05-04] MEDS ORDERED: HYDROmorphone 0.5 MG/0.5 ML SYRINGE IVP STA (13:07)
--- NOTE | 2024-05-04 15:02 | P.GSHP ---
History of Present Illness H&P Date: 05/04/24 CHIEF COMPLAINT: Abdominal pain HISTORY OF PRESENT ILLNESS: This is a 59-year-old male who presented to the hospital with complaints of left sided abdominal pain x 1 month. He has been having issues with nausea and vomiting. He reports having normal bowel movements. He had a recent EGD with dilatation with Dr. Medeiros on 05/02/2024 for esophageal stricture. Patient reports since then no vomiting but still having nausea. Patient does have surgical history that includes a Liliana-en-Y, panniculectomy vent with ventral hernia repair and a bowel surgery in 2022 at [facility] for what sounds like a volvulus. PAST MEDICAL HISTORY: See below PAST SURGICAL HISTORY: See below MEDICATIONS: See below ALLERGIES: See below SOCIAL HISTORY: No illicit drug use. REVIEW OF SYSTEMS: CONSTITUTIONAL: Denies fever or chills. HEENT: Denies blurred vision, vision changes, or eye pain. Denies hemoptysis CARDIOVASCULAR: Denies chest pain or pressure. RESPIRATORY: No shortness of breath. GASTROINTESTINAL: See HPI for pertinent findings HEMATOLOGIC: Denies bleeding disorders. GENITOURINARY: Denies any blood in urine or increased urinary frequency. SKIN: Denies pruitis. Denies rash. PHYSICAL EXAM: VITAL SIGNS: Reviewed GENERAL: Well-developed in no acute distress. HEENT: No sclera icterus. Extraocular movements grossly intact. Moist buccal mucosa. Head is atraumatic, normocephalic. No nasal drainage. ABDOMEN: Soft. Nondistended. Tenderness to palpation left side of abdomen NEUROLOGIC: Alert and oriented. Cranial nerves II through XII grossly intact. LABORATORY DATA: WBC 6.1 Hgb 16 platelets 271 Sodium 140 potassium 3.2 creatinine 0.61 Lactic acid 2.5 down to 1.6 IMAGING: CT scan abdomen pelvis reports no acute abdominal/pelvic process. Postsurgical changes from Liliana-en-Y gastric bypass. No evidence of bowel obstruction. Nonobstructive left renal calculi. ASSESSMENT: 1. Left sided abdominal pain likely related to adhesions 2. History of multiple abdominal surgeries including Liliana-en-Y gastric bypass 3. Hypokalemia 4. Elevated lactic acid level improved with IV fluids PLAN: -Patient scheduled for Robotic lysis of adhesions today with Dr. Medeiros -Keep patient n.p.o. -Replace potassium -Continue IV fluids -Continue pain management Physician Industrial Robotics Mechanic note has been reviewed by physician. Signing provider agrees with the documented findings, assessment, and plan of care. Past Medical History Past Medical History: Atrial Fibrillation, Asthma, GERD/Reflux, Hypertension, Sleep Apnea/CPAP/BIPAP Additional Past Medical History / Comment(s): Hx Kidney stones, afib in past d/t hypokalemia after bariatric surgery-none since, bronchitis, uses CPAP. fx Rt fibula 03/2021, recent hx. gastric ulcers, twisted bowel 2022 History of Any Multi-Drug Resistant Organisms: None Reported Past Surgical History: Bariatric Surgery, Hernia Repair, Joint Replacement, Orthopedic Surgery, Tonsillectomy Additional Past Surgical History / Comment(s): Panniculectomy w/ ventral hernia repair, Liliana-en-Y, left knee surgery for torn meniscus, R knee arthroscopy, R bicep reattachment, sinus surgery x3, Lithotripsies w/ 2 kidney stones removed. LEFT SHOULDER SURGERY, left knee replaced recently, right knee replacement 12/02/22, bowel surgery 2022 Edie Hanley Past Anesthesia/Blood Transfusion Reactions: Motion Sickness, Postoperative Nausea & Vomiting (PONV) Past Psychological History: No Psychological Hx Reported Smoking Status: Never smoker Past Alcohol Use History: Occasional Past Drug Use History: None Reported - Past Family History Father Family Medical History: Cancer, Myocardial Infarction ([place]) Additional Family Medical History / Comment(s): Prostate cancer. Mother Family Medical History: Pulmonary Embolus Additional Family Medical History / Comment(s): Mother is healthy and is 73 yrs old. Medications and Allergies Home Medications Medication Instructions Recorded Confirmed Type Montelukast Sodium [Singulair] 10 mg PO HS 03/08/14 05/04/24 History Albuterol Sulfate [Ventolin HFA] 2 puff INHALATION RT-Q4H PRN 12/04/16 05/04/24 History NIFEdipine [NIFEdipine ER 60 mg PO DAILY 05/26/22 05/04/24 History (Osmotic)] Fluticasone Nasal [place] [Flonase 1 spray EA NOSTRIL DAILY 12/15/22 05/04/24 History Nasal [place]] modafiniL [Provigil] 200 mg PO DAILY 12/15/22 05/04/24 History Budesonide-Formot 160-4.5 Mcg 2 puff INHALATION RT-BID 06/17/23 05/04/24 History [Symbicort 160-4.5 Mcg Inhaler] Eszopiclone 3 mg PO HS 06/17/23 05/04/24 History Sildenafil Citrate 100 mg PO DAILY PRN 06/17/23 05/04/24 History traZODone HCL [Desyrel] 50 - 100 mg PO HS PRN 01/07/24 05/04/24 History Sucralfate [Carafate] 1 gm PO BID #60 tablet 01/11/24 05/04/24 Rx Tiotropium 2.5 Mcg/Puff [Spiriva 1 puff INHALATION RT-DAILY 04/27/24 05/04/24 History Respimat 2.5 Mcg] Benzonatate [Tessalon Perle] 200 mg PO TID PRN 05/04/24 05/04/24 History Folic Acid 1 mg PO DAILY 05/04/24 05/04/24 History Ipratropium-Albuterol Nebulize 3 ml INHALATION RT-QID PRN 05/04/24 05/04/24 History [Duoneb 0.5 mg-3 mg/3 ml Soln] Omeprazole [PriLOSEC] 40 mg PO BID 05/04/24 05/04/24 History predniSONE See Taper PO DIRECTED 05/04/24 05/04/24 History Allergies Allergy/AdvReac Type Severity Reaction Status Date / Time adhesive tape Allergy Rash/Hives Verified 05/04/24 10:10 alcohol Allergy Rash/Hives Verified 05/04/24 10:10 [From Mastisol Liquid Adhesive] gum mastic Allergy Rash/Hives Verified 05/04/24 10:10 [From Mastisol Liquid Adhesive] methyl salicylate Allergy Rash/Hives Verified 05/04/24 10:10 [From Mastisol Liquid Adhesive] storax Allergy Rash/Hives Verified 05/04/24 10:10 [From Mastisol Liquid Adhesive] Penicillins AdvReac Anaphylaxis Verified 05/04/24 10:10 Gxzqreo-GCW-JxT Reductase AdvReac joint Pain Verified 05/04/24 10:10 Inhibitor [Urfngyv-Eqm-Rre Reductase Inhibitor] Surgical Glue Allergy Severe Rash/Hives Uncoded 05/04/24 10:10 Dermabond Allergy Rash/Hives Uncoded 05/04/24 10:10 Surgical - Exam Vital Signs Temp Pulse Resp BP Pulse Ox 97.5 F L 52 L 18 145/81 97 05/04/24 10:07 05/04/24 10:07 05/04/24 10:07 05/04/24 10:05/04/24 10:07 Results - Labs 05/04/24 10:05/04/24 10: Abnormal Lab Results - Last 24 Hours (Table) 05/04/24 05/04/24 Range/Units 10: 10:26 Potassium 3.2 L (3.5-5.1) mmol/L Creatinine 0.61 L (0.66-1.25) mg/dL Glucose 174 H (74-99) mg/dL Plasma Lactic Acid Tristin 2.5 H* (0.7-2.0) mmol/L Total Protein 6.2 L (6.3-8.2) g/dL Diabetes panel 05/04/24 Range/Units 10: Sodium 140 (137-145) mmol/L Potassium 3.2 L (3.5-5.1) mmol/L Chloride 103 (98-107) mmol/L Carbon Dioxide 28 (22-30) mmol/L BUN 11 (9-20) mg/dL Creatinine 0.61 L (0.66-1.25) mg/dL Glucose 174 H (74-99) mg/dL Calcium 8.7 (8.4-10.2) mg/dL AST 26 (17-59) U/L ALT 44 (4-49) U/L Alkaline Phosphatase 79 (38-126) U/L Total Protein 6.2 L (6.3-8.2) g/dL Albumin 3.9 (3.5-5.0) g/dL Calcium panel 05/04/24 Range/Units 10: Calcium 8.7 (8.4-10.2) mg/dL Albumin 3.9 (3.5-5.0) g/dL Pituitary panel 05/04/24 Range/Units 10: Sodium 140 (137-145) mmol/L Potassium 3.2 L (3.5-5.1) mmol/L Chloride 103 (98-107) mmol/L Carbon Dioxide 28 (22-30) mmol/L BUN 11 (9-20) mg/dL Creatinine 0.61 L (0.66-1.25) mg/dL Glucose 174 H (74-99) mg/dL Calcium 8.7 (8.4-10.2) mg/dL Adrenal panel 05/04/24 Range/Units 10:26 Sodium 140 (137-145) mmol/L Potassium 3.2 L (3.5-5.1) mmol/L Chloride 103 (98-107) mmol/L Carbon Dioxide 28 (22-30) mmol/L BUN 11 (9-20) mg/dL Creatinine 0.61 L (0.66-1.25) mg/dL Glucose 174 H (74-99) mg/dL Calcium 8.7 (8.4-10.2) mg/dL Total Bilirubin 0.8 (0.2-1.3) mg/dL AST 26 (17-59) U/L ALT 44 (4-49) U/L Alkaline Phosphatase 79 (38-126) U/L Total Protein 6.2 L (6.3-8.2) g/dL Albumin 3.9 (3.5-5.0) g/dL
[2024-05-04] MEDS: POTASSIUM CHLORIDE 10 MEQ in WATER FOR INJECTION 1 100ML.BAG IVPB SCH (15:38)
[2024-05-04] MEDS: SODIUM CHLORIDE 0.9% 1,000 ML IV SCH (15:43)
[2024-05-04] MEDS: IV FLUID CONTINUATION 1,000 ML IV ONE (15:56)
[2024-05-04] MEDS: fentaNYL (PF) 50 MCG/ML 2 ML AMP IVP ONE (16:41)
[2024-05-04] MEDS: DEXAMETHASONE SOD PHOSPHATE 4 MG/ML 1 ML VIAL IVP ONE (16:41)
[2024-05-04] MEDS: MIDAZOLAM 2 MG/2 ML VIAL IV ONE (16:41)
[2024-05-04] MEDS: SCOPOLAMINE 1 MG/72 HR PATCH TRANSDERM STA (16:45)
[2024-05-04] MEDS ORDERED: LIDOCAINE 1% INJ 10MG/ML (20 ML MDV) ONE (16:48)
[2024-05-04] MEDS ORDERED: NEOSTIGMINE 1 MG/ML 10 ML VIAL ONE (16:48)
[2024-05-04] MEDS ORDERED: ROPIVACAINE 5 MG/ML 30 ML VIAL ONE (16:48)
[2024-05-04] MEDS ORDERED: GLYCOPYRROLATE 0.2 MG/ML 2 ML VIAL ONE (16:48)
[2024-05-04] MEDS ORDERED: SODIUM CHLORIDE 0.9% (PF) 10 ML VIAL ONE (16:48)
[2024-05-04] MEDS ORDERED: MIDAZOLAM 2 MG/2 ML VIAL ONE (16:48)
[2024-05-04] MEDS ORDERED: diphenhydrAMINE 50 MG/ML 1 ML VIAL ONE (16:48)
[2024-05-04] MEDS ORDERED: HYDROmorphone (PF) 1 MG/ML ONE (16:48)
[2024-05-04] MEDS ORDERED: DEXAMETHASONE SOD PHOSPHATE 10 MG/ML 1 ML VIAL ONE (16:48)
[2024-05-04] MEDS ORDERED: fentaNYL (PF) 50 MCG/ML 2 ML AMP ONE (16:48)
[2024-05-04] MEDS ORDERED: ROCURONIUM 10 MG/ML (5 ML VIAL) IV ONE (16:48)
[2024-05-04] MEDS ORDERED: ceFAZolin 1 GM/50 ML BAG (PMX) ONE (16:48)
[2024-05-04] MEDS ORDERED: SUCCINYLCHOLINE CHLORIDE 200 MG/10 ML VIAL IV ONE (16:48)
[2024-05-04] MEDS ORDERED: PROPOFOL 10 MG/ML 20 ML VIAL IV ONE (16:48)
[2024-05-04] MEDS: HEPARIN SODIUM,PORCINE 5,000 UNIT/ML 1 ML VIAL SQ STA (16:49)
[2024-05-04] MEDS: DEXAMETHASONE SOD PHOSPHATE 4 MG/ML 1 ML VIAL IM STA (16:53)
[2024-05-04] MEDS ORDERED: fentaNYL (PF) 50 MCG/ML 2 ML AMP IVP PRN (17:01)
[2024-05-04] MEDS: LIDOCAINE 1% INJ 10MG/ML (20 ML MDV) SQ ONE (17:14)
[2024-05-04] MEDS: LACTATED RINGERS 1,000 ML IV ONE (17:34)
--- NOTE | 2024-05-04 19:59 | P.ANPRN ---
Procedure Note - Anesthesia - Nerve Block Performed Bilateral Erector Spinae Single Time Out Performed: Yes (1640) Date of Procedure: 05/04/24 Procedure Start Time: 16:41 Procedure Stop Time: 16:45 Location of Patient: PreOp Indication: Acute Post-Operative Pain, Requested by Surgeon Specifically requested for management of pain by DrGia: Arielle Medeiros Sedation Type: Sedate with meaningful contact maintained Preparation: Sterile Prep Position: Sitting Catheter: None Needle Types: Pajunk Needle Gauge: 21 Ultrasound used to visualize needle placement: Yes Ultrasound used to observe medication spread: Yes Injectate: 0.5% Ropivacaine (see comment for volume) (15cc +10cc nacl each side) Blood Aspirated: No Pain Paresthesia on Injection Noted: No Resistance on Injection: Normal Image Stored and Saved: Yes Events: Uneventful and Well Tolerated
[2024-05-04] MEDS ORDERED: NALOXONE 0.4 MG/ML 1 ML VIAL IV PRN (20:05)
[2024-05-04] MEDS ORDERED: diphenhydrAMINE 50 MG/ML 1 ML VIAL IVP PRN (20:08)
[2024-05-04] MEDS ORDERED: ALBUTEROL HFA INHALER INHALATION PRN (20:11)
[2024-05-04] MEDS ORDERED: BENZONATATE 100 MG CAP PO PRN (20:11)
[2024-05-04] MEDS ORDERED: IPRATROPIUM-ALBUTEROL 3 ML NEB INHALATION PRN (20:11)
--- NOTE | 2024-05-04 20:16 | P.OP ---
Date of Procedure: 05/04/24 Description of Procedure: SURGEON: PANDA MORENO MD PREOPERATIVE DIAGNOSES: 1. Epigastric abdominal pain 2. History of gastric bypass POSTOPERATIVE DIAGNOSES: 1. Epigastric abdominal pain 2. History of gastric bypass OPERATION: 1. Robotic-assisted da Dwayne Xi laparoscopic with extensive lysis of adhesions over 1 hr ESTIMATED BLOOD LOSS: 20 mL. SPECIMENS REMOVED: None. COMPLICATIONS: None. OPERATIVE FINDINGS: 1. No ventral hernias identified. 2. Adhesions along the epigastrium, left upper quarant 3. Complete scarring of Pressley defect and jejunojejunostomy mesenteric defect 4. Abnormal adhesions of biliopancreatic limb jejunostomy to ban limb divided 5. Normal terminal ileum and cecum unremarkable. INDICATIONS: The patient is a 59-year-old male who presents with epigastric abdominal pain including left upper quadrant abdominal pain. Surgical interven tion with diagnostic laparoscopy, lysis of adhesions were described. Informed consent was obtained. Robotic assisted laparoscopic approach was described. Benefits and risks of the procedure including but not limited to bleeding, infection, injury to the small bowel was described. Informed consent was obtained. DESCRIPTION OF PROCEDURE: Patient was brought to the operating room, placed in supine position. After general induction, the abdomen had been prepped and draped in standard sterile fashion. The robotic da Dwayne XI system was primed. After a timeout protocol was performed, the patient had been prepped and draped in standard sterile fashion. The robot was docked along the right lateral abdomen. The patient was repositioned in with right side up. Please note prior to docking of the robot; however, a 5 mm 0 degrees laparoscopic trocar entry was performed along the left upper quadrant. The abdomen was insufflated to 15 mmHg pressure which she tolerated well. Diagnostic laparoscopy was performed. Next, three 8 mm robotic ports were placed along the right lateral abdominal wall. The camera 8-mm port was maintained along mid-lateral abdomen. Please note that the ports were placed at least 10 to 15 cm away from the target anatomy. Instruments including graspers and vessel sealer were interchanged by the life science research assistant. I had sat at the console. No evidence of incisional hernia was identified. The rest of the abdomen was unremarkable for small bowel pathology. The small bowel from the ban limb to distal ileum was inspected. The small bowel was investigated from the terminal ileum to the ligament of Treitz with finding of redundant mesentery with active small bowel volvulus involving the jejunum to the jejunojejunostomy mesenteric defect. Abnormal adhesions to the jejunojejunostomy was identified and divided. The mesentery small bowel volvulus were reduced. Adhesions along the epigastrium linvolving the transverse colon to the ban limb with an active internal hernia was lysed using vessel sealer. No herniation of bowel was found along the Pressley defect or jejunojejunostomy mesenteric defect. Adhesion of gastrojejunal anastomosis to the anterior abdominal wall was released. Moderate gaseous distention of sigmoid colon was identified with an active sigmoid volvulus similarly reduced secondary to highly redundant colon. The terminal ileum and cecum was unremarkable. Extensive lysis of adhesions over 1 hr was performed. The small bowel was viable.The robot was undocked. All pneumoperitoneum instruments were evacuated from the abdominal cavity. The incisions were reapproximated using 4-0 Monocryl in an interrupted subcuticular fashion. Please note along the trocar sites, local anesthetic was placed as a field block prior to insertion of all instruments. Exofin was applied to the skin. At the end of the procedure needle, sponge, and instrument count had been verified correct by the surgical aide. The patient was transferred to postanesthesia care unit in stable condition.
[2024-05-04] MEDS: FAMOTIDINE 20 MG/2 ML VIAL IV SCH (21:09)
[2024-05-04] MEDS: SUCRALFATE 1 GM TAB PO SCH (21:12)
[2024-05-04] MEDS: MONTELUKAST 10 MG TAB PO SCH (21:12)
[2024-05-04] MEDS: TAMSULOSIN 0.4 MG CAP.ER.24H PO STA (21:12)
[2024-05-04] MEDS: PANTOPRAZOLE 40 MG TABLET PO SCH (21:12)
[2024-05-05] MEDS ORDERED: ACETAMINOPHEN IV (For NPO) 1,000 MG in EMPTY BAG 1 BAG IVPB SCH
[2024-05-05] MEDS: TEMAZEPAM 15 MG CAP PO SCH (04:36)
[2024-05-05] MEDS: ONDANSETRON 4 MG/2 ML VIAL IVP SCH (05:31)
[2024-05-05] MEDS: ACETAMINOPHEN IV (For NPO) 1,000 MG in EMPTY BAG 1 BAG IVPB SCH (05:32)
[2024-05-05] MEDS: HYDROmorphone 1 MG/ML 1 ML SYRINGE IVP PRN (05:35)
[2024-05-05] MEDS: DEXAMETHASONE SOD PHOSPHATE 4 MG/ML 1 ML VIAL IVP SCH (05:50)
[2024-05-05 08:52] LABS: Blood Urea Nitrogen 8.7 mg/dL (9.0-27.0); Calcium 8.3 mg/dL (8.7-10.3); Carbon Dioxide 23.6 mmol/L (21.6-31.8); Chloride 103 mmol/L (96-109); Glucose 143 mg/dL (70-110); Potassium 4.4 mmol/L (3.5-5.5); Sodium 138 mmol/L (135-145)
[2024-05-05] MEDS: ENOXAPARIN 30 MG/0.3 ML SYRINGE SQ SCH (08:55)
[2024-05-05] MEDS: TAMSULOSIN 0.4 MG CAP.ER.24H PO SCH (08:55)
[2024-05-05] MEDS: IPRATROPIUM 0.5 MG/2.5 ML NEBU INHALATION SCH (09:09)
[2024-05-05] MEDS: SYMBICORT 160-4.5 MCG INHALER INHALATION SCH (09:09)
[2024-05-05] MEDS: FLUTICASONE NASAL 50MCG/SPRAY 16GM BTL EA NOSTRIL SCH (09:58)
[2024-05-05 13:37] VITALS: BP 179/85; RESP 20; TEMP 98.5
--- NOTE | 2024-05-05 15:05 | P.DS ---
Providers Date of admission: 05/04/24 14:16 Expected date of discharge: 05/05/24 Attending physician: Arielle Medeiros Primary care physician: Harjinder Almanzar Hospital Course: Discharge diagnosis 1. Epigastric abdominal pain 2. History of gastric bypass 3. Hypertension Hospital course This is a 59-year-old male who presented to the hospital with epigastric abdominal pain and left upper quadrant abdominal pain. He is status post robotic assisted laparoscopic extensive lysis of adhesions. He tolerated surgery well. His pain is controlled. He is tolerating diet. He is having flatus. He has been up and ambulating. He is afebrile. He is stable for discharge. Physician Tour Agent note has been reviewed by physician. Signing provider agrees with the documented findings, assessment, and plan of care. Patient Condition at Discharge: Stable Plan - Discharge Summary Discharge Rx Participant: Yes New Discharge Prescriptions: New Acetaminophen Tab [Tylenol] 1,000 mg PO Q6HR PRN #30 tablet PRN Reason: Pain Continue Montelukast Sodium [Singulair] 10 mg PO HS Albuterol Sulfate [Ventolin HFA] 2 puff INHALATION RT-Q4H PRN PRN Reason: Shortness Of Breath Or Wheezing NIFEdipine [NIFEdipine ER (Osmotic)] 60 mg PO DAILY Fluticasone Nasal [place] [Flonase Nasal [place]] 1 spray EA NOSTRIL DAILY Eszopiclone 3 mg PO HS Tiotropium 2.5 Mcg/Puff [Spiriva Respimat 2.5 Mcg] 1 puff INHALATION RT-DAILY Omeprazole [PriLOSEC] 40 mg PO BID Ipratropium-Albuterol Nebulize [Duoneb 0.5 mg-3 mg/3 ml Soln] 3 ml INHALATION RT-QID PRN PRN Reason: Shortness Of Breath Benzonatate [Tessalon Perle] 200 mg PO TID PRN PRN Reason: Cough modafiniL [Provigil] 200 mg PO DAILY Budesonide-Formot 160-4.5 Mcg [Symbicort 160-4.5 Mcg Inhaler] 2 puff INHALATION RT-BID Sildenafil Citrate 100 mg PO DAILY PRN PRN Reason: E.D traZODone HCL [Desyrel] 50 - 100 mg PO HS PRN PRN Reason: Insomnia Sucralfate [Carafate] 1 gm PO BID #60 tablet Folic Acid 1 mg PO DAILY Discontinued predniSONE See Taper PO DIRECTED Discharge Medication List Montelukast Sodium [Singulair] 10 mg PO HS 03/08/14 [History] Albuterol Sulfate [Ventolin HFA] 2 puff INHALATION RT-Q4H PRN 12/04/16 [History] NIFEdipine [NIFEdipine ER (Osmotic)] 60 mg PO DAILY 05/26/22 [History] Fluticasone Nasal [place] [Flonase Nasal [place]] 1 spray EA NOSTRIL DAILY 12/15/22 [History] modafiniL [Provigil] 200 mg PO DAILY 12/15/22 [History] Budesonide-Formot 160-4.5 Mcg [Symbicort 160-4.5 Mcg Inhaler] 2 puff INHALATION RT-BID 06/17/23 [History] Eszopiclone 3 mg PO HS 06/17/23 [History] Sildenafil Citrate 100 mg PO DAILY PRN 06/17/23 [History] traZODone HCL [Desyrel] 50 - 100 mg PO HS PRN 01/07/24 [History] Sucralfate [Carafate] 1 gm PO BID #60 tablet 01/11/24 [Rx] Tiotropium 2.5 Mcg/Puff [Spiriva Respimat 2.5 Mcg] 1 puff INHALATION RT-DAILY 04/27/24 [History] Benzonatate [Tessalon Perle] 200 mg PO TID PRN 05/04/24 [History] Folic Acid 1 mg PO DAILY 05/04/24 [History] Ipratropium-Albuterol Nebulize [Duoneb 0.5 mg-3 mg/3 ml Soln] 3 ml INHALATION RT-QID PRN 05/04/24 [History] Omeprazole [PriLOSEC] 40 mg PO BID 05/04/24 [History] Acetaminophen Tab [Tylenol] 1,000 mg PO Q6HR PRN #30 tablet 05/05/24 [Rx] Follow up Appointment(s)/Referral(s): Harjinder Almanzar MD [Primary Care Provider] - 1-2 days Arielle Medeiros MD [STAFF PHYSICIAN] - 05/10/24 Activity/Diet/Wound Care/Special Instructions: No lifting over 4 pounds in 4 weeks You May shower. No bath tub soaks for two weeks Avoid steak, tough meats and seeds such as raspberry seeds. Use Tylenol scheduled for the next 24-48 hours for best pain relief. Use ice along incisions for the today to prevent swelling. Recommend to not take prednisone until seen by surgeon in office Discharge Disposition: HOME SELF-CARE
[2024-05-05 16:14] VITALS: PULSE 76
== END 2024-05-05 17:17 | disposition home or self-care (01) ==
LOC: EC 10:05 → 6NMEDSUR 14:16 → 4SSUR 16:01
PROVIDERS: ADMIT Surgery Plastic and Reconstructive Surgery; ATTEND Surgery Plastic and Reconstructive Surgery
DX: R10.13 Epigastric pain (principal); R10.12 Left upper quadrant pain; K66.0 Peritoneal adhesions (postprocedural) (postinfection); E87.20 Acidosis, unspecified; E87.6 Hypokalemia; G89.18 Other acute postprocedural pain; I10 Essential (primary) hypertension; J45.909 Unspecified asthma, uncomplicated; G47.30 Sleep apnea, unspecified; I48.91 Unspecified atrial fibrillation; K21.9 Gastro-esophageal reflux disease without esophagitis; Z79.899 Other long term (current) drug therapy; Z79.51 Long term (current) use of inhaled steroids; Z79.52 Long term (current) use of systemic steroids; Z98.84 Bariatric surgery status; Z87.442 Personal history of urinary calculi; K56.2 Volvulus
CPT/HCPCS: 44180; S2900; 36415; 64999; 74177; 80048; 80053; 82150; 83605; 83690; 85025; 85652; 86140; 94640; 96361; 96365; 96372; 96375; 96376; 99285

== ENCOUNTER → 2024-05-11 | Outpatient (CLI) | payer MEDICAID ==
[2024-05-11 15:17] VITALS: BP 161/97; PULSE 88; RESP 16; TEMP 98; BMI 33.4
--- NOTE | 2024-05-11 15:54 | P.BASOAP ---
Subjective Progress Note Date: 05/11/24 His belly pain is gone. Has severe allergic reaction. Recommend decadron shot, daily x 2. Did well with glue. Objective - Vital Signs Vital signs: Vital Signs Temp 98 F 05/11/24 15:03 Pulse 88 05/11/24 15:03 Resp 16 05/11/24 15:03 BP 161/97 05/11/24 15:03 Pulse Ox FiO2 Intake & Output 05/10/24 05/11/24 05/11/24 18:59 06:59 18:59 Weight 105.687 kg Assessment/Plan Plan: Date: 05/11/24 Initial Weight: 163.52 kg Initial BMI: 51.7 Current Weight: 105.687 kg Current BMI: 33.4 Type of Surgery: Total Volume in Band: Previous Volume: Volume Removed: Volume Added: Band Size:
== END ==
LOC: BARWHC3 14:08
PROVIDERS: ATTEND Surgery Plastic and Reconstructive Surgery
DX: E66.01 Morbid (severe) obesity due to excess calories (principal); Z91.048 Other nonmedicinal substance allergy status; Z88.8 Allergy status to other drugs, medicaments and biological substances; Z88.0 Allergy status to penicillin; Z68.33 Body mass index [BMI] 33.0-33.9, adult
CPT/HCPCS: 99211

== ENCOUNTER 2024-09-13 20:03 | Inpatient (IN) | payer MEDICAID ==
[2024-09-13 21:23] LABS: Basophils % (A) 1 %; Eosinophils # (A) 0.1 k/uL (0-0.7); Eosinophils % (A) 2 %; HCT 47.3 % (39.0-53.0); HGB 16.3 gm/dL (13.0-17.5); Lymphocytes # (A) 1.1 k/uL (1.0-4.8); Lymphocytes % (A) 23 %; MCH 30.8 pg (25.0-35.0); MCHC 34.5 g/dL (31.0-37.0); MCV 89.3 fL (80.0-100.0); Mean Platelet Volume 6.8; Monocytes # (A) 0.5 k/uL (0-1.0); Monocytes % (A) 9 %; Neutrophils % (A) 62 %; Platelet Count 283 k/uL (150-450); RDW 13.5 % (11.5-15.5); WBC 4.9 k/uL (3.8-10.6)
[2024-09-13 21:33] LABS: ALT 33 U/L (4-49); AST 39 U/L (17-59); African American GFR (CKD) >90 (>60 ml/min/1.73 sqM); Albumin 4.5 g/dL (3.5-5.0); Alkaline Phosphatase 102 U/L (38-126); Anion Gap 12 mmol/L; Blood Urea Nitrogen 12 mg/dL (9-20); Calcium 9.4 mg/dL (8.4-10.2); Carbon Dioxide 27 mmol/L (22-30); Chloride 99 mmol/L (98-107); Glucose 131 mg/dL (74-99); Lipase 146 U/L (23-300); Non-African American GFR(CKD) >90 (>60 ml/min/1.73 sqM); Potassium 4.2 mmol/L (3.5-5.1); Sodium 138 mmol/L (137-145); Total Bilirubin 0.5 mg/dL (0.2-1.3); Total Protein 7.5 g/dL (6.3-8.2)
--- NOTE | 2024-09-13 21:36 | ED ---
General Adult HPI - General Chief complaint: Abdominal Pain Stated complaint: L Side pain Time Seen by Provider: 09/13/24 21:15 Source: patient Mode of arrival: ambulatory - History of Present Illness Initial comments: Patient is a pleasant 59 y/o male presenting today for LUQ pain x 2-3 days. Sharp and constant in nature. Rates 05/12. No pain meds drum filler. Endorses associated nausea but no episodes emesis. States typically has 2-3 stools a day and has not had a bowel movement for 3 days. Denies melena or hematochezia or diarrhea. States he has had multiple abdominal surgeries in the past with Dr. Medeiros, and has been told should he have any new abdominal pain he should go to the ER immediately for further assessment. Denies any fevers or chills prior to coming in this evening. No pain medications or antipyretics prior to arrival. Also notes that he has a history of kidney stones and recently completed treatment for urinary tract infection, completed 1 week of Keflex. Denies any dysuria, hematuria, urinary frequency or other UTI symptoms. Current pain does not feel like prior kidney stone. Also noted transient left-sided chest pain that he experienced last night at bedtime. It resolved spontaneously. Also notes cough congestion. No cardiac history though patient's father had heart attack at age 55. - Related Data Home Medications Medication Instructions Recorded Confirmed Montelukast Sodium [Singulair] 10 mg PO DAILY 03/08/14 09/14/24 NIFEdipine [NIFEdipine ER 60 mg PO DAILY 05/26/22 09/14/24 (Osmotic)] Fluticasone Nasal [place] [Flonase 1 spray EA NOSTRIL BID 12/15/22 09/14/24 Nasal [place]] modafiniL [Provigil] 200 mg PO DAILY PRN 12/15/22 09/14/24 Budesonide-Formot 160-4.5 Mcg 2 puff INHALATION RT-BID 06/17/23 09/14/24 [Symbicort 160-4.5 Mcg Inhaler] Sildenafil Citrate 100 mg PO DAILY PRN 06/17/23 09/14/24 Tiotropium 2.5 Mcg/Puff [Spiriva 1 puff INHALATION RT-BID 04/27/24 09/14/24 Respimat 2.5 Mcg] Folic Acid 1 mg PO DAILY 05/04/24 09/14/24 Omeprazole [PriLOSEC] 40 mg PO BID 05/04/24 09/14/24 Previous Rx's Medication Instructions Recorded Acetaminophen Tab [Tylenol] 1,000 mg PO Q6HR PRN #30 tablet 09/16/24 Allergies Allergy/AdvReac Type Severity Reaction Status Date / Time adhesive tape Allergy Rash/Hives Verified 09/14/24 08:38 alcohol Allergy Rash/Hives Verified 09/14/24 08:38 [From Mastisol Liquid Adhesive] gum mastic Allergy Rash/Hives Verified 09/14/24 08:38 [From Mastisol Liquid Adhesive] methyl salicylate Allergy Rash/Hives Verified 09/14/24 08:38 [From Mastisol Liquid Adhesive] storax Allergy Rash/Hives Verified 09/14/24 08:38 [From Mastisol Liquid Adhesive] Penicillins AdvReac Anaphylaxis Verified 09/14/24 08:38 Nnyyxza-FST-OwN Reductase AdvReac joint Pain Verified 09/14/24 08:38 Inhibitor [Ewgsuxk-Lbd-Npk Reductase Inhibitor] Surgical Glue Allergy Severe Rash/Hives Uncoded 09/13/24 20:11 Dermabond Allergy Rash/Hives Uncoded 09/13/24 20:11 Review of Systems ROS Statement: Those systems with pertinent positive or pertinent negative responses have been documented in the HPI. ROS Other: All systems not noted in ROS Statement are negative. Past Medical History Past Medical History: Atrial Fibrillation, Asthma, GERD/Reflux, Hypertension, Sleep Apnea/CPAP/BIPAP Additional Past Medical History / Comment(s): Hx Kidney stones, afib in past d/t hypokalemia after bariatric surgery-none since, bronchitis, uses CPAP. fx Rt fibula 03/2021, recent hx. gastric ulcers, twisted bowel 2022 History of Any Multi-Drug Resistant Organisms: None Reported Past Surgical History: Bariatric Surgery, Hernia Repair, Joint Replacement, Orthopedic Surgery, Tonsillectomy Additional Past Surgical History / Comment(s): Panniculectomy w/ ventral hernia repair, Liliana-en-Y, left knee surgery for torn meniscus, R knee arthroscopy, R bicep reattachment, sinus surgery x3, Lithotripsies w/ 2 kidney stones removed. LEFT SHOULDER SURGERY, left knee replaced recently, right knee replacement 12/02/22, bowel surgery 20[facility], lysis of adhesions 05/04/24 Past Anesthesia/Blood Transfusion Reactions: Motion Sickness, Postoperative Nausea & Vomiting (PONV) Past Psychological History: No Psychological Hx Reported Smoking Status: Never smoker Past Alcohol Use History: Occasional Past Drug Use History: None Reported - Past Family History Father Family Medical History: Cancer, Myocardial Infarction (ID) Additional Family Medical History / Comment(s): Prostate cancer. Mother Family Medical History: Pulmonary Embolus Additional Family Medical History / Comment(s): Mother is healthy and is 73 yrs old. General Exam - General Exam Comments Initial Comments: PE: CONSTITUTIONAL: [no apparent distress, well appearing] SKIN: [warm, dry, no jaundice, hives or petechiae] EYES:[ pupils are equally round, extraocular movements intact without nystagmus, clear conjunctiva, non-icteric sclera] HENT: [normocephalic, atraumatic, moist mucus membranes, oropharynx clear without exudates] NECK: , [Full range of motion, normal appearance] PULMONARY: [clear to auscultation without wheezes, rhonchi, or rales, normal excursion, no accessory muscle use and no stridor] CARDIOVASCULAR:[ regular rate, rhythm, normal S1 and S2. No appreciated murmurs, rubs or gallops. Strong radial pulses with intact distal perfusion. No lower extremity edema] GASTROINTESTINAL: [Distended, decreased bowel sounds throughout,TTP LUQ no palpable masses rebound or guarding ] GENITOURINARY: MUSCULOSKELETAL: [Extremities have no gross deformity, no edema, redness, or swelling. No calf swelling ] NEUROLOGIC: [_a/o x 3, GCS 15, normal mentation and speech. Moves all extremities x 4 without motor or sensory deficit] PSYCHIATRIC:[ _normal mood and affect, thought process is clear and linear] Course Vital Signs 09/13/24 09/13/24 09/14/24 20:07 22:29 01:34 Temperature 100.6 F H 99.1 F 97.8 F Pulse Rate 108 H 90 77 Respiratory 18 18 Rate Blood Pressure 146/91 153/94 146/81 O2 Sat by Pulse 97 94 L 94 L Oximetry 09/14/24 09/14/24 09/14/24 05:29 08:11 11:56 Temperature 98.4 F Pulse Rate 75 78 84 Respiratory 18 18 22 Rate Blood Pressure 153/95 146/91 140/84 O2 Sat by Pulse 96 95 94 L Oximetry 09/14/24 09/14/24 16:45 18:10 Temperature 99.1 F 98.7 F Pulse Rate 75 71 Respiratory 18 18 Rate Blood Pressure 156/82 160/91 O2 Sat by Pulse 98 96 Oximetry EKG Findings - EKG Comments: EKG Findings:: Sinus rhythm, rate 95 bpm HI interval 147 ms QRS duration 100 ms QT/QTc 338/391 ms, normal axis, no ST elevations or depressions no STEMI Medical Decision Making - Medical Decision Making Was pt. sent in by a medical professional or institution (, PA, [employer], urgent care, hospital, or fpc...) When possible be specific @ -No Did you speak to anyone other than the patient for history (EMS, parent, family, police, friend...)? What history was obtained from this source @ -No Did you review nursing and triage notes (agree or disagree)? Why? @ -I reviewed nursing and triage notes Were old charts reviewed (outside hosp., previous admission, EMS record, old EKG, old radiological studies, urgent care reports/EKG's, fpc records)? Report findings @ -Medical records reviewed patient had pretty presented on 05/04/2024 for similar symptoms, CT at that time showed no evidence of obstruction, however he was ultimately admitted to Dr. Medeiros and lysis of adhesions was performed during that admission Differential Diagnosis (chest pain, altered mental status, abdominal pain women, abdominal pain men, vaginal bleeding, weakness, fever, dyspnea, syncope, headache, dizziness, GI bleed, back pain, seizure, CVA, palpatations, mental health, musculoskeletal)? @Differential Abdominal Pain Men: Appendicitis, cholecystitis, diverticulosis, ischemic bowel, pancreatitis, hepatitis, UTI, gastroenteritis, AAA, incarcerated hernia, bowel obstruction, constipation, inflammatory bowel, hepatitis, peptic ulcer disease, splenic infarction, perforated viscus, testicular torsion, this is not meant to be an all-inclusive list EKG interpreted by me (3pts min.). @ -As above X-rays interpreted by me (1pt min.). @ -None done CT interpreted by me (1pt min.). @Possible bowel wall thickening around small bowel left upper quadrant abdomen, no volvulus, obstruction, or free fluid or free air indicating perforation U/S interpreted by me (1pt. min.). @ -None done What testing was considered but not performed or refused? (CT, X-rays, U/S, labs)? Why? @ -None What meds were considered but not given or refused? Why? @ -None Did you discuss the management of the patient with other professionals (professionals i.e. DrGia, PA, [employer], lab, RT, psych nurse, social work lecturer, control panel builder, teacher, engineering officer, manager case management)? Give summary Case was discussed w/ Dr. Vasquez, radiology after reviewing CT scan, Dr. Vasquez kindly discussed with me findings in the left upper quadrant of the abdomen on CT scan, after further discussion and review he notes this area is concerning for possible ileus or early small bowel obstruction, which fits patient's clinical presentation Was smoking cessation discussed for >3mins.? @ -No Was critical care preformed (if so, how long)? @ -No Were there social determinants of health that impacted care today? How? (Homelessness, low income, unemployed, alcoholism, drug addiction, transportation, low edu. Level, literacy, decrease access to med. care, senior living, rehab)? @ -No Was there de-escalation of care discussed even if they declined (Discuss DNR or withdrawal of care, Hospice)? @ -No What co-morbidities impacted this encounter? (DM, HTN, Smoking, COPD, CAD, Cancer, CVA, ARF, Chemo, Hep., AIDS, mental health diagnosis, sleep apnea, morbid obesity)? @Multiple prior abdominal surgeries, A-fib, hypertension, GERD Was patient admitted / discharged? Hospital course, mention meds given and route, prescriptions, significant lab abnormalities, going to OR and other pertinent info. @Admission- Patient is a pleasant 59 y/o male, PMH A-fib, asthma, GERD, hypertension, multiple prior abdominal surgeries presenting today for sharp left upper quadrant pain x 3 days. Patient febrile on arrival with temp 100.6, tachycardic, patient pulse ox within acceptable limits. Patient initially seen and assessed in waiting room due to beds full in the main ER, I obtain patient's permission to discuss his presentation today and performed brief physical exam in waiting room. Patient agreeable. Exam significant for abdominal distention with decreased bowel sounds throughout. Largest concern is bowel obstruction, definite additional differential as above discussed with pt plan for pain control, T abdomen pelvis, IV fluids, blood culture lactic antibiotics due to patient meeting SIRS criteria, urinalysis. CT with possible early small bowel obstruction. Case discussed with Dr. Meza, recommends admission, NPO, NG tube, antibiotics, admit under Dr. Medeiros. Updated pt to findings and plan for admission, NG tube. Pt agreeable with POC. Admitted in stable condition. Undiagnosed new problem with uncertain prognosis? @ -No Drug Therapy requiring intensive monitoring for toxicity (Heparin, Nitro, Insulin, Cardizem)? @ -No Were any procedures done? @ -No Diagnosis/symptom? @Small bowel obstruction Acute, or Chronic, or Acute on Chronic? acute Uncomplicated (without systemic symptoms) or Complicated (systemic symptoms)? @complicated Side effects of treatment? @ -No Exacerbation, Progression, or Severe Exacerbation? @ -No Poses a threat to life or bodily function? How? (Chest pain, [place], ID, pneumonia, PE, COPD, DKA, ARF, appy, cholecystitis, CVA, Diverticulitis, Homicidal, Suicidal, threat to staff... and all critical care pts) @Yes if left untreated result in sepsis, perforation and - Lab Data Result diagrams: 09/13/24 21:11 09/13/24 21:11 Lab Results 09/13/24 09/13/24 09/13/24 Range/Units 21:11 21:11 21:11 WBC 4.9 (3.8-10.6) k/uL RBC 5.30 (4.30-5.90) m/uL Hgb 16.3 (13.0-17.5) gm/dL Hct 47.3 (39.0-53.0) % MCV 89.3 (80.0-100.0) fL MCH 30.8 (25.0-35.0) pg MCHC 34.5 (31.0-37.0) g/dL RDW 13.5 (11.5-15.5) % Plt Count 283 (150-450) k/uL MPV 6.8 Neutrophils % 62 % Lymphocytes % 23 % Monocytes % 9 % Eosinophils % 2 % Basophils % 1 % Neutrophils # 3.0 (1.3-7.7) k/uL Lymphocytes # 1.1 (1.0-4.8) k/uL Monocytes # 0.5 (0-1.0) k/uL Eosinophils # 0.1 (0-0.7) k/uL Basophils # 0.0 (0-0.2) k/uL PT (10.0-12.5) sec INR (<1.2) APTT (22.0-30.0) sec Sodium 138 (137-145) mmol/L Potassium 4.2 (3.5-5.1) mmol/L Chloride 99 (98-107) mmol/L Carbon Dioxide 27 (22-30) mmol/L Anion Gap 12 mmol/L BUN 12 (9-20) mg/dL Creatinine 0.78 (0.66-1.25) mg/dL Est GFR (CKD-EPI)AfAm >90 (>60 ml/min/1.73 sqM) Est GFR (CKD-EPI)NonAf >90 (>60 ml/min/1.73 sqM) Glucose 131 H (74-99) mg/dL Plasma Lactic Acid Tristin (0.7-2.0) mmol/L Calcium 9.4 (8.4-10.2) mg/dL Total Bilirubin 0.5 (0.2-1.3) mg/dL AST 39 (17-59) U/L ALT 33 (4-49) U/L Alkaline Phosphatase 102 (38-126) U/L Troponin I (0.000-0.034) ng/mL Total Protein 7.5 (6.3-8.2) g/dL Albumin 4.5 (3.5-5.0) g/dL Lipase 146 (23-300) U/L Urine Color Yellow Urine Appearance Clear (Clear) Urine pH 5.5 (5.0-8.0) Ur Specific [place] 1.029 (1.001-1.035) Urine Protein 1+ H (Negative) Urine Glucose (UA) Negative (Negative) Urine Ketones Trace H (Negative) Urine Blood Negative (Negative) Urine Nitrite Negative (Negative) Urine Bilirubin Negative (Negative) Urine Urobilinogen 2.0 (<2.0) mg/dL Ur Leukocyte Esterase Negative (Negative) Urine RBC <1 (0-5) /hpf Urine WBC <1 (0-5) /hpf Ur Squamous Epith Cells <1 (0-4) /hpf Urine Mucus Rare H (None) /hpf Influenza Type A (PCR) (Not Detectd) Influenza Type B (PCR) (Not Detectd) RSV (PCR) (Not Detectd) SARS-CoV-2 (PCR) (Not Detectd) Blood Type Blood Type Recheck Bld Type Recheck Status Antibody Screen Spec Expiration Date 09/13/24 09/13/24 09/13/24 Range/Units 21:11 21:56 22:01 WBC (3.8-10.6) k/uL RBC (4.30-5.90) m/uL Hgb (13.0-17.5) gm/dL Hct (39.0-53.0) % MCV (80.0-100.0) fL MCH (25.0-35.0) pg MCHC (31.0-37.0) g/dL RDW (11.5-15.5) % Plt Count (150-450) k/uL MPV Neutrophils % % Lymphocytes % % Monocytes % % Eosinophils % % Basophils % % Neutrophils # (1.3-7.7) k/uL Lymphocytes # (1.0-4.8) k/uL Monocytes # (0-1.0) k/uL Eosinophils # (0-0.7) k/uL Basophils # (0-0.2) k/uL PT 10.2 (10.0-12.5) sec INR 0.9 (<1.2) APTT 22.5 (22.0-30.0) sec Sodium (137-145) mmol/L Potassium (3.5-5.1) mmol/L Chloride (98-107) mmol/L Carbon Dioxide (22-30) mmol/L Anion Gap mmol/L BUN (9-20) mg/dL Creatinine (0.66-1.25) mg/dL Est GFR (CKD-EPI)AfAm (>60 ml/min/1.73 sqM) Est GFR (CKD-EPI)NonAf (>60 ml/min/1.73 sqM) Glucose (74-99) mg/dL Plasma Lactic Acid [place] 1.6 (0.7-2.0) mmol/L Calcium (8.4-10.2) mg/dL Total Bilirubin (0.2-1.3) mg/dL AST (17-59) U/L ALT (4-49) U/L Alkaline Phosphatase (38-126) U/L Troponin I (0.000-0.034) ng/mL Total Protein (6.3-8.2) g/dL Albumin (3.5-5.0) g/dL Lipase (23-300) U/L Urine Color Urine Appearance (Clear) Urine pH (5.0-8.0) Ur Specific [place] (1.001-1.035) Urine Protein (Negative) Urine Glucose (UA) (Negative) Urine Ketones (Negative) Urine Blood (Negative) Urine Nitrite (Negative) Urine Bilirubin (Negative) Urine Urobilinogen (<2.0) mg/dL Ur Leukocyte Esterase (Negative) Urine RBC (0-5) /hpf Urine WBC (0-5) /hpf Ur Squamous Epith Cells (0-4) /hpf Urine Mucus (None) /hpf Influenza Type A (PCR) (Not Detectd) Influenza Type B (PCR) (Not Detectd) RSV (PCR) (Not Detectd) SARS-CoV-2 (PCR) (Not Detectd) Blood Type B Positive Blood Type Recheck B Pos Bld Type Recheck Status No Antibody Screen NEGATIVE Spec Expiration Date 09/16/2024 - 235509/13/24 09/13/24 Range/Units 22:01 22:01 WBC (3.8-10.6) k/uL RBC (4.30-5.90) m/uL Hgb (13.0-17.5) gm/dL Hct (39.0-53.0) % MCV (80.0-100.0) fL MCH (25.0-35.0) pg MCHC (31.0-37.0) g/dL RDW (11.5-15.5) % Plt Count (150-450) k/uL MPV Neutrophils % % Lymphocytes % % Monocytes % % Eosinophils % % Basophils % % Neutrophils # (1.3-7.7) k/uL Lymphocytes # (1.0-4.8) k/uL Monocytes # (0-1.0) k/uL Eosinophils # (0-0.7) k/uL Basophils # (0-0.2) k/uL PT (10.0-12.5) sec INR (<1.2) APTT (22.0-30.0) sec Sodium (137-145) mmol/L Potassium (3.5-5.1) mmol/L Chloride (98-107) mmol/L Carbon Dioxide (22-30) mmol/L Anion Gap mmol/L BUN (9-20) mg/dL Creatinine (0.66-1.25) mg/dL Est GFR (CKD-EPI)AfAm (>60 ml/min/1.73 sqM) Est GFR (CKD-EPI)NonAf (>60 ml/min/1.73 sqM) Glucose (74-99) mg/dL Plasma Lactic Acid Tristin (0.7-2.0) mmol/L Calcium (8.4-10.2) mg/dL Total Bilirubin (0.2-1.3) mg/dL AST (17-59) U/L ALT (4-49) U/L Alkaline Phosphatase (38-126) U/L Troponin I <0.012 (0.000-0.034) ng/mL Total Protein (6.3-8.2) g/dL Albumin (3.5-5.0) g/dL Lipase (23-300) U/L Urine Color Urine Appearance (Clear) Urine pH (5.0-8.0) Ur Specific [place] (1.001-1.035) Urine Protein (Negative) Urine Glucose (UA) (Negative) Urine Ketones (Negative) Urine Blood (Negative) Urine Nitrite (Negative) Urine Bilirubin (Negative) Urine Urobilinogen (<2.0) mg/dL Ur Leukocyte Esterase (Negative) Urine RBC (0-5) /hpf Urine WBC (0-5) /hpf Ur Squamous Epith Cells (0-4) /hpf Urine Mucus (None) /hpf Influenza Type A (PCR) Not Detected (Not Detectd) Influenza Type B (PCR) Not Detected (Not Detectd) RSV (PCR) Not Detected (Not Detectd) SARS-CoV-2 (PCR) Detected A (Not Detectd) Blood Type Blood Type Recheck Bld Type Recheck Status Antibody Screen Spec Expiration Date Disposition Clinical Impression: Small bowel obstruction Disposition: ADMITTED IP TO THIS [facility] Condition: Stable
[2024-09-13 21:47] LABS: Appearance,Urine Clear (Clear); Bilirubin,Urine Negative (Negative); Blood,Urine Negative (Negative); Color,Urine Yellow; Glucose,Urine (UA) Negative (Negative); Ketones,Urine Trace (Negative); Leukocyte Esterase,Urine Negative (Negative); Mucus,Urine Rare /hpf; Nitrite,Urine Negative (Negative); PH, Urine 5.5 (5.0-8.0); Protein,Urine 1+ (Negative); RBC,Urine <1 /hpf (0-5); Specific Gravity,Urine 1.029 (1.001-1.035); Squamous Epithelial Cell,Urine <1 /hpf (0-4); WBC,Urine <1 /hpf (0-5)
--- NOTE | 2024-09-13 21:54 | XR ---
EXAMINATION TYPE: XR chest 2V DATE OF EXAM: 09/13/2024 9:46 PM COMPARISON: 02/09/2020 CLINICAL INDICATION: Male, 59 years old with history of LUQ pain, rhonchi bilat LLL luna, TECHNIQUE: XR chest 2V view(s) obtained. FINDINGS: The heart size is normal. The pulmonary vasculature is normal. The lungs are clear. IMPRESSION: 1. No acute pulmonary process. [facility], Workstation: [facility], 09/13/2024 9:52 PM
--- NOTE | 2024-09-13 22:04 | CT ---
EXAMINATION TYPE: CT abdomen pelvis w con DATE OF EXAM: 09/13/2024 9:49 PM COMPARISON: 05/04/2024 CLINICAL INDICATION: Male, 59 years old with history of LUQ pain, hx multiple ab surgeries, Patient i s coming to facility with complaints of L sided pain. Patient states he is being treated currently fo r a UTI and kidney stones. Panniculectomy w/ ventral hernia repair, Liliana-en-Y Lithotripsies w/ 2 kidn ey stones removed. bowel surgery 2022[facility] [place], lysis of adhesions 05/04/24 TECHNIQUE: Axial images were obtained from above the diaphragm to the pubic rami in the axial plane a t 5 mm thick sections. Reconstructed images are reviewed on the computer in the coronal plane. CONTRAST: 100ml mL of Isovue 300. Study performed without Oral Contrast DLP: 1826.5 mGycm, Automated exposure control for dose reduction was used. FINDINGS: Limited CT sections are obtained the lung bases. The lung bases are clear. CT ABDOMEN: Gastric sleeve the stomach is evident. Small hiatal hernia is present. Liver: Ill-defined hypodensity measuring 2.4 cm in the anterior lateral right mid liver present previ ously. Spleen: Normal Pancreas: Normal Adrenal glands: The adrenal glands are normal. Gallbladder: Not identified Kidneys: No masses are evident. No hydronephrosis is present. Cortical renal cysts on the left kidn ey. Punctate nonobstructing calcification at the inferior pole left kidney cannot be excluded this ap pears to be present previously Delayed images were obtained through the kidneys, which remain unremar kable. Aorta: Vascular calcification is within the aorta. Inferior vena cava: Normal. CT PELVIS: Loops of bowel within the abdomen and pelvis are normal. There are a few diverticula present without evidence of acute diverticulitis. This study is without oral contrast limiting bowel evaluation. Appendix: Normal as visualized. Urinary bladder: Normal. Genitourinary structures: Prostate is prominent. Osseous structures: No suspicious lytic or sclerotic lesions. IMPRESSION: 1. Mild diverticulosis without acute diverticulitis. 2. Punctate nonobstructing renal stone inferior pole left kidney. 3. Stable appearing ill-defined hypodensity within the right lobe liver. 4. Small hiatal hernia [facility], Workstation: [facility], 09/13/2024 10:02 PM
[2024-09-13] MEDS: SODIUM CHLORIDE 0.9% 2,000 ML IV STA (22:05)
[2024-09-13] MEDS: ONDANSETRON 4 MG/2 ML VIAL IVP STA (22:06)
[2024-09-13] MEDS: KETOROLAC 15 MG/ML 1 ML VIAL IVP STA (22:11)
[2024-09-13] MEDS: MORPHINE SULFATE 4 MG/ML SYRINGE IVP STA (22:13)
[2024-09-13] MEDS: ACETAMINOPHEN IV (For NPO) 1,000 MG in EMPTY BAG 1 BAG IVPB STA (22:23)
[2024-09-13] MEDS ORDERED: MIDAZOLAM 2 MG/2 ML VIAL IV PRN (22:40)
[2024-09-13] MEDS ORDERED: ONDANSETRON 4 MG/2 ML VIAL IVP PRN (22:56)
[2024-09-13] MEDS ORDERED: NALOXONE 0.4 MG/ML 1 ML VIAL IV PRN (22:56)
[2024-09-13] MEDS ORDERED: HYDROmorphone 0.5 MG/0.5 ML SYRINGE IVP PRN (22:56)
[2024-09-13 23:02] LABS: INR 0.9 (<1.2); Partial Thromboplastin Time 22.5 sec (22.0-30.0); Prothrombin Time 10.2 sec (10.0-12.5)
[2024-09-13] MEDS: HYDROmorphone 1 MG/ML 1 ML SYRINGE IVP STA (23:20)
[2024-09-13 23:27] LABS: Influenza A Not Detected (Not Detectd); Influenza B Not Detected (Not Detectd); RSV Not Detected (Not Detectd)
[2024-09-13] MEDS: CEFEPIME 2 GM in SODIUM CHLORIDE 0.9% 100 ML IVPB STA (23:53)
[2024-09-14] MEDS: metroNIDAZOLE-NS PMX 500 MG in SALINE 1 100ML.BAG IVPB SCH (01:15)
[2024-09-14] MEDS: HYDROmorphone 1 MG/ML 1 ML SYRINGE IVP PRN (01:35)
[2024-09-14] MEDS: DEXTROSE 5%-0.45% NACL 1,000 ML IV SCH (01:50)
--- NOTE | 2024-09-14 02:01 | XR ---
EXAM: XR Chest, 1 View CLINICAL HISTORY: ITS.REASON XR Reason: Line placement TECHNIQUE: Frontal view of the chest. COMPARISON: No relevant prior studies available. FINDINGS: Lungs: Unremarkable. No consolidation. Pleural space: Unremarkable. No pneumothorax. Heart: Unremarkable. No cardiomegaly. Mediastinum: Unremarkable. Bones/joints: Unremarkable. Tubes, lines and devices: Feeding tube terminates in the stomach. IMPRESSION: No acute findings in the chest.
[2024-09-14] MEDS ORDERED: ACETAMINOPHEN IV (For NPO) 1,000 MG in EMPTY BAG 1 BAG IVPB PRN (04:00)
[2024-09-14] MEDS ORDERED: ALBUTEROL HFA INHALER INHALATION PRN (08:36)
[2024-09-14] MEDS: ALBUTEROL HFA INHALER INHALATION SCH (11:30)
[2024-09-14] MEDS: SYMBICORT 160-4.5 MCG INHALER INHALATION SCH (11:30)
[2024-09-14] MEDS: TIOTROPIUM 2.5 MCG INHALER INHALATION SCH (11:30)
--- NOTE | 2024-09-14 11:44 | P.GSHP ---
History of Present Illness H&P Date: 09/14/24 CHIEF COMPLAINT: Abdominal pain HISTORY OF PRESENT ILLNESS: This is a 59-year-old male who presented to the hospital with complaints of left-sided abdominal pain that started about 3 to 4 days ago. Patient reports that pain was very sharp on the left side as well as a burning sensation. It felt like his previous experience with a volvulus. And at that time he required surgery and that was about 2 years ago. He has been having nausea no vomiting. Last bowel movement was about 3 days ago. He reports decreased appetite. Denies any flatus. Patient has had multiple abdominal surgeries including a prior lysis of adhesions, panniculectomy and Liliana-en-Y gastric bypass. Patient had a CT scan abdomen pelvis completed that reported a mild partial small bowel obstruction could be considered. They initially placed an NG tube. But due to the history of the Liliana-en-Y gastric bypass NG tube has been removed. Patient also reports having a cough he has had a low-grade temp. He is positive for COVID. He does report shortness of breath and does take inhalers at home with history of asthma. PAST MEDICAL HISTORY: See list. PAST SURGICAL HISTORY: See list. MEDICATIONS: See list. ALLERGIES: See list. SOCIAL HISTORY: No illicit drug use. REVIEW OF SYSTEMS: CONSTITUTIONAL: Denies fever or chills. HEENT: Denies blurred vision, vision changes, or eye pain. Denies hemoptysis ENDOCRINE: Denies heat or cold intolerance. CARDIOVASCULAR: Denies chest pain or pressure. RESPIRATORY: No shortness of breath. GASTROINTESTINAL: NEURO: Denies history of seizures. PSYCH: No depression or suicidal ideation HEMATOLOGIC: Denies bleeding disorders. LYMPHATIC: The patient denies any lumps and bumps around the neck. GENITOURINARY: Denies any blood in urine or increased urinary frequency. MUSCULOSKELETAL: Denies myalgias. Denies joint swelling. Denies decreased range of motion beyond patients baseline. SKIN: Denies pruitis. Denies rash. PHYSICAL EXAM: VITAL SIGNS: Reviewed GENERAL: Well-developed in no acute distress. HEENT: No sclera icterus. Extraocular movements grossly intact. Moist buccal mucosa. Head is atraumatic, normocephalic. Hears conversational speech. No nasal drainage. NECK: Supple without lymphadenopathy. CHEST: Non-labored respirations and equal bilateral excursions. CARDIOVASCULAR: Palpable 2+ radial pulses. ABDOMEN: Soft. Nondistended. Tenderness with palpation of the left-sided abdomen. More tender in the left lower quadrant. No rebound or guarding noted. MUSCULOSKELETAL: No clubbing or cyanosis. NEUROLOGIC: No focal or lateralizing signs. Cranial nerves II through XII grossly intact. PSYCH: Appropriate affect. Alert and oriented to person, place and time. SKIN: Well perfused. Good skin turgor. LABORATORY DATA: WBC 4.9 Hgb 16.3 platelets 283 Sodium 138 potassium 4.2 creatinine 0.78 Lactic acid 1.6 LFTs normal lipase 146 troponin normal COVID-19 positive IMAGING: CT scan abdomen pelvis reports mild partial small bowel obstruction could be considered. Adhesions or postsurgical change could be potential etiology. Focal ileus is within the differential. Adhesions with a narrowed colon without additional signs for obstruction. Mild diverticulosis without acute diverticulitis kidney stone left kidney. Hypodensity within the right lower lobe of the liver. Small hiatal hernia. ASSESSMENT: 1. Possible partial small bowel obstruction 2. Abdominal adhesions 3. COVID-19 positive 4. Prior abdominal surgeries 5. Prior sigmoid volvulus PLAN: -Patient scheduled for Robotic lysis of adhesions tomorrow, 09/15/[address] Medeiros -Keep patient n.p.o. -Discontinue NG tube at this time due to patient with history of Liliana-en-Y gastric bypass -Pulmonary service consulted due to patient's history of asthma and is COVID- positive Physician Assembler Final note has been reviewed by physician. Signing provider agrees with the documented findings, assessment, and plan of care. Please see additional documentation per MD. CHIEF COMPLAINT: Bowel obstruction HISTORY OF PRESENT ILLNESS: The patient is a 59 year old male with pre-existing history of multiple bowel obstructions requiring exploratory laparotomy. He reports the pain is worse. He complains of moderate to severe left upper quadrant abdominal pain. He has persisting history of volvulus. Reports no passage of flatus. Patient also presents with fevers and recent diagnosed with COVID. PAST MEDICAL HISTORY: See list and reviewed PAST SURGICAL HISTORY: See list and reviewed MEDICATIONS: See list and reviewed ALLERGIES: See list and reviewed SOCIAL HISTORY: See list and reviewed FAMILY HISTORY: See list and reviewed REVIEW OF ORGAN SYSTEMS: CONSTITUTIONAL: Has fevers. Gastric bypass over 100 pounds. EYES: Denies any trouble with vision. No glasses. HEENT: No difficulties with hearing. No nosebleeds. No difficulty swallowing. RESPIRATORY: Has obstructive sleep apnea. Has chronic obstructive pulmonary disease. CARDIOVASCULAR: Has atrial fibrillation. Has hypertensive heart disease. GASTROINTESTINAL: Has gastroesophageal reflux disease. History of gastric ulcers. History of small bowel obstruction. Has postop nausea and vomiting. GENITOURINARY: Denies any blood in urine or increased urinary frequency. NEUROLOGICAL: Denies any numbness or tingling along the distal extremities. No seizure disorders or headaches. MUSCULOSKELETAL: Has back pain, stiffness or joint arthritis. History of multiple joint replacements. Has psoriasis. SKIN: No current skin cancer. No rash. PSYCHIATRIC: Denies current depression or suicidal thoughts. ENDOCRINE: Denies current thyroid disorders. Denies any blood sugar glucose intolerance. HEME/LYMPHATIC: Denies any lumps and bumps around the neck. No recent deep venous thrombosis. ALLERGY/IMMUNOLOGY: No immunoglobulin therapy. No immune deficiencies. BREAST: Denies current breast lumps, pain or nipple discharge. PHYSICAL EXAM: VITALS: Reviewed CONSTITUTIONAL: Well developed and in no acute distress. EYES: Conjuctivae without sclera icterus. Extraocular movements grossly intact. HEAD, EARS, NOSE, THROAT: Moist buccal mucosa. Head is atraumatic, normocepha lic. Hears conversational speech. No nasal drainage. NECK: Supple. No JV distention. No thyroidomegaly. RESPIRATORY: Non-labored respirations and equal bilateral excursions. No gross wheezes. CARDIOVASCULAR: Palpable 2+ radial pulses. ABDOMEN: Tender left upper quadrant left-sided. Has peritonitis. LYMPH: No neck lymphadenopathy. MUSCULOSKELETAL: No clubbing cyanosis or edema SKIN: Warm and well perfused with good skin turgor. NEUROLOGIC: Cranial nerves II through XII grossly intact. No focal or lateralizing signs. PSYCH: Appropriate affect. Alert and oriented to person, place and time. Displays appropriate insight. CLINCAL LABS: Reviewed. WBC within normals. COVID-positive. IMAGING: Independently reviewed. CT of the abdomen pelvis independent review demonstrates diverticulosis. Small bowel aggregated in the left side of the abdomen. No free air. No enteritis or colitis identified. This is my independent interpretation. RADIOLOGY: Report reviewed. CT of the abdomen pelvis independently reviewed demonstrating ileus versus small bowel obstruction per report. ASSESSMENT: 1. Intractable left upper quadrant abdominal pain 2. Small bowel obstruction per CT 3. History of gastric bypass 4. Obesity to excess calories, BMI 34.4 5. COVID-pneumonia PLAN: 1. IV fluid hydration. 2. Pulmonary consultation due to pre-existing chronic obstructive pulmonary disease and active COVID pneumonia 3. Due to pre-existing history of bowel obstruction, surgical intervention described 4. Patient is elevated risk due to active COVID-pneumonia 5. Nasogastric tube not necessary due to history of gastric bypass ADVANCE DIRECTIVE: CODE STATUS in chart Past Medical History Past Medical History: Atrial Fibrillation, Asthma, GERD/Reflux, Hypertension, Sleep Apnea/CPAP/BIPAP Additional Past Medical History / Comment(s): Hx Kidney stones, afib in past d/t hypokalemia after bariatric surgery-none since, bronchitis, uses CPAP. fx Rt fibula 03/2021, recent hx. gastric ulcers, twisted bowel 2022 History of Any Multi-Drug Resistant Organisms: None Reported Past Surgical History: Bariatric Surgery, Hernia Repair, Joint Replacement, Orthopedic Surgery, Tonsillectomy Additional Past Surgical History / Comment(s): Panniculectomy w/ ventral hernia repair, Liliana-en-Y, left knee surgery for torn meniscus, R knee arthroscopy, R bicep reattachment, sinus surgery x3, Lithotripsies w/ 2 kidney stones removed. LEFT SHOULDER SURGERY, left knee replaced recently, right knee replacement 12/02/22, bowel surgery [facility], lysis of adhesions 05/04/24 Past Anesthesia/Blood Transfusion Reactions: Motion Sickness, Postoperative Nausea & Vomiting (PONV) Past Psychological History: No Psychological Hx Reported Smoking Status: Never smoker Past Alcohol Use History: Occasional Past Drug Use History: None Reported - Past Family History Father Family Medical History: Cancer, Myocardial Infarction ([place]) Additional Family Medical History / Comment(s): Prostate cancer. Mother Family Medical History: Pulmonary Embolus Additional Family Medical History / Comment(s): Mother is healthy and is 73 yrs old. Medications and Allergies Home Medications Medication Instructions Recorded Confirmed Type RX: Montelukast Sodium [Singulair] 10 mg PO DAILY 03/08/14 09/21/24 History RX: NIFEdipine [NIFEdipine ER 60 mg PO DAILY 05/26/22 09/21/24 History (Osmotic)] RX: Fluticasone Nasal [place] 1 spray EA NOSTRIL BID 12/15/22 09/21/24 History [Flonase Nasal [place]] RX: modafiniL [Provigil] 200 mg PO DAILY PRN 12/15/22 09/21/24 History RX: Budesonide-Formot 160-4.5 Mcg 2 puff INHALATION RT-BID 06/17/23 09/21/24 History [Symbicort 160-4.5 Mcg Inhaler] RX: Sildenafil Citrate 100 mg PO DAILY PRN 06/17/23 09/21/24 History RX: Tiotropium 2.5 Mcg/Puff 1 puff INHALATION RT-BID 04/27/24 09/21/24 History [Spiriva Respimat 2.5 Mcg] RX: Folic Acid 1 mg PO DAILY 05/04/24 09/21/24 History RX: Omeprazole [PriLOSEC] 40 mg PO BID 05/04/24 09/21/24 History RX: Acetaminophen Tab [Tylenol] 1,000 mg PO Q6HR PRN #30 tablet 09/16/24 09/21/24 Rx Allergies Allergy/AdvReac Type Severity Reaction Status Date / Time adhesive tape Allergy Rash/Hives Verified 09/21/24 17:24 alcohol Allergy Rash/Hives Verified 09/21/24 17:24 [From Mastisol Liquid Adhesive] gum mastic Allergy Rash/Hives Verified 09/21/24 17:24 [From Mastisol Liquid Adhesive] methyl salicylate Allergy Rash/Hives Verified 09/21/24 17:24 [From Mastisol Liquid Adhesive] storax Allergy Rash/Hives Verified 09/21/24 17:24 [From Mastisol Liquid Adhesive] Penicillins AdvReac Anaphylaxis Verified 09/21/24 17:24 Rlxnuwb-EXV-VwP Reductase AdvReac joint Pain Verified 09/21/24 17:24 Inhibitor [Lqckvhe-Uhg-Bdo Reductase Inhibitor] Surgical Glue Allergy Severe Rash/Hives Uncoded 09/21/24 17:24 Dermabond Allergy Rash/Hives Uncoded 09/21/24 17:24 Surgical - Exam Vital Signs Temp Pulse Resp BP Pulse Ox 100.6 F H 108 H 18 146/91 97 09/13/24 20:07 09/13/24 20:07 09/13/24 20:07 09/13/24 20:07 09/13/24 20:07 Results - Labs 09/13/24 21:11 09/13/24 21:11 Abnormal Lab Results - Last 24 Hours (Table) 09/13/24 09/13/24 09/13/24 Range/Units 21:11 21:11 22:01 Glucose 131 H (74-99) mg/dL Urine Protein 1+ H (Negative) Urine Ketones Trace H (Negative) Urine Mucus Rare H (None) /hpf SARS-CoV-2 (PCR) Detected A (Not Detectd) Diabetes panel 09/13/24 Range/Units 21:11 Sodium 138 (137-145) mmol/L Potassium 4.2 (3.5-5.1) mmol/L Chloride 99 (98-107) mmol/L Carbon Dioxide 27 (22-30) mmol/L BUN 12 (9-20) mg/dL Creatinine 0.78 (0.66-1.25) mg/dL Glucose 131 H (74-99) mg/dL Calcium 9.4 (8.4-10.2) mg/dL AST 39 (17-59) U/L ALT 33 (4-49) U/L Alkaline Phosphatase 102 (38-126) U/L Total Protein 7.5 (6.3-8.2) g/dL Albumin 4.5 (3.5-5.0) g/dL Calcium panel 09/13/24 Range/Units 21:11 Calcium 9.4 (8.4-10.2) mg/dL Albumin 4.5 (3.5-5.0) g/dL Pituitary panel 09/13/24 Range/Units 21:11 Sodium 138 (137-145) mmol/L Potassium 4.2 (3.5-5.1) mmol/L Chloride 99 (98-107) mmol/L Carbon Dioxide 27 (22-30) mmol/L BUN 12 (9-20) mg/dL Creatinine 0.78 (0.66-1.25) mg/dL Glucose 131 H (74-99) mg/dL Calcium 9.4 (8.4-10.2) mg/dL Adrenal panel 09/13/24 Range/Units 21:11 Sodium 138 (137-145) mmol/L Potassium 4.2 (3.5-5.1) mmol/L Chloride 99 (98-107) mmol/L Carbon Dioxide 27 (22-30) mmol/L BUN 12 (9-20) mg/dL Creatinine 0.78 (0.66-1.25) mg/dL Glucose 131 H (74-99) mg/dL Calcium 9.4 (8.4-10.2) mg/dL Total Bilirubin 0.5 (0.2-1.3) mg/dL AST 39 (17-59) U/L ALT 33 (4-49) U/L Alkaline Phosphatase 102 (38-126) U/L Total Protein 7.5 (6.3-8.2) g/dL Albumin 4.5 (3.5-5.0) g/dL
[2024-09-14] MEDS: methylPREDNISolone SOD SUCCI 125 MG/2 ML VIAL IV SCH (11:58)
--- NOTE | 2024-09-14 12:17 | P.CNPUL ---
History of Present Illness Consult date: 09/14/24 Requesting physician: Harjinder Almanzar Reason for consult: dyspnea, cough, asthma, hypoxemia, other Chief complaint: Shortness of breath, abdominal pain. History of present illness: Pulmonary consult dated September 14, 2024. 59-year-old male who presented to the emergency department, on September 13, 2024, at about 8 PM, complaining of abdominal pain, in the left upper quadrant, for 2 to 3 days. The pain was described as being sharp and constant. The patient was having nausea, but no emesis. The patient has also been constipated for the last 3 days. The patient has had multiple abdominal procedures in the past, including a Liliana-en-Y procedure, done for obesity. The patient was going to be followed by surgery. We were consulted, because the patient does have a history of asthma, and for the last couple of days prior to admission, his asthma has been more active. He is typically on albuterol, Spiriva, and Symbicort at home, but does not see a lung doctor. Currently, he is seen in ER room #28. The patient did apparently test positive for coronavirus. His room air saturations are 95%. He complains of coughing, shortness of breath, and wheezing. He is not coughing up any phlegm. We will check a procalcitonin level. He is currently on Flagyl and Rocephin, primarily for his abdominal issues. Current laboratory data includes a white count 4.9, hemoglobin 16.3, hematocrit 47.3, and a normal platelet count. Coagulation studies were normal. Comprehensive metabolic profile for the most part was normal. Glucose was 131. Troponin was negative. Urine had 1+ protein, and trace ketones. He did test positive for coronavirus. Chest x-ray showed nothing acute. Review of Systems REVIEW OF SYSTEMS: CONSTITUTIONAL: [Negative.] NEUROLOGIC: [ Negative.] HEENT: [ Negative.] CARDIAC: [Negative.] PULMONARY: Shortness of breath, cough, wheezing. GI: Nausea, abdominal pain. : [Negative.] RHEUMATOLOGIC: [ Negative.] IMMUNOLOGIC: [ Negative.] ENDOCRINE: [Negative. ] DERMATOLOGIC: [Negative.] Past Medical History Past Medical History: Atrial Fibrillation, Asthma, GERD/Reflux, Hypertension, Sleep Apnea/CPAP/BIPAP Additional Past Medical History / Comment(s): Hx Kidney stones, afib in past d/t hypokalemia after bariatric surgery-none since, bronchitis, uses CPAP. fx Rt fibula 03/2021, recent hx. gastric ulcers, twisted bowel 2022 History of Any Multi-Drug Resistant Organisms: None Reported Past Surgical History: Bariatric Surgery, Hernia Repair, Joint Replacement, Orthopedic Surgery, Tonsillectomy Additional Past Surgical History / Comment(s): Panniculectomy w/ ventral hernia repair, Liliana-en-Y, left knee surgery for torn meniscus, R knee arthroscopy, R bicep reattachment, sinus surgery x3, Lithotripsies w/ 2 kidney stones removed. LEFT SHOULDER SURGERY, left knee replaced recently, right knee replacement 12/02/22, bowel surgery [facility], lysis of adhesions 05/04/24 Past Anesthesia/Blood Transfusion Reactions: Motion Sickness, Postoperative Nausea & Vomiting (PONV) Past Psychological History: No Psychological Hx Reported Smoking Status: Never smoker Past Alcohol Use History: Occasional Past Drug Use History: None Reported - Past Family History Father Family Medical History: Cancer, Myocardial Infarction ([place]) Additional Family Medical History / Comment(s): Prostate cancer. Mother Family Medical History: Pulmonary Embolus Additional Family Medical History / Comment(s): Mother is healthy and is 73 yrs old. Medications and Allergies Home Medications Medication Instructions Recorded Confirmed Type Montelukast Sodium [Singulair] 10 mg PO DAILY 03/08/14 09/14/24 History NIFEdipine [NIFEdipine ER 60 mg PO DAILY 05/26/22 09/14/24 History (Osmotic)] Fluticasone Nasal [place] [Flonase 1 spray EA NOSTRIL BID 12/15/22 09/14/24 Hist ory Nasal [place]] modafiniL [Provigil] 200 mg PO DAILY PRN 12/15/22 09/14/24 History Budesonide-Formot 160-4.5 Mcg 2 puff INHALATION RT-BID 06/17/23 09/14/24 History [Symbicort 160-4.5 Mcg Inhaler] Sildenafil Citrate 100 mg PO DAILY PRN 06/17/23 09/14/24 History Tiotropium 2.5 Mcg/Puff [Spiriva 1 puff INHALATION RT-BID 04/27/24 09/14/24 History Respimat 2.5 Mcg] Folic Acid 1 mg PO DAILY 05/04/24 09/14/24 History Omeprazole [PriLOSEC] 40 mg PO BID 05/04/24 09/14/24 History Meloxicam [Mobic] 7.5 mg PO BID 09/14/24 09/14/24 History Allergies Allergy/AdvReac Type Severity Reaction Status Date / Time adhesive tape Allergy Rash/Hives Verified 09/14/24 08:38 alcohol Allergy Rash/Hives Verified 09/14/24 08:38 [From Mastisol Liquid Adhesive] gum mastic Allergy Rash/Hives Verified 09/14/24 08:38 [From Mastisol Liquid Adhesive] methyl salicylate Allergy Rash/Hives Verified 09/14/24 08:38 [From Mastisol Liquid Adhesive] storax Allergy Rash/Hives Verified 09/14/24 08:38 [From Mastisol Liquid Adhesive] Penicillins AdvReac Anaphylaxis Verified 09/14/24 08:38 Ofmskcj-ALX-OjD Reductase AdvReac joint Pain Verified 09/14/24 08:38 Inhibitor [Xdadaqn-Kqr-Vql Reductase Inhibitor] Surgical Glue Allergy Severe Rash/Hives Uncoded 09/13/24 20:11 Dermabond Allergy Rash/Hives Uncoded 09/13/24 20:11 Physical Exam Osteopathic Statement: *. No significant issues noted on an osteopathic structural exam other than those noted in the History and Physical/Consult. Vitals: Vital Signs Temp Pulse Resp BP Pulse Ox 09/14/24 11:56 84 22 140/84 94 L 09/14/24 08:11 98.4 F 78 18 146/91 95 09/14/24 05:29 75 18 153/95 96 09/14/24 01:34 97.8 F 77 146/81 94 L 09/13/24 22:29 99.1 F 90 18 153/94 94 L 09/13/24 20:07 100.6 F H 108 H 18 146/91 97 Intake and Output 09/13/24 09/14/24 09/14/24 22:59 06:59 14:59 Other: Weight 108.862 kg No acute distress, oriented 3. Mild respiratory distress. Frequent coughing fits. HEENT examination is grossly unremarkable. Mucous membranes are moist. No oral lesions. Neck supple. Full range of motion. No adenopathy thyromegaly or neck vein distention. Cardiovascular examination reveals regular rhythm rate. S1-S2 normal. No S3 or S4. No discernible murmur noted. Heart sounds are distant. Lungs reveal expiratory wheezes and rhonchi. No crackles. Breath sounds equal. Abdomen soft, but obese. No bowel sounds. Well-healed scar is noted. Extremities are intact. No cyanosis clubbing or edema. Skin is without rash or lesion. Neurologic examination is brief but nonfocal. Results - Laboratory Findings CBC and BMP: 09/13/24 21:11 09/13/24 21:11 PT/INR, D-dimer PT 10.2 sec (10.0-12.5) 09/13/24 22: INR 0.9 (<1.2) 09/13/24 22:01 Abnormal lab findings: Abnormal Labs 09/13/24 09/13/24 09/13/24 21:11 21:11 22:01 Glucose 131 H Urine Protein 1+ H Urine Ketones Trace H Urine Mucus Rare H SARS-CoV-2 (PCR) Detected A - Diagnostic Findings Chest x-ray: image reviewed Assessment and Plan Assessment: Abdominal pain, suggesting partial small bowel obstruction, and adhesions, with a narrow colon. Acute asthma exacerbation. History of atrial fibrillation. History of hypertension. History of sleep apnea syndrome. History of gastroesophageal reflux disease. History of kidney stones. Prior history of Liliana-en-Y bypass procedure, for obesity. Plan: Plan dated September 14, 2024. The patient was seen in the emergency department, room 28. The patient will be placed on albuterol, Spiriva, Symbicort, and Solu-Medrol. All labs, x-rays, and medications are reviewed. We will continue to follow the patient, make recomme ndations along the way. 75 minutes was spent with this patient, including the interview of the patient, examination ablation, reviewing pertinent laboratory data, x-rays, and medications, as well as discussing the diagnosis, treatment, and prognosis, with the patient, and the patient's bedside nurse. We will await input, from surgery, as to what the plans are, in regards to his possible small bowel obstruction. He may have adhesions, causing issues, relating to his prior history of Liliana-en-Y procedure, for obesity. Prognosis is guarded. Dictation was produced using [employer] software. Please excuse any grammatical, word or spelling errors. Time with Patient: Greater than 30
--- NOTE | 2024-09-15 14:21 | P.PN ---
Subjective Progress Note Date: 09/15/24 59-year-old male who presented to the emergency department, on September 13, 2024, at about 8 PM, complaining of abdominal pain, in the left upper quadrant, for 2 to 3 days. The pain was described as being sharp and constant. The patient was having nausea, but no emesis. The patient has also been constipated for the last 3 days. The patient has had multiple abdominal procedures in the past, including a Liliana-en-Y procedure, done for obesity. The patient was going to be followed by surgery. We were consulted, because the patient does have a history of asthma, and for the last couple of days prior to admission, his asthma has been more active. He is typically on albuterol, Spiriva, and Symbicort at home, but does not see a lung doctor. Currently, he is seen in ER room #28. The patient did apparently test positive for coronavirus. His room air saturations are 95%. He complains of coughing, shortness of breath, and wheezing. He is not coughing up any phlegm. We will check a procalcitonin level. He is currently on Flagyl and Rocephin, primarily for his abdominal issues. Current laboratory data includes a white count 4.9, hemoglobin 16.3, hematocrit 47.3, and a normal platelet count. Coagulation studies were normal. Comprehensive metabolic profile for the most part was normal. Glucose was 131. Troponin was negative. Urine had 1+ protein, and trace ketones. He did test po sitive for coronavirus. Chest x-ray showed nothing acute. The patient is seen today September 15, 2024 in follow-up on the regular medical floor. He is currently sitting up in bed. Awake and alert in no acute distress. Feeling quite a bit better today compared to yesterday. Less bronchospastic and wheezing. He was found to have a mild partial small bowel obstruction and the plan is for lysis of adhesions possibly today. Procalcitonin was negative at 0.07. He is positive for COVID-19. He is continued on Symbicort, Spiriva, albuterol, Solu-Medrol. Antibiotics in the form of ceftriaxone and Flagyl. Objective - Vital Signs Vital signs: Vital Signs Temp 97.9 F 09/15/24 07:19 Pulse 67 09/15/24 09:16 Resp 19 09/15/24 09:16 BP 148/89 09/15/24 07:19 Pulse Ox 95 09/15/24 07:19 FiO2 Intake & Output 09/14/24 09/15/24 09/15/24 18:59 06:59 18:59 Weight 108.862 kg Other: # Voids 3 - Exam GENERAL EXAM: Alert, pleasant 59-year-old male, room air, comfortable in no apparent distress. HEAD: Normocephalic. EYES: Normal reaction of pupils, equal size. NOSE: Clear with pink turbinates. THROAT: No erythema or exudates. NECK: No masses, no JVD. CHEST: No chest wall deformity. LUNGS: Equal air entry with bilateral end expiratory wheeze, diminished. CVS: S1 and S2 normal with no audible murmur, regular rhythm. ABDOMEN: No hepatosplenomegaly, normal bowel sounds, no guarding or rigidity. SPINE: No scoliosis or deformity SKIN: No rashes CENTRAL NERVOUS SYSTEM: No focal deficits, tone is normal in all 4 extremities. EXTREMITIES: There is no peripheral edema. No clubbing, no cyanosis. Peripheral pulses are intact. - Labs CBC & Chem 7: 09/13/24 21:11 09/13/24 21:11 Labs: Microbiology - Last 24 Hours (Table) 09/13/24 22:01 Blood Culture - Preliminary Blood Assessment and Plan Assessment: Abdominal pain, suggesting partial small bowel obstruction, and adhesions, with a narrow colon. Plan is for robotic lysis of adhesions today Acute asthma exacerbation History of atrial fibrillation History of hypertension History of sleep apnea syndrome History of gastroesophageal reflux disease History of kidney stones Prior history of Liliana-en-Y bypass procedure, for obesity Plan: The patient was seen and evaluated Labs and medications reviewed Plan is for surgery today Stable and on room air Continue bronchodilators, steroids Continue ceftriaxone and Flagyl We will continue to follow I have personally seen and examined the patient, performed the documentation and the assessment and plan as written. Number of minutes spent on the visit: 20 Dictation was produced using [employer] dictation software. Please excuse any grammatical, word or spelling errors.
--- NOTE | 2024-09-15 14:38 | P.PN ---
Subjective Progress Note Date: 09/15/24 CHIEF COMPLAINT: Bowel obstruction HISTORY OF PRESENT ILLNESS: The patient is a 59-year-old male who reports obstipation, intractable left lower quadrant abdominal pain in the presence of gastric bypass. He has pre-existing history of bowel obstructions requiring past exploratory laparotomy. Patient reports persistent pain this morning and reports no passage of flatus. ROS: No reports of nausea and vomiting. No bowel movements. No fevers or chills. No new chest pain. No productive sputum PHYSICAL EXAM: VITAL SIGNS: Reviewed CONSTITUTIONAL: Well developed and in no acute distress. EYES: Conjuctivae without sclera icterus. Extraocular movements grossly intact. HEAD, EARS, NOSE, THROAT: Moist buccal mucosa. Head is atraumatic, normocephalic. Hears conversational speech. No nasal drainage. RESPIRATORY: Non-labored respirations and equal bilateral excursions. CARDIOVASCULAR: Palpable 2+ radial pulses. ABDOMEN: Tender left lower quadrant. MUSCULOSKELETAL: No gross deformity of the lower extremities noted. No clubbing. No cyanosis. SKIN: Good skin turgor. Well perfused. NEUROLOGIC: Cranial nerves II through XII grossly intact. No focal or lateralizing signs. PSYCH: Appropriate affect. Alert and oriented to person, place and time. CLINICAL LABS: Reviewed. COVID-positive. Procalcitonin normal. ASSESSMENT: 1. Intractable left lower quadrant abdominal pain with history of bowel obstruction 2. COVID-positive PLAN: 1. Robotic lysis adhesions described 2. Patient elevated risk for complications due to concurrent COVID-positive status in the presence of asthma Objective - Vital Signs Vital signs: Vital Signs Temp 97.9 F 09/15/24 07:19 Pulse 67 09/15/24 09:16 Resp 19 09/15/24 09:16 BP 148/89 09/15/24 07:19 Pulse Ox 95 09/15/24 07:19 FiO2 Intake & Output 09/14/24 09/15/24 09/15/24 18:59 06:59 18:59 Weight 108.862 kg Other: # Voids 3 - Labs CBC & Chem 7: 09/13/24 21:11 09/13/24 21:11 Labs: Microbiology - Last 24 Hours (Table) 09/13/24 22:01 Blood Culture - Preliminary Blood
[2024-09-15] MEDS ORDERED: KETAMINE HCL IN 0.9 % NACL 50 MG/5 ML SYRINGE ONE (14:50)
[2024-09-15] MEDS ORDERED: HYDROmorphone (PF) 1 MG/ML ONE (14:50)
[2024-09-15] MEDS ORDERED: DEXAMETHASONE SOD PHOSPHATE 4 MG/ML 1 ML VIAL ONE (14:50)
[2024-09-15] MEDS ORDERED: HEPARIN SODIUM,PORCINE 5,000 UNIT/ML 1 ML VIAL ONE (14:50)
[2024-09-15] MEDS ORDERED: PROPOFOL 10 MG/ML 20 ML VIAL IV ONE (14:50)
[2024-09-15] MEDS ORDERED: ROCURONIUM 10 MG/ML (5 ML VIAL) IV ONE (14:50)
[2024-09-15] MEDS ORDERED: fentaNYL (PF) 50 MCG/ML 2 ML AMP ONE (14:50)
[2024-09-15] MEDS ORDERED: GLYCOPYRROLATE 0.2 MG/ML 2 ML VIAL ONE (14:50)
[2024-09-15] MEDS: LACTATED RINGERS 1,000 ML IV ONE ×2 (14:50→16:09)
[2024-09-15] MEDS ORDERED: NEOSTIGMINE 1 MG/ML 10 ML VIAL ONE (14:50)
[2024-09-15] MEDS ORDERED: diphenhydrAMINE 50 MG/ML 1 ML VIAL ONE (14:50)
[2024-09-15] MEDS ORDERED: LIDOCAINE 1% INJ 10MG/ML (20 ML MDV) ONE (14:50)
[2024-09-15] MEDS ORDERED: ONDANSETRON 4 MG/2 ML VIAL ONE (14:50)
[2024-09-15] MEDS ORDERED: SUCCINYLCHOLINE CHLORIDE 200 MG/10 ML VIAL IV ONE (14:50)
[2024-09-15] MEDS: LIDOCAINE 1%-EPI 1:100,000 20 ML VIAL SQ ONE (15:35)
[2024-09-15] MEDS ORDERED: METOCLOPRAMIDE 5 MG/ML 2 ML VIAL IVP PRN (16:16)
[2024-09-15] MEDS: KETOROLAC 15 MG/ML 1 ML VIAL IVP PRN (21:17)
[2024-09-16 03:19] VITALS: RESP 18
--- NOTE | 2024-09-16 06:16 | P.OP ---
Date of Procedure: 09/15/24 Description of Procedure: SURGEON: PANDA MORENO MD PREOPERATIVE DIAGNOSES: 1. Small bowel obstruction with intractable abdominal pain 2. History of small bowel obstruction 3. Obesity due to excess calories, BMI 34.4 4. Hypertensive heart disease 5. Atrial fibrillation 6. COVID-pneumonia 7. Chronic obstructive pulmonary disease due to asthma 8. Psoriatic arthritis 9. Gastroesophageal reflux disease 10. History of kidney stones 11. Postop nausea vomiting 12. History of multiple drug allergies 13. Motion sickness POSTOPERATIVE DIAGNOSES: 1. Intractable abdominal pain due to adhesions 2. History of small bowel obstruction 3. Obesity due to excess calories, BMI 34.4 4. Hypertensive heart disease 5. Atrial fibrillation 6. COVID-pneumonia 7. Chronic obstructive pulmonary disease due to asthma 8. Psoriatic arthritis 9. Gastroesophageal reflux disease 10. History of kidney stones 11. Postop nausea vomiting 12. History of multiple drug allergies 13. Motion sickness 14. History of small bowel obstruction OPERATION: 1. Robotic-assisted da Dwayne Xi laparoscopic with extensive lysis of adhesions ESTIMATED BLOOD LOSS: 5 mL. SPECIMENS REMOVED: None. COMPLICATIONS: None. OPERATIVE FINDINGS: 1. No ventral hernias identified. 2. Peritoneal adhesions at left upper/left lower quadrant consistent with patient's location of pain 3. No abdominal adhesions jejunojejunostomy 4. Adhesion left lower quadrant excised. 5. Multiple interloop adhesions at gastrojejunostomy lysed. 6. No volvulus. 7. No recurrent internal hernia. 8. 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 INDICATIONS: The patient is a 59-year-old male who presents with intractable abdominal pain including diagnostic studies for bowel obstruction. Surgical intervention with diagnostic laparoscopy, lysis of adhesions were described. Informed consent was obtained. Robotic assisted laparoscopic approach was described. Benefits and risks of the procedure including but not limited to bleeding, infection, injury to the small bowel was described. Informed consent was obtained. DESCRIPTION OF PROCEDURE: Patient was brought to the operating room, placed in supine position. After general induction, the abdomen had been prepped and draped in standard sterile fashion. The robotic da Dwayne XI system was primed. After a timeout protocol was performed, the patient had been prepped and draped in standard sterile fashion. The robot was docked along the right lateral abdomen. The patient was repositioned in with right side up. Please note prior to docking of the robot; however, a 5 mm 0 degrees laparoscopic trocar entry was performed along the left upper quadrant. The abdomen was insufflated to 15 mmHg pressure which she tolerated well. Diagnostic laparoscopy was performed. Next, three 8 mm robotic ports were placed along the right lateral abdominal wall. The camera 8-mm port was maintained along mid-lateral abdomen. Please note that the ports were placed at least 10 to 15 cm away from the target anatomy. Instruments including graspers and vessel sealer were interchanged by the marketing operations assistant. I had sat at the console. No incisional hernia was identified. The rest of the abdomen was unremarkable for small bowel pathology. The small bowel from the ban limb to distal ileum was inspected. Abnormal adhesions to the jejunojejunostomy was identified and divided. Along the left lower quadrant, omental adhesions to abdominal wall was found. Adhesions were addressed using vessel sealer. Adhesion left lower quadrant was excised. Multiple interloop adhesions at gastrojejunostomy were lysed. No volvulus was found. No recurrent internal hernia was found. Long appendix was found along the right lower quadrant. Some adhesions were found along the jejunojejunostomy with adhesions removed with vessel sealer. No herniation of bowel was found along the [place] defect or jejunojejunostomy mesenteric defect. The terminal ileum and cecum was unremarkable. The small bowel was viable.The robot was undocked. All pneumoperitoneum instruments were evacuated from the abdominal cavity. The incisions were reapproximated using 4-0 Monocryl in an interrupted subcuticular fashion. Please note along the trocar sites, local anesthetic was placed as a field block prior to insertion of all instruments. Exofin was applied to the skin. At the end of the procedure needle, sponge, and instrument count had been verified correct by the medical supply technician. The patient was transferred to postanesthesia care unit in stable condition. called on phone.
[2024-09-16] MEDS: PANTOPRAZOLE 40 MG/10 ML VIAL IV SCH (08:33)
[2024-09-16] MEDS: ENOXAPARIN 40 MG/0.4 ML SYRINGE SQ SCH (08:33)
--- NOTE | 2024-09-16 09:23 | P.DS ---
Providers Date of admission: 09/13/24 22:58 Expected date of discharge: 09/16/24 Attending physician: Arielle Medeiros Consults: 09/14/24 08:35 Consult Physician Urgent Consulting Provider: Jatinder Kingston Consult Reason/Comments: hx Asthma/COVID positive Do you want consulting provider notified?: Yes Primary care physician: Harjinder Almanzar Hospital Course: Discharge diagnosis 1. Small bowel obstruction status post lysis of adhesions 2. COVID-19 positive Hospital course The patient is a 59-year-old male who presents with intractable abdominal pain including diagnostic studies for bowel obstruction. Patient is status post Robotic assisted da Dwayne laparoscopic extensive lysis of adhesions. Patient tolerated surgery well. Pain is controlled. He is tolerating diet. He is having flatus. He has been up and ambulating. He denies any difficulty urinating. He is afebrile. He is stable for discharge. Physician Cleaner And Dyer note has been reviewed by physician. Signing provider agrees with the documented findings, assessment, and plan of care. Please see additional documentation per MD POSTOPERATIVE DIAGNOSES: 1. Intractable abdominal pain due to adhesions 2. History of small bowel obstruction 3. Obesity due to excess calories, BMI 34.4 4. Hypertensive heart disease 5. Atrial fibrillation 6. COVID-pneumonia 7. Chronic obstructive pulmonary disease due to asthma 8. Psoriatic arthritis 9. Gastroesophageal reflux disease 10. History of kidney stones 11. Postop nausea vomiting 12. History of multiple drug allergies 13. Motion sickness 14. History of small bowel obstruction COURSE: The patient is a 59-year-old male who presents with intractable abdominal pain including diagnostic studies for bowel obstruction. after surgical intervention, patient abdominal pain had resolved. Close outpatient follow-up with the bariatric center described. Procedures: OPERATION: 1. Robotic-assisted da Dwayne Xi laparoscopic with extensive lysis of adhesions ESTIMATED BLOOD LOSS: 5 mL. SPECIMENS REMOVED: None. COMPLICATIONS: None. OPERATIVE FINDINGS: 1. No ventral hernias identified. 2. Peritoneal adhesions at left upper/left lower quadrant consistent with patient's location of pain 3. No abdominal adhesions jejunojejunostomy 4. Adhesion left lower quadrant excised. 5. Multiple interloop adhesions at gastrojejunostomy lysed. 6. No volvulus. 7. No recurrent internal hernia. 8. 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 Patient Condition at Discharge: Stable Plan - Discharge Summary Discharge Rx Participant: No New Discharge Prescriptions: New RX: Acetaminophen Tab [Tylenol] 1,000 mg PO Q6HR PRN #30 tablet PRN Reason: Pain Continue RX: Montelukast Sodium [Singulair] 10 mg PO DAILY RX: NIFEdipine [NIFEdipine ER (Osmotic)] 60 mg PO DAILY RX: Fluticasone Nasal [place] [Flonase Nasal [place]] 1 spray EA NOSTRIL BID RX: Tiotropium 2.5 Mcg/Puff [Spiriva Respimat 2.5 Mcg] 1 puff INHALATION RT- BID RX: Omeprazole [PriLOSEC] 40 mg PO BID RX: modafiniL [Provigil] 200 mg PO DAILY PRN PRN Reason: alertness RX: Budesonide-Formot 160-4.5 Mcg [Symbicort 160-4.5 Mcg Inhaler] 2 puff INHALATION RT-BID RX: Sildenafil Citrate 100 mg PO DAILY PRN PRN Reason: E.D RX: Folic Acid 1 mg PO DAILY Discontinued Meloxicam [Mobic] 7.5 mg PO BID Discharge Medication List RX: Montelukast Sodium [Singulair] 10 mg PO DAILY 03/08/14 [History] RX: NIFEdipine [NIFEdipine ER (Osmotic)] 60 mg PO DAILY 05/26/22 [History] RX: Fluticasone Nasal [place] [Flonase Nasal [place]] 1 spray EA NOSTRIL BID 12/15/22 [History] RX: modafiniL [Provigil] 200 mg PO DAILY PRN 12/15/22 [History] RX: Budesonide-Formot 160-4.5 Mcg [Symbicort 160-4.5 Mcg Inhaler] 2 puff INHALATION RT-BID 06/17/23 [History] RX: Sildenafil Citrate 100 mg PO DAILY PRN 06/17/23 [History] RX: Tiotropium 2.5 Mcg/Puff [Spiriva Respimat 2.5 Mcg] 1 puff INHALATION RT-BID 04/27/24 [History] RX: Folic Acid 1 mg PO DAILY 05/04/24 [History] RX: Omeprazole [PriLOSEC] 40 mg PO BID 05/04/24 [History] RX: Acetaminophen Tab [Tylenol] 1,000 mg PO Q6HR PRN #30 tablet 09/16/24 [Rx] Follow up Appointment(s)/Referral(s): Harjinder Almanzar MD [Primary Care Provider] - 1-2 days [place], [place] [NON-STAFF] - 09/21/24 3:00 pm Activity/Diet/Wound Care/Special Instructions: No lifting over 4 pounds in 4 weeks You May shower. No bath tub soaks for two weeks Use Tylenol scheduled for the next 24-48 hours for best pain relief. Use ice along incisions for the today to prevent swelling. Discharge Disposition: HOME SELF-CARE
[2024-09-16 09:25] VITALS: BP 128/82; PULSE 82; TEMP 97.8
== END 2024-09-16 10:23 | disposition home or self-care (01) | DRG 335 ==
LOC: EC 20:03 → 4SSUR 22:58
PROVIDERS: ADMIT Surgery Plastic and Reconstructive Surgery; ATTEND Surgery Plastic and Reconstructive Surgery
PROC: 8E0W4CZ Robotic Assisted Procedure of Trunk Region, Percutaneous Endoscopic Approach (ICD-10-PCS; 2024-09-15)
PROC: 0DN84ZZ Release Small Intestine, Percutaneous Endoscopic Approach (ICD-10-PCS; principal; 2024-09-15 10:25)
DX: K91.89 Other postprocedural complications and disorders of digestive system (principal); J12.82 Pneumonia due to coronavirus disease 2019; U07.1 COVID-19; K56.51 Intestinal adhesions [bands], with partial obstruction; J45.901 Unspecified asthma with (acute) exacerbation; J44.0 Chronic obstructive pulmonary disease with (acute) lower respiratory infection; L40.50 Arthropathic psoriasis, unspecified; Z68.34 Body mass index [BMI] 34.0-34.9, adult; I10 Essential (primary) hypertension; I48.91 Unspecified atrial fibrillation; E66.09 Other obesity due to excess calories; R09.02 Hypoxemia; Z79.1 Long term (current) use of non-steroidal anti-inflammatories (NSAID); Z79.51 Long term (current) use of inhaled steroids; Z79.899 Other long term (current) drug therapy; Z86.16 Personal history of COVID-19; Z87.11 Personal history of peptic ulcer disease; Z87.442 Personal history of urinary calculi; Z98.84 Bariatric surgery status; Z96.651 Presence of right artificial knee joint; Z91.048 Other nonmedicinal substance allergy status; Y84.8 Other medical procedures as the cause of abnormal reaction of the patient, or of later complication, without mention of misadventure at the time of the procedure; K21.9 Gastro-esophageal reflux disease without esophagitis; Z88.9 Allergy status to unspecified drugs, medicaments and biological substances; Z82.49 Family history of ischemic heart disease and other diseases of the circulatory system; T75.3XXA Motion sickness, initial encounter; X58.XXXA Exposure to other specified factors, initial encounter
CPT/HCPCS: 36415; 71045; 71046; 74177; 80053; 81001; 83605; 83690; 84145; 84484; 85025; 85610; 85730; 86850; 86900; 86901; 87040; 87636; 93005; 94640; 96361; 96365; 96366; 96367; 96375; 96376; 99285